=== PATIENT | female | born 1975 | race Caucasian/White ===

== ENCOUNTER 2020-04-01 14:32 | Emergency (ER) | payer BC, SELFPAY ==
[2020-04-01 14:39] VITALS: BP 166/105; PULSE 74; RESP 18; TEMP 36.6; O2SAT 100
[2020-04-01 15:09] LABS: Abs Immature Grans 0.07 10^3/uL (0.0-0.06); Absolute Basophil Count 0.05 10^3/uL (0.0-0.2); Absolute Eosinophil Count 0.23 10^3/uL (0.0-0.7); Absolute Lymphocyte Count 2.31 10^3/uL (1.2-3.4); Absolute Monocyte Count 0.57 10^3/uL (0.1-0.8); Absolute Neutrophil Count 6.18 10^3/uL (1.2-6.7); Basophils % 0.5; Eosinophils % 2.4; HCT 41.6 % (36.0-46.0); HGB 13.8 g/dL (11.2-15.7); Immature Grans % 0.7; Lymphocytes % 24.5; MCH 30.4 pg (27.0-33.0); MCHC 33.2 % (32.0-36.0); MCV 91.6 fL (80-95); MPV 9.3 fL (8.0-11.0); Monocytes % 6.1; Neutrophils % 65.8; Nucleated RBC 0 %; Platelet Count 454 10^3/uL (130-400); RBC 4.54 10^6/uL (3.93-5.22); RDW 12.9 % (11.7-14.6); RDW-SD 43.4 fL; WBC 9.41 10^3/uL (4.4-10.8)
[2020-04-01] MEDS: Normal Saline 1,000 ML 1000 ML IV (15:10)
[2020-04-01 15:29] LABS: Lipase 114 U/L (73-393)
[2020-04-01 15:35] LABS: ALT 59 U/L (14-59); AST 86 U/L (15-37); Albumin 4.3 g/dL (3.4-5.0); Alkaline Phosphatase 131 U/L (46-116); Anion Gap 8.8 mmol/L (3-11); BUN 14 mg/dL (7-18); Bilirubin, Total 0.4 mg/dL (0.2-1.0); CO2 28.2 mmol/L (21.0-32.0); CREATININE 0.86 mg/dL (0.55-1.02); Calcium 9.7 mg/dL (8.5-10.1); Chloride 100 mmol/L (98-107); Glucose 96 mg/dL (74-106); Potassium 3.5 mmol/L (3.5-5.1); Sodium 137 mmol/L (136-145)
--- NOTE | 2020-04-01 15:58 | ED.GENADUL_ITS ---
Discharge Plan Disposition Patient Disposition: HOME Condition: Stable Discharge Details Clinical Impression: Exacerbation of Crohn's disease Primary Care Provider: Marleni Gallagher ED Provider: Francois Fall Home Meds and New Rx's Prescriptions: Continued venlafaxine 75 MG capsule,extended release 24hr 75 mg PO DAILY Qty: 90 RF: 3 venlafaxine [Effexor XR] 150 MG capsule,extended release 24hr 150 mg PO DAILY Qty: 90 RF: 3 dicyclomine 20 MG tablet 20 mg PO QID PRN PRN (Reason: pain and spasm) Qty: 20 RF: 0 valacyclovir 1 gram tablet 1 mg PO DAILY RF: 0 Discharge Instructions Instructions: Crohn Disease (ED) Additional Instructions: Work-up in the ER has been unremarkable for obvious emergent process. You responded nicely to the single dose of medication and are now pain-free. Please watch for new or worsening symptoms and return to the ER for any concerns. I recommend that you take your current medications as directed. Please contact your primary care provider later today or tomorrow for prompt outpatient reevaluation. If you begin to experience more frequent flareups, I would recommend a GI consultation as well. Discharge Data Discharge Date/Time-TO BE ENTERED AT DEPARTURE: 04/01/20 16:35 Medical Decision Making 44-year-old female with history of Crohn's disease reports a Crohn's flareup that began yesterday and not controlled with her typical dicyclomine. Patient appears well and nontoxic but does appear slightly uncomfortable. Abdomen is soft, diffusely tender without guarding, rebound or rigidity. She is afebrile. She denies fever, nausea, vomiting, dysuria, hematuria, diarrhea or constipation. Patient reports this feels very similar to her previous Crohn's flareups. Discussed treatment options, she does not believe that she is ever been on steroids for a Crohn's flareup and typically pain medication does help greatly. At this time we will give 2 mg IV morphine, 1 L IV fluid, and a GI cocktail. Will obtain routine laboratory values and reassess. Laboratory values reveal white blood cell count of 9.41 hemoglobin 13.8 hematocrit 41.6 platelet count 454. Electrolytes are unremarkable. Creatinine is 0.86 with a GFR greater than 60. Urinalysis trace ketones but no signs of infection. Upon reevaluation patient reports that her pain has resolved completely. We discussed her work-up here in the ER. Patient has no additional questions or concerns and feels as though discharge is appropriate. Now that her pain is under control she hopes that her dicyclomine will be enough to control her pain moving forward. She plans to contact her primary care provider for outpatient follow-up and discuss potential endoscopy, G eye consultation, colonoscopy, etc. Upon discharge patient appears well, nontoxic and in no acute distress. She is asymptomatic after being medicated here in the ER. Medical Records Medical records reviewed: Yes I reviewed the patient's medical records. Lab Data Lab results reviewed: Yes I reviewed the patient's lab results. Lab results narrative: Laboratory Tests Range/Units 04/01/20 04/01/20 04/01/20 14:45 14:45 14:45 WBC (4.4-10.8) 10^3/uL 9.41 RBC (3.93-5.22) 10^6/uL 4.54 Hgb (11.2-15.7) g/dL 13.8 Hct (36.0-46.0) % 41.6 MCV (80-95) fL 91.6 MCH (27.0-33.0) pg 30.4 MCHC (32.0-36.0) % 33.2 RDW (11.7-14.6) % 12.9 Plt Count (130-400) 10^3/uL 454 H MPV (8.0-11.0) fL 9.3 Immature Gran % 0.7 Neutrophils % 65.8 Lymphocytes % 24.5 Monocytes % 6.1 Eosinophils % 2.4 Basophils % 0.5 Nucleated RBC % % 0 Absolute Neutrophils (1.2-6.7) 10^3/uL 6.18 Absolute Lymphocytes (1.2-3.4) 10^3/uL 2.31 Absolute Monocytes (0.1-0.8) 10^3/uL 0.57 Absolute Eosinophils (0.0-0.7) 10^3/uL 0.23 Absolute Basophils (0.0-0.2) 10^3/uL 0.05 Sodium (136-145) mmol/L 137 Potassium (3.5-5.1) mmol/L 3.5 Chloride (98-107) mmol/L 100 Carbon Dioxide (21.0-32.0) mmol/L 28.2 Anion Gap (3-11) mmol/L 8.8 BUN (7-18) mg/dL 14 Creatinine (0.55-1.02) mg/dL 0.86 Estimated GFR/1.73 m2 (mL/min/1.73m2) >= 60.00 Glucose (74-106) mg/dL 96 Calcium (8.5-10.1) mg/dL 9.7 Total Bilirubin (0.2-1.0) mg/dL 0.4 AST (15-37) U/L 86 H ALT (14-59) U/L 59 Alkaline Phosphatase (46-116) U/L 131 H Total Protein (6.4-8.2) g/dL 8.0 Albumin (3.4-5.0) g/dL 4.3 Lipase (73-393) U/L 114 Urine Color (Yellow) Urine Clarity (Clear) Urine pH (5-8) Ur Specific [place] (1.005-1.025) Urine Protein (Negative) mg/dL Urine Ketones (Negative) mg/dL Urine Blood (Negative) Urine Nitrite (Negative) Urine Bilirubin (Negative) Urine Urobilinogen (Up TO 0.2) EU/dL Ur Leukocyte Esterase (Negative) Urine Glucose (Negative) mg/dL Range/Units 04/01/20 15:30 WBC (4.4-10.8) 10^3/uL RBC (3.93-5.22) 10^6/uL Hgb (11.2-15.7) g/dL Hct (36.0-46.0) % MCV (80-95) fL MCH (27.0-33.0) pg MCHC (32.0-36.0) % RDW (11.7-14.6) % Plt Count (130-400) 10^3/uL MPV (8.0-11.0) fL Immature Gran % Neutrophils % Lymphocytes % Monocytes % Eosinophils % Basophils % Nucleated RBC % % Absolute Neutrophils (1.2-6.7) 10^3/uL Absolute Lymphocytes (1.2-3.4) 10^3/uL Absolute Monocytes (0.1-0.8) 10^3/uL Absolute Eosinophils (0.0-0.7) 10^3/uL Absolute Basophils (0.0-0.2) 10^3/uL Sodium (136-145) mmol/L Potassium (3.5-5.1) mmol/L Chloride (98-107) mmol/L Carbon Dioxide (21.0-32.0) mmol/L Anion Gap (3-11) mmol/L BUN (7-18) mg/dL Creatinine (0.55-1.02) mg/dL Estimated GFR/1.73 m2 (mL/min/1.73m2) Glucose (74-106) mg/dL Calcium (8.5-10.1) mg/dL Total Bilirubin (0.2-1.0) mg/dL AST (15-37) U/L ALT (14-59) U/L Alkaline Phosphatase (46-116) U/L Total Protein (6.4-8.2) g/dL Albumin (3.4-5.0) g/dL Lipase (73-393) U/L Urine Color (Yellow) Yellow Urine Clarity (Clear) Clear Urine pH (5-8) 6.0 Ur Specific [place] (1.005-1.025) 1.020 Urine Protein (Negative) mg/dL Negative Urine Ketones (Negative) mg/dL Trace H Urine Blood (Negative) Negative Urine Nitrite (Negative) Negative Urine Bilirubin (Negative) Negative Urine Urobilinogen (Up TO 0.2) EU/dL 0.2 Ur Leukocyte Esterase (Negative) Negative Urine Glucose (Negative) mg/dL Negative HPI General Mode of arrival: ambulatory . Date/Time Provider Initiated Documentation: 04/01/20 14:45 . Limitations to Documentation: no limitations . Information obtained by: patient . HPI Narrative: This is a 44-year-old female with history of Crohn's disease, depression, presenting to the ER reporting 24- 48 hours of Crohn's exacerbation. She states that she used to have far more frequent exacerbations and then was placed on dicyclomine. After initiating this therapy her flareups have been less severe and frequent. She reports diffuse abdominal pain, worsening upper half of her abdomen, moderate-severe, crampy in nature. She denies any nausea, vomiting, fever, recent travel, bad food exposure, sick contact, black tarry stools, bright red blood in her stools, dysuria or hematuria. She states that her Crohn's typically waxes and wanes between diarrhea and constipation, currently she would describe her stools as loose but not true diarrhea. She tells me she has not had a colonoscopy or endoscopy in several years. Related Data Home Medications Medication Instructions Recorded Confirmed venlafaxine 75 mg PO DAILY #90 tab-cap 03/20/15 04/01/20 venlafaxine [Effexor XR] 150 mg PO DAILY #90 tab-cap 03/20/15 04/01/20 dicyclomine 20 mg PO QID PRN PRN #20 tab 05/09/17 04/01/20 valacyclovir 1 mg PO DAILY 04/01/20 04/01/20 Previous Rx's Medication Instructions Recorded dicyclomine 20 mg PO QID PRN PRN #20 tab 05/09/17 Allergies Allergy/AdvReac Type Severity Reaction Status Date / Time hydromorphone AdvReac Severe SEVERE Unverified 04/01/20 14:43 HEADACHE cocoa butter AdvReac irritation/ Unverified 04/01/20 14:43 [From Preparation H] itching/bur netta. glycerin [From Preparation H] AdvReac irritation/ Unverified 04/01/20 14:43 itching/bur netta. mineral oil AdvReac irritation/ Unverified 04/01/20 14:43 [From Preparation H] itching/bur netta. petrolatum,white AdvReac irritation/ Unverified 04/01/20 14:43 [From Preparation H] itching/bur netta. phenylephrine HCl AdvReac irritation/ Unverified 04/01/20 14:43 [From Preparation H] itching/bur netta. shark liver oil AdvReac irritation/ Unverified 04/01/20 14:43 [From Preparation H] itching/bur netta. General Stated Complaint: Abd Prob TEO: 3 Review of Systems Constitutional Constitutional: Denies fatigue, Denies fever(s), Denies headache(s) and Denies weakness ENT Ears, Nose, Mouth, and Throat: Denies headache(s) and Denies neck pain Cardiovascular Cardiovascular: Denies chest pain and Denies dyspnea Respiratory Respiratory: Denies cough and Denies dyspnea Gastrointestinal Gastrointestinal: Reports abdominal pain, Denies melena, Denies hematochezia, Denies constipation, Reports cramping, Denies diarrhea, Denies nausea and Denies vomiting Genitourinary Genitourinary: Denies dysuria Musculoskeletal Musculoskeletal: Denies neck pain, Denies numbness and Denies tingling Integumentary/Breasts Skin/Breast: Denies rash Neurologic Neurologic: Denies headache(s), Denies numbness, Denies tingling and Denies weakness Endocrine Endocrine: Denies fatigue [facility] Medical History Crohn disease Depressive disorder Hidradenitis Non-toxic uninodular goiter FINA (obstructive sleep apnea) Primary narcolepsy with cataplexy Surgical History Colonoscopy - MAC 01/2010 Hysterectomy, Laproscopic 05/2011 Ligation of fallopian tube Family History Mother Personal history of malignant neoplasm LUNG; 2007 Hyperlipidemia Father Diabetes Essential hypertension Hyperlipidemia Brother Essential hypertension Grandfather Essential hypertension Heart disease Hyperlipidemia Grandfather Personal history of malignant neoplasm ? Grandmother No problems noted. Grandmother Diabetes Stroke Asthma Maternal Uncle Personal history of malignant neoplasm PROSTATE Maternal Aunt Personal history of malignant neoplasm LUNG Social History Smoking/Tobacco Use Status: Never Alcohol Intake: current Alcohol Intake frequency: 0-2 drinks per day Alcohol type: wine Drug use: Occasionally Substance use type: marijuana Do you feel safe at home: Yes Do you feel safe in your relationship?: Yes Exam Const General: cooperative, healthy appearing, comfortable and no acute distress Orientation: alert, awake and oriented x3 HENMT Head: normal to inspection, normocephalic and atraumatic Face and sinus: normal facial exam Mouth: moist mucous membranes Eyes Conjunctivae: conjunctivae normal Sclera: sclerae normal Neck Neck: normal visual inspection, trachea midline and supple Resp Effort & Inspection: normal respiratory effort and able to speak in complete sentences Auscultation: clear to auscultation bilaterally Cardio Rate: regular rate Rhythm: regular rhythm GI Inspection: normal to inspection Palpation: soft, not firm, no guarding, not rigid and tender (Diffuse, worse in the upper quadrants) with no rebound tenderness Auscultation: normal bowel sounds Back/Spine/Pelvis Back: No back tenderness Skin General skin exam: no rashes or lesions noted Neuro General: patient alert, patient awake, moves all extremities and no focal motor deficits Sensory Exam: no sensory deficits noted Extrem General: normal to inspection and full ROM Psych Appearance: grossly normal Mental Status: mental status grossly normal Course Vital Signs Vital signs: Vital Signs Temperature 36.6 C 04/01/20 14:39 Pulse 74 04/01/20 14:39 Respiratory Rate 18 04/01/20 14:39 Blood Pressure 166/105 H 04/01/20 14:39 Pulse Oximetry 100 04/01/20 14:39 Temperature 36.6 C 04/01/20 14:39 Temperature Source Temporal Artery Scan 04/01/20 14:39 Pulse 74 04/01/20 14:39 Respiratory Rate 18 04/01/20 14:39 Respiratory Effort Non-Labored 04/01/20 15:05 Blood Pressure 166/105 H 04/01/20 14:39 Blood Pressure Position Sitting 04/01/20 14:39 Pulse Oximetry 100 04/01/20 14:39 Oxygen Delivery Method Room Air 04/01/20 14:39 Oxygen Flow Rate 0 04/01/20 14:39 Pain Level 6 04/01/20 15:36 Lab/Test Results Lab/Test Results: Laboratory Tests Range/Units 04/01/20 04/01/20 04/01/20 14:45 14:45 14:45 WBC (4.4-10.8) 10^3/uL 9.41 RBC (3.93-5.22) 10^6/uL 4.54 Hgb (11.2-15.7) g/dL 13.8 Hct (36.0-46.0) % 41.6 MCV (80-95) fL 91.6 MCH (27.0-33.0) pg 30.4 MCHC (32.0-36.0) % 33.2 RDW (11.7-14.6) % 12.9 Plt Count (130-400) 10^3/uL 454 H MPV (8.0-11.0) fL 9.3 Immature Gran % 0.7 Neutrophils % 65.8 Lymphocytes % 24.5 Monocytes % 6.1 Eosinophils % 2.4 Basophils % 0.5 Nucleated RBC % % 0 Absolute Neutrophils (1.2-6.7) 10^3/uL 6.18 Absolute Lymphocytes (1.2-3.4) 10^3/uL 2.31 Absolute Monocytes (0.1-0.8) 10^3/uL 0.57 Absolute Eosinophils (0.0-0.7) 10^3/uL 0.23 Absolute Basophils (0.0-0.2) 10^3/uL 0.05 Sodium (136-145) mmol/L 137 Potassium (3.5-5.1) mmol/L 3.5 Chloride (98-107) mmol/L 100 Carbon Dioxide (21.0-32.0) mmol/L 28.2 Anion Gap (3-11) mmol/L 8.8 BUN (7-18) mg/dL 14 Creatinine (0.55-1.02) mg/dL 0.86 Estimated GFR/1.73 m2 (mL/min/1.73m2) >= 60.00 Glucose (74-106) mg/dL 96 Calcium (8.5-10.1) mg/dL 9.7 Total Bilirubin (0.2-1.0) mg/dL 0.4 AST (15-37) U/L 86 H ALT (14-59) U/L 59 Alkaline Phosphatase (46-116) U/L 131 H Total Protein (6.4-8.2) g/dL 8.0 Albumin (3.4-5.0) g/dL 4.3 Lipase (73-393) U/L 114
[2020-04-01 16:09] LABS: Bilirubin Negative (Negative); Blood Negative (Negative); Clarity Clear (Clear); Glucose Negative (Negative); Ketones Trace mg/dL (Negative); Leukocyte Esterase Negative (Negative); Nitrite Negative (Negative); Urobilinogen 0.2 EU/dL (Up TO 0.2)
== END 2020-04-01 16:35 | disposition home or self-care (01) ==
PROVIDERS: Emergency Provider Physician Assistant; PCP Nurse Practitioner Family
DX: K50.90 Crohn's disease, unspecified, without complications (principal)
CPT/HCPCS: 36415; 80053; 83690; 96361; 96374; 99284; 81003; 85025

== ENCOUNTER 2020-08-29 20:44 | Emergency (ER) | payer SELFPAY ==
[2020-08-29] VITALS (10 sets, daily range): BP systolic 120–150; BP diastolic 67–97; PULSE 75–92; RESP 15–24; TEMP 36.6; O2SAT 94–100
[2020-08-29 21:11] LABS: Abs Immature Grans 0.04 10^3/uL (0.0-0.06); Absolute Basophil Count 0.05 10^3/uL (0.0-0.2); Absolute Eosinophil Count 0.12 10^3/uL (0.0-0.7); Absolute Lymphocyte Count 2.15 10^3/uL (1.2-3.4); Absolute Neutrophil Count 6.14 10^3/uL (1.2-6.7); Basophils % 0.5; Eosinophils % 1.3; HCT 39.7 % (36.0-46.0); HGB 13.3 g/dL (11.2-15.7); Immature Grans % 0.4; Lymphocytes % 23.6; MCH 30.2 pg (27.0-33.0); MCHC 33.5 % (32.0-36.0); Monocytes % 6.6; Neutrophils % 67.6; Nucleated RBC 0 %; Platelet Count 454 10^3/uL (130-400); RBC 4.41 10^6/uL (3.93-5.22); RDW 12.1 % (11.7-14.6)
[2020-08-29] MEDS: Normal Saline 1,000 ML 1000 ML IV (21:19)
[2020-08-29 21:24] LABS: ALT 79 U/L (14-59); AST 36 U/L (15-37); Albumin 3.9 g/dL (3.4-5.0); Alkaline Phosphatase 86 U/L (46-116); Anion Gap 14.5 mmol/L (3-11); BUN 16 mg/dL (7-18); Bilirubin, Total 0.4 mg/dL (0.2-1.0); CO2 21.5 mmol/L (21.0-32.0); CREATININE 0.8 mg/dL (0.55-1.02); Chloride 102 mmol/L (98-107); Glucose 98 mg/dL (74-106); Lipase 292 U/L (73-393); Potassium 3.9 mmol/L (3.5-5.1); Sodium 138 mmol/L (136-145); Total Protein 7.9 g/dL (6.4-8.2)
--- NOTE | 2020-08-29 21:48 | ED.GENADUL_ITS ---
Discharge Plan Disposition Patient Disposition: HOME Condition: Stable Discharge Details Clinical Impression: Abdominal pain Primary Care Provider: Marleni Gallagher ED Provider: Francois Fall Home Meds and New Rx's Prescriptions: Continued dicyclomine 20 MG tablet 20 mg PO QID PRN PRN (Reason: pain and spasm) Qty: 20 RF: 0 valacyclovir 1 gram tablet 1,000 mg PO DAILY RF: 0 5-hydroxytryptophan (5-HTP) [5-HTP] 100 mg Capsule 500 mg PO DAILY RF: 0 Discharge Instructions Instructions: Abdominal Pain (ED) Additional Instructions: It would appear as though the dicyclomine that he took prior to arrival has helped your symptoms greatly. Laboratory values are unremarkable. Please watch for new or worsening symptoms and return to the ER for any concerns. Otherwise contact your primary care provider tomorrow to discuss outpatient reevaluation. Medical Decision Making This is a 44-year-old female who reports she is having a Crohn's flareup that began around 5:00, she took her regular medications for her flareup, and now has no pain whatsoever. She states that she is concerned it may return so she would like to have some laboratory values obtained now, she is concerned about anemia. She appears well, nontoxic, abdominal examination is unremarkable. She is afebrile. Pulse in the 80s. Platelet count 454, anion gap 14.5, ALT 79, laboratory values otherwise unremarkable. Patient has remained asymptomatic under my care she is now requesting discharge. She is pain-free. She has no additional questions or concerns and her plan is to contact her primary care provider tomorrow to discuss outpatient follow-up. She was encouraged to return to the ER for new or worsening symptoms. Medical Records Medical records reviewed: Yes I reviewed the patient's medical records. Lab Data Lab results reviewed: Yes I reviewed the patient's lab results. Lab results narrative: Laboratory Tests Range/Units 08/29/20 08/29/20 08/29/20 21:05 21:05 21:42 WBC (4.4-10.8) 10^3/uL 9.10 RBC (3.93-5.22) 10^6/uL 4.41 Hgb (11.2-15.7) g/dL 13.3 Hct (36.0-46.0) % 39.7 MCV (80-95) fL 90.0 MCH (27.0-33.0) pg 30.2 MCHC (32.0-36.0) % 33.5 RDW (11.7-14.6) % 12.1 Plt Count (130-400) 10^3/uL 454 H MPV (8.0-11.0) fL 9.0 Immature Gran % 0.4 Neutrophils % 67.6 Lymphocytes % 23.6 Monocytes % 6.6 Eosinophils % 1.3 Basophils % 0.5 Nucleated RBC % % 0 Absolute Neutrophils (1.2-6.7) 10^3/uL 6.14 Absolute Lymphocytes (1.2-3.4) 10^3/uL 2.15 Absolute Monocytes (0.1-0.8) 10^3/uL 0.60 Absolute Eosinophils (0.0-0.7) 10^3/uL 0.12 Absolute Basophils (0.0-0.2) 10^3/uL 0.05 Sodium (136-145) mmol/L 138 Potassium (3.5-5.1) mmol/L 3.9 Chloride (98-107) mmol/L 102 Carbon Dioxide (21.0-32.0) mmol/L 21.5 Anion Gap (3-11) mmol/L 14.5 H BUN (7-18) mg/dL 16 Creatinine (0.55-1.02) mg/dL 0.8 Estimated GFR/1.73 m2 (mL/min/1.73m2) >= 60.00 Glucose (74-106) mg/dL 98 Calcium (8.5-10.1) mg/dL 9.0 Total Bilirubin (0.2-1.0) mg/dL 0.4 AST (15-37) U/L 36 ALT (14-59) U/L 79 H Alkaline Phosphatase (46-116) U/L 86 Total Protein (6.4-8.2) g/dL 7.9 Albumin (3.4-5.0) g/dL 3.9 Lipase (73-393) U/L 292 Urine Color (Yellow) Yellow Urine Clarity (Clear) Clear Urine pH (5-8) 5.5 Ur Specific [place] (1.005-1.025) 1.020 Urine Protein (Negative) mg/dL Negative Urine Ketones (Negative) mg/dL Negative Urine Blood (Negative) Negative Urine Nitrite (Negative) Negative Urine Bilirubin (Negative) Negative Urine Urobilinogen (Up TO 0.2) EU/dL 0.2 Ur Leukocyte Esterase (Negative) Negative Urine Glucose (Negative) mg/dL Negative HPI General Mode of arrival: ambulatory . Date/Time Provider Initiated Documentation: 08/29/20 20:55 . Limitations to Documentation: no limitations . Information obtained by: patient . HPI Narrative: This is a 44-year-old female with a past with history of Crohn's disease, depression, presenting to the ER for what she describes as a Crohn's disease flareup that began today around 5 PM. She reports diffuse but primarily upper abdominal pain. She originally took 2 dicyclomine and then took a third grade before arrival. She denies bad food exposure, sick contacts, recent travel. Denies headache, fever, chest pain, back pain, shortness of breath, cough, nausea, vomiting, constipation, dysuria. Reports chronic diarrhea which is unchanged. Patient reports that her pain at the worst earlier today was a 10 out of 10 however when she was waiting in the waiting room she felt as though her medication kicked in her pain is now a 0 out of 10. Related Data Home Medications Medication Instructions Recorded Confirmed dicyclomine 20 mg PO QID PRN PRN #20 tab 05/09/17 08/29/20 valacyclovir 1,000 mg PO DAILY 04/01/20 08/29/20 5-hydroxytryptophan (5-HTP) [5-HTP] 500 mg PO DAILY 08/29/20 08/29/20 Previous Rx's Medication Instructions Recorded dicyclomine 20 mg PO QID PRN PRN #20 tab 05/09/17 Allergies Allergy/AdvReac Type Severity Reaction Status Date / Time hydromorphone AdvReac Severe SEVERE Unverified 08/29/20 21:10 HEADACHE cocoa butter AdvReac irritation/ Unverified 08/29/20 21:10 [From Preparation H] itching/bur netta. glycerin [From Preparation H] AdvReac irritation/ Unverified 08/29/20 21:10 itching/bur netta. mineral oil AdvReac irritation/ Unverified 08/29/20 21:10 [From Preparation H] itching/bur netta. petrolatum,white AdvReac irritation/ Unverified 08/29/20 21:10 [From Preparation H] itching/bur netta. phenylephrine HCl AdvReac irritation/ Unverified 08/29/20 21:10 [From Preparation H] itching/bur netta. shark liver oil AdvReac irritation/ Unverified 08/29/20 21:10 [From Preparation H] itching/bur netta. General Stated Complaint: Abd Prob TEO: 3 Review of Systems Constitutional Constitutional: Denies fatigue, Denies fever(s) and Denies headache(s) ENT Ears, Nose, Mouth, and Throat: Denies headache(s) and Denies neck pain Cardiovascular Cardiovascular: Denies chest pain and Denies dyspnea Respiratory Respiratory: Denies dyspnea Gastrointestinal Gastrointestinal: Reports abdominal pain, Denies melena, Denies hematochezia, Denies constipation, Reports diarrhea, Denies nausea and Denies vomiting Genitourinary Genitourinary: Denies dysuria Musculoskeletal Musculoskeletal: Denies back pain and Denies neck pain Integumentary/Breasts Skin/Breast: Denies rash Neurologic Neurologic: Denies headache(s) Endocrine Endocrine: Denies fatigue [facility] Medical History Crohn disease Depressive disorder Hidradenitis Non-toxic uninodular goiter FINA (obstructive sleep apnea) Primary narcolepsy with cataplexy Surgical History Colonoscopy - MAC 01/2010 Hysterectomy, Laproscopic 05/2011 Ligation of fallopian tube Family History Mother Personal history of malignant neoplasm LUNG; 2007 Hyperlipidemia Father Diabetes Essential hypertension Hyperlipidemia Brother Essential hypertension Grandfather Essential hypertension Heart disease Hyperlipidemia Grandfather Personal history of malignant neoplasm ? Grandmother No problems noted. Grandmother Diabetes Stroke Asthma Maternal Uncle Personal history of malignant neoplasm PROSTATE Maternal Aunt Personal history of malignant neoplasm LUNG Social History Smoking/Tobacco Use Status: Never Smoking risk assessment performed?: Yes Alcohol Intake: current Alcohol Intake frequency: a few times a month Alcohol type: wine Drug use: Occasionally Substance use type: marijuana Details: once every couple weeks Current gender identity: female Do you feel safe at home: Yes Do you feel safe in your relationship?: Yes Exam Const General: cooperative, healthy appearing, comfortable and no acute distress Orientation: alert and awake [facility] Head: normal to inspection, normocephalic and atraumatic Mouth: moist mucous membranes Eyes General: appearance normal, both eyes and all related structures Conjunctivae: conjunctivae normal Sclera: sclerae normal Neck Neck: normal visual inspection, full ROM, trachea midline and supple Resp Effort & Inspection: normal respiratory effort and able to speak in complete sentences Auscultation: clear to auscultation bilaterally Cardio Rate: regular rate Rhythm: regular rhythm GI Palpation: soft, not firm, no guarding, no masses and nontender Auscultation: normal bowel sounds Back/Spine/Pelvis Back: No back tenderness Skin General skin exam: no rashes or lesions noted Neuro General: patient alert, patient awake, moves all extremities and no focal motor deficits Cognition: normal cognition Speech: speech normal Gait: normal gait Sensory Exam: no sensory deficits noted Psych Appearance: grossly normal Mental Status: mental status grossly normal Course Vital Signs Vital signs: Vital Signs Temperature 36.6 C 08/29/20 20:49 Pulse 85 08/29/20 20:49 Respiratory Rate 20 08/29/20 20:49 Blood Pressure 150/97 H 08/29/20 20:49 Pulse Oximetry 99 08/29/20 20:49 Temperature 36.6 C 08/29/20 20:49 Temperature Source Skin 08/29/20 20:49 Pulse 81 08/29/20 21:31 Pulse 77 08/29/20 21:31 Respiratory Rate 18 08/29/20 21:31 Respiratory Effort Non-Labored 08/29/20 21:10 Blood Pressure 120/80 08/29/20 21:31 Blood Pressure Mean 90 08/29/20 21:31 Blood Pressure Position Sitting 08/29/20 20:49 Pulse Oximetry 96 08/29/20 21:30 Oxygen Delivery Method Room Air 08/29/20 20:49 Oxygen Flow Rate 0 08/29/20 20:49 Pain Level 5 08/29/20 20:49 Lab/Test Results Lab/Test Results: Laboratory Tests Range/Units 08/29/20 08/29/20 21:05 21:05 WBC (4.4-10.8) 10^3/uL 9.10 RBC (3.93-5.22) 10^6/uL 4.41 Hgb (11.2-15.7) g/dL 13.3 Hct (36.0-46.0) % 39.7 MCV (80-95) fL 90.0 MCH (27.0-33.0) pg 30.2 MCHC (32.0-36.0) % 33.5 RDW (11.7-14.6) % 12.1 Plt Count (130-400) 10^3/uL 454 H MPV (8.0-11.0) fL 9.0 Immature Gran % 0.4 Neutrophils % 67.6 Lymphocytes % 23.6 Monocytes % 6.6 Eosinophils % 1.3 Basophils % 0.5 Nucleated RBC % % 0 Absolute Neutrophils (1.2-6.7) 10^3/uL 6.14 Absolute Lymphocytes (1.2-3.4) 10^3/uL 2.15 Absolute Monocytes (0.1-0.8) 10^3/uL 0.60 Absolute Eosinophils (0.0-0.7) 10^3/uL 0.12 Absolute Basophils (0.0-0.2) 10^3/uL 0.05 Sodium (136-145) mmol/L 138 Potassium (3.5-5.1) mmol/L 3.9 Chloride (98-107) mmol/L 102 Carbon Dioxide (21.0-32.0) mmol/L 21.5 Anion Gap (3-11) mmol/L 14.5 H BUN (7-18) mg/dL 16 Creatinine (0.55-1.02) mg/dL 0.8 Estimated GFR/1.73 m2 (mL/min/1.73m2) >= 60.00 Glucose (74-106) mg/dL 98 Calcium (8.5-10.1) mg/dL 9.0 Total Bilirubin (0.2-1.0) mg/dL 0.4 AST (15-37) U/L 36 ALT (14-59) U/L 79 H Alkaline Phosphatase (46-116) U/L 86 Total Protein (6.4-8.2) g/dL 7.9 Albumin (3.4-5.0) g/dL 3.9 Lipase (73-393) U/L 292
[2020-08-29 21:50] LABS: Bilirubin Negative (Negative); Blood Negative (Negative); Clarity Clear (Clear); Glucose Negative (Negative); Ketones Negative (Negative); Leukocyte Esterase Negative (Negative); Nitrite Negative (Negative); Urobilinogen 0.2 EU/dL (Up TO 0.2); pH 5.5 (5-8)
== END 2020-08-29 22:10 | disposition home or self-care (01) ==
PROVIDERS: Emergency Provider Physician Assistant; PCP Nurse Practitioner Family
DX: R10.10 Upper abdominal pain, unspecified (principal); Z87.19 Personal history of other diseases of the digestive system
CPT/HCPCS: 80053; 83690; 96360; 99284; 81003; 85025; 99283

== ENCOUNTER 2020-09-27 18:22 | Outpatient (REF) | payer SELFPAY ==
[2020-09-27 20:33] LABS: TSH (W/Ref FT4) 1.59 uIU/mL (0.36-3.74)
== END 2020-09-27 18:23 | disposition home or self-care (01) ==
LOC: NCHCN 18:22
PROVIDERS: PCP Nurse Practitioner Family; Visit Provider Nurse Practitioner Family
DX: F32.9 Major depressive disorder, single episode, unspecified (principal); G47.30 Sleep apnea, unspecified; K50.90 Crohn's disease, unspecified, without complications
CPT/HCPCS: 84443

== ENCOUNTER 2020-12-18 02:23 | Outpatient (CLI) | payer BC, SELFPAY ==
[2020-12-18 12:13] LABS: Source Nasal/Nares
[2020-12-18 19:51] LABS: COVID-19 PCR Negative (Negative)
== END 2020-12-18 02:24 | disposition home or self-care (01) ==
LOC: LBO 02:24
PROVIDERS: PCP Nurse Practitioner Family; Visit Provider Nurse Practitioner
DX: Z20.822 Contact with and (suspected) exposure to COVID-19 (principal); Z01.818 Encounter for other preprocedural examination
CPT/HCPCS: 87635

== ENCOUNTER 2021-10-24 09:45 | Outpatient (REF) | payer BC, SELFPAY ==
[2021-10-24 20:43] LABS: HCT 38.3 % (36.0-46.0); HGB 12.6 g/dL (11.2-15.7); MCH 28.6 pg (27.0-33.0); MCHC 32.9 % (32.0-36.0); MCV 86.8 fL (80-95); MPV 9.7 fL (8.0-11.0); Platelet Count 426 10^3/uL (130-400); RBC 4.41 10^6/uL (3.93-5.22); RDW 12.4 % (11.7-14.6); RDW-SD 39.7 fL; WBC 6.33 10^3/uL (4.4-10.8)
[2021-10-24 21:27] LABS: ALT 29 U/L (14-59); AST 13 U/L (15-37); Albumin 3.9 g/dL (3.4-5.0); Alkaline Phosphatase 98 U/L (46-116); Anion Gap 12.7 mmol/L (3-11); BUN 14 mg/dL (7-18); Bilirubin, Total 0.3 mg/dL (0.2-1.0); CO2 22.3 mmol/L (21.0-32.0); CREATININE 0.8 mg/dL (0.55-1.02); Calcium 8.7 mg/dL (8.5-10.1); Chloride 105 mmol/L (98-107); Glucose 159 mg/dL (74-106); Potassium 4.1 mmol/L (3.5-5.1); Sodium 140 mmol/L (136-145); TSH (W/Ref FT4) 1.06 uIU/mL (0.36-3.74); Total Protein 7.2 g/dL (6.4-8.2); Vitamin B12 1839 pg/mL (193-986)
[2021-10-27 06:25] LABS: Vitamin D 25 Total 15.8 ng/mL (30-100)
== END 2021-10-24 09:46 | disposition home or self-care (01) ==
LOC: NCHCN 09:45
PROVIDERS: PCP Nurse Practitioner Family; Visit Provider Nurse Practitioner Family
DX: R53.83 Other fatigue (principal); F32.9 Major depressive disorder, single episode, unspecified; Z86.2 Personal history of diseases of the blood and blood-forming organs and certain disorders involving the immune mechanism; G47.30 Sleep apnea, unspecified; K50.90 Crohn's disease, unspecified, without complications
CPT/HCPCS: 80053; 82306; 85027; 82607; 84443

== ENCOUNTER 2022-11-11 15:31 | Outpatient (REF) | payer SELFPAY ==
[2022-11-11 16:39] LABS: ALT 27 U/L (14-59); AST 17 U/L (15-37); Albumin 3.9 g/dL (3.4-5.0); Alkaline Phosphatase 77 U/L (46-116); Anion Gap 5.6 mmol/L (3-11); BUN 15 mg/dL (7-18); Bilirubin, Total 0.3 mg/dL (0.2-1.0); CO2 29.4 mmol/L (21.0-32.0); CREATININE 0.8 mg/dL (0.55-1.02); Calculated LDL 143 mg/dL (<100); Chloride 105 mmol/L (98-107); Cholesterol 234 mg/dL (<200); Estimated GFR 91.97 (mL/min/1.73m2); Glucose 90 mg/dL (74-106); HDL Cholesterol 78 mg/dL (40-60); Hemoglobin A1C 5.5 % (<5.7); Potassium 4.5 mmol/L (3.5-5.1); Sodium 140 mmol/L (136-145); Total Protein 7.4 g/dL (6.4-8.2); Triglyceride 66 mg/dL (<150)
== END 2022-11-11 15:32 | disposition home or self-care (01) ==
LOC: NCHCN 15:31
PROVIDERS: PCP Nurse Practitioner Family; Visit Provider Nurse Practitioner Family
DX: Z68.33 Body mass index [BMI] 33.0-33.9, adult (principal); E66.8 Other obesity; Z13.1 Encounter for screening for diabetes mellitus
CPT/HCPCS: 80053; 80061; 83036

== ENCOUNTER → 2023-02-16 02:07 | Outpatient (CLI) | payer SELFPAY ==
--- NOTE | 2023-02-16 | DI.US_ITS ---
APPROVED REPORT EXAM: Stress Echocardiogram Stress Nurse: Leonila Thacker RN Ordering Provider: LETY PRIEST, Contact Number: HR: 63 bpm BP: 108/58 mmHg Rhythm: NSR Indications: GENAO, Chest tightness, +fatigue Medical History Medical History: crohns, anemia, cholelithiasis, depression, FINA, narcolepsy, hidradenitis Medications: No cardiac medications Cardiac Risk Factors: +family history, vape smoking Previous Cardiac Procedures: None Pretest Chest Pain Characteristics: None Exercise History: Indeterminate Physical Disabilities: None Stress Test Details Test: Exercise stress testing was performed using a Dilan protocol. Rest Stress HR Resting HR Supine: 63 bpm Max Heart Rate (APMHR): 174 bpm Resting HR Standin bpm Target HR (85% APMHR): 148 bpm Max HR Achieved: 154 bpm % of APMHR: 89 Recovery HR: 83 bpm HR response to stress: Normal HR response to stress BP Resting BP Supine: 108/58 mmHg Resting BP Standin/66 mmHg Max BP: 148/64 mmHg Recovery BP: 118/62 mmHg BP response to stress: Normal blood pressure response to stress. ECG Resting ECG: Sinus Rhythm Ectopy: None Stress ECG: Sinus Tachycardia ST Change: No significant ST segment changes noted Arrhythmia: None Recovery ECG: Sinus Rhythm Recovery ST Change: No significant ST segment changes noted Recovery Arrhythmia: None Clinical Reason for Termination: Fatigue Stress Symptoms: Leg Fatigue, General Fatigue Exercise duration: 7 min16 sec Highest Stage Reached: Stage 3: 3.4 mph at 14% grade. Exercise capacity: 9 METs Angina Score: None Ray Treadmill Score: 6.5 Rate Pressure Product: [id number] Stress ECG Conclusion 1. The resting electrocardiogram was within normal limits 2. Patient exercised on the Dilan protocol and completed a workload of 9 METS, limited by fatigue 3. Normal heart rate and blood pressure response to exercise. The patient achieved 89% of predicted heart rate for age 4. There was no electrocardiographic evidence of myocardial ischemia 5. There were no significant dysrhythmias 6. There was no echocardiographic evidence of myocardial ischemia. Ejection fraction tarun from 60% t o greater than 75% with augmented contractility of all segments Ray Treadmill Score is 6.5 which is Low risk. Stress Test Summary STAGE Time (mins) Speed (mph) Grade (%) HR BP SYMPTOMS METS Supine 63 108/58 Standing 84 92/66 1 3 1.7 10 120 100/68 4.6 2 6 2.5 12 138 120/72 7 3 9 3.4 14 154 10.2 1 min recovery 128 148/64 3 min recovery 94 118/62 6 min recovery 83 110/72 Echo Findings The Pre-Stress Echocardiogram showed normal left ventricular contractility with an estimated Ejection Fraction of about 60%. No wall motion abnormalities The Peak-Stress Echocardiogram showed normal left ventricular contractility with an estimated Ejectio n Fraction of about 75%. No exercise induced wall motion abnormalities Conclusion The resting electrocardiogram was within normal limits Patient exercised on the Dilan protocol and completed a workload of 9 METS, limited by fatigue Normal heart rate and blood pressure response to exercise. The patient achieved 89% of predicted hea rt rate for age There was no electrocardiographic evidence of myocardial ischemia There were no significant dysrhythmias There was no echocardiographic evidence of myocardial ischemia. Ejection fraction tarun from 60% to g reater than 75% with augmented contractility of all segments Plain Ray Treadmill Score is 6.5 which is Low risk.
== END ==
PROVIDERS: PCP Nurse Practitioner Family; Visit Provider Nurse Practitioner Family
DX: R06.09 Other forms of dyspnea (principal); R07.9 Chest pain, unspecified; R53.82 Chronic fatigue, unspecified
CPT/HCPCS: 93350; 93017

== ENCOUNTER 2023-03-19 02:31 | Outpatient (CLI) | payer SELFPAY ==
[2023-03-19] MEDS: Albuterol HFA 18 GM 200 PUFF INH IH (14:19)
[2023-03-19] MEDS: Inhaler, Assist Device 1 EACH MC (14:20)
--- NOTE | 2023-03-23 07:33 | W.PFT ---
Date of service: 03/19/23 Time of Service: 13:01 Pulmonary Function Test Result Indications: Dyspnea on exertion Interpretation Spirometry: There is no airflow limitation. No bronchodilator response. Lung Volumes: Normal lung volumes Diffusion Capacity: Normal diffusion Airway Pressure: Normal airways resistance. Impression Normal pulmonary function testing. Clinical Correlation therefore is recommended.
== END 2023-03-19 02:32 | disposition home or self-care (01) ==
LOC: RT 02:31
PROVIDERS: PCP Nurse Practitioner Family; Visit Provider Nurse Practitioner Family
DX: R06.09 Other forms of dyspnea (principal)
CPT/HCPCS: 94060; 94726; 94729

== ENCOUNTER → 2023-05-10 01:53 | Outpatient (CLI) | payer SELFPAY ==
--- NOTE | 2023-05-10 | DI.MAMMO_ITS ---
Exam(s) MAMMO SCREENING EXAM: MAMMO SCREENING CLINICAL HISTORY: SCREENING FOR BREAST CANCER Z12.39 TECHNIQUE: Mammograms were interpreted according to the usual protocol including computer analysis w [employer] CAD system, tomosynthesis and C-view imaging. COMPARISON: No exams were available for comparison. Baseline examination. FINDINGS: The breasts are composed of scattered fibroglandular densities, Breast Density category B. No suspicious masses or suspicious microcalcifications are seen. No skin thickening or abnormal axillary lymph nodes are seen. There has been no significant change from prior exams. IMPRESSION: BI-RADS Category 1, Negative mammogram Yearly screening mammography is recommended. Breast Density - Category B, scattered fibroglandular densities. A negative radiographic report should not delay biopsy if a dominant or clinically suspicious mass is present. Up to ten percent of cancers are not identified on mammography. A negative report may reinforce clinical impression. Adenosis and dense breasts may obscure an underlying neoplasm. False positive reports average 6 to 10%. Patient will receive a letter notifying them of these results.
== END ==
PROVIDERS: PCP Nurse Practitioner Family; Visit Provider Nurse Practitioner Family
DX: Z12.31 Encounter for screening mammogram for malignant neoplasm of breast (principal)
CPT/HCPCS: 77063; 77067

== ENCOUNTER 2023-07-01 13:53 | Emergency (ER) | payer SELFPAY ==
[2023-07-01 13:59] VITALS: BP 139/91; PULSE 89; RESP 16; TEMP 37.4; O2SAT 100
--- NOTE | 2023-07-01 14:31 | ED.GENADUL_ITS ---
Discharge Plan Disposition Patient Disposition: Home Discharge Details Clinical Impression: Strep throat Primary Care Provider: Shaina Vides ED Provider: Dean Ocasio Home Meds and New Rx's Prescriptions: No Action dicyclomine 20 MG tablet 20 mg PO QID PRN PRN (Reason: pain and spasm) Qty: 20 0RF valacyclovir 1 gram tablet 1,000 mg PO DAILY Patient Comments: TK 1 T PO D 5-hydroxytryptophan (5-HTP) [5-HTP] 100 mg Capsule 500 mg PO DAILY Discharge Instructions Instructions: Strep Throat (ED) Additional Instructions: At this time you have evidence of strep throat. You have been given the antibiotic shot for treatment of this. Please continue to take 800 mg of Motrin every 6 hours and 1000 mg of Tylenol every 6 hours. These are the maximum doses. If you notice any worsening of your symptoms, or any new symptoms such as vomiting, diarrhea, fever, chills, shortness of breath, chest pain, numbness, weakness, or fainting , please return immediately to the emergency department for reevaluation. Please follow up with your primary care provider as soon as possible for reassessment and reevaluation. As always, it was a pleasure participating in your medical care today. Referrals: Shaina Vides [Primary Care Provider] - Medical Decision Making This is a 47-year-old female who presents today for sore throat. Patient's daughter was treated for strep throat over the last week. Mother/patient got a sore throat 4 days ago, and it is continued since then. Tylenol and Motrin mildly improve the pain, but then it comes back on its own. She admits to chills and fatigue. She denies difficulty swallowing or drinking. No other complaints at this time. No other modifying factors. Exam demonstrates well-appearing female, no nuchal rigidity. A few scattered cervical lymph nodes. Posterior oropharynx demonstrates mild erythema, minimal enlargement of tonsils, mild exudate. No evidence of peritonsillar abscess, oropharyngeal airway compromise, or other abnormalities. Symptoms appear clinically consistent with strep throat. Strep test was performed and was positive. Patient refused COVID and flu testing. Will treat with antibiotics. Patient elected for IM shot over oral pills. Will recommend continued NSAIDs at home. Discussed red flags for which to return. I have extensively reviewed the treatment plan and discharge instructions with the patient. I have addressed all patient concerns at this time. The patient was made aware of what symptoms to monitor for that would warrant a return to the emergency department. Discussed the plan with the patient, they demonstrate verbal understanding and agreement with our assessment and plan at this time. The documentation in this chart was dictated using Blue[employer] dictation software. Please excuse any dictation errors. HPI General Date/Time Provider Initiated Documentation: 07/01/23 14:03 . HPI Narrative: This is a 47-year-old female who presents today for sore throat. Patient's daughter was treated for strep throat over the last week. Mother/patient got a sore throat 4 days ago, and it is continued since then. Tylenol and Motrin mildly improve the pain, but then it comes back on its own. She admits to chills and fatigue. She denies difficulty swallowing or drinking. No other complaints at this time. No other modifying factors. Related Data Home Medications Medication Instructions Recorded Confirmed dicyclomine 20 mg tablet 20 mg PO QID PRN PRN pain and 05/09/17 08/29/20 spasm #20 tabs valacyclovir 1 gram tablet 1,000 mg PO DAILY 04/01/20 08/29/20 5-hydroxytryptophan (5-HTP) 100 mg 500 mg PO DAILY 08/29/20 08/29/20 capsule (5-HTP) Previous Rx's Medication Instructions Recorded dicyclomine 20 mg tablet 20 mg PO QID PRN PRN pain and 05/09/17 spasm #20 tabs Allergies Allergy/AdvReac Type Severity Reaction Status Date / Time hydromorphone AdvReac Severe SEVERE Unverified 08/29/20 21:10 HEADACHE cocoa butter AdvReac irritation/ Unverified 08/29/20 21:10 [From Preparation H] itching/bur netta. glycerin [From Preparation H] AdvReac irritation/ Unverified 08/29/20 21:10 itching/bur netta. mineral oil AdvReac irritation/ Unverified 08/29/20 21:10 [From Preparation H] itching/bur netta. petrolatum,white AdvReac irritation/ Unverified 08/29/20 21:10 [From Preparation H] itching/bur netta. phenylephrine HCl AdvReac irritation/ Unverified 08/29/20 21:10 [From Preparation H] itching/bur netta. shark liver oil AdvReac irritation/ Unverified 08/29/20 21:10 [From Preparation H] itching/bur netta. General Stated Complaint: Sorethroat TEO: 4 Review of Systems All systems reviewed & are unremarkable except as noted in HPI and below PFSH All Active Problems Strep throat (Acute) Medical History Hidradenitis Depressive disorder Primary narcolepsy with cataplexy Non-toxic uninodular goiter Crohn disease FINA (obstructive sleep apnea) Surgical History Ligation of fallopian tube Hysterectomy, Laproscopic 05/2011 Colonoscopy - MAC 01/2010 Family History Mother Personal history of malignant neoplasm LUNG; 2007 Hyperlipidemia Father Diabetes Essential hypertension Hyperlipidemia Brother Essential hypertension Grandfather Essential hypertension Heart disease Hyperlipidemia Grandfather Personal history of malignant neoplasm ? Grandmother No problems noted. Grandmother Diabetes Stroke Asthma Maternal Uncle Personal history of malignant neoplasm PROSTATE Maternal Aunt Personal history of malignant neoplasm LUNG Social History Smoking/Tobacco Use Status: Never Smoking risk assessment performed?: Yes Alcohol Intake: current Alcohol Intake frequency: a few times a month Alcohol type: wine Drug use: Occasionally Substance use type: marijuana Details: once every couple weeks Current gender identity: female Do you feel safe at home: Yes Do you feel safe in your relationship?: Yes Exam Narrative Exam Narrative: 1.Const: Well-nourished, Well-developed, appearing stated age 2.Eyes: PERRL, no conjunctival injection, and symmetrical lids. 3.ENT: Atraumatic external nose and ears. Moist MM. Neck: Symmetric, trachea midline, No thyromegaly. Mild erythema in the posterior oropharynx. Tonsils minimally enlarged. Minimal exudate noted on tonsils. No evidence of peritonsillar abscess or asymmetry. No evidence of airway compromise. 4.CVS: +S1/S2, No murmurs or gallops. Peripheral pulses 2+ and equal in all extremities. Brisk capillary refill in all extremities. 5.RESP: Unlabored respiratory effort. Clear to auscultation bilaterally. No wheezes rales or rhonchi 6.GI: Soft, Nontender/Nondistended, No hepatosplenomegaly. No guarding or rebound. 7.MSK: Normocephalic/Atraumatic, Extremities w/o deformity or ttp No cyanosis or clubbing, Normal movement of all extremities 8.Skin: Warm, Dry. No rashes or lesions. 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 Sensation grossly intact, no focal neurologic deficits. 10.Psych: (AAO) x3. Appropriate mood and affect Course Vital Signs Vital signs: Vital Signs Temperature 37.4 C 07/01/23 13:59 Pulse 89 07/01/23 13:59 Respiratory Rate 16 07/01/23 13:59 Blood Pressure 139/91 H 07/01/23 13:59 Pulse Oximetry 100 07/01/23 13:59 Temperature 37.4 C 07/01/23 13:59 Pulse 89 07/01/23 13:59 Respiratory Rate 16 07/01/23 13:59 Blood Pressure 139/91 H 07/01/23 13:59 Blood Pressure Position Sitting 07/01/23 13:59 Pulse Oximetry 100 07/01/23 13:59 Oxygen Delivery Method Room Air 07/01/23 13:59 Oxygen Flow Rate 0 07/01/23 13:59 Lab/Test Results Lab/Test Results: POC Strep Test-LINDSAY(Rapid) Start: 07/01/23 14:04 Freq: .Rapid Strep Test Status: Active Protocol: Document 07/01/23 14:13 FADY (Rec: 07/01/23 14:13 [id number] [id number]) Strep test-LINDSAY(Rapid)-POC POC-Strep test-LINDSAY (Rapid) Positive POC-Strep test-LINDSAY (Rapid) Positive
[2023-07-01 14:44] VITALS: BP 138/84; PULSE 84; RESP 18; TEMP 37.1; O2SAT 99
== END 2023-07-01 14:55 | disposition home or self-care (01) ==
PROVIDERS: Emergency Provider Student in an Organized Health Care Education/Training Program; PCP Nurse Practitioner Family
DX: J02.0 Streptococcal pharyngitis (principal)
CPT/HCPCS: 87637; 96372; 99283; 99282; J0561

== ENCOUNTER 2023-09-02 16:46 | Outpatient (REF) | payer OTHER, SELFPAY ==
[2023-09-02 15:30] LABS: Abs Immature Grans 0.02 10^3/uL (0.0-0.06); Absolute Basophil Count 0.03 10^3/uL (0.0-0.2); Absolute Eosinophil Count 0.22 10^3/uL (0.0-0.7); Absolute Lymphocyte Count 1.95 10^3/uL (1.2-3.4); Absolute Monocyte Count 0.31 10^3/uL (0.1-0.8); Absolute Neutrophil Count 2.43 10^3/uL (1.2-6.7); Basophils % 0.6; Eosinophils % 4.4; HCT 35.2 % (36.0-46.0); Immature Grans % 0.4; Lymphocytes % 39.3; MCH 29.1 pg (27.0-33.0); MCHC 34.1 % (32.0-36.0); MCV 85 fL (80-95); MPV 9.5 fL (8.0-11.0); Monocytes % 6.3; Platelet Count 418 10^3/uL (130-400); RBC 4.12 10^6/uL (3.93-5.22); RDW 12.8 % (11.7-14.6); WBC 4.96 10^3/uL (4.4-10.8)
[2023-09-02 15:50] LABS: Hemoglobin A1C 5.3 % (<5.7)
[2023-09-02 15:56] LABS: ALT 34 U/L (14-59); AST 17 U/L (15-37); Alkaline Phosphatase 91 U/L (46-116); Anion Gap 9.1 mmol/L (3-11); BUN 15 mg/dL (7-18); Bilirubin, Total 0.4 mg/dL (0.2-1.0); CO2 27.9 mmol/L (21.0-32.0); CREATININE 0.8 mg/dL (0.55-1.02); Calcium 9.3 mg/dL (8.5-10.1); Calculated LDL 160 mg/dL (<100); Chloride 105 mmol/L (98-107); Cholesterol 249 mg/dL (<200); Estimated GFR 91.97 (mL/min/1.73m2); Glucose 113 mg/dL (74-106); HDL Cholesterol 65 mg/dL (40-60); Potassium 4.5 mmol/L (3.5-5.1); Sodium 142 mmol/L (136-145); TSH (W/Ref FT4) 1.01 uIU/mL (0.36-3.74); Total Protein 7.5 g/dL (6.4-8.2); Triglyceride 121 mg/dL (<150)
== END 2023-09-02 16:47 | disposition home or self-care (01) ==
LOC: NCHCN 16:46
PROVIDERS: PCP Nurse Practitioner Family; Referring Provider Nurse Practitioner Family; Visit Provider Nurse Practitioner Family
DX: B00.9 Herpesviral infection, unspecified (principal); F32.9 Major depressive disorder, single episode, unspecified; Z83.3 Family history of diabetes mellitus; Z13.220 Encounter for screening for lipoid disorders; R51.9 Headache, unspecified
CPT/HCPCS: 80053; 80061; 83036; 83735; 84443; 85025

== ENCOUNTER → 2023-10-26 01:19 | Outpatient (CLI) | payer OTHER, SELFPAY ==
--- NOTE | 2023-10-26 | DI.MRI_ITS ---
Exam(s) MR LUMBAR SPINE WO EXAM: MR LUMBAR SPINE WO CLINICAL HISTORY: PAIN IN RT LEG M79.604RT LATERAL THIGH DOWN TO KNEE, SEVERE. TECHNIQUE: Multiplanar multisequence MRI of the Lumbar spine was performed. COMPARISON: MR MRI - LUMBAR SPINE WO CONTRAST from 01/06/2012 FINDINGS: Bones: The last intervertebral disc space is designated the L5/S1 level for the numbering purpose of this ex amination. The vertebral body heights are well maintained. Alignment: Unremarkable. Degenerative signal changes in the endplates at L4-5 eccentric toward the left. Cord: The conus tip ends at the T12 level. It is of normal size and signal intensity. T 11 12: Small central disc protrusion. T12-L1: No focal disc herniation is present. No central spinal canal stenosis.No neural foraminal st enosis. L1-2: No focal disc herniation is present. No central spinal canal stenosis.No neural foraminal sten osis. L2-3:Minimal disc bulging. No focal disc herniation is present. No central spinal canal stenosis.N o neural foraminal stenosis. L3-4: Mild concentric disc bulging.No focal disc herniation is present. Facet degenerative changes a nd ligamentous hypertrophy. No central spinal canal stenosis.Mild right neural foraminal narrowing. L4-5:Mild to moderate loss of disc height, eccentric toward the left where there are prominent endpla te osteophytes.. Broad-based disc bulging eccentric toward the left, encroaching into the left neura l foraminal narrowing, causing moderate stenosis. Facet degenerative changes and ligamentous hypertr ophy combine with the disc bulging to produce moderate central canal stenosis. L5-S1: Mild concentric disc bulging.No focal disc herniation is present. There are changes and ligam entous hypertrophy combine with the disc bulging to produce moderate central stenosis.No neural carlos inal stenosis. The visualized SI joints and sacrum are unremarkable. Soft tissues: The paraspinal soft tissues are unremarkable. IMPRESSION: Moderate central canal stenosis at L4-5 and L5-S1 secondary to combination of degenerative changes. Left-sided neural foraminal narrowing present at L4-5. DATA REPOSITORY:
== END ==
PROVIDERS: PCP Nurse Practitioner Family; Visit Provider Student in an Organized Health Care Education/Training Program
DX: M79.604 Pain in right leg (principal); M48.07 Spinal stenosis, lumbosacral region
CPT/HCPCS: 72148

== ENCOUNTER 2024-03-02 13:54 | Outpatient (REF) | payer OTHER, SELFPAY ==
--- OUTSIDE RECORDS SUMMARY | 2024-03-02 14:11 | XMS_ITS | Referral Summary ---
Author Organization [facility] Address [address] [place] [id number] Care Team Providers Care Intellectual Property Lawyer Name Role Phone Mando Loera MD Primary Care Provider [phone] Social History Tobacco Use Types Packs/Day Years Used Date Smoking Tobacco: Never Assessed Sex and Gender Information Value Date Recorded Sex Assigned at Not on file Gender Identity Not on file Sexual Orientation Not on file Plan of Treatment Not on file Care Teams Intellectual Property Lawyer Relationship Specialty Start Date End Date Mando Loera MD [address] [facility] [place] [phone] PCP - General 05/22/11
--- OUTSIDE RECORDS SUMMARY | 2024-03-02 14:11 | XMS_ITS | Clinical Summary ---
Author Organization [facility] Address [address] [place] [id number] Care Team Providers Care Senior Drupal Developer Name Role Phone Mando Loera MD Primary Care Provider [phone] Social History Tobacco Use Types Packs/Day Years Used Date Smoking Tobacco: Never Assessed Sex and Gender Information Value Date Recorded Sex Assigned at Not on file Gender Identity Not on file Sexual Orientation Not on file Plan of Treatment Health Maintenance Due Date Last Done Comments Hepatitis C Screen 1975 Hepatitis B Vaccine (1 of 3 - 19+ 3-dose series) 10/11 COVID-19 Vaccine (2022- season) 2023 Care Teams Senior Drupal Developer Relationship Specialty Start Date End Date Mando Loera MD [address] [facility] [place] [id number] PCP - General 05/22/11
--- OUTSIDE RECORDS SUMMARY | 2024-03-02 14:12 | XMS_ITS | Encounter Summary ---
Author Organization Formerly [facility] [place] [address] Care Team Providers Care Teaching Music Lessons Name Role Phone Marleni Gallagher APRN Primary Care Provider [phone] Encounter Details Date Type Department Care Team (Latest Contact Info) Description 04/07/2021 10:30 AM EDT Office [place] [address] [address] [facility] [place] [address] Crohn's disease without complication, unspecified gastrointestinal tract location Social History Tobacco Use Types Packs/Day Years Used Date Smoking Tobacco: Former Cigarettes 0.5 3 1 09/05/1996 - 07/05/2000 Smokeless Tobacco: Never Comments:social smoker for a couple of years, less than 1 p/d Alcohol Use Standard Drinks/Week Comments Yes 7 (1 standard drink = 0.6 oz pur e alcohol) Sex and Gender Information Value Date Recorded Sex Assigned at Not on file Gender Identity Not on file Sexual Orientation Straight 03/18/2021 11 :23 AM EDT documented as of this encounter Last Filed Vital Signs Vital Sign Reading Time Taken Comments Blood Pressure 121/77 04/07/2021 10:31 AM EDT Pulse 92 04/07/2021 10:31 AM EDT Temperature - - Respiratory Rate - - Oxygen Saturation - - Inhaled Oxygen Concentration - - Weight 96.9 kg (213 lb 9.6 oz) 04/07/2021 10:31 AM EDT Height 170.2 cm (5' 7) 04/07/2021 10:31 AM EDT Body Mass Index 33.45 04/07/2021 10:31 AM EDT documented in this encounter Progress Notes * Altagracia Ng Avel Vallecillo APRN - 04/07/2021 10:30 AM EDT Primary care provider: Marleni Gallagher APRN Other providers: Dr. Vasquez Reason for visit: Crohn's disease Problem List Patient Active Problem List Diagnosis Date Noted ??? Cholelithiasis ??? Depression ??? Somnolence, daytime ??? Low back pain ??? GERD (gastroesophageal reflux disease) ??? Chronic constipation ??? Sleep apnea ??? Constipation 05/05/2011 ??? Gastritis and duodenitis 05/05/2011 ??? 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 Right wrist pain ??? Chronic diarrhea 03/23/2010 Resolved Hospital Problems No resolved problems to display. Detailed IBD History:? # Crohns's disease, mild. - H/O diarrhea x 1 year (2008) then sxs improved since 07/2009. - H/O constipation as a teenager - H/O bulimia Testings:?? 08/21/09 EGD and colonoscopy ([facility], Dr. Ortega): 1. gastric antrum ulcer, mild gastritis, GERD, mild peptic duodenitis 2. grossly normal colon, terminal ileum, colon and rectum Biopsies: 1. duodenum: slight intraepithelial lymphocytosis. No villous blunting or foveolar metaplasia 2. stomach, antral ulcer: acute and chronic reactive epithelial changes. H. pylori negative. 3. stomach, body: oxyntic type mucosa with mild focal chronic inflammation 4. stomach, antrum: antral mucosa with mild acute and chronic inflammation. No H.pylori. 4. TI: mod chronic inflammation and focal loose granulomas. Special stain for acid fast bacilli andfungal org are negative. 5. colon, right (ascending and transverse): with focal lymphoid aggregate and eosinophilic cryptitis, otherwise unremarkable. 6. colon.,left (descending and sigmoid): with focal lymphoid aggregate, with features suggestive ofaphthous ulcer 7. Rectum: with focal lymphoid aggregate and increased intramucosal plasma cells and giant cells. - 2010 [place] [facility] [place] normal but pathology suggestive of Crohn's. - 2009 EGD- biospy mild duodenitis, mild chronic inactive gastritis - 10/2008 TPMT 33.7 normal enzyme activity - 03/10/11 capsule endoscopy:mild Crohn's in the jejunum and distal ileum -08/27/2011??EGD:??Normal esophagus. Normal stomach. ??Small erosions in the duodenum-?possibly consistent with very mild upper tract Crohn's disease. - 08/27/2011 Colonoscopy: Preparation of the colon was fair. The examined portion of the ileum ??was normal.Mild patchy inflammation seen in the colon consistent with mild Crohn's colitis. ?A - Duodenum, biopsy:??Chronic active duodenitis. ?B - Stomach, biopsy:??Gastric antrum-type and body/fundic-type mucosa with chronic inactive ?gastritis.??Immunostaining for H. pylori is negative. ?C - Ileum, biopsy:Focal active ileitis and epithelioid granulomas. ?D - Right colon, biopsy:??Patchy mildly active colitis negative for dysplasia or granuloma. ?E - Left colon, biopsy:??Patchy mild chronic inactive colitis, negative for dysplasia or ?granuloma.?? - 10/25/16 CT abd/pelvis (at OSH d/t abd'l pain):1.Mild thickening of the wall of the duodenum and proximal jejunum. This may represent an infectious for inflammatory enteritis. This would be consistent with an exacerbation of Crohn's disease. 2. Cholelithiasis. No biliary ductal dilatation. - 10/28/16 abd'l u/s (OSH d/t elevated LFTs): Cholelithiasis. There is no acoustical evidence of acute cholecystitis or biliary obstruction and the examination is otherwise unremarkable. ?? -??04/07/17?[facility] ( [facility] [place]??No evidence of active inflammatory bowel disease. - 05/13/17 Colonoscopy ( Dr. Bianchi):??Inflammatory mass in the descending colon. The entire examined colon is ??normal.??The examined portion of the ileum was normal. Small bowel enteroscopy:?Normal esophagus. Normal stomach. Normal examined duodenum. The examined portion of the jejunum was normal. Surgical Pathology A - Jejunum: ??Jejunal mucosa within normal limits. B - Duodenum: Duodenal mucosa with villous broadening and blunting, woody gland hyperplasia ??and foveolar metaplasia ?without an increase in intraepithelial lymphocytes. See ??discussion #1. DISCUSSION :1. ??The findings are consistent with peptic injury / NSAID. C - Random right colon bx ??'s. hx of crohns colitis: Chronic mildly active colitis. Negative for dysplasia. D - Left colon bx 's: Chronic mildly active colitis.??Negative for dysplasia. E - ? inflamatory mass vs malignancy: ??Inflammatory polyp. ??There is no evidence of dysplasia or malignancy.? # Anemia - hgb 8.1, MCV 65.5 in 07/2009. - blood transfusion. - oral iron supplement ?? Interval History: Deb continues to have attacks of severe abdominal pain, last week had 5 attacks. When this occurs, it could be debilitating and she is quite miserable. She takes her Bentyl which helps partially. She queries if she could take other medication for the pain. Her EUS/ERCP is scheduled on 05/08. She still gets boated and gassy. Unable to start Rifaximin due to cost. Still having diarrhea, Bm 3-10x/day Yesterday first time in several weeks that she did not have diarrhea and went 3x/day of normal stools. However, today, again with diarrhea. Had taken imodium 2 tabs to control her diarrhea at work. Occasional blood on wiping with her hemorrhoids. Otherwise no blood. Had n/v last week x 1. Since gets very nauseous with no vomiting. Review of systems as in the HPI, the rest of the review of systems were negative. Past Medical History, Social History and Family History is unchanged. Medications Outpatient Encounter Medications as of 04/07/2021 Medication Sig Dispense Refill ??? calcium-vitamin D3 600 mg calcium- 400 unit Tablet Take by mouth. ??? omeprazole 20 mg Tablet, Delayed Release (E.C.) Take by mouth. ??? FLUoxetine (PROzac) 20 mg Capsule TAKE 1 CAPSULE BY MOUTH DAILY ??? dicyclomine (BENTYL) 20 mg Tablet TAKE 1 TABLET BY MOUTH FOUR TIMES DAILY NEEDED FOR BOWEL ISSUES ??? rifAXIMin (Xifaxan) 550 mg Tablet Take 1 tablet by mouth 2 times daily. 28 tablet 0 ??? valACYclovir (VALTREX) 1 gram Tablet TAKE 1 TABLET BY MOUTH DAILY (Patient taking differently: as needed. TAKE 1 TABLET BY MOUTH DAILY) 30 tablet 0 ??? metroNIDAZOLE (METROCREAM) 0.75 % Cream APPLY TOPICALLY TO AFFECTED AREA ON FACE ONCE TO TWICE DAILY (Patient not taking: Reported on 02/24/2021) 45 g 1 ??? buPROPion (WELLBUTRIN XL) 300 mg Tablet Extended Release 24 hr take 1 tablet by mouth once daily 0 ??? venlafaxine (EFFEXOR-XR) 75 mg Capsule, Sust. Release 24 hr 0 ??? ibuprofen (ADVIL;MOTRIN) 200 mg tablet Take 200 mg by mouth every 6 hours as needed. ??? venlafaxine (EFFEXOR-XR) 150 mg 24 hr capsule Take 150 mg by mouth daily. Total of 225 mg ??? acetaminophen (TYLENOL) 325 mg tablet No facility-administered encounter medications on file as of 04/07/2021. Allergies/Adverse reactions Dilaudid [hydromorphone] and Preparation h [phenylephrine-witch david] Physical Examination Patient appears well Wt Readings from Last 3 Encounters: 03/25/21 96.6 kg (213 lb) 02/24/21 98 kg (216 lb) 06/15/17 83.9 kg (185 lb) Vitals: 04/07/21 1031 BP: 121/77 BP Location (NBP): Left arm Patient Position: Sitting BP Cuff Sizes: Large Adult (32-43 cm) Pulse: 92 Weight: 96.9 kg (213 lb 9.6 oz) Height: 170.2 cm (5' 7) Abd: normal BS, soft, diffuse tenderness on palpation, no masses, no hepatomegaly, no splenomegaly Recent labs Recent endoscopic procedures 03/25/21 EGD: Impression: ?- Normal esophagus. ?- Z-line regular, 40 cm from the ?incisors. ?- Normal stomach. Biopsied. ?- Normal examined duodenum. Biopsied. ?Her epigastric pain is secondary to ?gallstones and CBD stones seen on MRI Recommendation: ?- Await pathology results. ?Needs ERCP and cholecystectomy ? Jhon Edwards MD 03/25/2021 12:49:18 PM Impression: ?- The entire examined colon is ?normal. Biopsied. ?- The examined portion of the ileum ?was normal. Biopsied. ?Inflammatory polyp ?No active Crohn's Recommendation: ?- Await pathology results. ? Jhon Edwards MD 03/25/2021 12:53:19 PM Surgical Pathology DIAGNOSIS A - Duodenum, biopsy (Multiple): - Duodenal mucosa with mildly increased intraepithelial lymphocytes (up to 37 ??lymphocytes per 100 enterocytes) and preserved villous architecture, see Discussion. B - Stomach, biopsy (Multiple): - ??Gastric fundic and antral gland mucosa with chronic nonspecific gastritis and ??reactive changes. - ??Immunostaining for H. pylori is negative. C - Terminal ileum, biopsy (Multiple): - ??Ileal mucosa within normal limits. - There is no evidence of dysplasia. D - Colon, biopsy (Multiple): - Colonic mucosa with focal active colitis. - Separate fragments of colonic mucosa within normal limits. - There is no evidence of dysplasia. Electronically signed by: ?Joe TANNER PhD, Shameka Verified: ??04/03/2021 13:07 ??Pathologist Performed at: ??-[facility] [place], [place], [place] DISCUSSION A - The differential diagnosis includes gluten sensitive enteropathy, NSAIDs use, ??post-viral gastroenteritis, bacterial overgrowth, allergy to other food antigens, ??immunodeficiency syndromes (CVID, IgA deficiency) and tropical sprue. ??These ??features have also been described in patients with a history of collagen vascular ??disease, Crohn's disease, and H. pylori gastritis. ADDITIONAL STUDIES Immunohistochemistry Studies: Formalin-fixed, paraffin-embedded tissue sections are studied using the polymer ??technique with appropriate positive and negative controls. ?These IHC studies ??provide the pathologist with adjunctive diagnostic information. Antibody specificity ??has been verified by testing antibodies on a series of in-house tissues with known ??immunohistochemical performance characteristics. The clinical interpretation of ??any antibody positive staining or its absence is evaluated within the context of ??clinical presentation, morphology, histopathological criteria and other diagnostic ??tests. Block ? Antibody ?Result (Positive/Negative) B1 ? H. pylori ?Negative Recent relevant imaging 03/20/21 [facility]: FINDINGS: GI tract: No dilated small or large bowel, bowel wall thickening, or mesenteric inflammation. No mucosal hyperenhancement. Liquid stool is noted within the sigmoid colon and rectum. ?? Liver: Normal signal, no lesions. Bile ducts: Stacked punctate calculi in the distal portion of the common bile duct Gallbladder: Numerous gallstones. Nondilated. No pericholecystic fluid. Normal caliber wall. Pancreas: Normal. Spleen: Normal. Adrenals: Normal. Kidneys: 7 mm T2 hyperintense nonenhancing lesion in the lower pole of the right kidney, consistent with a cyst. ?? Lymph nodes: No lymphadenopathy. Reproductive structures: 2.4 cm right adnexal cyst. Osseous structures: No marrow signal abnormality. Degenerative changes within the lumbar spine. ?? IMPRESSION:?? 1. No evidence of active bowel inflammation. 2. Cholelithiasis and choledocholithiasis, as above. ?? Impression/Plan Patient with h/o Crohn's disease, GERD, abdominal pain,chronic constipation but since April 2020,she had diarrhea and not constipation. In addition, has been having abdominal pain ( mostly upper) and feels bloated. She was on Pentasa but stopped it 3 months ago due to cost. Historically, she has been non compliant with medications and follow up. She has re-establish care with us due to increased GI sxs. Her recent 03/25/21: EGD and colonoscopy were normal. Pathology showed focal active colitis. Will try oral mesalamine( Lialda) for now. Duodenal mucosa with mildly increased intraepithelial lymphocytes, see above discussion. Her bloating could be Small Intestinal Bacterial Overgrowth( SIBO) and will treat empirically with Flagyl. Rifaximin was too costly. We will also add tTG IgA, IgA to next blood draw to r/o celiac disease. Gastritis seen on EGD biopsy- encouraged to continue Prilosec once daily Plans for EUS/ ERCP on 05/08 for gallstones and CBD stones seen on MRI . Her epigastric pain likely due to gallstones and CBD stones. We will try to move up her EUS/ERCP sooner. We have also referred her to general surgery for possible cholecystectomy ?? Diarrhea- will submit stool studies to r/o infection. ? Plans: -??Flagyl 500 mg BID x 10 days, may repeat x1 if helpful - Continue dicyclomine 1 tab three times daily as needed for crampy pain - Add Librax 1 tab q 8 hrs PRN crampy pain if bentyl not helpful or in between Bentyl. - Continue Prilosec 20 mg once daily - Zofran 4 mg q 8 hrs PRN nausea - Will try to move EUS/ERCP sooner - If diarrhea persisted, submit stool studies: C diff; Cx. - Imodium 1-2 tabs PRN diarrhea - needs to repeat LFTs in Oct for elevated LFTs and add tTGIgA , IgA - Avoid all NSAIDs. Ok to use Tylenol for aches and pain - Referred to general surgery for possible cholecystectomy - F/U with Dr. Vasquez as planned ?? 25 minutes of this 30 minutes face to face appointment were spent in direct counseling regarding treatment of IBD. Please contact me if there are any further questions regarding the care of this patient. Alexander Ng APRN [facility] Section of Gastroenterology [place] [address] documented in this encounter Plan of Treatment Not on file documented as of this encounter Visit Diagnoses Diagnosis Crohn's disease without complication, unspecified gastrointestinal tract location documented in this encounter Care Teams Teaching Music Lessons Relationship Specialty Start Date End Date Marleni Gallagher APRN [phone] [place] [address] PCP - General Family Medicine 12/11/16 documented as of this encounter
--- OUTSIDE RECORDS SUMMARY | 2024-03-02 14:12 | XMS_ITS | Clinical Summary ---
Author Organization [facility] Address [facility] [place] [address] Care Team Providers Care Golf Course Architect Name Role Phone Marlnei Gallagher APRN Primary Care Provider [phone] Allergies Active Allergy Reactions Criticality Noted Date Comments Hydromorphone Medium 04/10/2011 Severe headache Phenylephrine-Witch Jazmin 06/03/2015 Causes more irritation. Medications Medication Sig Dispensed Refills Start Date End Date Status acetaminophen (TYLENOL) 325 mg tablet 04/10/2010 Active ibuprofen (ADVIL;MOTRIN) 200 mg tablet Take 200 mg by mouth every 6 hours as needed. 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 28 tablet 02/24/2021 Active Additional Information Patient not taking.Reported on 04/07/2021 calcium-vitamin D3 600 mg calcium- 400 unit Tablet Take by mouth. Active omeprazole 20 mg Tablet, Delayed Release (E.C.) Take by mouth. Active ondansetron (Zofran) 4 mg Tablet Take 1 tablet by mouth every 8 hours as needed for Nausea. 60 tablet 3 04/07/2021 Active chlordiazePOXIDE-clid inium (Librax, with Clidinium,) 5-2.5 mg Capsule Take 1 capsule by mouth every 8 hours as needed. 90 capsule 3 04/07/[address] (Eloisa) 1.2 gram Tablet, Delayed Release (E.C.) Take 2 tablets by mouth 2 times daily. 120 tablet 3 04/07/2021 Active Additional Information Patient not taking.Reported on 06/23/2021 balsalazide (ColazaL) 750 mg Capsule Take 3 capsules by mouth 3 times daily. 810 capsule 3 04/22/2021 Active oxyCODONE (Roxicodone) 5 mg Tablet Take 1 tablet by mouth every 6 hours as needed for Pain. 15 tablet 06/16/2021 Active Active Problems Problem Noted Date Diagnosed Date Crohn's disease without complication 06/21/2021 Overview (06/21/2021): - H/O diarrhea x 1 year (2008) then sxs improved since 07/2009. - H/O constipation as a teenager - H/O bulimia Testings:?? 08/21/09 EGD and colonoscopy ([facility], Dr. Ortega): 1. gastric antrum ulcer, mild [...] granulomas. Special stain for acid fast bacilli and fungal org are negative. 5. colon, right (ascending and transverse): with focal lymphoid aggregate and eosinophilic cryptitis, otherwise unremarkable. 6. colon.,left (descending and sigmoid): with focal lymphoid aggregate, with features suggestive of aphthous ulcer 7. Rectum: with focal lymphoid aggregate and increased intramucosal plasma cells and giant cells. - [address] [facility], endoscopically looks normal but [...] examination is otherwise unremarkable. ?? -??04/07/17?MRE ( [facility] [place]):??No evidence of active inflammatory [...] ??There is no evidence of dysplasia or malignancy.?? -Colonoscopy 04/01: The entire examined colon is??normal. Biopsied The examined portion of the ileum was normal. Biopsied. ??Inflammatory polyp, No active Crohn's. Path: Ileum normal. Colonic mucosa with focal active colitis Constipation 05/05/2011 Gastritis and duodenitis 05/05/2011 Chronic diarrhea 03/23/2010 Overview (03/23/2011): IMPRESSION Patient with history of chronic diarrhea, suspected Crohn's's disease. She is currently asymptomatic. Her recent MRE was essentially normal. Her recent EGD and colonoscopy shhowed that endoscopically looks normal but pathology suggestive of Crohn's. See above. Given that she is clinically asymptomatic, we will not pursue Crohn's directed therapy for now. Consider capsule endoscopy to evaluate proximal small bowel disease if with any increase in GI sx. Right wrist pain Overview (09/16/2010): ? recurrent ganglion Gallstones Depression Somnolence, daytime Low back pain GERD (gastroesophageal reflux disease) Chronic constipation Sleep apnea Immunizations Name Administration Dates Next Due TD Adult 08/05/2004 Social History Tobacco Use Types Packs/Day Years Used Date Smoking Tobacco: Former Cigarettes 0.5 3 1 09/05/1996 - 07/05/2000 Smokeless Tobacco: Never Comments:social smoker for a couple of years, less than 1 p/d Alcohol Use Standard Drinks/Week Comments Yes 2 (1 standard drink = 0.6 oz pur e alcohol) Sex and Gender Information Value Date Recorded Sex Assigned at Not on file Gender Identity Not on file Sexual Orientation Straight 03/18/2021 11 :23 AM EDT Last Filed Vital Signs Vital Sign Reading Time Taken Comments Blood Pressure 128/76 06/23/2021 3:38 PM EST Pulse 84 06/23/2021 3:38 PM EST Temperature 36.8 ??C (98.2 ??F) 06/11/2021 1:00 PM ES T Respiratory Rate 16 06/11/2021 1:15 PM EST Oxygen Saturation 95% 06/11/2021 3:00 PM EST Inhaled Oxygen Concentration - - Weight 98.1 kg (216 lb 3.2 oz) 06/23/2021 3:38 P M EST Height 170.2 cm (5' 7) 06/23/2021 3:38 PM EST Body Mass Index 33.86 06/23/2021 3:38 PM EST Plan of Treatment Health Maintenance Due Date Last Done Comments CT Colonography 1976 FIT DNA 1976 FIT 1976 Sigmoidoscopy 1976 HIV screen 1994 Lipid Screening 1994 Tdap adult 10/12/1995 HPV test 2006 PAP Smear 2006 Tetanus vaccine 08/05/2014 08/05/2004 Breast Cancer Share Decision Needed 2016 Breast Cancer screening 2016 Covid-19 Vaccine (1 - 2022-2 4 season) 2023 Influenza (Flu) vaccine (1 o f 1 - Influenza standard series) 03/12/2024 Diabetes Screening (HgbA1C o r Glucose) 06/23/2024 06/23/2021, 02/24/2021, 03/09/2017, Additional history exists Colonoscopy 03/25/2031 03/25/2021, 03/12, 05/13/2017, Additional history exists Colorectal Cancer Screening 03/25/2031 Sigmoidoscopy (10 year) with FIT yearly 03/25/2031 03/25/2021, 03/25/2021, 05/13/2017, Additional history exists Hepatitis C Screening Completed 02/24/2021 Procedures Procedure Name Priority Date/Time Associated Diagnosis Comments COMPREHENSIVE METABOLIC PANEL Routine 06/23/2021 4:26 PM EST Crohn's disease of both small and large intestine without complication COLONOSCOPY Routine 03/25/2021 12:15 PM EDT HC HEPATITIS C ANTIBODY Routine 02/24/2021 5:24 PM EDT Crohn's disease without complication, unspecified gastrointestinal tract location from Last 3 Months or Most Recently Relevant to Health Maintenance Results * (ABNORMAL) Comprehensive metabolic panel (non-fasting) (06/23/2021 4:26 PM EST) Glucose 97 65 - 199 mg/dL [facility] Comment:Diabetes: >=200 mg/d L plus symptoms Blood Urea Nitrogen 15 8 - 18 mg/dL [facility] Creatinine 0.73 0.70 - 1.20 mg/dL [facility] Sodium 139 135 - 145 mmol/L [facility] Potassium 4.3 3.5 - 5.0 mmol/L [facility] Comment: Please note: ??Patients with WBC >100,000 may have falsely elevated Potassium levels. ??For accurate Potassium quantification in these patients send serum separator tube (gold top) for subsequent determinations. ??Contact the Clinical Chemistry Laboratory if there are any questions. Chloride 103 98 - 107 mmol/L [facility] Carbon Dioxide 25 22 - 31 mmol/L [facility] Anion Gap 11 5 - 15 mmol/L [facility] Calcium 9.6 8.5 - 10.5 mg/dL [facility] Protein, Total 7.3 6.1 - 8.0 g/dL [facility] Albumin 4.7 3.2 - 5.2 g/dL [facility] Aspartate Aminotransferase 15 0 - 30 unit/L [facility] Alanine Aminotransferase 27 0 - 30 unit/L [facility] Alkaline Phosphatase 110(H) 35 - 105 unit/L [facility] Bilirubin, Total 0.3 0.2 - 1.3 mg/dL [facility] Est Glomerular Filtration Rate 100 >=60 mL/min/1. 73 m?? [facility] Comment: This patient? s estimated glomerular filtration rate (eGFR) is between 100 mL/min/1.73 m2 (patients with less muscle mass) and 116 mL/min/1.73 m2 (patients with more muscle mass) as determined by the CKD-EPI equation. Assessment of eGFR is not appropriate when creatinine concentrations are rapidly changing. For clinical decisions where creatinine clearance will affect therapy, a 24-hour urine creatinine clearance may be advised. Assignment of CKD stage 1 - 5 for patients with an eGFR near the transition point between stages may be based on clinical assessment of muscle mass and symptoms in addition to eGFR. Blood 06/23/2021 4:26 PM EST 06/23/2021 4:59 PM EST Narrative Resulting Agency Comment Spec In Lab Joseph Vasquez MD CHEMISTRY ORDERABLES [facility] [place] [address] * COLONOSCOPY (03/25/2021 12:15 PM EDT) COLONOSCOPY [facility] Endoscopy Procedure Date: 03/25/2021 12:15 PM ? Patient Name: Deb Mendenhall ? Date of : 1975 ? Age: 45 ? Order #: [id number] ? Instrument Name: [id number] ? Procedure: ? Colonoscopy Indications: ? Crohn's assess for active inflammation Providers: ? Jhon Edwards MD Referring MD: ?Marleni Gallagher Medicines: ? See the Anesthesia note for ? documentation of the administered ? medications Complications: ? No immediate complications. Procedure: ? The procedure, indications, benefits, ? risks and alternatives were explained ? to the patient. Specifically ? discussed were potential ? complications including, but not ? limited to, bleeding, perforation, ? infection, missing a cancer, and ? adverse medication reactions. The ? patient was placed in the left ? lateral decubitus position, and a ? digital rectal exam was performed. ? The Colonoscope was inserted in the ? anus and under direct visualization, ? advanced to 30 cm into the ileum. ? Careful inspection was made as the ? colonoscope was withdrawn. The ? colonoscopy was performed without ? difficulty. The patient tolerated the ? procedure well. The quality of the ? bowel preparation was evaluated using ? the BBPS (Hurley Bowel Preparation ? Scale) with scores of: Right Colon = ? 3, Transverse Colon = 3 and Left ? Colon = 3 (entire mucosa seen well ? with no residual staining, small ? fragments of stool or opaque liquid). ? The total BBPS score equals 9. ? Findings: ? The perianal and digital rectal examinations were ? normal. ? The colon mucosa (entire examined portion) appeared ? normal. Biopsies were taken with a cold forceps for ? histology. ? The terminal ileum appeared normal. Biopsies were ? taken with a cold forceps for histology. ? There was a one cm erythematous polypoid lesion ? distal descending colon, previously bx and was ? inflammatory polyp ? Internal hemorrhoids were found during retroflexion. ? The hemorrhoids were small. ? Impression: ?- The entire examined colon is ? normal. Biopsied. ? - The examined portion of the ileum ? was normal. Biopsied. ? Inflammatory polyp ? No active Crohn's Recommendation: ?- Await pathology results. ? __ Jhon Edwards MD 03/25/2021 12:53:19 PM This report has been signed electronically. Number of Addenda: 0 Note Initiated On: 03/25/2021 12:15 PM PROVATION 03/25/2021 12:1 5 PM EDT Jhon Edwards MD GENERAL SURGICAL ORD ERABLES Performing Organization Address [facility] Co de Phone Number PROVATION * Hepatitis C Antibody (02/24/2021 5:24 PM EDT) Hepatitis C Antibody Negative Negative [facility] Blood 02/24/2021 5:24 PM EDT 02/24/2021 5:29 PM EDT Narrative Resulting Agency Comment Spec In Lab Altagracia Ng PROCESS LEAD CHEMISTRY ORDERAB LES Performing Organization Address [facility] Co de Phone Number [facility] [place] [address] from Last 3 Months or Most Recently Relevant to Health Maintenance Advance Directives Documents on File Type Date Recorded Patient Product Safety Associate Expl anation Personal Product Safety Associate 04/18/2021 1:54 PM LUIGI MENDENHALL Care Teams Golf Course Architect Relationship Specialty Start Date End Date Marleni Gallagher, CARA [address] [place] [address] PCP - General Family Medicine 12/11/16
--- OUTSIDE RECORDS SUMMARY | 2024-03-02 14:12 | XMS_ITS | Encounter Summary ---
Author Organization Formerly [facility] Address [facility] [place] [address] Care Team Providers Care Annual Campaign Manager Name Role Phone Marleni Gallagher APRN Primary Care Provider [phone] Reason for Visit * Auth/Cert Specialty Diagnoses / Procedures Referred By Lynda fabian Referred To Contact Diagnoses Crohn's disease, unspecified, without complications Crohn's disease with abdominal pain, recent MRE found Cholelithiasis and choledocholithiasis, needs evaluation and possibly removal of stone. Procedures PRO ERCP,DIAGNOSTIC PRO ENDOSCOPIC US EXAM, ESOPH PRO ANESTH, UGI ENDOSCOPY ERCP PRO ANESTH, COMBINED UPPER OR LOWER ENDOSCOPY ERCP UPPER EUS- ENDOSCOPIC ULTRASOUND Referral ID Status Reason Start Date Expiration Date Visits Re quested Visits Authorized [id number] 1 1 Encounter Details Date Type Department Care Team (Late st Contact Info) Description 05/28/2021 7:30 AM EST - 05/28/2021 9:00 AM EST Surgery [place] [address] Deven Leyva MD [facility] [place] [address] ERCP W/SPHINCTEROTOMY/PAPIL LOTOMY (WRVU 6.5) Social History Tobacco Use Types Packs/Day Years [...] Sign Reading Time Taken Comments Blood Pressure 124/90 05/28/2021 9:00 AM EST Pulse 73 05/28/2021 7:12 AM EST Temperature 36.3 ??C (97.3 ??F) 05/28/2021 7:12 AM ES T Respiratory Rate 13 05/28/2021 9:00 AM EST Oxygen Saturation 98% 05/28/2021 9:00 AM EST Inhaled Oxygen Concentration - - Weight 96.6 kg (213 lb) 05/28/2021 7:12 AM EST Height - - Body Mass Index 33.35 04/18/2021 11:08 AM EDT documented in this encounter Discharge Instructions * Discharge Instructions* Jose Morales RN - 05/28/2021 8:56 AM EST Endoscopic Retrograde Cholangiopancreatogram (ERCP): What to Expect at Home Your Recovery After you have an endoscopic retrograde cholangiopancreatogram (ERCP), you will be able to go home after your doctor or a nurse checks to make sure you are not having any problems. If you stay in thehospital overnight, you may go home the next day. You may have a sore throat for a day or two after the procedure. This care sheet gives you a general idea about how long it will take for you to recover. But each person recovers at a different pace. Follow the steps below to get better as quickly as possible. How can you care for yourself at home? Activity ??? Rest when you feel tired. ?? You can do your normal activities when it feels okay to do so. Diet ?? Follow your doctor's directions for eating. ?? Unless your doctor has told you not to, drink plenty of fluids. ?? Do not drink alcohol. Medicines ?? Your doctor will tell you if and when you can restart your medicines. He or she will also give you instructions about taking any new medicines. ?? If you take blood thinners, such as warfarin (Coumadin), clopidogrel (Plavix), or aspirin, be sure to talk to your doctor. He or she will tell you if and when to start taking those medicines again. Make sure that you understand exactly what your doctor wants you to do. ?? If a sphincterotomy was done during the test, your doctor may tell you not to take aspirin or other anti-inflammatory medicines for a few days. These include ibuprofen (Advil, Motrin) and naproxen(Aleve). ?? If you have a sore throat the day after the procedure, use an bysa-szh-rpplqmp spray to numb your throat. Sucking on throat lozenges and gargling with warm salt water may also help relieve your symptoms. Other instructions ?? For your safety, do not drive or operate machinery until the medicine wears off and you can think clearly. Your doctor may tell you not to drive or operate machinery until the day after your test. ?? Do not sign legal documents or make major decisions until the medicine wears off and you can think clearly. The anesthesia can make it hard for you to fully understand what you are agreeing to. Additional Information for Sedation Patients For patients who received sedation: ?? You may have received medications before and/or during your procedure which effects your judgement and reaction time. ?? Do not drive, operate machinery, drink alcoholic beverages or make important decisions for 24 hours. ?? Be careful on stairs as you may be unsteady on your feet. ?? You may eat a regular diet as tolerated. ?? Do not smoke if you are alone. ?? IV site: Slight redness or tenderness is normal, you can use a warm compress if you would like. If tenderness and/or redness increase or if foul drainage occurs, please contact your Doctor. Please call [phone] before 8pm Mon-Fri with problems, questions or concerns. If you call after 8pm or on weekends, call the Hospital at [phone] and ask to speak to the Trolley Worker donor services specialist and the spike machine operator will contact that person for you. When should you call for help? Call [phone] anytime you think you may need emergency care. For example, call if: ?? You passed out (lost consciousness). ?? You pass maroon or bloody stools. ?? You have trouble breathing. Call your doctor now or seek immediate medical care if: ?? You have pain that does not get better after you take pain medicine. ?? You are sick to your stomach or cannot drink fluids. ?? You have new or worse belly pain. ?? You have blood in your stools. ?? You have a fever. ?? You cannot pass stools or gas. Watch closely for changes in your health, and be sure to contact your doctor if you have any problems, like Where can you learn more? [facility] View your After Visit Summary and more online at [email or web address] If you would like to provide feedback about your hospital experience, please call the Office of Patient and Family Relations at . If you have received this After Visit Summary in error, please immediately return it in person to the department, or notify the [facility] Privacy Office by calling toll free at between the hours of 8AM and 5PM to arrange for our retrieval of the documents at no cost to you. Content Version: 12.2 ?? [id number] [employer] Care instructions adapted under license by [facility]. If you have questions about a medical condition or this instruction, always ask your healthcare professional. [employer] disclaims any warranty or liability for your use of this information. * Patient Instructions* Deven Leyva MD - 05/28/2021 8:38 AM EST Please see Recommendations in the Provation procedure report which is documented in the procedural note in [facility]. documented in this encounter Medications at Time of Discharge Medication Sig Dispensed Refills Start Date End Date balsalazide (ColazaL) 750 mg Capsule Take 3 capsules by mouth 3 times daily. 810 capsule 3 04/22/2021 ondansetron (Zofran) 4 mg Tablet Take 1 tablet by mouth every 8 hours as needed for Nausea. 60 tablet 3 04/07/2021 chlordiazePOXIDE-clidiniu m (Librax, with Clidinium,) 5-2.5 mg Capsule Take 1 capsule by mouth every 8 hours as needed. 90 capsule 3 04/07/[address] Espinosa) 1.2 gram Tablet, Delayed Release (E.C.) Take 2 tablets by mouth 2 times daily. 120 tablet 3 04/07/2021 calcium-vitamin D3 600 mg calcium- 400 unit Tablet Take by mouth. omeprazole 20 mg Tablet, Delayed Release (E.C.) Take by mouth. FLUoxetine (PROzac) 20 mg Capsule TAKE 1 CAPSULE BY MOUTH DAILY 09/27/2020 dicyclomine (BENTYL) 20 mg Tablet TAKE 1 TABLET BY MOUTH FOUR TIMES DAILY NEEDED FOR BOWEL ISSUES 11/04/2020 rifAXIMin (Xifaxan) 550 mg TabletIndications:Crohn's disease without complication, unspecified gastrointestinal tract location Take 1 tablet by mouth 2 times daily. 28 tablet 02/24/2021 valACYclovir (VALTREX) 1 gram TabletIndications:Herpes simplex virus type 1 (HSV-1) dermatitis TAKE 1 TABLET BY MOUTH DAILY 30 tablet 07/09/2020 ibuprofen (ADVIL;MOTRIN) 200 mg tablet Take 200 mg by mouth every 6 hours as needed. acetaminophen (TYLENOL) 325 mg tablet 04/10/2010 oxyCODONE (Roxicodone) 5 mg Tablet Take 1 tablet by mouth every 6 hours as needed for Pain. 15 tablet 06/11/2021 06/16/2021 documented as of this encounter H&P Notes * Deven Leyva MD - 05/28/2021 7:40 AM EST Gastroenterology and Hepatology Pre-Procedure History and Physical Exam Procedure: ERCP: Indication: Multiple bile duct stones on recent MRE (has GB stones as well). Patient Active Problem List Diagnosis Code ??? Right wrist pain M25.531 ??? Chronic diarrhea K52.9 ??? 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 Constipation K59.00 ??? Gastritis and duodenitis K29.90 ??? Gallstones K80.20 ??? Depression F32.A ??? Somnolence, daytime R40.0 ??? Low back pain M54.50 ??? GERD (gastroesophageal reflux disease) K21.9 ??? Chronic constipation K59.09 ??? Sleep apnea G47.30 EXAM: HEENT: Airway examined, oropharynx clear Mallampati Score: Per anesthesia LUNGS: Clear to auscultation HEART: Regular rate and rhythm, normal S1, S2 ABDOMEN: Normal bowel sounds, soft, non tender, non distended, A/P Proceed with the planned endoscopic procedure. ASA 2 - Patient with mild systemic disease with no functional limitations Sedation Plan: anesthesia Risks and benefits of the procedure explained to the patient. Consent signed. documented in this encounter Miscellaneous Notes * Op Note - Deven Leyva MD - 05/28/2021 8:20 AM EST [facility] Operative Note Patient Name: Deb Mullins : [id number] MR#: [id number] Case Date: 05/28/2021 Surgeon: Surgeon(s) and Role: * Deven Leyva MD - Primary Preoperative diagnosis: Crohn's disease with abdominal pain, recent MRE found Cholelithiasis and choledocholithiasis, needs evaluation and possibly removal of stone. Postoperative diagnosis: * No post-op diagnosis entered * Procedure(s) (LRB): ERCP W/SPHINCTEROTOMY/PAPILLOTOMY (N/A) ERCP W/REMOVAL CALCULI/DEBRIS FROM BILARY/PANCREATIC DUCT(S) Anesthesia: General Full procedure note is documented under the Procedure section of [facility]. documented in this encounter Plan of Treatment Not on file documented as of this encounter Procedures Procedure Name Priority Date/Time Associated Diagnosis Comments XR ERCP Routine 05/28/2021 8:50 AM EST Ercp, W/Removal Stone, Josef/Pancr Ducts (00610) 05/28/2021 7:47 AM EST Crohn's disease without complication, unspecified gastrointestinal tract location Ercp, Sphincterotomy (12800) 05/28/2021 7:47 AM EST Crohn's disease without complication, unspecified gastrointestinal tract location ERCP Routine 05/28/2021 7:21 AM EST documented in this encounter Results * XR ERCP (05/28/2021 8:50 AM EST) Narrative OBDULIO ESQUEDA - 05/28/2021 8:50 AM EST See PACS for result report. Deven Leyva MD IM FILM LIBRARY ORD ERABLES [facility], [place] * ERCP (05/28/2021 7:21 AM EST) ERCP [facility] Endoscopy Procedure Date: 05/28/2021 7:21 AM ? Patient Name: Deb Mullins ? Date of : 1975 ? Age: 45 ? Order #: [id number] ? Instrument Name: [id number] ? Procedure: ? ERCP Indications: ? Abnormal abdominal MRI, Evaluation ? and possible treatment of bile duct ? stone(s) Providers: ? Deven Leyva MD, Jose Krishnan ? Chris Javed MD: ?Marleni Gallagher, Trav Rdz MD, ? Altagracia Ng, CARA Medicines: ? General Anesthesia, Indomethacin 100 ? mg [place] Complications: ? No immediate complications. Procedure: ? Pre-Anesthesia Assessment: ? - Prior to the procedure, a History ? and Physical was performed, and ? patient medications, allergies and ? sensitivities were reviewed. The ? patient's tolerance of previous ? anesthesia was reviewed. ? - The risks and benefits of the ? procedure and the sedation options ? and risks were discussed with the ? patient. All questions were answered ? and informed consent was obtained. ? - ASA Grade Assessment: II - A ? patient with mild systemic disease. ? - General anesthesia under the ? supervision of an anesthesiologist ? was determined to be medically ? necessary for this procedure based on ? complex procedure (ERCP, EUS). ? The procedure, indications, benefits, ? risks and alternatives were explained ? to the patient. Specifically ? discussed were potential ? complications including, but not ? limited to, bleeding, perforation, ? infection, pancreatitis, missing a ? cancer, and adverse medication ? reactions. The Duodenoscope was ? introduced through the mouth, and ? advanced to the duodenum where it was ? used to inject contrast into and used ? to inject contrast into the bile duct ? and ventral pancreatic duct. The ? patient tolerated the procedure well. ? Findings: ? The nursing home administrator film was normal. The esophagus was ? successfully intubated under direct vision. The scope ? was advanced to a normal major papilla in the ? descending duodenum without detailed examination of ? the pharynx, larynx and associated structures, and ? upper GI tract. The upper GI tract was grossly ? normal. The bile duct was deeply cannulated with the ? short-nosed traction sphincterotome and guidewire. ? Contrast was injected. I personally interpreted the ? bile duct images. There was brisk flow of contrast ? through the ducts. Image quality was excellent. ? Contrast extended to the hepatic ducts. Opacification ? of the entire biliary tree was successful. The ? maximum diameter of the ducts was 5 mm. The lower ? third of the main bile duct contained one stone, ? which was 5 mm in diameter. There were multiple ? gallbladder stones. A 0.025 in Visiglide II wire was ? passed into the biliary tree. A 10 mm biliary ? sphincterotomy was made with a monofilament CleverCut ? cxwj-anv-hbgm sphincterotome using ERBE ? electrocautery. There was no post-sphincterotomy ? bleeding. The biliary tree was swept with an 11.5 mm ? balloon starting at the bifurcation. One stone was ? removed. No stones remained. The PD was briefly ? accessed with the guide wire during initial ? cannulation attempts but no contrast was injected. ? Moderate Sedation: ? I was present during the intraservice time as ? documented by the sedation RN. Impression: ?- Choledocholithiasis was found. ? Complete removal was accomplished by ? biliary sphincterotomy and balloon ? extraction. ? - Cholelithiasis. Recommendation: ?- Observe patient's clinical course. ? - Proceed with planned ? cholecystectomy. ? Attending Participation: ? I personally performed the entire procedure. ? Devne Leyva MD 05/28/2021 8:55:35 AM This report has been signed electronically. Number of Addenda: 0 Note Initiated On: 05/28/2021 7:21 AM PROVATION 05/28/2021 7:21 AM EST Marleni Gallagher APRN GENERAL SURGICAL ORD ERABLES [employer]OVATION documented in this encounter Visit Diagnoses Diagnosis Crohn's disease without complication, unspecified gastrointestinal tract location documented in this encounter Administered Medications Inactive Administered Medications - up to 3 most recent administrations Medication Order MAR Action Action Date Dose Rate Site indomethacin (Indocin) suppository 100 mg 100 mg, Rectal, ONCE, 1 dose, On Wed05/28/21 at 0845, Endoscopy (Intra-Procedure), Routine Given 05/28/2021 8:28 AM EST 100 mg lactated ringers infusion 100 mL/hr, Intravenous, CONTINUOUS, Starting on Wed05/28/21 at 0730, Until Wed05/28/21 at 1013, Endoscopy (Day of Procedure) New Bag 05/28/2021 9:10 AM EST 100 mL/hr 100 mL/hr Restarted 05/28/2021 8:50 AM EST New Bag 05/28/2021 7:24 AM EST 100 mL/hr 100 mL/hr documented in this encounter Active and Recently Administered Medications Times are shown in EST. Scheduled Medication Order 05/26/2021 05/27/2021 05/28/2021 indomethacin (Indocin) suppository 100 mg (COMPLETED) 100 mg, Rectal, ONCE, 1 dose, On Wed05/28/21 at 0845, Endoscopy (Intra-Procedure), Routine 0828 (Given - Provid er: Chris Dumont RN)0845 (Due) Continuous Medication Order 05/26/2021 05/27/2021 05/28/2021 lactated ringers infusion (CANCELED) 100 mL/hr, Intravenous, CONTINUOUS, Starting on Wed05/28/21 at 0730, Until Wed05/28/21 at 1013, Endoscopy (Day of Procedure) 0724 (New Bag - Prov ider: Shanika Gao RN)0849 (Paused - Provider: Owen Yeung CRNA - Comment: Switch to gravity)0850 (Restarted - Provider: Owen Yeung CRNA)0910 (New Bag - Provider: Chris Dumont RN) documented in this encounter Care Teams Annual Campaign Manager Relationship Specialty Start Date End Date Marleni Gallagher, CARA [address] [place] [address] PCP - General Family Medicine 12/11/16 documented as of this encounter
--- OUTSIDE RECORDS SUMMARY | 2024-03-02 14:12 | XMS_ITS | Encounter Summary ---
Author Organization [facility] Address [address] [place] [address] Care Team Providers Care Cytogeneticist Name Role Phone Unavailable Primary Care Provider Unavailabl e Encounter Details Date Type Department Care Team (Late st Contact Info) Description 08/21/2009 Orders Only [address] [address] Sagar Ortega MD [address] [place], [place] [id number] Social History Tobacco Use Types Packs/Day Years Used Date Smoking Tobacco: Never Assessed Sex and Gender Information Value Date Recorded Sex Assigned at Not on file Gender Identity Not on file Sexual Orientation Not on file documented as of this encounter Plan of Treatment Not on file documented as of this encounter Procedures Procedure Name Priority Date/Time Associated Diagnosis Comments SURGICAL PATHOLOGY Routine 08/21/2009 0:00 EST documented in this encounter Results * SURGICAL PATHOLOGY (08/21/2009 0:00 EST) Pathology Report: SURGICAL PATHOLOGY REPORT ? Reports generated via electronic interface contain original data; ? however they are lacking the format of the original report. ? Caution should be taken when reading/interpreting unformatted reports. ? Name: ? BRINK, DEB L ? Accession #: ? [id number] ? : ? 1975 (Age: 33) ??F ? Collect Date: ? 08/21/2009 ? Location: ? [facility] ? Receive Date: ? 08/21/2009 ? Provider: SAGAR WALKO MD ? Copy to: CHUYITA MAYO MD ? Final Pathologic Diagnosis: ? A. ?Duodenum, 2nd portion, biopsies: ? 1. ?Duodenal mucosa with slight intraepithelial lymphocytosis. ??See ? comment. ? 2. ? No villous blunting or foveolar metaplasia. ? B. ?Stomach, antral ulcer, biopsy: ? 1. ?Acute and chronic reactive epithelial changes. ? 2. ? Immunohistochemistry is negative for Helicobacter pylori. ??See comment. ?? C. ?Stomach, body, biopsies: ? 1. ?Oxyntic type mucosa with mild focal chronic inflammation. ? D. ?Stomach, antrum, biopsies: ? 1. ?Antral mucosa with mild acute and chronic inflammation. ? 2. ? No Helicobacter pylori-like organisms on H&E stain. ? E. ?Terminal ileum, biopsies: ? 1. ?Moderate chronic inflammation and focal loose granulomas. ? 2. ? Special stains for acid fast bacilli and fungal organisms are negative. ?? See comment. ? F. ?Colon, right (including ascending and transverse), biopsies: ? 1. ?Colonic mucosa with focal lymphoid aggregate and eosinophilic ? cryptitis, otherwise unremarkable. See comment. ? G. ?Colon, left (including descending and sigmoid), biopsies: ? 1. ?Colonic mucosa with focal lymphoid aggregate, with features ? suggestive of aphthous ulcer. ? H. ?Rectum, random, biopsies: ? 1. ?Colorectal mucosa with focal lymphoid aggregate and increased ? intramucosal plasma cells and giant cells. ??See comment. ? Comment: ? Immunohistochemical staining was performed on this case to further ? characterize the lesion. ??Positive and negative controls stained appropriately. ? Block ?Antibody (Clone) ? Result ? B ?H. pylori (polyclonal, [facility]) ?Negative ? The lower GI series reveal focal active colitis. ??The ileum shows ? non-caseating granulomas with mild activity. ??Stains for acid fast bacilli and ?? fungal organisms are negative. ??The architecture is well preserved and there is no evidence of chronicity. The possible etiologies include evolving Crohn's ? disease or drug induced injury. ??As always infectious causes of granulomas ? should be excluded if clinically relevant, though with negative stains, this ? etiology is unlikely. ? There is a patchy borderline increase in intraepithelial lymphocytes in part A, but normal architecture but with normal architecture. ??This is more likely to be due to an antral gastritis when in this vicinity. ? This case was reviewed and discussed at the intradepartmental consultation ? conference. ??Dr Grace Gallardo, GI pathologist, has reviewed this case in ? consultation and agrees with the above diagnosis. ??(Dr. Harding)/blank ? NOTE: ??One or more of the reagents used in immunohistochemical testing in this case may not have been cleared or approved by the U.S. Food and Drug ? Administration (FDA). ??The FDA has determined that such clearance or approval is not necessary. ??These tests are used for clinical purposes. ??They should not be regarded as investigational or for research. ??These reagents' ??performance ? characteristics have been determined by [facility]. ??This ? laboratory is certified under the Clinical Laboratory Improvement Amendments of 1988 (CLIA-88) as qualified to perform high complexity clinical laboratory ? testing. ? Document reviewed and electronically signed by: ? Luis Simon, MD ? Report ??Date: 08/30/2009 16:18 ? By the signature above, the attending physician certifies that he/she has ? personally conducted a gross and/or microscopic examination of the described ? specimens and rendered or confirmed the above diagnosis. ? Specimen(s) Received: ? A. ?2nd portion duodenum (#1) ? B. ? Bx antral ulcer (#2) ? C. ? Bx body (#3) ? D. ? Bx antrum (#4) ? E. ? Bx terminal ileum (#5) ? F. ? Bx Rt colon ??incl ascending & transverse (#6) ? G. ? Bx Lt colon ??incl descending & sigmoid (#7) ? H. ? Bx random rectum (#8) ? Clinical History: ? Diarrhea, wt loss, epigastric pain; A-D ??EGD; E-H - colonoscopy ? Gross Description: ? Received in [facility]'s fixative labelled Harpreet, Deb and#1 ??2nd portion duodenum are three biopsies which vary in size from 0.2 x 0.2 x 0.2 cm up to ?? 0.4 x 0.3 x 0.2 cm. ??The specimens are submitted intact as (A). ? Received in [facility]'s fixative labelled Brmissy, Deb and #2 ??bx antral ? ulcer is a 0.3 x 0.3 x 0.3 cm biopsy. ??The specimen is submitted intact as (B). ? [facility] fix[facility] labelled Brmsisy, Deb and #3 ??bx body are ?? two biopsies measuring 0.4 x 0.3 x 0.2 cm and 0.5 x 0.2 x 0.2 cm. ??The specimens are submitted intact as (C). ? Received in [employer]'s fixative labelled BrDeb louis and #4 ??bx antrum are two biopsies measuring 0.2 x 0.2 x 0.2 cm and 0.3 x 0.2 x 0.1 cm. ??The specimens are submitted intact as (D). ? Received in [employer]'s fixative labelled BrDeb louis and #5 ??bx terminal ? ileum are two biopsies measuring 0.3 x 0.3 x 0.2 cm and 0.3 x 0.2 x 0.2 cm. ? The specimens are submitted intact as (E). ? Received in [employer]'s fixative labelled BrDeb louis and #6 ??bx random R ? colon ??incl ascending and transverse are five biopsies which vary in size from 0.4 x 0.3 x 0.2 cm up to 1.0 x 0.2 x 0.1 cm. The specimens are submitted intact as (F1) and (F2). ? Received in [employer]'s fixative labelled BrDeb louis and #7 ??bx L colon incl descending and sigmoid are five biopsies which vary in size from 0.2 x 0.2 x ?? 0.1 cm up to 0.5 x 0.3 x 0.2 cm. ??The specimens are submitted intact as (G1) and (G2). ? Received in [employer]'s fixative labelled Deb Mullins and #8 ??bx random ? rectum are three biopsies which vary in size from 0.2 x 0.2 x 0.1 cm up to 0.3 x 0.2 x 0.1 cm. ??The specimens are submitted intact as (H). ??(J.D. ? [employer])/mms ? End of Report ? MILADY FARLEY 08/21/2009 08/21/2009 17: 46 EST Sagar Ortega MD PATHOLOGY ORDERABLES MILADY FARLEY [address] [place] [address] documented in this encounter Visit Diagnoses Not on filedocumented in this encounter
--- OUTSIDE RECORDS SUMMARY | 2024-03-02 14:12 | XMS_ITS | Encounter Summary ---
[facility] [place] [address] Care Team Providers Care Academic Advisement Director Name Role Phone AileenMarleni CARA Primary Care Provider [phone] Reason for Referral * Consultation (Routine) - Closed Specialty Diagnoses / Procedures Referred By Lynda fabian Referred To Contact General Surgery Diagnoses Crohn's disease without complication, unspecified gastrointestinal tract location Gallstones Altagracia Ng FARM GENERAL MANAGER [facility] [place] [address] [facility] Gen Surgery [address] [place] [address] Referral ID Status Reason Start Date Expiration Date V isits Requested Visits Authorized [id number] Closed Consult, Test & Treat 03/25/2021 03/25/2022 1 1 Encounter Details Date Type Department Care Team (Late st Contact Info) Description 03/25/2021 Telephone [place] [address] Altagracia Ng FARM GENERAL MANAGER [facility] [place] [address] Social History Tobacco Use Types Packs/Day Years [...] AM EDT documented as of this encounter Miscellaneous Notes * Telephone Encounter - Altagracia Ng Avel Vallecillo, FARM GENERAL MANAGER - 03/25/2021 5:17 PM EDT 03/25/21: EGDand colonoscopy- normal. See below. Plans for EUS/ ERCP for gallstones and CBD stones seen on MRI . Her epigastric pain likely due to gallstones and CBD stones Will also refer her to general surgery for cholecystectomy ?? I called Deb and discussed this with her. She agrees on this. EGD: Impression: ?- Normal esophagus. ?- Z-line regular, 40 cm from the ?incisors. ?- Normal stomach. Biopsied. ?- Normal examined duodenum. Biopsied. ?Her epigastric pain is secondary to ?gallstones and CBD stones seen on MRI Recommendation: ?- Await pathology results. ?Needs ERCP and cholecystectomy Colonoscopy Impression: ?- The entire examined colon is ?normal. Biopsied. ?- The examined portion of the ileum ?was normal. Biopsied. ?Inflammatory polyp ?No active Crohn's Recommendation: ?- Await pathology results. ? Jhon Edwards MD documented in this encounter Plan of Treatment Scheduled Referrals Name Type Priority Associated Diagnoses Orde r Schedule Referral to General Surgery Outpatient Referral Routine Crohn's disease without complication, unspecified gastrointestinal tract location Gallstones Ordered: 03/25/2021 documented as of this encounter Visit Diagnoses Diagnosis Crohn's disease without complication, unspecified gastrointestinal tract location Gallstones Calculus of gallbladder without mention of cholecystitis or obstruction documented in this encounter Care Teams Academic Advisement Director Relationship Specialty Start Date End Date Marleni Gallagher APRN [address] [place] [address] PCP - General Family Medicine 12/11/16 documented as of this encounter
--- OUTSIDE RECORDS SUMMARY | 2024-03-02 14:12 | XMS_ITS | Encounter Summary ---
Author Organization [facility] Address [address] [place] [address] Care Team Providers Care Terra Cotta Roofer Name Role Phone Unknown, Provider Primary Care Provider [phone] Encounter Details Date Type Department Care Team (Late st Contact Info) Description 01/20/2000 Results Only [facility] - Map conversion [address] [place] [address] Leonila Turpin, [facility] [address] [place] [address] [place] [address] Social History Tobacco Use Types Packs/Day Years Used Date Smoking Tobacco: Never Assessed Sex and Gender Information Value Date Recorded Sex Assigned at Not on file Gender Identity Not on file Sexual Orientation Not on file documented as of this encounter Plan of Treatment Not on file documented as of this encounter Procedures Procedure Name Priority Date/Time Associated Diagnosis Comments CYTOPATHOLOGY Routine 01/20/2000 0:00 EDT documented in this encounter Results * CYTOPATHOLOGY (01/20/2000 0:00 EDT) Pathology Report: CYTOPATHOLOGY REPORT Reports generated via electronic interface contain original data; however they are lacking the format of the original report. Caution should be taken when reading/interpreti ng unformatted reports. Name: ? DEB MENDENHALL ? Accession #: ? [id number] : ? 1975 (Age: 24) ??F ?Collect Date: ? 01/20/2000 Location: ? [facility] ? Receive Date: ? 01/22/2000 Provider: ?LEONILA TURPIN FOREST PRODUCTS GATHERER Copy to: ? Specimen/Source: ?Conventional Pap Test, Cervix/Endocervix Last Menstrual Period: ? 11/01/99 Menstrual/Pregnanc y Status: ? Previous Gynecologic Pathology: ? ASC-US: Reactive Other: ? Additional clinical information: & Normal. WNL. ? SPECIMEN ADEQUACY ? Satisfactory for evaluation. GENERAL CATEGORIZATION ? Within Normal Limits ? Document reviewed and electronically signed by: ? Maria A Quinteros [facility](ASCP) ? Report Date: ??01/23/2000 14:05 End of Report [facility] 01/20/2000 01/22/2000 Leonila Turpin FOREST PRODUCTS GATHERER PATHOLOGY ORDERABLES Performing Organization Address City/State/[facility] Co de Phone Number [facility] [address] [place] [address] documented in this encounter Visit Diagnoses Not on filedocumented in this encounter Care Teams Terra Cotta Roofer Relationship Specialty Start Date End Date Unknown, Provider, PCP - General 08/23/09 05/21/11 documented as of this encounter
--- OUTSIDE RECORDS SUMMARY | 2024-03-02 14:12 | XMS_ITS | Encounter Summary ---
[place] [address] Care Team Providers Care Industrial Laborer Name Role Phone Marleni Gallagher APRN Primary Care Provider [phone] Encounter Details Date Type Department Care Team (Late st Contact Info) Description 05/28/2021 Notes [place] [address] Jhon Catnu Jr. Social History Tobacco Use Types Packs/Day Years [...] AM EDT documented as of this encounter Progress Notes * Jhon Cantu Jr. - 05/28/2021 8:44 AM EST During ERCP for Deb Mullins , the patient met no inclusion criteria. The patient was consequentlynot enrolled in the SVI trial. Patient will be informed that she is no longer in the study following the procedure and will continue to be treated with standard of care. documented in this encounter Plan of Treatment Not on file documented as of this encounter Visit Diagnoses Not on filedocumented in this encounter Care Teams Industrial Laborer Relationship Specialty Start Date End Date Marleni Gallagher, COPY HOLDER [address] [facility] [address] PCP - General Family Medicine 12/11/16 documented as of this encounter
--- OUTSIDE RECORDS SUMMARY | 2024-03-02 14:12 | XMS_ITS | Encounter Summary ---
Author Organization [facility] Address [address] [place] [address] Care Team Providers Care Centrifugal Drier Operator Name Role Phone Unavailable Primary Care Provider Unavailabl e Encounter Details Date Type Department Care Team (Late st Contact Info) Description 06/01/2008 Before PRISM Converted Visit (Maple) [facility] - Maple conversion [address] [place] [address] [place]ishma [place] [address] Social History Tobacco Use Types Packs/Day Years Used Date Smoking Tobacco: Never Assessed Sex and Gender Information Value Date Recorded Sex Assigned at Not on file Gender Identity Not on file Sexual Orientation Not on file documented as of this encounter Plan of Treatment Not on file documented as of this encounter Procedures Procedure Name Priority Date/Time Associated Diagnosis Comments HPV DETECTION, HIGH RISK TYPES Routine 06/01/2008 11:12 EST CYTOPATHOLOGY Routine 06/01/2008 0:00 EST documented in this encounter Results * HUMAN PAPILLOMA VIRUS DNA TEST (06/01/2008 11:12 EST) Specimen Description Cervix, ThinPrep vial [facility] Result Negative for HPV types 16, 18, 31, 33, 35, 39, 45, 51, 52, 56, 58, 59, and 68. [facility] Report Status Final 06/14/2008 [facility] 06/01/2008 11:1 2 EST 06/12/2008 11:12 EST Karishma Thomson IRRIGATION EQUIPMENT INSTALLER MICROBIOLOGY - G ENERAL ORDERABLES [facility] [address] [place] [address] * CYTOPATHOLOGY (06/01/2008 0:00 EST) Pathology Report: CYTOPATHOLOGY REPORT ? Reports generated via electronic interface contain original data; ? however they are lacking the format of the original report. ? Caution should be taken when reading/interpreti ng unformatted reports. ? Name: ? DEB MENDENHALL ? Accession #: ? [id number] ? : ? 1975 (Age: 32) ??F ?Collect Date: ? 06/01/2008 ? Location: ? [facility] ? Receive Date: ? 06/06/2008 ? Provider: ?MOLLIE D CHAMBERLAIN IRRIGATION EQUIPMENT INSTALLER ? Copy to: ? Specimen/Source: ?Pap Test, Cervix/Endocervix, ThinPrep Imaging System ? with manual evaluation ? Last Menstrual Period: ? 11/10/08 ? Other: ? HPVDX - HPV testing requested regardless of diagnosis on current ThinPrep Pap ?? test. ? SPECIMEN ADEQUACY ? Satisfactory for Evaluation ? - transformation zone component absent ? GENERAL CATEGORIZATION ? Negative for Intraepithelial Lesion or Malignancy ? Document reviewed and electronically signed by: ? Estelle Mijares, SCT(ASCP) ? Report Date: ??06/11/2008 12:44 ? End of Report ? [facility] 06/01/2008 06/06/2008 Karishma Thomson IRRIGATION EQUIPMENT INSTALLER PATHOLOGY [facility] [address] [place] [address] documented in this encounter Visit Diagnoses Not on filedocumented in this encounter
--- OUTSIDE RECORDS SUMMARY | 2024-03-02 14:12 | XMS_ITS | Encounter Summary ---
Author Organization [facility] Address [facility] [place] [address] Care Team Providers Care Supervisor Sleeping Bag Department Name Role Phone Marleni Gallagher CARA Primary Care Provider [phone] Reason for Visit * Reason Comments Establish Care * Consultation (Routine) - Closed Specialty Diagnoses / Procedures Referred By Lynda fabian Referred To Contact General Surgery Diagnoses Crohn's disease without complication, unspecified gastrointestinal tract location Gallstones Altagracia Ng APRN [facility] [place] [address] [facility] [address] [place] [phone] Referral ID Status Reason Start Date Expiration Date V isits Requested Visits Authorized [id number] Closed Consult, Test & Treat 03/25/2021 03/25/2022 1 1 Encounter Details Date Type Department Care Team (Late st Contact Info) Description 04/18/2021 11:00 AM EDT Office [place] [address] Trav Rdz MD [facility] [place] [address] Gallstones Social History Tobacco Use Types Packs/Day Years [...] Sign Reading Time Taken Comments Blood Pressure 127/79 04/18/2021 11:08 AM EDT Pulse 72 04/18/2021 11:08 AM EDT Temperature 36.2 ??C (97.2 ??F) 04/18/2021 11:08 AM E DT Respiratory Rate 16 04/18/2021 11:08 AM EDT Oxygen Saturation 100% 04/18/2021 11:08 AM EDT Inhaled Oxygen Concentration - - Weight 97 kg (213 lb 12.8 oz) 04/18/2021 11:08 A M EDT Height 170.2 cm (5' 7.01) 04/18/2021 11:08 AM E DT Body Mass Index 33.48 04/18/2021 11:08 AM EDT documented in this encounter Progress Notes * Trav Rdz MD - 04/18/2021 11:00 AM EDT Deb Mullins is a 45 y.o. female referred by Altagracia Ng and Marleni Gallagher APRN for symptomatic gallstones. She has a complex IBD history with chronic abdominal pains. She has had multiple episodes of acute abdominal pain. These episodes, which typically last 20 or 30 minutes, are manifest by epigastric pain, which often radiates to the right upper quadrant and chest. Associated symptoms include nausea but no vomiting, fevers or other symptoms. She denies jaundice, dark urine or pale stools. Recent work up revealed cholelithiasis and choledocholithiasis without obstruction. She is scheduled for ERCP and is here to discuss subsequent cholecystectomy. Past Medical History: Patient Active Problem List Diagnosis Code ??? Right wrist pain M25.531 ??? Chronic diarrhea K52.9 ??? 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 Constipation K59.00 ??? Gastritis and duodenitis K29.90 ??? Gallstones K80.20 ??? Depression F32.A ??? Somnolence, daytime R40.0 ??? Low back pain M54.50 ??? GERD (gastroesophageal reflux disease) K21.9 ??? Chronic constipation K59.09 ??? Sleep apnea G47.30 Past Surgical History: Procedure Laterality Date ??? CREATED BY INTERFACE COLONOSCOPY-BIOPSY Procedure Date: 01/09/2010 ??? CREATED BY INTERFACE EGD-BIOPSY Procedure Date: 01/09/2010 ??? CREATED BY INTERFACE Entered not Verified Procedure Date: 06/09/2010 ??? CREATED BY INTERFACE EXCISION GANGLION,WRIST / LEFT Procedure Date: 04/16/2005 ??? CREATED BY INTERFACE EXCISION GANGLION,WRIST,DORSAL OR VOLAR,PRIMARY / RIGHT/DORSAL Procedure Date: 09/04/2004 ??? CREATED BY INTERFACE EXCISION GANGLION,WRIST,RECURRENT / RIGHT Procedure Date: 03/01/2008 ??? PRO COLONOSCOPY, BIOPSY N/A 05/13/2017 COLONOSCOPY FLEXIBLE, WITH BX (WRVU 3.66) performed by Jose Bianchi MD at [facility] ENDOSCOPY ??? PRO COLONOSCOPY, DIAGNOSTIC 08/27/2011 COLONOSCOPY, DIAGNOSTIC performed by KVNG YUEN at [facility] ENDOSCOPY ??? PRO COLONOSCOPY, DIAGNOSTIC N/A 03/25/2021 COLONOSCOPY, DIAGNOSTIC performed by Jhon Edwards MD at [facility] MA[facility] OR ??? PRO COLONOSCOPY, FLEX, W/DIR SUBMUC INJECT N/A 05/13/2017 COLONOSCOPY WITH DIRECTED SUBMUCOSAL INJ (WRVU 3.66) performed by Jose Bianchi MD at [facility] ENDOSCOPY ??? PRO UPPER GI ENDOSCOPY, BIOPSY N/A 05/13/2017 EGD WITH BIOPSY (WRVU 2.49) performed by Jose Bianchi MD at [facility] ENDOSCOPY ??? PRO UPPER GI ENDOSCOPY, BIOPSY N/A 03/25/2021 EGD WITH BIOPSY (WRVU 2.49) performed by Jhon Edwards MD at [facility] MA[facility] OR ??? PRO UPPER GI ENDOSCOPY, DIAGNOSTIC N/A 03/25/2021 EGD, UPPER GI ENDOSCOPY performed by Jhon Edwards MD at [facility] MAIN OR ??? UPPER GI ENDOSCOPY, EXAM 08/27/2011 UPPER GI ENDOSCOPY performed by KVNG YUEN at [facility] ENDOSCOPY Medications: Current Outpatient Medications on File Prior to Visit Medication Sig Dispense Refill ??? ondansetron (Zofran) 4 mg Tablet Take 1 tablet by mouth every 8 hours as needed for Nausea. 60 tablet 3 ??? chlordiazePOXIDE-clidinium (Librax, with Clidinium,) 5-2.5 mg Capsule Take 1 capsule by mouth every 8 hours as needed. 90 capsule 3 ??? mesalamine DR (Lialda) 1.2 gram Tablet, Delayed Release (E.C.) Take 2 tablets by mouth 2 times daily. 120 tablet 3 ??? calcium-vitamin D3 600 mg calcium- 400 unit Tablet Take by mouth. ??? omeprazole 20 mg Tablet, Delayed Release (E.C.) Take by mouth. ??? FLUoxetine (PROzac) 20 mg Capsule TAKE 1 CAPSULE BY MOUTH DAILY ??? dicyclomine (BENTYL) 20 mg Tablet TAKE 1 TABLET BY MOUTH FOUR TIMES DAILY NEEDED FOR BOWEL ISSUES ??? valACYclovir (VALTREX) 1 gram Tablet TAKE 1 TABLET BY MOUTH DAILY (Patient taking differently: as needed. TAKE 1 TABLET BY MOUTH DAILY) 30 tablet 0 ??? ibuprofen (ADVIL;MOTRIN) 200 mg tablet Take 200 mg by mouth every 6 hours as needed. ??? acetaminophen (TYLENOL) 325 mg tablet ??? metroNIDAZOLE (FlagyL) 500 mg Tablet Take 1 tablet by mouth 2 times daily. (Patient not taking:Reported on 04/18/2021) 20 tablet 1 ??? rifAXIMin (Xifaxan) 550 mg Tablet Take 1 tablet by mouth 2 times daily. (Patient not taking: Reported on 04/07/2021) 28 tablet 0 ??? metroNIDAZOLE (METROCREAM) 0.75 % Cream APPLY TOPICALLY TO AFFECTED AREA ON FACE ONCE TO TWICE DAILY (Patient not taking: Reported on 02/24/2021) 45 g 1 ??? buPROPion (WELLBUTRIN XL) 300 mg Tablet Extended Release 24 hr take 1 tablet by mouth once daily 0 ??? venlafaxine (EFFEXOR-XR) 75 mg Capsule, Sust. Release 24 hr 0 ??? venlafaxine (EFFEXOR-XR) 150 mg 24 hr capsule Take 150 mg by mouth daily. Total of 225 mg No current facility-administered medications on file prior to visit. Allergies: Dilaudid [hydromorphone] and Preparation h [phenylephrine-witch david] Family History: No family history on file. Social History: reports that she quit smoking about 20 years ago. Her smoking use included cigarettes. She has a 1.50 pack-year smoking history. She has never used smokeless tobacco. She reports current alcohol use of about 7.0 standard drinks of alcohol per week. She reports current drug use. Drug: Other pain meds . Review of Systems: Review of systems is negative for any unexplained weight loss or weight gain. She denies any cough,chest pain or shortness on breath on exertion. She has no fevers, chills or night sweats. She denies headaches, dizziness, weakness, numbness or ataxia. Bowel and bladder elimination is normal. All other system reviews are negative. Impression. , I agree that laparoscopic cholecystectomy is indicated. The majority of this visit was spent discussing the nature of her gallstone disease and reasons for considering laparoscopic cholecystectomy (to eliminate current symptoms and prevent future complications). We also reviewed the risks of this procedure, including the possibility of bleeding requiring transfusion, infection, injury to the biliary tree, and the occasional need to convert to an open procedure. Overall, she seems well informed and wishes to proceed. documented in this encounter Plan of Treatment Scheduled Referrals Name Type Priority Associated Diagnoses Orde r Schedule Referral to General Surgery Outpatient Referral Routine Crohn's disease without complication, unspecified gastrointestinal tract location Gallstones Ordered: 03/25/2021 documented as of this encounter Visit Diagnoses Diagnosis Gallstones Calculus of gallbladder without mention of cholecystitis or obstruction documented in this encounter Care Teams Supervisor Sleeping Bag Department Relationship Specialty Start Date End Date Marleni Gallagher, CARA [address] [facility] [place] [address] PCP - General Family Medicine 12/11/16 documented as of this encounter
--- OUTSIDE RECORDS SUMMARY | 2024-03-02 14:12 | XMS_ITS | Encounter Summary ---
Author Organization [facility] [place] [address] Care Team Providers Care Microfilm Processor Name Role Phone Marleni Gallagher APRN Primary Care Provider [phone] Reason for Visit * Auth/Cert Specialty Diagnoses / Procedures Referred By Lynda fabian Referred To Contact Diagnoses Crohn's disease, unspecified, without complications GALLSTONES Procedures PRO LAP, CHOLECYSTECTOMY/GRAPH LAPAROSCOPIC CHOLECYSTECTOMY WITH CHOLANGIOGRAM (WRVU 11.47) Referral ID Status Reason Start Date Expiration Date Visits Re quested Visits Authorized [id number] 1 1 Encounter Details Date Type Department Care Team (Latest Contact Info) Description 06/11/2021 9:44 AM [facility] - 06/11/2021 4:11 PM [facility] Hospital [place] [address] Trav Mejía MD [facility] [place] [address] Discharge Disposition: Home Social History Tobacco Use Types Packs/Day Years [...] Reading Time Taken Comments Blood Pressure 127/79 06/11/2021 3:00 PM EST Pulse 81 06/11/2021 10:18 AM EST Temperature 36.8 ??C (98.2 ??F) 06/11/2021 1:00 PM ES T Respiratory Rate 16 06/11/2021 1:15 PM EST Oxygen Saturation 95% 06/11/2021 3:00 PM EST Inhaled Oxygen Concentration - - Weight 96.6 kg (213 lb) 06/11/2021 10:18 AM EST Height 170.2 cm (5' 7) 06/11/2021 10:18 AM EST Body Mass Index 33.36 06/11/2021 10:18 AM EST documented in this encounter Discharge Instructions * Patient Instructions* CadeFreemanalejandro Grant - 06/11/2021 12:55 PM EST Instructions following Laparoscopic Cholecystectomy Wound Care: Keep dressings/Band-Aids on incisions for the next 2 days. Do not get dressings wet. Ifthey become wet or soaked with drainage you may change them with fresh ones as needed. If there arepieces of tape directly on the incision (steri-strips or butterflys), please leave them on until they fall off on their own. You may trim them back as they begin to peel up. After 2 days you may remove dressing/Band-Aids and leave open to air. You may now shower and get incisions wet. Pat dry immediately following. Do not scrub them vigorously for the next 2-3 weeks. Do not soak incision(s) under water for the next 2 weeks (i.e. soaking in bath or swimming) as this maypromote a wound infection. Your stitches will dissolve and do not need to be removed. Activity: No heavy lifting more than 10-15 pounds for the next 2 weeks, then you may gradually liftheavier objects as tolerated by discomfort. Otherwise activity as tolerated by your comfort level. Call Doctor for: Please call if you notice worsening redness or drainage from incision(s) lasting longer than 5 days after your surgery, any foul-smelling drainage from the incision, pain not controlled by pain medications, persistent nausea or vomiting, or for any fevers greater than 101.3 F. The number for questions is [phone] before 5 PM weekdays and [phone] after 5 PM and weekends. Pain Medication: No driving for 8 hours after any dose of opioid pain medication if one was prescribed for you. You may use ibuprofen (motrin, advil) in addition to this medication if your pain is not totally controlled. Follow-up: Please call Dr. Mejía' office at [phone] (clinic number for appointments) to schedule a follow up appointment. Future Appointments Date Time Provider Department Center 06/23/2021 3:30 PM Kvng Yuen MD [facility] GASTRO [facility] 07/15/2021 2:00 PM Keara Quintana APRN [facility] SURG [facility] documented in this encounter Medications at Time [...] needed. 90 capsule 3 04/07/[address] (Eloisa) 1.2 gram Tablet, Delayed [...] as of this encounter H&P Notes * Wild Cade - 06/11/2021 9:05 AM EST Minimally Invasive Surgery Preop H&P NAME: Deb Mullins DATE: 06/11/21 SURGEON: TRAV MEJÍA PROCEDURE: Laparoscopic cholecystectomy with intraoperative cholangiogram BRIEF HISTORY: Deb Mullins is a 45 y.o. female with complex IBD history and chronic abdominal pains, with cholelithiasis and choledocholithiasis now s/p ERCP with sphincterotomy on 05/28/21. She presents today for cholecystectomy. The patient reports no interval change. There has been no interval medical illness or hospitalizations. Questions have been addressed. Smoking HX: Social History Tobacco Use Smoking Status Former Smoker ??? Packs/day: 0.50 ??? Years: 3.00 ??? Pack years: 1.50 ??? Types: Cigarettes ??? Quit date: 07/05/2000 ??? Years since quittin.9 Smokeless Tobacco Never Used Tobacco Comment social smoker for a couple of years, less than 1 p/d PMH: Patient Active Problem List Diagnosis Date Noted ??? Gallstones ??? Depression ??? Somnolence, daytime ??? Low back pain ??? GERD (gastroesophageal reflux disease) ??? Chronic constipation ??? Sleep apnea ??? Constipation 05/05/2011 ??? Gastritis and duodenitis 05/05/2011 ??? 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 Right wrist pain ??? Chronic diarrhea 03/23/2010 PSH: Past Surgical History: Procedure Laterality Date ??? [...] 3.66) performed by Jose Bianchi MD at [facility] ENDOSCOPY ??? PRO COLONOSCOPY, DIAGNOSTIC 08/27/2011 COLONOSCOPY, DIAGNOSTIC performed by KVNG YUEN at [facility] ENDOSCOPY ??? PRO COLONOSCOPY, DIAGNOSTIC N/A 03/25/2021 COLONOSCOPY, DIAGNOSTIC performed by John Edwards MD at [facility] OR ??? PRO COLONOSCOPY, FLEX, W/DIR SUBMUC INJECT N/A 05/13/2017 COLONOSCOPY WITH DIRECTED SUBMUCOSAL INJ (WRVU 3.66) performed by Jose Bianchi MD at [facility] ENDOSCOPY ??? PRO ERCP, SPHINCTEROTOMY N/A 05/28/2021 ERCP W/SPHINCTEROTOMY/PAPILLOTOMY performed by Deven Leyva MD at [facility] ENDOSCOPY ??? PRO ERCP, W/REMOVAL STONE, SASHA/PANCR DUCTS 05/28/2021 ERCP W/REMOVAL CALCULI/DEBRIS FROM BILARY/PANCREATIC DUCT(S) performed by Deven Leyva MD at [facility] ENDOSCOPY ??? PRO UPPER GI ENDOSCOPY, BIOPSY N/A 05/13/2017 EGD WITH BIOPSY (WRVU 2.49) performed by Jose Bianchi MD at [facility] ENDOSCOPY ??? PRO UPPER GI ENDOSCOPY, BIOPSY N/A 03/25/2021 EGD WITH BIOPSY (WRVU 2.49) performed by Jhon Edwards MD at [facility] OR ??? PRO UPPER GI ENDOSCOPY, DIAGNOSTIC N/A 03/25/2021 EGD, UPPER GI ENDOSCOPY performed by Jhon Edwards MD at [facility] OR ??? UPPER GI ENDOSCOPY, EXAM 08/27/2011 UPPER GI ENDOSCOPY performed by KVNG YUEN at [facility] ENDOSCOPY MEDS: No current facility-administered medications on file prior to encounter. Current Outpatient Medications on File Prior to Encounter Medication Sig Dispense Refill ??? calcium-vitamin D3 600 mg calcium- 400 unit Tablet Take by mouth. ??? omeprazole 20 mg Tablet, Delayed Release (E.C.) Take by mouth. ??? FLUoxetine (PROzac) 20 mg Capsule TAKE 1 CAPSULE BY MOUTH DAILY ??? ibuprofen (ADVIL;MOTRIN) 200 mg tablet Take 200 mg by mouth every 6 hours as needed. ??? acetaminophen (TYLENOL) 325 mg tablet ??? ondansetron (Zofran) 4 mg Tablet Take 1 tablet by mouth every 8 hours as needed for Nausea. 60 tablet 3 ??? chlordiazePOXIDE-clidinium (Librax, with Clidinium,) 5-2.5 mg Capsule Take 1 capsule by mouth every 8 hours as needed. 90 capsule 3 ??? mesalamine DR (Liaraquela) 1.2 gram Tablet, Delayed Release (E.C.) Take 2 tablets by mouth 2 times daily. 120 tablet 3 ??? dicyclomine (BENTYL) 20 mg Tablet TAKE 1 TABLET BY MOUTH FOUR TIMES DAILY NEEDED FOR BOWEL ISSUES ??? rifAXIMin (Xifaxan) 550 mg Tablet Take 1 tablet by mouth 2 times daily. (Patient not taking: Reported on 04/07/2021) 28 tablet 0 ??? valACYclovir (VALTREX) 1 gram Tablet TAKE 1 TABLET BY MOUTH DAILY (Patient taking differently: as needed. TAKE 1 TABLET BY MOUTH DAILY) 30 tablet 0 ALL: Allergies Allergen Reactions ??? Dilaudid [Hydromorphone] Severe headache ??? Preparation H [Phenylephrine-Witch Jazmin] Causes more irritation. Physical Exam No data found. Gen: NAD, pleasant, sitting comfortably in stretcher HEENT: normocephalic, atraumatic, EOMI, sclerae anicteric Neck: supple, trachea midline Card: RRR, no M/R/G appreciated Pulm: CTAB, no wheeze/ronchi/rales appreciated, non-labored breathing on room air Abd: soft,non distended Ext: warm, dry, no edema Neuro: A&Ox3, CN II-XII grossly intact, nonfocal, conversant LABS: Lab Results Component Value Date WBC 8.2 02/24/2021 RBC 4.65 02/24/2021 HGB 13.7 02/24/2021 HCT 40.1 02/24/2021 MCV 86.2 02/24/2021 MCH 29.5 02/24/2021 MCHC 34.2 02/24/2021 PLATELET 500 (H) 02/24/2021 RDWCV 12.6 02/24/2021 Lab Results Component Value Date/Time NA 141 02/24/2021 05:24 PM K 4.2 02/24/2021 05:24 PM CL 105 02/24/2021 05:24 PM CO2 25 02/24/2021 05:24 PM BUN 12 02/24/2021 05:24 PM CREATININE 0.69 (L) 02/24/2021 05:24 PM Assessment/Plan: Deb Mullins is a 45 y.o. female presenting today for planned laparoscopic cholecystectomy with intraoperative cholangiogram due to symptomatic cholelithiasis. Consent signed and confirmed in chart. Questions addressed. Will proceed with planned surgery. Wild Cade MD 06/11/2021 Minimally Invasive Surgery Service Pager [phone] documented in this encounter Miscellaneous Notes * Brief Op Note - Wild Cade - 06/11/2021 1:05 PM EST Brief Operative Note Patient Name: Deb Mullins : [id number] MR#: [id number] Case Date: 06/11/2021 Surgeon: Surgeon(s) and Role: * Trav Mejía MD - Primary * Wild Cade MD - Resident Preoperative diagnosis: GALLSTONES Postoperative diagnosis: GALLSTONES Procedure(s) (LRB): LAPAROSCOPIC CHOLECYSTECTOMY WITH CHOLANGIOGRAM (WRVU 11.47) (N/A) Anesthesia: General Local Findings: - Laparoscopic cholecystectomy with intraoperative cholangiogram - Cholelithiasis, stones within cystic duct - Intraoperative cholangiogram with opacification of bilateral hepatic duct, filling of CBD, emptying on contrast into duodenum, and no filling defects Complications: None Estimated Blood Loss: 11 mL Specimens removed during surgery: Order Name Source Comment Collection Info Order Time SPECIMEN TO PATHOLOGY GALLSTONES gallbladder excision No 06/11/2021 12:01 PM Time specimen removed from patient: 12:01 PM Number of tissue samples (in container) 1 Biospecimen to store? No Fluids: Intraprocedure Crystalloid Total Intake Lactated Ringers 600.00 mL Ondansetron 2.00 mL Total Intake 602 mL Output Blood Loss 10 mL Total Output 10 mL Net Net Volume 592 mL PRBCs: none (See Anesthesia Record/Report for Other Blood Products) Urine Output: (no urine output recorded) Drains: None Disposition: awakened from anesthesia, extubated and taken to the recovery room in a stable condition, having suffered no apparent untoward event. Condition: doing well without problems (Please see the Surgical Encounter Summary for any Implant and Specimen details pertinent to this patient.) Infection Bundle used? No * Op Note - Trav Mejía MD - 06/11/2021 11:22 AM EST [facility] Operative Note Patient Name: Deb Mullins : [id number] MR#: [id number] Case Date: 06/11/2021 Surgeon: Surgeon(s) and Role: * Trav Mejía MD - Primary * Wild Cade MD - Resident Preoperative diagnosis: GALLSTONES Postoperative diagnosis: GALLSTONES Procedure(s) (LRB): LAPAROSCOPIC CHOLECYSTECTOMY WITH CHOLANGIOGRAM (WRVU 11.47) (N/A) Anesthesia: General Estimated Blood Loss: 7 ml Specimens removed during surgery: Order Name Source Comment Collection Info Order Time SPECIMEN TO PATHOLOGY GALLSTONES gallbladder excision No 06/11/2021 12:01 PM Time specimen removed from patient: 12:01 PM Number of tissue samples (in container) 1 Biospecimen to store? No Drains: * No LDAs found * Surgical Closure: Primary Closure - skin incision is completely closed without any wires, delon, drains or other devices Disposition: awakened from anesthesia, extubated and taken to the recovery room in a stable condition, having suffered no apparent untoward event. Condition: doing well without problems (Please see the Surgical Encounter Summary for any Implant and Specimen details pertinent to this patient.) This 45 y.o. female presented with a history of recurrent biliary colic and episodes consistent with cholecystitis. She is post ERCP for CBD stones Investigations revealed gallstones and her symptoms being consistent with repeated biliary colic. Informed consent was obtained for cholecystectomy. Under general anesthesia and endotracheal intubation, the patient was prepped and draped in the supine position. After appropriate time-out procedure, the patient was confirmed to receive preoperative antibiotics and VTE prophylaxis. The abdomen was insufflated by first achieving access with a Veress needle in a small subumbilical incision. After adequate insufflation with CO2 to a pressure of 15 mmHg, the Veress needle was removed, and a 10-mm port was placed through this incision. A 30-degree telescope was inserted, and closer inspection of the abdominal cavity revealed some adhesions to the gallbladder with a slightly distended gallbladder. No other abnormalities were noted. Next, 5-mm ports were placed in the subxiphoid region and in the right upper quadrant and in the lateral aspect of the right mid abdominal wall. The fundus of the gallbladder was then grasped and retracted in a cephalad direction. The infundibulum was then placed under lateral traction and pulled inferiorly. Sharp and blunt dissection using hook cautery and graspers was used to free the gallbladder of any peritoneal attachments. Hook cautery was then used to completely skeletonize the cystic artery and cystic duct completely clearing the triangle of Calot and achieving a critical view of safety. The cystic duct was wide and inflamed. The proximal cystic duct on the gallbladder end was then ligated with a clip, and a small ductotomy was made. Half-strength Hypaque was used after first threading a catheter through the ductotomy. With continuous fluro, the duct was injected, and we were able to image a normal-appearing common bile duct and intrahepatic ducts. Filling of the duodenum was noted. The catheter was then removed and the cystic duct doubly clipped, endo-looped and divided. The cystic artery was similarly clipped and divided. Hook cautery was then used to free the gallbladder from the liver bed. After adequate hemostasis was assured on the liver bed, the gallbladder was grasped by the neck, placed in a bag and fed through the umbilical port and removed. Re-inspection of the abdominal cavity revealed no ongoing bleeding or bile spillage or leak. All ports were then removed under direct vision. Fascia to the 10-mm port site was closed with interrupted [id number] 0-Vicryl suture followed by running subcuticular 4-0 Monocryl suture, Steri-Strips and Band-Aids to all skin sites. The patient returned to the Recovery Room in stable condition. Sponge and instrument counts were correct. Specimen Sent to Pathology: Gallbladder and contents. Attestation: Case Date: 06/11/2021 I was present and I participated during the entire procedure (does not need to include opening and closing). TRAV MEJÍA MD 06/11/2021 documented in this encounter Plan of Treatment Not on file documented as of this encounter Procedures Procedure Name Priority Date/Time Associated Diagnosis Comments XR FLUORO NO RAD <1HR - OR USE Routine 06/11/2021 12:14 PM EST SURGICAL PATHOLOGY REPORT Routine 06/11/2021 12:01 PM EST SPECIMEN TO PATHOLOGY Routine 06/11/2021 12:01 PM EST Lap, Cholecystectomy/Gra ph ([id number]) 06/11/2021 10:43 AM EST GALLSTONES POCT GLUCOSE Routine 06/11/2021 10:27 AM EST documented in this encounter Results * XR Fluoro No Rad <1Hr - OR Use (06/11/2021 12:14 PM EST) Narrative Dicom, Auditing User - 06/11/2021 12:14 PM EST This exam is auto-finalizing. No interpretation was done. Trav Mejía MD IMG FLUORO ORDERABLE S * Surgical Pathology Report (06/11/2021 12:01 PM EST) Final Diagnosis [id number] ? Location: [facility]; AR[facility]; A The signing pathologist has (i) examined the relevant preparation(s) for the specimen(s) and (ii) rendered or confirmed the diagnosis(es). . ?Surgical Pathology DIAGNOSIS A - Gallbladder, excision: - Chronic cholecystitis with cholelithiasis. Electronically signed by: ?Joe TANNER PhD, Shameka Verified: ??06/13/2021 14:22 ??Pathologist Performed at: ??-[facility] Dept. of Pathology, [place], [place] SPECIMEN(S) SUBMITTED A - Gallbladder, excision (1) CLINICAL INFORMATION Gallstones SPECIMEN PROCESSING A - Labeled/Fixative: Gallbladder, formalin. Quantity/Size: ??Single, 7.0 x 1.3-2.0 x 2.0 cm. Specimen Description: Gallbladder, received incised. Serosa: Glistening, cade to pink-waters Hepatic margin: Scab this, with adherent [id number] hepatic parenchyma Lumen contents: Residual waters-brown viscous bile Gallstones: Present: Multiple, yellow-brown, partially fragmented and intact, multifaceted gallstones ranging from, 0.3-1.3 cm Mucosa: Partially flattened pink-waters, erythematous and focally hemorrhagic Wall: Focally, in the fundus up to 0.2 cm thick. Duct: 0.3 cm, patent. Ink Designation: The hepatic margin is inked black Sections/Processi ng: Woven Wood Shade Assembler sections in 1 cassettes as follows: ?A1: ??cystic duct margin and title insurance sales representative mucosa. ??shb 06/13/2021 2:22 PM EST [facility] GALLBLADDER STRUCTURE / Unknown 06/11/2021 12:01 PM EST 06/11/2021 12:01 PM EST Trav Mejía MD PATHOLOGY/CYTOLOGY O RDERAMILE [facility] [place] [address] * Specimen to Pathology (06/11/2021 12:01 PM EST) AP Specimen 06/11/2021 12:0 1 PM EST 06/11/2021 12:01 PM EST Narrative [facility] - 06/11/2021 12:01 PM EST Specimen requisition ordered. ??Separate Pathology report to follow Trav Mejía MD PATHOLOGY/CYTOLOGY O ELAYNE Performing Organization Address City/[facility]/ZIP Co de Phone Number [facility] [place] [address] * POCT Glucose (06/11/2021 10:27 AM EST) Glucose, POC 92 65 - 199 mg/dL [facility] Comment: Supplemental ranges: <140 mg/dL before meals <180 mg/dL all other times of the day Blood 06/11/2021 10:2 7 AM EST 06/11/2021 10:27 AM EST Trav Mejía MD POINT OF CARE TEST O ELAYNE Performing Organization Address [facility] Co de Phone Number [facility] [place] [address] documented in this encounter Visit Diagnoses Not on filedocumented in this encounter Administered Medications Inactive Administered Medications - up to 3 most recent administrations Medication Order MAR Action Action Date Dose Rate Site fentaNYL (pf) (50 mcg/mL) multi-dose injection 25 mcg 25 mcg, Intravenous, EVERY 5 MIN PRN, Starting on Wed06/11/21 at 1322, Until Wed06/11/21 at 1608, Pain, Moderate to severe pain (6-10 out of 10), Hold for respiratory rate less than 10 per minute. Maximum dose 200 mcg over one hour, including OR administration. If ordered with HYDROmorphone or morphine, give HYDROmorphone or morphine first and use fentaNYL for breakthrough pain., PACU Recovery, Routine Given 06/11/2021 3:20 PM EST 25 mcg Given 06/11/2021 1:25 PM EST 25 mcg heparin (porcine) (5,000 units/1 mL) subcutaneous injection 5,000 Units 5,000 Units, Subcutaneous, ONCE, 1 dose, On Wed06/11/21 at 1100, Day of Surgery (Day of Procedure), Routine Given 06/11/2021 10:37 AM EST 5,000 U nits oxyCODONE (Roxicodone) tablet 5 mg 5 mg, Oral, EVERY 4 HOURS PRN, Starting on Wed06/11/21 at 1303, Until Wed06/11/21 at 1811, Pain, Routine Given 06/11/2021 1:15 PM EST 5 mg oxyCODONE (Roxicodone) tablet 5 mg 5 mg, Oral, ONCE, 1 dose, On Wed06/11/21 at 1545, Routine Given 06/11/2021 3:31 PM EST 5 mg documented in this encounter Active and Recently Administered Medications Times are shown in EST. Scheduled Medication Order 06/09/2021 06/10/2021 06/11/2021 ceFAZolin (Ancef) 2 g in dextrose 5% 100 mL infusion (COMPLETED) 2 g, Intravenous, EVERY 3 HOURS, 1 dose, First dose on Wed06/11/21 at 1100, Administer over 30 Minutes, Intra-Operative (Intra-Procedure), Indication for (Active or Suspected): Prophylaxis 1051 (Given - Provid er: Angela Robin CRNA) heparin (porcine) (5,000 units/1 mL) subcutaneous injection 5,000 Units (COMPLETED) 5,000 Units, Subcutaneous, ONCE, 1 dose, On Wed06/11/21 at 1100, Day of Surgery (Day of Procedure), Routine 1037 (Given - Provid er: Sarai Díaz RN) oxyCODONE (Roxicodone) tablet 5 mg (COMPLETED) 5 mg, Oral, ONCE, 1 dose, On Wed06/11/21 at 1545, Routine 1531 (Given - Provid er: Leonard Metzger RN) PRN Medication Order 06/09/2021 06/10/2021 06/11/2021 BUpivacaine (Sensorcaine) (2.5 mg/mL) 0.25% injection (CANCELED) ONCE PRN, Starting on Wed06/11/21 at 1131, Until Wed06/11/21 at 1811, Intra-Operative (Intra-Procedure), Routine 1131 (Given - Provid er: Wild Cade) fentaNYL (pf) (50 mcg/mL) multi-dose injection 25 mcg (CANCELED)(Linked Group 1) 25 mcg, Intravenous, EVERY 5 MIN PRN, Starting on Wed06/11/21 at 1322, Until Wed06/11/21 at 1608, Pain, Moderate to severe pain (6-10 out of 10), Hold for respiratory rate less than 10 per minute. Maximum dose 200 mcg over one hour, including OR administration. If ordered with HYDROmorphone or morphine, give HYDROmorphone or morphine first and use fentaNYL for breakthrough pain., PACU Recovery, Routine 1325 (Given - Provid er: Nichelle Hernandez RN)1520 (Given - Provider: Leonard Metzger RN) iohexoL (Omnipaque) (300 mg/mL) solution (CANCELED) ONCE PRN, Starting on Wed06/11/21 at 1211, Until Wed06/11/21 at 1811, Intra-Operative (Intra-Procedure), Routine 1211 (Given - Provid er: Wild Cade - Comment: 50mL omnipaque mixed 1:1 with 50mL NS. Total volume given: 36mL) oxyCODONE (Roxicodone) tablet 5 mg 5 mg, Oral, EVERY 4 HOURS PRN, Starting on Wed06/11/21 at 1303, Until Wed06/11/21 at 1811, Pain, Routine 1315 (Given - Provid er: Nichelle Hernandez RN) Linked Groups Order Group 1: fentaNYL (pf) (50 mcg/mL) multi-dose injection 12.5 mcg (CANCELED) 12.5 mcg, Intravenous, EVERY 5 MIN PRN, Starting on Wed06/11/21 at 1322, Until Wed06/11/21 at 1608, Pain, Mild to moderate pain (1-5 out of 10), Hold for respiratory rate less than 10 per minute. Maximum dose 200 mcg over one hour, including OR administration. If ordered with HYDROmorphone or morphine, give HYDROmorphone or morphine first and use fentaNYL for breakthrough pain., PACU Recovery, Routine Or fentaNYL (pf) (50 mcg/mL) multi-dose injection 25 mcg (CANCELED)Jump to med 25 mcg, Intravenous, EVERY 5 MIN PRN, Starting on Wed06/11/21 at 1322, Until Wed06/11/21 at 1608, Pain, Moderate to severe pain (6-10 out of 10), Hold for respiratory rate less than 10 per minute. Maximum dose 200 mcg over one hour, including OR administration. If ordered with HYDROmorphone or morphine, give HYDROmorphone or morphine first and use fentaNYL for breakthrough pain., PACU Recovery, Routine documented in this encounter Care Teams Microfilm Processor Relationship Specialty Start Date End Date Marleni Gallagher, [address] [place] [address] PCP - General Family Medicine 12/11/16 documented as of this encounter
--- OUTSIDE RECORDS SUMMARY | 2024-03-02 14:12 | XMS_ITS | Encounter Summary ---
Author Organization Formerly [facility] [place] [address] Care Team Providers Care Machine Presser Name Role Phone Marleni Gallagher APRN Primary Care Provider [phone] Reason for Visit * Auth/Cert Specialty Diagnoses [...] Expiration Date Visits Re quested Visits Authorized [id number] 1 1 Encounter Details Date Type Department Care Team (Late st Contact Info) Description 05/28/2021 7:50 AM EST Anesthesia [place] [address] Gabrielle Leung DO [facility] [place] [address] Owen Yeung [facility] [place] [address] Anesthesia Record Procedure Summary Procedure Name Responsible Anesthesiologist Anesthesia Start Time Anesthesia Stop Time ERCP W/SPHINCTEROTOMY/PA PILLOTOMY (WRVU 6.5) (Trunk) Gabrielle Leung DO 05/28/21 0750 05/28/21 0850 Events Date Time Event Comment 05/28/2021 0731 0750 AN Verify 0750 Start 0750 An Start Data 0759 An Induction 0801 An Intubation 0802 Anesthesia Ready 0847 Extubation/LMA Out 0850 an stop data 0850 Recovery or ICU Handoff Marissa ent care was transferred to the destination unit staff after review of the patient's medical history, current anesthetic/surgical status and plan, according to the Provider Handoff Checklist. 0850 Stop Meds Name Total IV Lidocaine 100 mg Propofol 200 mg Propofol INF 24.15 mg Ondansetron 8 mg Dexamethasone 8 mg Succinylcholine 100 mg Dexmedetomidine 8 mcg lactated ringers infusion 900 mL * Agents Name O2 Air N2O Sevoflurane (et) * Blood No blood administrations on file. Lines, Drains, and Airways Type Details Placement Removal (RETIRED) Peripheral IV Line - Single Lumen 05/28/21; 722; median cubital vein (antecubital fossa), right; [id number] catheter system; 20 gauge; Nely ALLEN; 05/28/21; 1012 05/28/21 07 by Shanika Gao RN 05/28/21 101 by Jose Morales, RN ETT Mask Ventilation: Jim carlos (1); ETT Type: Cuffed, Oral; ETT Size: 7 mm; Mac Blade: 3; Notes: Asleep, Pre-O2, Stylette; Attempts: 1; Laryngoscopy Grade: 1; ETT Placement Verified By: Auscultation, Capnometry; Secured at Teeth: 20 cm; Inserted by: cb; Removal Date: 05/28/21; Removal Time: 0805/28/21 08 by Owen Yeung CRNA 05/28/21 0847 by Owen Yeung CRNA documented in this encounter Social History Tobacco Use Types Packs/Day Years [...] AM EDT documented as of this encounter OR Notes * Anesthesia Postprocedure Evaluation - Gabrielle Leung DO - 05/28/2021 9:20 AM EST Department of Anesthesiology Post-procedure Note Patient: Deb Mullins Procedure Summary Date: 05/28/21 Room / Location: [facility] 2 / [facility] Anesthesia Start: 0750 Anesthesia Stop: 0850 Procedures: ERCP W/SPHINCTEROTOMY/PAPILLOTOMY (N/A Trunk) ERCP W/REMOVAL CALCULI/DEBRIS FROM BILARY/PANCREATIC DUCT(S) Diagnosis: Crohn's disease without complication, unspecified gastrointestinal tract location (Crohn's disease with abdominal pain, recent MRE found Cholelithiasis and choledocholithiasis, needs evaluation and possibly removal of stone.) Surgeons: Deven Leyva MD Responsible Provider: Gabrielle Leung DO Anesthesia Type: general ASA Status: 3 All Anesthesia Providers: Anesthesiologist: Gabrielle Leung DO MEDICAL TECHNICIAN ASSISTANT: Owen Yeung CRNA Vitals Value Taken Time BP 130/90 05/28/21 0910 Temp Pulse Resp 15 05/28/21 0910 SpO2 98 % 05/28/21 0919 Pain Level 0 05/28/21 0910 Vitals shown include unvalidated device data. Patient Location: PACU/[facility] Level of Consciousness: Conscious but Sleepy Pain Management: Satisfactory Analgesia PONV: None Cardiovascular Status: Hemodynamically Stable Respiratory Status: Stable Respiratory Status and Supplemental O2 (NC or FM) Postoperative Fluid Status: Intravascular EUvolemia Possible Anesthetic Complications: NONE apparent at time of evaluation Final Primary Anesthesia Type: General (The anesthetic type performed was the same as planned.) Comments: * Anesthesia Preprocedure Evaluation - Gabrielle Leung DO - 05/27/2021 8:29 PM EST Images from the original note were not included. Pre-Anesthesia Evaluation for: Deb Mullins a 45 y.o. female. Procedure(s): ERCP UPPER EUS- ENDOSCOPIC ULTRASOUND Patient Active Problem List Diagnosis ??? Gallstones ??? Depression ??? Somnolence, daytime ??? Low back pain ??? GERD (gastroesophageal reflux disease) ??? Chronic constipation ??? Sleep apnea ??? Constipation ??? Gastritis and duodenitis ??? Regional enteritis Deactivated Dx replaced via utility ??? Right wrist pain ? recurrent ganglion ??? Chronic diarrhea IMPRESSION Patient with history of chronic diarrhea, suspected Crohn's's disease. She is currently asymptomatic. Her recent MRE was essentially normal. Her recent EGD and colonoscopy shhowed that endoscopicallylooks normal but pathology suggestive of Crohn's. See above. Given that she is clinically asymptomatic, we will not pursue Crohn's directed therapy for now. Consider capsule endoscopy to evaluate proximal small bowel disease if with any increase in GI sx. Past Medical History: Diagnosis Date ??? Cholelithiasis ??? Chronic constipation ??? Constipation 05/05/2011 ??? Crohn's disease 03/25/2011 ??? Depression ??? Gastritis and duodenitis 05/05/2011 ??? GERD (gastroesophageal reflux disease) ??? Low back pain ??? Sleep apnea ??? Somnolence, daytime Past Surgical History: Procedure Laterality Date ??? [...] 3.66) performed by Jose Bianchi MD at [facility]COPY ??? PRO COLONOSCOPY, DIAGNOSTIC 08/27/2011 COLONOSCOPY, DIAGNOSTIC performed by KVNG YUEN at [facility] ??? PRO COLONOSCOPY, DIAGNOSTIC N/A 03/25/2021 COLONOSCOPY, DIAGNOSTIC performed by Jhon Edwards MD at [facility] MAIN OR ??? PRO COLONOSCOPY, FLEX, W/DIR SUBMUC INJECT N/A 05/13/2017 COLONOSCOPY WITH DIRECTED SUBMUCOSAL INJ (WRVU 3.66) performed by Jose Bianchi MD at [facility] ??? PRO UPPER GI ENDOSCOPY, BIOPSY N/A 05/13/2017 EGD WITH BIOPSY (WRVU 2.49) performed by Jose Bianchi MD at [facility] ??? PRO UPPER GI ENDOSCOPY, BIOPSY N/A 03/25/2021 EGD WITH BIOPSY (WRVU 2.49) performed by Jhon Edwards MD at [facility] MAIN OR ??? PRO UPPER GI ENDOSCOPY, DIAGNOSTIC N/A 03/25/2021 EGD, UPPER GI ENDOSCOPY performed by Jhon Edwards MD at [facility] MAIN OR ??? UPPER GI ENDOSCOPY, EXAM 08/27/2011 UPPER GI ENDOSCOPY performed by KVNG YUEN at [facility] Social History Tobacco Use ??? Smoking status: Former Smoker Packs/day: 0.50 Years: 3.00 Pack years: 1.50 Types: Cigarettes Quit date: 07/05/2000 Years since quittin.9 ??? Smokeless tobacco: Never Used ??? Tobacco comment: social smoker for a couple of years, less than 1 p/d Substance Use Topics ??? Alcohol use: Yes Alcohol/week: 7.0 standard drinks Types: 7 Glasses of wine per week Social History Substance and Sexual Activity Drug Use Yes ??? Types: Other pain meds Comment: vicodin Allergies Allergen Reactions ??? Dilaudid [Hydromorphone] Severe headache ??? Preparation H [Phenylephrine-Witch Jazmin] Causes more irritation. Medications: MAR and/or home medications have been reviewed. Physical Exam: Preprocedure Vitals Current as of 05/27/212028 No BP, pulse, respiration, SpO2, or temperature recorded. Height: Weight: BMI: IBW: Airway Assessment: Mallampati: II TM distance: >3 FB Neck ROM: full Cardiovascular Assessment: Rhythm: regular Rate: normal Pulmonary Assessment: breath sounds clear to auscultation Dental Assessment: Misc Assessment: Patient is wearing No contact(s). IV access: Peripheral line Last Filed Perioperative Cognitive Screening None Anesthesia Plan: ASA 3 general, with a(n) intravenous induction Chart reviewed. PMH: FINA-unable to tolerate CPAP, GERD-well controlled, depression, Crohn's ds. Patient presents for EUS and ERCP NPO No changes in her health Not vaccinated for Covid Denies any chance of Region - Other Informed Consent: Anesthetic plan and risks discussed with patient. Plan discussed with MEDICAL TECHNICIAN ASSISTANT and attending. Anesthesia Screening documented in this encounter Plan of Treatment Not on file documented as of this encounter Visit Diagnoses Not on filedocumented in this encounter Administered Medications Inactive Administered Medications - up to 3 most recent administrations Medication Order MAR Action Action Date Dose Rate Site dexamethasone (Decadron) injection Intravenous, PRN, Starting on Wed05/28/21 at 0816, Until Wed05/28/21 at 0850, Anesthesia Intra-op, Routine Given 05/28/2021 8:16 AM EST 8 mg dexmedetomidine (Precedex) (4 mcg/mL) bolus injection (Anesthsia) Intravenous, PRN, Starting on Wed05/28/21 at 0759, Until Wed05/28/21 at 0850, Anesthesia Intra-op, Routine Given 05/28/2021 7:59 AM EST 8 mcg lactated ringers infusion 100 mL/hr, Intravenous, CONTINUOUS, Starting on Wed05/28/21 at 0730, Until Wed05/28/21 at 1013, Endoscopy (Day of Procedure) New Bag 05/28/2021 9:10 AM EST 100 mL/hr 100 mL/hr Restarted 05/28/2021 8:50 AM EST New Bag 05/28/2021 7:24 AM EST 100 mL/hr 100 mL/hr lidocaine (pf) (Xylocaine) (20 mg/mL) 2% injection syringe Intravenous, PRN, Starting on Wed05/28/21 at 0759, Until Wed05/28/21 at 0850, Anesthesia Intra-op, Routine Given 05/28/2021 7:59 AM EST 100 mg ondansetron (pf) (Zofran) (2 mg/mL) injection Intravenous, PRN, Starting on Wed05/28/21 at 0831, Until Wed05/28/21 at 0851, Anesthesia Intra-op, Routine Given 05/28/2021 8:31 AM EST 8 mg propofoL (Diprivan) (10 mg/mL) infusion Intravenous, CONTINUOUS PRN, Starting on Wed05/28/21 at 0825, Until Wed05/28/21 at 0850, Anesthesia Intra-op, Routine New Bag 05/28/2021 8:25 AM EST 50 mcg/kg/min 28.98 mL/hr propofoL (Diprivan) 10 mg/mL bolus injection (Anesthesia) Intravenous, PRN, Starting on Wed05/28/21 at 0759, Until Wed05/28/21 at 0850, Anesthesia Intra-op Given 05/28/2021 7:59 AM EST 200 mg succinylcholine (Anectine;Quelicin) (20 mg/mL) injection Intravenous, PRN, Starting on Wed05/28/21 at 0759, Until Wed05/28/21 at 0850, Anesthesia Intra-op, Routine Given 05/28/2021 7:59 AM EST 100 mg documented in this encounter Care Teams Machine Presser Relationship Specialty Start Date End Date Marleni Gallagher, CARA [address] [facility] [address] PCP - General Family Medicine 12/11/16 documented as of this encounter
--- OUTSIDE RECORDS SUMMARY | 2024-03-02 14:12 | XMS_ITS | Encounter Summary ---
Author Organization [facility] Address [address] [place] [address] Care Team Providers Care Finance Lead Name Role Phone Mando Loera MD Primary Care Provider [phone] Encounter Details Date Type Department Care Team (Latest Contact Info) Description 06/06/2013 14:35 EST - 06/06/2013 23:59 [facility] Encounter [address] [address] Unknown, Provider, Discharge Disposition: Home or Self Care Social History Tobacco Use Types Packs/Day Years Used Date Smoking Tobacco: Never Assessed Sex and Gender Information Value Date Recorded Sex Assigned at Not on file Gender Identity Not on file Sexual Orientation Not on file documented as of this encounter Discharge Disposition Disposition Code Departure Means Destination Home or Self [facility] documented in this encounter Plan of Treatment Not on file documented as of this encounter Visit Diagnoses Not on filedocumented in this encounter Care Teams Finance Lead Relationship Specialty Start Date End Date Mando Loera MD [address] [facility] [place] [address] PCP - General 05/22/11 documented as of this encounter
--- OUTSIDE RECORDS SUMMARY | 2024-03-02 14:12 | XMS_ITS | Encounter Summary ---
Author Organization [facility] [place] [address] Care Team Providers Care Community Engagement Leader Name Role Phone Marleni Gallagher APRN Primary Care Provider [phone] Encounter Details Date Type Department Care Team (Late st Contact Info) Description 03/27/2021 Telephone [place] [address] Rosa Maria Gallo Social History Tobacco Use Types Packs/Day Years [...] encounter Miscellaneous Notes * Telephone Encounter - Rosa Maria Gallo - 03/27/2021 10:14 AM EDT Deb Mullins [id number] Diagnosis/Indication: Crohn's disease with abdominal pain, recent MRE found Cholelithiasis and choledocholithiasis, needs evaluation and possibly removal of stone. 1. Have you ever had a/an EUS & ERCP before? No If yes, did you have any problems with the procedure? No What type of sedation was used: None 2. Do you take any blood thinners or have you been diagnosed with a bleeding disorder that increases your risk of bleeding with procedures? No 3. Do you have a Pacemaker or Defibrillator device? No 4. Are you a diabetic? No 5. Do you have any Allergies to Eggs, Latex or Medications? Yes: EDH 6. Do you take any Oral Iron Supplements (Including multi-vitamins)? No 7. Do you have a history of three or more abdominal surgeries? No 8. Have you had a problem with sedation or anesthesia? No 9. Do you use a c-pap machine or oxygen tank? Neither 10. Do you take prescription narcotic pain medications, including suboxone or methodone? No 11. Do you have a preference regarding the gender of your provider? No Preference 12. Is there any other information you would like to us to note for the provider and nursing team who will perform your case? No 13. Say to patient: You must have a responsible constitution party who will drive you to your procedure, stay [place] for the entire duration of your procedure, and drive you home from your procedure? *Please Verify the height and weight, and adjust if height and/or weight have changed* Estimated body mass index is 33.36 kg/m?? as calculated from the following: Height as of 03/25/21: 170.2 cm (5' 7). Weight as of 03/25/21: 96.6 kg (213 lb). Age:45 y.o. documented in this encounter Plan of Treatment Not on file documented as of this encounter Visit Diagnoses Not on filedocumented in this encounter Care Teams Community Engagement Leader Relationship Specialty Start Date End Date Marleni Gallagher, CARA [address] [place] [address] PCP - General Family Medicine 12/11/16 documented as of this encounter
--- OUTSIDE RECORDS SUMMARY | 2024-03-02 14:12 | XMS_ITS | Encounter Summary ---
[place] [address] Care Team Providers Care Company Driver Name Role Phone Marleni Gallagher APRN Primary Care Provider [phone] Encounter Details Date Type Department Care Team (Late st Contact Info) Description 05/28/2021 Notes [place] [address] Jhon Cantu Jr. Social History Tobacco Use Types Packs/Day [...] Notes * Jhon Cantu Jr. - 05/28/2021 8:09 AM EST Stent vs. Indomethacin for Preventing Post-ERCP Pancreatitis: The SVI Trial PI: Luis Sawyer MD MS Sandra # [id number] Objective of visit: Jhon Velazquez Jr research coordinator, and Dr. Leyva met with Deb Mullins in [employer] to provide information regarding protocol [id number], answer questions or concerns about study plan, and evaluate her interest in study participation. Information Provided: Protocol was reviewed with Deb Mullins including, a description of the proposed care, treatment, services, medications, interventions, procedures, and follow-up including duration of subject's participation in study. Purpose of the study was also reviewed with the patient. Potential discomforts and risks were reviewed. The patient was informed regarding the uncertainties, both in terms of benefits as well as risks that are part of participation in clinical trials. Discussed confidentiality of patient's health information as specified in the protocol. Patient was advised that she may discontinue treatment at any time and that refusing to participate or discontinuing treatment will not compromise the patient's access to treatment options or care. Financial considerations in the context of clinical trials reviewed. The patient was given written information regarding the protocol during her visit on 05/28/21 and was offered adequate time to review the information. The patient was given adequate time to ask questions and review concerns, all of which were answered to the patient's satisfaction by Dr. Leyva. The PI/Sub I was available to answer any medical related questions if applicable. Assessment/Outcome: Deb Mullins verbalized understanding of the protocol and consents for treatment by using the teach-back method and being able to relay the purpose of the study and known possible risks/side effectsof the procedure and treatment. Deb Mullins signed and dated consent version 7 on 05/28/21. A copy of the signed consent form was given to her for her records. Original, signed informed consent document will be scanned into the patient's electronic medical record and stored in the subject's study binder. Written informed consent was obtained prior to any study related procedures being done. Plan: 1. Deb Mullins agreed to participate in the above mentioned clinical trial. 2. Informed consent form signed 3. Pain questionnaire administered as per SVI protocol 4. Patient will continue to be screened on study [id number] to determine if patient meets criteria during the procedure documented in this encounter Plan of Treatment Not on file documented as of this encounter Visit Diagnoses Not on filedocumented in this encounter Care Teams Company Driver Relationship Specialty Start Date End Date Marleni Gallagher, CARA [address] [place] [address] PCP - General Family Medicine 12/11/16 documented as of this encounter
--- OUTSIDE RECORDS SUMMARY | 2024-03-02 14:12 | XMS_ITS | Encounter Summary ---
Author Organization [facility] Address [address] [place] [address] Care Team Providers Care Clinical Rehabilitation Aide Name Role Phone Blanca Loera MD Primary Care Provider Encounter Details Date Type Department Care Team (Late st Contact Info) Description 02/15/2014 Results Only [facility] [phone] Blanca Loera MD [address] [place] [id number] Social History Tobacco Use Types Packs/Day Years Used Date Smoking Tobacco: Never Assessed Sex and Gender Information Value Date Recorded Sex Assigned at Not on file Gender Identity Not on file Sexual Orientation Not on file documented as of this encounter Plan of Treatment Not on file documented as of this encounter Procedures Procedure Name Priority Date/Time Associated Diagnosis Comments PAP TEST- RESULT ONLY Routine 02/15/2014 0:00 EDT documented in this encounter Results * PAP TEST- RESULT ONLY (02/15/2014 0:00 EDT) Pathology Report: CYTOPATHOLOGY REPORT Reports generated via electronic interface contain original data; however they are lacking the format of the original report. Caution should be taken when reading/interpreti ng unformatted reports. Name: ? DEB MENDENHALL ? Accession #: ? [id number] ? : ? 1975 (Age: 38) ??F ?Collect Date: ? 02/15/2014 ? Location: ? [facility] ? Receive Date: ? 02/16/2014 ? Provider: BLANCA LOERA MD Copy to: ? Final Report SPECIMEN ADEQUACY ? Satisfactory for Evaluation - transformation zone component present GENERAL CATEGORIZATION ? Negative for Intraepithelial Lesion or Malignancy ?? Treatment History: Miscellaneous treatment: S/p Endo Ablation 2010 Specimen/Source: ??Pap Test, Cervix/Endocervix, ThinPrep Imaging System with manual evaluation Document reviewed and electronically signed by: ? Ar Fuller, JOHN(ASCP) ? Report ??Date: 02/21/2014 13:05 HPV with Pap Test ? Date Ordered: ? 02/21/2014 ? Status: ?? Signed Out ?Date Complete: ? 02/23/2014 ? By: ??System Interface ? Date Reported: ? 02/23/2014 ? Interpretation RESULT: Negative for HPV. No E6 or E7 mRNA is detected from HPV types 16,18,31,33,35, 39,45,51,52,56,58, 59,66, and 68 by manager configuration mediated amplification. Comments Document reviewed and electronically signed by: ? System Interface ? Report date: 02/23/2014 By the signature above, the attending physician certifies that he/she has personally conducted a gross and/or microscopic examination of the described specimens and rendered or confirmed the above diagnosis. End of Report [facility] 02/15/2014 02/16/2014 Blanca Loera MD PATHOLOGY ORDERABLES [facility] [address] [place] [address] documented in this encounter Visit Diagnoses Not on filedocumented in this encounter Care Teams Clinical Rehabilitation Aide Relationship Specialty Start Date End Date Blanca Loera MD [address] [facility] [place] [phone] PCP - General 05/22/11 documented as of this encounter
--- OUTSIDE RECORDS SUMMARY | 2024-03-02 14:12 | XMS_ITS | Encounter Summary ---
Author Organization Formerly [facility] [place] [address] Care Team Providers Care Narrow Gauge Engineer Name Role Phone Marleni Gallagher APRN Primary Care Provider [phone] Reason for Visit * Auth/Cert Specialty Diagnoses / Procedures Referred By Lynda fabian Referred To Contact Diagnoses Crohn's disease, unspecified, without complications GALLSTONES Procedures PRO LAP, CHOLECYSTECTOMY/GRAPH LAPAROSCOPIC CHOLECYSTECTOMY WITH CHOLANGIOGRAM (WRVU 11.47) Referral ID Status Reason Start Date Expiration Date Visits Re quested Visits Authorized [id number] 1 1 Encounter Details Date Type Department Care Team (Late st Contact Info) Description 06/11/2021 10:44 AM EST Anesthesia Event [place] [address] Nasir Villagran MD [facility] [place] [address] Olimpia Odell Anesthesia Record Procedure Summary Procedure Name Responsible Anesthesiologist Anesthesia Start Time Anesthesia Stop Time LAPAROSCOPIC CHOLECYSTECTOMY WITH CHOLANGIOGRAM (WRVU 11.47) (Abdomen) Nasir Villagran MD 06/11/21 1044 06/11/21 1257 Events Date Time Event Comment 06/11/2021 1011 1044 AN Verify 1044 Start 1044 An Start Data 1058 An Induction 1100 An Intubation 1110 Anesthesia Ready 1121 Procedure Start 1124 Quick Note ABD insufflatio n 15mmHg 1244 Procedure Stop 1249 Extubation/LMA Out 1251 Quick Note On PACU hold 1255 an stop data 1256 Recovery or ICU Handoff Marisas ent care was transferred to the destination unit staff after review of the patient's medical history, current anesthetic/surgical status and plan, according to the Provider Handoff Checklist. 1257 Stop Meds Name Total Midazolam 2 mg fentaNYL 100 mcg IV Lidocaine 100 mg Propofol 200 mg Rocuronium 65 mg PHENYLephrine 240 mcg Ondansetron 4 mg Dexamethasone 8 mg Neostigmine 5 mg Glycopyrrolate 1 mg ceFAZolin (Ancef) 2 g in dextrose 5% 100 mL infusion 2 g Ketamine 10 mg/mL 60 mg ketorolac (Toradol) (30 mg/mL) injection 30 mg Lactated Ringers 600 mL * Agents Name O2 Air N2O Sevoflurane (et) * Blood No blood administrations on file. Lines, Drains, and Airways Type Details Placement Removal Incision 06/11/21; 1120; abdo men; laparoscopic punctures (specify) (multiple stab incisions) 06/11/21 1120 by Collette Jordan RN (RETIRED) Peripheral IV Line - Single Lumen 06/11/21; 1035; metacarpal vein (top of hand), right; vvek-vik-brpjxx catheter system; Anatomical Landmarks; 20 gauge; Tyshawn TANNER; no longer indicated; 06/11/21; 1608 06/11/21 1035 by Angela Robin CRNA 06/11/21 1608 by Leonard Metzger RN ETT Mask Ventilation: Adjunct (2); ETT Type: Cuffed; ETT Size: 7 mm; Mac Blade: 4; Notes: Asleep, Pre-O2, Stylette; Attempts: 2; Laryngoscopy Grade: 1; ETT Placement Verified By: Auscultation, Capnometry, Visual; Secured at Teeth: 22 cm; Inserted by: Angela Robin CRNA; Removal Date: 06/11/21; Removal Time: 1250 06/11/21 1100 by Angela Robin CRNA 06/11/21 1250 by Olimpia Odell documented in this encounter Social History Tobacco [...] OR Notes * Anesthesia Postprocedure Evaluation - Nasir Villagran MD - 06/12/2021 5:22 PM EST Department of Anesthesiology Post-procedure Note Patient: Deb Mullins Procedure Summary Date: 06/11/21 Room / Location: [address] MAIN OR Anesthesia Start: 1044 Anesthesia Stop: 1257 Procedure: LAPAROSCOPIC CHOLECYSTECTOMY WITH CHOLANGIOGRAM (WRVU 11.47) (N/A Abdomen) Diagnosis: (GALLSTONES) Surgeons: Trav Rdz MD Responsible Provider: Nasir Villagran MD Anesthesia Type: general ASA Status: 3 All Anesthesia Providers: Anesthesiologist: Nasir Villagran MD STUDENT LIFE VICE PRESIDENT: Angela Robin CRNA Student Nurse Drum Drier Operator: Olimpia Odell Vitals Value Taken Time BP 127/79 06/11/21 1500 Temp 36.8 ??C (98.2 ??F) 06/11/21 1300 Pulse Resp 16 06/11/21 1315 SpO2 95 % 06/11/21 1508 Pain Level 3 06/11/21 1607 Vitals shown include unvalidated device data. Patient Location: PACU/[facility] Level of Consciousness: Awake and Alert Pain Management: Satisfactory Analgesia PONV: None Cardiovascular Status: At Baseline and Hemodynamically Stable Respiratory Status: At Baseline and Room Air Postoperative Fluid Status: Intravascular EUvolemia Possible Anesthetic Complications: NONE apparent at time of evaluation Final Primary Anesthesia Type: General (The anesthetic type performed was the same as planned.) Comments: Nasir Villagran MD * Anesthesia Preprocedure Evaluation - Nasir Villagran MD - 06/11/2021 10:02 AM EST Images from the original note were not included. Pre-Anesthesia Evaluation for: Deb L Brink a 45 y.o. female. Procedure(s): LAPAROSCOPIC CHOLECYSTECTOMY WITH CHOLANGIOGRAM (WRVU 11.47) Patient Active Problem List Diagnosis ??? Gallstones [...] 3.66) performed by Jose Bianchi MD at [facility] ??? PRO COLONOSCOPY, DIAGNOSTIC 08/27/2011 COLONOSCOPY, DIAGNOSTIC performed by KVNG YUEN at [facility] ??? PRO COLONOSCOPY, DIAGNOSTIC N/A 03/25/2021 COLONOSCOPY, DIAGNOSTIC performed by Jhon Edwards MD at [facility] MAIN OR ??? PRO COLONOSCOPY, FLEX, W/DIR SUBMUC INJECT N/A 05/13/2017 COLONOSCOPY WITH DIRECTED SUBMUCOSAL INJ (WRVU 3.66) performed by Jose Bianchi MD at [facility] ??? PRO ERCP, SPHINCTEROTOMY N/A 05/28/2021 ERCP W/SPHINCTEROTOMY/PAPILLOTOMY performed by Deven Leyva MD at [facility] ??? PRO ERCP, W/REMOVAL STONE, SASHA/PANCR DUCTS 05/28/2021 ERCP W/REMOVAL CALCULI/DEBRIS FROM BILARY/PANCREATIC DUCT(S) performed by Deven Leyva MD at [facility] ??? PRO UPPER GI ENDOSCOPY, BIOPSY N/A 05/13/2017 EGD WITH BIOPSY (WRVU 2.49) performed by Jose Bianchi MD at [facility] ??? PRO UPPER GI ENDOSCOPY, BIOPSY N/A 03/25/2021 EGD WITH BIOPSY (WRVU 2.49) performed by Jhon Edwards MD at [facility] MAIN OR ??? PRO UPPER GI ENDOSCOPY, DIAGNOSTIC N/A 03/25/2021 EGD, UPPER GI ENDOSCOPY performed by Jhon Edwards MD at [facility] MAIN OR ??? UPPER GI ENDOSCOPY, EXAM 08/27/2011 UPPER GI ENDOSCOPY performed by KVNG YUEN at [facility] Social History Tobacco Use ??? Smoking status: Former Smoker Packs/day: 0.50 Years: 3.00 Pack years: 1.50 Types: Cigarettes Quit date: 07/05/2000 Years since quittin.9 ??? Smokeless tobacco: Never Used ??? Tobacco comment: social smoker for a couple of years, less than 1 p/d Substance Use Topics ??? Alcohol use: Yes Alcohol/week: 2.0 - 4.0 standard drinks Types: 2 - 4 Glasses of wine per week Social History Substance and Sexual Activity Drug Use Not Currently ??? Types: Marijuana Comment: once in a whle Allergies Allergen Reactions ??? Dilaudid [Hydromorphone] Severe headache ??? Preparation H [Phenylephrine-Witch Jazmin] Causes more irritation. Medications: MAR and/or home medications have been reviewed. Physical Exam: Preprocedure Vitals Current as of 06/11/21 1002 No BP, pulse, respiration, SpO2, or temperature [...] ASA 3 general, with a(n) intravenous induction Brief HPI: 45 y.o. 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) Constipation (K59.00) Gastritis and duodenitis (K29.90) Gallstones (K80.20) Depression (F32.A) Somnolence, daytime (R40.0) Low back pain (M54.50) GERD (gastroesophageal reflux disease) (K21.9) Chronic constipation (K59.09) Sleep apnea (G47.30) Past Medical History: No date: Cholelithiasis No date: Chronic constipation 05/05/2011: Constipation 03/25/2011: Crohn's disease No date: Depression 05/05/2011: Gastritis and duodenitis No date: GERD (gastroesophageal reflux disease) No date: Low back pain No date: Sleep apnea No date: Somnolence, daytime METS:>4 Cardiac Symptoms: none LABS: Lab Results Component Value Date HGB 13.7 02/24/2021 PLATELET 500 (H) 02/24/2021 NA 141 02/24/2021 K 4.2 02/24/2021 CREATININE 0.69 (L) 02/24/2021 Type and Screen: No results found for: ABORH Past anesthetic problems: none NPO status: Reviewed and appropriate Anesthetic Plan: esme CORNEJO Monitoring: Standard ASA monitors I have seen and examined the patient. I have reviewed the medical record and pertinent laboratory information. I have reviewed risks from minor to major as outlined in the anesthesia consent form. The patient acknowledged These risks and would like to proceed with the anesthesia plan. Region - Other Informed Consent: Anesthetic plan and risks discussed with patient. Use of blood products discussed with patient who. Plan discussed with STUDENT LIFE VICE PRESIDENT and attending. Anesthesia Screening documented in this encounter Plan of Treatment Not on file documented as of this encounter Visit Diagnoses Not on filedocumented in this encounter Administered Medications Inactive Administered Medications - up to 3 most recent administrations Medication Order MAR Action Action Date Dose Rate Site ceFAZolin (Ancef) 2 g in dextrose 5% 100 mL infusion 2 g, Intravenous, EVERY 3 HOURS, 1 dose, First dose on Wed06/11/21 at 1100, Administer over 30 Minutes, Intra-Operative (Intra-Procedure), Indication for (Active or Suspected): Prophylaxis Given 06/11/2021 10:51 AM EST 2 g dexamethasone (Decadron) injection Intravenous, PRN, Starting on Wed06/11/21 at 1059, Until Wed06/11/21 at 1257, Anesthesia Intra-op, Routine Given 06/11/2021 10:59 AM EST 8 mg fentaNYL (pf) (50 mcg/mL) multi-dose injection Intravenous, PRN, Starting on Wed06/11/21 at 1047, Until Wed06/11/21 at 1257, Anesthesia Intra-op, Routine Given 06/11/2021 10:52 AM EST 50 mcg Given 06/11/2021 10:47 AM EST 50 mcg glycopyrrolate (Robinul) (0.2 mg/mL) multi-dose injection Intravenous, PRN, Starting on Wed06/11/21 at 1233, Until Wed06/11/21 at 1257, Anesthesia Intra-op, Routine Given 06/11/2021 12:33 PM EST 1 mg ketamine (Ketalar) (10 mg/mL) IV bolus injection (Anesthesia) Intravenous, PRN, Starting on Wed06/11/21 at 1058, Until Wed06/11/21 at 1257, Anesthesia Intra-op Given 06/11/2021 12:35 PM EST 10 mg Given 06/11/2021 10:58 AM EST 50 mg ketorolac (Toradol) (30 mg/mL) injection Intravenous, PRN, Starting on Wed06/11/21 at 1232, Until Wed06/11/21 at 1257, Anesthesia Intra-op, Routine Given 06/11/2021 12:32 PM EST 30 mg lactated ringers infusion Intravenous, CONTINUOUS PRN, Starting on Wed06/11/21 at 1044, Until Wed06/11/21 at 1257, Anesthesia Intra-op New Bag 06/11/2021 10:44 AM EST lidocaine (pf) (Xylocaine) (20 mg/mL) 2% injection syringe Intravenous, PRN, Starting on Wed06/11/21 at 1058, Until Wed06/11/21 at 1257, Anesthesia Intra-op, Routine Given 06/11/2021 10:58 AM EST 100 mg midazolam (pf) (Versed) (1 mg/mL) multi-dose injection Intravenous, PRN, Starting on Wed06/11/21 at 1041, Until Wed06/11/21 at 1257, Anesthesia Intra-op, Routine Given 06/11/2021 10:44 AM EST 2 mg neostigmine (Bloxiver) (1 mg/mL) injection Intravenous, PRN, Starting on Wed06/11/21 at 1233, Until Wed06/11/21 at 1257, Anesthesia Intra-op, Routine Given 06/11/2021 12:33 PM EST 5 mg ondansetron (pf) (Zofran) (2 mg/mL) injection Intravenous, PRN, Starting on Wed06/11/21 at 1225, Until Wed06/11/21 at 1257, Anesthesia Intra-op, Routine Given 06/11/2021 12:25 PM EST 4 mg PHENYLephrine in NS (PF) (HORTENSIA-SYNEPHRINE) 0.8 mg/10 mL (80 mcg/mL) multi-dose injection Syrg Intravenous, PRN, Starting on Wed06/11/21 at 1127, Until Wed06/11/21 at 1257, Anesthesia Intra-op, Routine Given 06/11/2021 11:31 AM EST 80 mcg Given 06/11/2021 11:29 AM EST 80 mcg Given 06/11/2021 11:27 AM EST 80 mcg propofoL (Diprivan) 10 mg/mL bolus injection (Anesthesia) Intravenous, PRN, Starting on Wed06/11/21 at 1058, Until Wed06/11/21 at 1257, Anesthesia Intra-op Given 06/11/2021 11:00 AM EST 50 mg Given 06/11/2021 10:58 AM EST 150 mg rocuronium (Zemuron) (10 mg/mL) multi-dose injection Intravenous, PRN, Starting on Wed06/11/21 at 1059, Until Wed06/11/21 at 1257, Anesthesia Intra-op, Routine Given 06/11/2021 12:14 PM EST 5 mg Given 06/11/2021 11:40 AM EST 10 mg Given 06/11/2021 10:59 AM EST 50 mg documented in this encounter Care Teams Narrow Gauge Engineer Relationship Specialty Start Date End Date Marleni Gallagher, CARA [address] [place] [address] PCP - General Family Medicine 12/11/16 documented as of this encounter
--- OUTSIDE RECORDS SUMMARY | 2024-03-02 14:12 | XMS_ITS | Encounter Summary ---
Author Organization [facility] [place] [address] Care Team Providers Care Equipment Maintenance Tech Name Role Phone Marleni Gallagher CARA Primary Care Provider [phone] Encounter Details Date Type Department Care Team (Late st Contact Info) Description 03/25/2021 Telephone [place] [address] Altagracia Ng QUALITY CONTROL LAB TECH [facility] [place] [address] Social History Tobacco Use Types Packs/Day Years [...] Notes * Telephone Encounter - Altagracia Ng APRN - 03/25/2021 10:12 AM EDT I called Deb and reviewed her MRE 03/20/21:. IMPRESSION 1. No evidence of active bowel inflammation. 2. Cholelithiasis and choledocholithiasis, as above. We would get EUS/ERCP for evaluation and removal to prevent further liver damage or pancreatitis. She agrees on above. documented in this encounter Plan of Treatment Scheduled Orders Name Type Priority Associated Diagnoses Orde r Schedule ENDOSCOPY CASE REQUEST: ERCP, UPPER EUS- ENDOSCOPIC ULTRASOUND Procedures Routine Crohn's disease without complication, unspecified gastrointestinal tract location Ordered: 03/25/2021 documented as of this encounter Visit Diagnoses Diagnosis Crohn's disease without complication, unspecified gastrointestinal tract location documented in this encounter Care Teams Equipment Maintenance Tech Relationship Specialty Start Date End Date Marleni Gallagher APRN [address] [place] [address] PCP - General Family Medicine 12/11/16 documented as of this encounter
--- OUTSIDE RECORDS SUMMARY | 2024-03-02 14:12 | XMS_ITS | Encounter Summary ---
Author Organization [facility] Address [facility] [place] [address] Care Team Providers Care School Leader Name Role Phone Marleni Gallagher APRN Primary Care Provider [phone] Reason for Visit * Auth/Cert Specialty Diagnoses [...] Expiration Date Visits Re quested Visits Authorized [id number] 1 1 Encounter Details Date Type Department Care Team (Latest Contact Info) Description 05/28/2021 6:25 AM EST - 05/28/2021 10:29 AM [facility] Hospital En[place] [address] Deven Leyva MD [facility] [place] [address] Discharge Disposition: Home Social History Tobacco Use [...] Sign Reading Time Taken Comments Blood Pressure 136/94 05/28/2021 9:50 AM EST Pulse 73 05/28/2021 7:12 AM EST Temperature 36.3 ??C (97.3 ??F) 05/28/2021 7:12 AM ES T Respiratory Rate 17 05/28/2021 9:50 AM EST Oxygen Saturation 98% 05/28/2021 9:50 AM EST Inhaled Oxygen Concentration - - [...] the day after the procedure, use an iaya-ptn-ngpxldo spray to numb your throat. Sucking on [...] occurs, please contact your Doctor. Please call [phone] before 8pm Mon-Fri with problems, questions or concerns. If you call after 8pm or on weekends, call the Hospital at [phone] and ask to speak to the Dinker construction mgr and the stacker operator will contact that person for you. When should you call for help? Call 242 anytime you think you may need emergency [...] problems, like Where can you learn more? [facility] View your After Visit Summary and more online at [email or web address] If you would like to provide feedback about your hospital experience, please call the Office of Patient and Family Relations at . If you have received this After Visit Summary in error, please immediately return it in person to the department, or notify the [facility] Privacy Office by calling toll free at between the hours of 8AM and 5PM to arrange for our retrieval of the documents at no cost to you. Content Version: 12.2 ?? 2746-0400 [employer]. Care instructions adapted under license by [facility]. If you have questions about a medical condition or this instruction, always ask your healthcare professional. [employer] disclaims any warranty or liability for your [...] needed. 90 capsule 3 04/07/[address] Francisca) 1.2 gram Tablet, Delayed Release (E.C.) Take [...] Leyva MD - 05/28/2021 8:20 AM EST [facility] Patient Name: Deb Mullins : [id number] MR#: [id number] Case Date: 05/28/2021 Surgeon: Surgeon(s) and Role: [...] is documented under the Procedure section of [facility]. documented in this encounter Plan of Treatment Not on file documented as of this encounter Procedures Procedure Name Priority Date/Time Associated Diagnosis Comments XR ERCP Routine 05/28/2021 8:50 AM EST Ercp, W/Removal Stone, Josef/Pancr Ducts (10447) 05/28/2021 7:47 AM EST Crohn's disease without complication, unspecified gastrointestinal tract location Ercp, Sphincterotomy ([id number]) 05/28/2021 7:47 AM EST Crohn's disease without complication, unspecified gastrointestinal tract location ERCP Routine 05/28/2021 7:21 AM EST documented in this encounter Results * XR ERCP (05/28/2021 8:50 AM EST) Narrative OBDULIO ESQUEDA - 05/28/2021 8:50 AM EST See PACS for result report. Deven Leyva MD IMG FILM LIBRARY ORD ERABLES LORAINE Moses * ERCP (05/28/2021 7:21 AM EST) ERCP [facility] Endoscopy Procedure Date: 05/28/2021 7:21 AM ? Patient Name: Deb Mullins ? Date of : 1975 ? Age: 45 ? Order #: [id number] ? Instrument Name: [id number] ? Procedure: ? ERCP Indications: ? Abnormal abdominal MRI, Evaluation ? and possible treatment of bile duct ? stone(s) Providers: ? Deven Leyva MD, Jose Krishnan ? Chris Javed MD: ?Marleni Gallagher, Trav Rdz MD, ? Altagracia Ng APRN Medicines: ? General Anesthesia, Indomethacin 100 ? mg MI Complications: ? No immediate complications. Procedure: ? [...] the procedure well. ? Findings: ? The public area supervisor film was normal. The esophagus was ? [...] was made with a monofilament CleverCut ? acdq-yxo-uflh sphincterotome using ERBE ? electrocautery. There was [...] I personally performed the entire procedure. ? Deven Leyva MD 05/28/2021 8:55:35 AM This report has been signed electronically. Number of Addenda: 0 Note Initiated On: 05/28/2021 7:21 AM PROVATION 05/28/2021 7:21 AM EST Marleni Gallagher APRN GENERAL SURGICAL ORD ERABLES PROVATION documented in this encounter Visit Diagnoses Not on filedocumented in this encounter Administered Medications Inactive Administered Medications - up to 3 most recent administrations Medication Order MAR Action Action Date Dose Rate Site lactated ringers infusion 100 mL/hr, Intravenous, CONTINUOUS, [...] 0724 (New Bag - Prov ider: Shanika Gao, TIFFANY)0849 (Paused - Provider: Owen Yeung CRNA - Comment: Switch to gravity)0850 (Restarted - Provider: Owen Yeung CRNA)0910 (New Bag - Provider: Chris Dumont RN) documented in this encounter Care Teams School Leader Relationship Specialty Start Date End Date Marleni Gallagher, MAGNETO SPECIALIST [address] [place] [address] PCP - General Family Medicine 12/11/16 documented as of this encounter
--- OUTSIDE RECORDS SUMMARY | 2024-03-02 14:12 | XMS_ITS | Encounter Summary ---
Author Organization [facility] [place] [address] Care Team Providers Care Car Stereo Installer Name Role Phone Marleni Gallagher APRN Primary Care Provider [phone] Reason for Visit * Auth/Cert Specialty Diagnoses / Procedures Referred By Lynda fabian Referred To Contact Diagnoses History of Crohn's disease H/O Crohn's disease, needs EGD and colonoscopy to restage disease Procedures PRO UPPER GI ENDOSCOPY, DIAGNOSTIC PRO COLONOSCOPY, DIAGNOSTIC PRO ANESTH, UGI ENDOSCOPY NOS PRO ANESTH, LWR INTESTINE, NOS PRO ANESTH, LWR INTESTINE, SCREENING COLONOSCOPY EGD, UPPER GI ENDOSCOPY COLONOSCOPY, DIAGNOSTIC Referral ID Status Reason Start Date Expiration Date Visits Re quested Visits Authorized [id number] 1 1 Encounter Details Date Type Department Care Team (Late st Contact Info) Description 03/25/2021 12:16 PM EDT [place]esthesia [place] [address] Chang Hurtado, COMMUNITY HEALTH CONSULTANT [place] [address] Anesthesia Record Procedure Summary Procedure Name Responsible Anesthesiologist Anesthesia Start Time Anesthesia Stop Time EGD, UPPER GI ENDOSCOPY (WRVU 2.09) (Trunk) Chang Hurtado COMMUNITY HEALTH CONSULTANT 03/25/21 1216 03/25/21 1254 Events Date Time Event Comment 03/25/2021 1152 1216 AN Verify 1216 Start 1216 An Start Data 1219 An Induction 1222 Anesthesia Ready 1247 an stop data 1247 Recovery or ICU Handoff Marissa ent care was transferred to the destination unit staff after review of the patient's medical history, current anesthetic/surgical status and plan, according to the Provider Handoff Checklist. 1254 Stop Meds Name Total Propofol 100 mg Propofol INF 569.94 mg Dexmedetomidine 8 mcg lactated ringers infusion 0 mL * Agents Name O2 Air N2O * Blood No blood administrations on file. Lines, Drains, and Airways Type Details Placement Removal (RETIRED) Peripheral IV Line - Single Lumen 03/25/21; 1148; median cubital vein (antecubital fossa), right; [id number] catheter system; Anatomical Landmarks; 20 gauge; distraction, tolerated well; median cubital vein (antecubital fossa), left; 03/25/21; 1316 03/25/21 1148 by Su Grey RN 03/25/21 1316 by Collette Gusman RN documented in this encounter Social History Tobacco [...] OR Notes * Anesthesia Postprocedure Evaluation - Chang Hurtado CRNA - 03/25/2021 12:54 PM EDT Department of Anesthesiology Post-procedure Note Patient: Deb Mullins Procedure Summary Date: 03/25/21 Room / Location: [facility] PROCEDURES / [facility] MAIN OR Anesthesia Start: 1216 Anesthesia Stop: 1254 Procedures: EGD, UPPER GI ENDOSCOPY (N/A Trunk) COLONOSCOPY, DIAGNOSTIC (N/A Trunk) EGD WITH BIOPSY (WRVU 2.49) (N/A Trunk) Diagnosis: Crohn's disease without complication, unspecified gastrointestinal tract location (H/O Crohn's disease, needs EGD and colonoscopy to restage disease) Surgeons: Jhon Edwards MD Responsible Provider: Chang Hurtado CRNA Anesthesia Type: general ASA Status: 3 All Anesthesia Providers: COMMUNITY HEALTH CONSULTANT Independent: Chang Hurtado CRNA Vitals Value Taken Time BP Temp Pulse Resp SpO2 Pain Level Patient Location: PACU Level of Consciousness: Conscious but Sleepy Pain Management: Satisfactory Analgesia PONV: None Cardiovascular Status: At Baseline Respiratory Status: At Baseline Postoperative Fluid Status: Intravascular EUvolemia Possible Anesthetic Complications: NONE apparent at time of evaluation Final Primary Anesthesia Type: General (The anesthetic type performed was the same as planned.) Comments: Please see PACU flowsheet for VS. Report and care to RN * Anesthesia Preprocedure Evaluation - Chang Hurtado CRNA - 03/25/2021 11:51 AM EDT Pre-Anesthesia Evaluation for: Deb Mullins a 45 y.o. female. Procedure(s): EGD, UPPER GI ENDOSCOPY COLONOSCOPY, DIAGNOSTIC Patient Active Problem List Diagnosis ??? Cholelithiasis ??? Depression ??? Somnolence, daytime [...] 3.66) performed by Jose Bianchi MD at [facility] ??? PRO COLONOSCOPY, DIAGNOSTIC 08/27/2011 COLONOSCOPY, DIAGNOSTIC performed by KVNG YUEN at [facility] ??? PRO COLONOSCOPY, FLEX, W/DIR SUBMUC INJECT N/A 05/13/2017 COLONOSCOPY WITH DIRECTED SUBMUCOSAL INJ (WRVU 3.66) performed by Jose Bianchi MD at [facility] ??? PRO UPPER GI ENDOSCOPY, BIOPSY N/A 05/13/2017 EGD WITH BIOPSY (WRVU 2.49) performed by Jose Bianchi MD at [facility] ??? UPPER GI ENDOSCOPY, EXAM 08/27/2011 UPPER GI ENDOSCOPY performed by KVNG YUEN at [facility] Social History Tobacco Use ??? Smoking status: Former Smoker Packs/day: 0.50 Years: 3.00 Pack years: 1.50 Types: Cigarettes Quit date: 07/05/2000 Years since quittin.7 ??? Smokeless tobacco: Never Used ??? Tobacco [...] Physical Exam: Preprocedure Vitals Current as of 03/25/21 1151 BP: 142/87 Pulse: 75 Resp: 16 SpO2: 99 Temp: 36.7 ??C (98.1 ??F) Height: 170.2 cm (5' 7) (03/25/21) Weight: 96.6 kg (213 lb) (03/25/21) BMI: 33.36 IBW: 61.6 kg (135 lb 13.5 oz) Last edited 03/25/21 1133 by Currently displaying vitals information from multiple entries within 90 minutes of most recent vitals. Airway Assessment: Mallampati: II TM distance: >3 FB Neck ROM: full Cardiovascular Assessment: Rhythm: regular Rate: normal Pulmonary Assessment: unlabored breathing Dental Assessment: Misc Assessment: Patient is wearing No contact(s). IV access: Peripheral line Last Filed Perioperative Cognitive Screening None Anesthesia Plan: ASA 3 general, with a(n) intravenous induction Informed Consent: Anesthetic plan and risks discussed with patient. Use of blood products discussed with patient who consented to blood products. Anesthesia Screening documented in this encounter Plan of Treatment Not on file documented as of this encounter Visit Diagnoses Not on filedocumented in this encounter Administered Medications Inactive Administered Medications - up to 3 most recent administrations Medication Order MAR Action Action Date Dose Rate Site dexmedetomidine (Precedex) (4 mcg/mL) bolus injection (Anesthsia) Intravenous, PRN, Starting on Wed03/25/21 at 1219, Until Wed03/25/21 at 1254, Anesthesia Intra-op, Routine Given 03/25/2021 12:19 PM EDT 8 mcg propofoL (Diprivan) 10 mg/mL bolus injection (Anesthesia) Intravenous, PRN, Starting on Wed03/25/21 at 1219, Until Wed03/25/21 at 1254, Anesthesia Intra-op Given 03/25/2021 12:19 PM EDT 100 mg propofoL (Diprivan) infusion Intravenous, CONTINUOUS PRN, Starting on Wed03/25/21 at 1219, Until Wed03/25/21 at 1254, Anesthesia Intra-op, Routine Rate/Dose Change 03/25/2021 12:32 PM EDT 150 mcg/kg/min 86.94 mL/hr New Bag 03/25/2021 12:19 PM EDT 200 mcg/kg/min 115.92 m L/hr documented in this encounter Care Teams Car Stereo Installer Relationship Specialty Start Date End Date Marleni Gallagher, CARA [address] [place] [address] PCP - General Family Medicine 12/11/16 documented as of this encounter
--- OUTSIDE RECORDS SUMMARY | 2024-03-02 14:12 | XMS_ITS | Encounter Summary ---
Author Organization [place] [address] Care Team Providers Care Foundry Technician Name Role Phone Marleni Gallagher CARA Primary Care Provider [phone] Encounter Details Date Type Department Care Team (Late st Contact Info) Description 07/15/2021 2:00 PM EST Office [place] [address] Keara Quintana, CARA [facility] [place] [address] Surgery follow-up Social History Tobacco Use Types Packs/Day Years [...] as of this encounter Progress Notes * Keara Quintana, BEHAVIORAL INTERVENTION SPECIALIST - 07/15/2021 2:00 PM EST Deb Mullins is here for hospital check. 06/11/21:laparoscopic cholecystectomy- Trus Path: DIAGNOSIS A - Gallbladder, excision: - Chronic cholecystitis with cholelithiasis. Feels okay, continues to struggle with loose stool multiple times a day consistency of yogurt or soft serve ice cream, unrelated to meals or food intake. She reports this has been going on for wellover a year, no change since surgery. She is followed by GI for this and was last seen 06/23/21. She otherwise denies fevers chills jaundice, pale stools or dark urine. Denies abdominal pain, nausea,or vomiting, appetite and energy good improving, denies any incisional pain. Exam: Well appearing, moves easily about the exam room and onto the exam table. Sclera clear and non icteric, no jaundice. Abd soft non tender non distended, with benign trocar sites. Impression/plan: Above reviewed with Dr Rdz no indication for cholestyramine at this time as her loose stool has been an issue since well before her surgery. We will defer to GI. I have communicated this to Deb byphone, she is comfortable with this plan. Otherwise, Deb may FU with us on an as needed basis. I am happy to see her back should anything specific arise or should there be any question or concern. documented in this encounter Plan of Treatment Not on file documented as of this encounter Visit Diagnoses Diagnosis Surgery follow-up Follow-up examination, following unspecified surgery documented in this encounter Care Teams Foundry Technician Relationship Specialty Start Date End Date Marleni Gallagher APRN [address] [place] [address] PCP - General Family Medicine 12/11/16 documented as of this encounter
--- OUTSIDE RECORDS SUMMARY | 2024-03-02 14:12 | XMS_ITS | Encounter Summary ---
Author Organization [facility] Address [facility] [place] [address] Care Team Providers Care Preparer Name Role Phone Marleni Gallagher APRN Primary Care Provider [phone] Encounter Details Date Type Department Care Team (Late st Contact Info) Description 06/16/2021 Orders Only [place] [address] Trav Rdz MD [facility] [place] [address] Social History Tobacco Use Types Packs/Day Years [...] AM EDT documented as of this encounter Plan of Treatment Not on file documented as of this encounter Visit Diagnoses Not on filedocumented in this encounter Care Teams Preparer Relationship Specialty Start Date End Date Marleni Gallagher APRN [address] [place] [address] PCP - General Family Medicine 12/11/16 documented as of this encounter
--- OUTSIDE RECORDS SUMMARY | 2024-03-02 14:12 | XMS_ITS | Encounter Summary ---
Author Organization [facility] Address [address] [place] [address] Care Team Providers Care Merchandise Examiner Name Role Phone Mando Loera MD Primary Care Provider [phone] Encounter Details Date Type Department Care Team (Late st Contact Info) Description 06/06/2013 Results Only [facility] [phone] Nikita Dennison MD [address] [facility] [address] [place] [address] Social History Tobacco Use Types Packs/Day Years Used Date Smoking Tobacco: Never Assessed Sex and Gender Information Value Date Recorded Sex Assigned at Not on file Gender Identity Not on file Sexual Orientation Not on file documented as of this encounter Plan of Treatment Not on file documented as of this encounter Procedures Procedure Name Priority Date/Time Associated Diagnosis Comments SURGICAL PATHOLOGY Routine 06/06/2013 20 :31 EST documented in this encounter Results * SURGICAL PATHOLOGY (06/06/2013 20:31 EST) Pathology Report: SURGICAL PATHOLOGY REPORT Reports generated via electronic interface contain original data; however they are lacking the format of the original report. Caution should be taken when reading/interpreti ng unformatted reports. Name: ? DEB MENDENHALL ? Accession #: ? [id number] ? : ? 1975 (Age: 37) ??F ? Collect Date: ? 06/06/2013 ? Location: ? [facility] ? Receive Date: ? 06/07/2013 ? Provider: KEREN DENNISON MD Copy to: ? Final Pathologic Diagnosis: A. TERMINAL ILEUM, BIOPSIES: - ??Chronic ileitis with scattered granulomas. - ??No acute/active inflammation present. - ??No dysplasia identified. B. COLON, ASCENDING, BIOPSIES: - ??Focal eosinophilic cryptitis. - ??No granulomas or dysplasia identified. C. COLON, DESCENDING, BIOPSIES: - ??Colonic mucosa with rare mucosal granuloma. - ??No acute/active inflammation. - ??No dysplasia identified. D. COLON, SIGMOID, BIOPSIES: - ??Colonic mucosa with no specific pathologic features. - ??No granulomas or dysplasia identified. E. RECTUM, BIOPSY: - ??Rectal mucosa with suggestion of mucosal granuloma. - ??No acute/active inflammation present. - ??No dysplasia identified. Document reviewed and electronically signed by: ARAM KUNZ MD Report ??Date: 06/10/2013 13:26 By the signature above, the attending physician certifies that he/she has personally conducted a gross and/or microscopic examination of the described specimens and rendered or confirmed the above diagnosis. Specimen(s) Received: A. ?Terminal ileum bx B. ? Ascending colon bx C. ? Descending colon bx D. ? Sigmoid bx E. ? Rectal bx Clinical History: Hx of Crohn's; clinical diagnosis code: ??555.2 Gross Description: A. ?Received in formalin labelled with proper patient identification (initials B, T) and terminal ileum bx are two pink-waters tissues (0.2 x 0.1 x 0.1 cm and 0.4 x 0.1 x 0.1 cm). Entirely submitted in A1. B. ?Received in formalin labelled with proper patient identification (initials B, T) and ascending colon bx are two pink-waters tissues (each 0.4 x 0.2 x 0.1 cm). Entirely submitted in B1. C. ?Received in formalin labelled with proper patient identification (initials B, T) and descending colon bx are three pink-waters tissues (less than 0.1 x 0.1 x 0.1 cm to 0.3 x 0.1 x 0.1 cm). Entirely submitted in C1. D. ?Received in formalin labelled with proper patient identification (initials B, T) and sigmoid bx are two pink-waters tissues (0.2 x 0.2 x 0.1 cm and 0.5 x 0.2 x 0.1 cm). Entirely submitted in D1. E. ?Received in formalin labelled with proper patient identification (initials B, T) and rectal bx is a single pink-waters tissue fragment (0.8 x 0.1 x 0.1 cm). Submitted intact in E1. Su Thomson 06/09/2013 07:45 AM End of Report MILADY FARLEY 06/06/2013 20:3 1 EST 06/07/2013 20:31 EST Nikita Dennison MD PATHOLOGY ORDERABLES Performing Organization Address City/State/[facility] Co de Phone Number MILADY FARLEY [address] [place] [address] documented in this encounter Visit Diagnoses Not on filedocumented in this encounter Care Teams Merchandise Examiner Relationship Specialty Start Date End Date Mando Loera MD [address] [facility] [place] [phone] PCP - General 05/22/11 documented as of this encounter
--- OUTSIDE RECORDS SUMMARY | 2024-03-02 14:12 | XMS_ITS | Encounter Summary ---
Author Organization [facility] Address [address] [place] [address] Care Team Providers Care Circuit Tester Name Role Phone Unknown, Provider Primary Care Provider [phone] Encounter Details Date Type Department Care Team (Late st Contact Info) Description 05/20/2011 Results Only [facility] ([facility] [address] [place], [place] [address] [place] [address] [place] [address],[address] [place] [address] Social History Tobacco Use Types Packs/Day Years Used Date Smoking Tobacco: Never Assessed Sex and Gender Information Value Date Recorded Sex Assigned at Not on file Gender Identity Not on file Sexual Orientation Not on file documented as of this encounter Plan of Treatment Not on file documented as of this encounter Procedures Procedure Name Priority Date/Time Associated Diagnosis Comments SURGICAL PATHOLOGY Routine 05/20/2011 0:00 EST documented in this encounter Results * SURGICAL PATHOLOGY (05/20/2011 0:00 EST) Pathology Report: SURGICAL PATHOLOGY REPORT Reports generated via electronic interface contain original data; however they are lacking the format of the original report. Caution should be taken when reading/interpreti ng unformatted reports. Name: ? DEB MENDENHALL ? Accession #: ? [id number] ? : ? 1975 (Age: 35) ??F ? Collect Date: ? 05/20/2011 ? Location: ? [facility] ? Receive Date: ? 05/20/2011 ? Provider: JENNIFER PETERSON MD Copy to: BLANCA GOFF MD ? Final Pathologic Diagnosis: ? Uterus, morcellated supracervical hysterectomy: 1. ?Endometrium: ? - Inactive with endometrial polyp. 2. ?? Myometrium: ?- No pathologic features. 3. ?? Serosa: ?- No pathologic features. Document reviewed and electronically signed by: DARINEL WOOTEN MD Report ??Date: 05/22/2011 17:05 By the signature above, the attending physician certifies that he/she has personally conducted a gross and/or microscopic examination of the described specimens and rendered or confirmed the above diagnosis. Specimen(s) Received: ? Supracervical uterus Clinical History: ? Menorrhagia; LMP: continuous OCPs Gross Description: ? Received in formalin labelled [place], Deb and supracervical uterus is a morcellated supracervical hysterectomy which weigh 102 grams and measures 12.5 x 11.5 x 3.0 cm. ??The serosa is waters-pink and focally hyperemic. ??The endometrium is waters-brown and averages 0.2 cm in thickness. ??There is a 0.5 x 0.4 x 0.3 cm, polypoid structure present. ??The myometrium is waters-pink, coarsely trabecular, and measures up to 1.4 cm in thickness. ??No definitive nodules are present. There is a portion of proximal fallopian tube present measuring 1.1 cm in length by 0.5 cm in diameter. ??Neither the adnexa nor cervix are present. Stage Driver sections are submitted as follows: BLOCK NIXON A1,A2 ?Serosa A3 ?Endometrium to include polyp A4 ?Endomyometrium A5,A6 ?Myometrium A7 ?Proximal fallopian tube with adjacent tissue (Alexander Loaiza)/[facility] End of Report MILADY FARLEY 05/20/2011 05/20/2011 17: 52 EST Jennifer Peterson MD PATHOLOGY ORDERABLES Performing Organization Address City/State/[facility] Co de Phone Number MILADY FARLEY [address] [place] [address] documented in this encounter Visit Diagnoses Not on filedocumented in this encounter Care Teams Circuit Tester Relationship Specialty Start Date End Date Unknown, Provider, PCP - General 08/23/09 05/21/11 documented as of this encounter
--- OUTSIDE RECORDS SUMMARY | 2024-03-02 14:12 | XMS_ITS | Encounter Summary ---
Author Organization [facility] Address [facility] [place] [address] Care Team Providers Care Adult Health Clinical Nurse Specialist Name Role Phone Marleni Gallagher APRN Primary Care Provider [phone] Encounter Details Date Type Department Care Team (Late st Contact Info) Description 06/23/2021 3:30 PM EST Office Visit [place] [address] Joseph Vasquez MD [facility] [address] Crohn's disease of both small and large intestine without complication Social History Tobacco Use Types Packs/Day Years [...] Pulse 84 06/23/2021 3:38 PM EST Temperature - - Respiratory Rate - - Oxygen Saturation - - Inhaled Oxygen Concentration - - Weight 98.1 kg (216 lb 3.2 oz) 06/23/2021 3:38 P M EST Height 170.2 cm (5' 7) 06/23/2021 3:38 PM EST Body Mass Index 33.86 06/23/2021 3:38 PM EST documented in this encounter Patient Instructions * Patient Instructions* Joseph Vasquez MD - 06/23/2021 3:30 PM EST 1. No Crohn's directed therapy at this time 2. Labs today and annually. Check TTG with IgA based on duodenal biopsy 3. Plan for repeat colonoscopy in about 12-18 months 4. Consider adding fiber into diet (Benefiber) 5. F/u with Diana in about 6 months, sooner if needed documented in this encounter Progress Notes * Joseph Vasquez MD - 06/23/2021 3:30 PM EST Primary care provider: Marleni Gallagher APRN Other providers: TANIA Crouch Reason for visit: f/u for Crohn's disease Problem List Patient Active Problem List Diagnosis Date Noted ??? Crohn's disease without complication 06/21/2021 ??? Gallstones ??? Depression ??? Somnolence, daytime ??? Low back pain ??? GERD (gastroesophageal reflux disease) ??? Chronic constipation ??? Sleep apnea ??? Constipation 05/05/2011 ??? Gastritis and duodenitis 05/05/2011 ??? Right wrist pain ??? Chronic diarrhea 03/23/2010 Resolved Hospital Problems No resolved problems to display. Detailed IBD History: - H/O diarrhea x 1 year (2008) then sxs improved since 07/2009. - H/O constipation as a teenager - H/O bulimia Testings:?? 08/21/09 EGD and colonoscopy ([facility], Dr. Ortega): 1. gastric antrum ulcer, [...] cells and giant cells. - 2009 [place] [facility] looks normal but pathology suggestive of [...] examination is otherwise unremarkable. ?? -??04/07/17?M[facility] ( [facility]??No evidence of active inflammatory bowel disease. - [...] is??normal. Biopsied The examined portion of the ileumwas normal. Biopsied. ??Inflammatory polyp, No active Crohn's. Path: Ileum normal. Colonic mucosa with focal active colitis Current IBD Meds: none Interval History: Had cholecystectomy two weeks ago. Doing well, no further bouts of pain attacks since. Bowels are better, but not perfect. Having less frequent and somewhat more formed stool. Tylenol and motrin nearly every day for back pain. Social History Social History Narrative ??? Not on file Review of systems as in the HPI, the rest of the review of systems were negative. Past Medical History, Social History and Family History is unchanged. Medications Outpatient Encounter Medications as of 06/23/2021 Medication Sig Dispense Refill ??? oxyCODONE (Roxicodone) 5 mg Tablet Take 1 tablet by mouth every 6 hours as needed for Pain. 15 tablet 0 ??? balsalazide (ColazaL) 750 mg Capsule Take 3 capsules by mouth 3 times daily. 810 capsule 3 ??? ondansetron (Zofran) 4 mg Tablet Take 1 tablet by mouth every 8 hours as needed for Nausea. 60 tablet 3 ??? chlordiazePOXIDE-clidinium (Librax, with Clidinium,) 5-2.5 mg Capsule Take 1 capsule by mouth every 8 hours as needed. 90 capsule 3 ??? calcium-vitamin D3 600 mg calcium- [...] ??? acetaminophen (TYLENOL) 325 mg tablet ??? mesalamine DR (Herbertha) 1.2 gram Tablet, Delayed Release (E.C.) Take 2 tablets by mouth 2 times daily. (Patient not taking: Reported on 06/23/2021) 120 tablet 3 ??? rifAXIMin (Xifaxan) 550 mg Tablet Take 1 tablet by mouth 2 times daily. (Patient not taking: Reported on 04/07/2021) 28 tablet 0 No facility-administered encounter medications on file as of 06/23/2021. Allergies/Adverse reactions Dilaudid [hydromorphone] and Preparation h [phenylephrine-witch david] Physical Examination Patient appears well Wt Readings from Last 3 Encounters: 06/23/21 98.1 kg (216 lb 3.2 oz) 06/11/21 96.6 kg (213 lb) 05/28/21 96.6 kg (213 lb) Last value Range last 24 hrs Heart Rte Heart Rate: 84 Heart Rate: [84] Blood Pressure BP: 128/76 BP: (128)/(76) Heart: regular Resp: CTA Abd: normal BS, soft/nontender diffusely, no masses, no hepatomegaly, no splenomegaly Extrem: no edema Recent labs Admission on 06/11/2021, Discharged on 06/11/2021 Component Date Value Ref Range Status ??? POC Glucose 06/11/2021 92 65 - 199 mg/dL Final ??? Surgical Pathology Report 06/11/2021 Final Value:[id number] Location: [facility]; [place]; A The signing pathologist has (i) examined the relevant preparation(s) for the specimen(s) and (ii) rendered or confirmed the diagnosis(es). . Surgical Pathology DIAGNOSIS A - Gallbladder, excision: - Chronic cholecystitis with cholelithiasis. Electronically signed by: Joe TANNER PhD, Shameka Verified: 06/13/2021 14:22 Pathologist Performed at: -[facility] Dept. of Pathology, [place], [place] SPECIMEN(S) SUBMITTED A - Gallbladder, excision (1) CLINICAL INFORMATION Gallstones SPECIMEN PROCESSING A - Labeled/Fixative: Gallbladder, formalin. Quantity/Size: Single, 7.0 x 1.3-2.0 x 2.0 cm. Specimen Description: Gallbladder, received incised. Serosa: Glistening, mabry to pink-waters Hepatic margin: Scab this, with adherent [id number]-[id number] hepatic parenchyma Lumen contents: Residual waters-brown viscous bile Gallstones: Present: Multiple, yellow-brown, partially fragmented and intact, multifaceted gallstones ranging from, 0.3-1.3 cm Mucosa: Partially flattened pink-waters, erythematous and focally hemorrhagic Wall: Focally, in the fundus up to 0.2 cm thick. Duct: 0.3 cm, patent. Ink Designation: The hepatic margin is inked black Sections/Processing: Laundry Operator Wash Room sections in 1 cassettes as follows: A1: cystic duct margin and factory representative mucosa. shb Admission on 05/28/2021, Discharged on 05/28/2021 Component Date Value Ref Range Status ??? ERCP 05/28/2021 Final Value:[facility] Endoscopy Procedure Date: 05/28/2021 7:21 AM Patient Name: Deb Mullins Date of : 1975 Age: 45 Order #: [id number] Instrument Name: [id number] Procedure: ERCP Indications: Abnormal abdominal MRI, Evaluation and possible treatment of bile duct stone(s) Providers: Deven Leyva MD, Jose Javed, Chris Weinberg MD: Marleni Gallagher, Trav Rdz MD, CARA Mcbride es: General Anesthesia, Indomethacin 100 mg PA Complications: No immediate complications. Procedure: Pre-Anesthesia Assessment: - Prior to the procedure, a History and Physical was performed, and patient medications, allergies and sensitivities were reviewed. The patient's tolerance of previous anesthesia was reviewed. - The risks and benefits of the procedure and the sedation options and risks were discussed with the patient. All questions were answered and informed consent was obtained. - ASA Grade Assessment: II - A patient with mild systemic disease. - Genera l anesthesia under the supervision of an anesthesiologist was determined to be medically necessary for this procedure based on complex procedure (ERCP, EUS). The procedure, indications, benefits, risks and alternatives were explained to the patient. Specifically discussed were potential complications including, but not limited to, bleeding, perforation, infection, pancreatitis, missing a cancer, and adverse medication reactions. The Duodenoscope was introduced through the mouth, and advanced to the duodenum where it was used to inject contrast into and used to inject contrast into the bile duct and ventral pancreatic duct. The patient tolerated the procedure well. Findings: The employee relations director film was normal. The esophagus was successfully intubated under direct vision. The scope was advanced to a normal major papilla in the descending duodenum without detailed examination of the pharynx, larynx and associated structures, and upper GI tract. The upper GI tract was grossly normal. The bile duct was deeply cannulated with the short-nosed traction sphincterotome and guidewire. Contrast was injected. I personally interpreted the bile duct images. There was brisk flow of contrast through the ducts. Image quality was excellent. Contrast extended to the hepatic ducts. Opacification of the entire biliary tree was successful. The maximum diameter of the ducts was 5 mm. The lower third of the main bile duct contained one stone, which was 5 mm in diameter. There were multiple gallbladder stones. A 0.025 in Visiglide II wire was passed into the biliary tree. A 10 mm biliary sphincterotomy was made with a monofilament CleverCut [id number] sphincterotome using ERBE electrocautery. There was no post-sphincterotomy bleeding. The biliary tree was swept with an 11.5 mm balloon starting at the bifurcation. One stone was removed. No stones remained. The PD was briefly accessed with the guide wire during initial cannulation attempts but no contrast was injected. Moderate Sedation: I was present during the intraservice time as documented by the sedation RN. Impression: - Choledocholithiasis was found. Complete removal was accomplished by biliary sphincterotomy and balloon extraction. - Cholelithiasis. Recommendation: - Observe patient's clinical course. - Proceed with planned cholecystectomy. Attending Participation: I personally performed the entire procedure. Deven Leyva MD 05/28/2021 8:55:35 AM This report has been signed electronically. Number of Addenda: 0 Note Initiated On: 05/28/2021 7:21 AM Admission on 03/25/2021, Discharged on 03/25/2021 Component Date Value Ref Range Status ??? UPPER GI ENDOSCOPY 03/25/2021 Final Value:[facility] Endoscopy Procedure Date: 03/25/2021 12:14 PM Patient Name: Deb Mullins Date of : 1975 Age: 45 Order #: [id number] Instrument Name: [id number] Procedure: Upper GI endoscopy Indications: Epigastric abdominal pain, Crohn's Providers: Jhon Edwards MD Referring MD: Marleni Gallagher, Altagracia Ng MD Medicines: See the Anesthesia note for documentation of the administered medications Complications: No immediate complications. ___ Procedure: The procedure, indications, benefits, risks and alternatives were explained to the patient. Specifically discussed were potential complications including, but not limited to, bleeding, perforation, infection, missing a cancer, and adverse medication reactions. The Endoscope was introduced through the mouth, and advanced to the fourth part of duodenum. The patient tolerated the procedure well. The upper GI endoscopy was accomplished without difficulty. The patient tolerated the procedure well. Findings: The examined esophagu s was normal. The Z-line was regular and was found 40 cm from the incisors. The entire examined stomach was normal. Biopsies were taken with a cold forceps for Helicobacter pylori testing. The examined duodenum was normal. Biopsies were taken with a cold forceps for histology. Impression: - Normal esophagus. - Z-line regular, 40 cm from the incisors. - Normal stomach. Biopsied. - Normal examined duodenum. Biopsied. Her epigastric pain is secondary to gallstones and CBD stones seen on MRI Recommendation: - Await pathology results. Needs ERCP and cholecystectomy Jhon Edwards MD 03/25/2021 12:49:18 PM This report has been si gned electronically. Number of Addenda: 0 Note Initiated On: 03/25/2021 12:14 PM ??? COLONOSCOPY 03/25/2021 Final Value:[facility] Endoscopy Procedure Date: 03/25/2021 12:15 PM Patient Name: Deb Mullins Date of : 1975 Age: 45 Order #: [id number] Instrument Name: [id number] Procedure: Colonoscopy Indications: Crohn's assess for active inflammation Providers: Jhon Edwards MD Referring MD: Marleni Gallagher Medicines: See the Anesthesia note for documentation of the administered medications Complications: No immediate complications. Procedure: The procedure, indications, benefits, risks and alternatives were explained to the patient. Specifically discussed were potential complications including, but not limited to, bleeding, perforation, infection, missing a cancer, and adverse medication reactions. The patient was placed in the left lateral decubitus position, and a digital rectal exam was performed. The Colonoscope was inserted in the anus and under direct visualization, advanced to 30 cm into the ileum. Careful inspection was made as the colonoscope was withdrawn. The colonoscopy was performed without difficulty. The patient tolerated the procedure well. The quality of the bowel preparation was evaluated using the BBPS ([place] Bowel Preparation Scale) with scores of: Right Colon = 3, Transverse Colon = 3 and Left Colon = 3 (entire mucosa seen well with no residual staining, small fragments of stool or opaque liquid). The total BBPS score equals 9. Findings: The perianal and digital rectal examinations were normal. The colon mucosa (entire examined portion) appeared normal. Biopsies were taken with a cold forceps for histology. The terminal ileum appeared normal. Biopsies were taken with a cold forceps for histology. There was a one cm erythematous p olypoid lesion distal descending colon, previously bx and was inflammatory polyp Internal hemorrhoids were found during retroflexion. The hemorrhoids were small. Impression: - The entire examined colon is normal. Biopsied. - The examined portion of the ileum was normal. Biopsied. Inflammatory polyp No active Crohn's Recommendation: - Await pathology results. Jhon Edwards MD 03/25/2021 12:53:19 PM This report has been signed electronically. Number of Addenda: 0 Note Initiated On: 03/25/2021 12:15 PM ??? Surgical Pathology Report 03/25/2021 Final Value:[id number] Location: [facility]; A The signing pathologist has (i) examined the relevant preparation(s) for the specimen(s) and (ii) rendered or confirmed the diagnosis(es). . Surgical Pathology DIAGNOSIS A - Duodenum, biopsy (Multiple): - Duodenal mucosa with mildly increased intraepithelial lymphocytes (up to 37 lymphocytes per 100 enterocytes) and preserved villous architecture, see Discussion. B - Stomach, biopsy (Multiple): - Gastric fundic and antral gland mucosa with chronic nonspecific gastritis and reactive changes. - Immunostaining for H. pylori is negative. C - Terminal ileum, biopsy (Multiple): - Ileal mucosa within normal limits. - There is no evidence of dysplasia. D - Colon, biopsy (Multiple): - Colonic mucosa with focal active colitis. - Separate fragments of colonic mucosa within normal limits. - There is no evidence of dysplasia. Electronically s igned by: Joe TANNER PhD, Shameka Verified: 04/03/2021 13:07 Pathologist Performed at: [place] [place], [place], [place] DISCUSSION A - The differential diagnosis includes gluten sensitive enteropathy, NSAIDs use, post-viral gastroenteritis, bacterial overgrowth, allergy to other food antigens, immunodeficiency syndromes (CVID, IgA deficiency) and tropical sprue. These features have also been described in patients with a history of collagen vascular disease, Crohn's disease, and H. pylori gastritis. ADDITIONAL STUDIES Immunohistochemistry Studies: Formalin-fixed, paraffin-embedded tissue sections are studied using the polymer technique with appropriate positive and negative controls. These IHC studies provide the pathologist with adjunctive diagnostic information. Antibody specificity has been verified by testing antibodies on a series of in-house tissues with known immunohistochemical performance characteristics . The clinical interpretation of any antibody positive staining or its absence is evaluated within the context of clinical presentation, morphology, histopathological criteria and other diagnostic tests. Block Antibody Result (Positive/Negative) B1 H. pylori Negative SPECIMEN(S) SUBMITTED A - Duodenum, biopsy (Multiple) B - Stomach, biopsy (Multiple) C - Terminal ileum, biopsy (Multiple) D - Colon, biopsy (Multiple) . CLINICAL INFORMATION Crohn's disease, diarrhea and dyspepsia SPECIMEN PROCESSING A - Labeled/Fixative: Duodenum, formalin. Quantity/Size: Multiple, averaging 0.2 cm. Tissue Description: Soft, yellow-brown tissues. Sections/Processing: Submitted en toto in 2 cassettes labeled A1-A2. B - Labeled/Fixative: Stomach, formalin. Quantity/Size: Three, ranging 0.2-0.5 cm. Tissue Description: Soft, yellow-waters tissues. Sections/Processing: Submitted en toto in 1 cassette labeled B1. C - Label ed/Fixative: Terminal ileum, formalin. Quantity/Size: Multiple, ranging 0.2-0.5 cm. Tissue Description: Soft, yellow-waters tissues. Sections/Processing: Submitted en toto in 2 cassettes labeled C1-C2. D - Labeled/Fixative: Colon, formalin. Quantity/Size: Multiple, averaging 0.3 cm. Tissue Description: Soft, yellow-waters tissues. Sections/Processing: Submitted en toto in 3 cassettes labeled D1-D3. shb Recent endoscopic procedures As in detailed IBD history above Recent relevant imaging As in detailed IBD history above Impression/Plan Deb is 2 weeks s/p cholecystectomy. In retrospect, she believes that her pain attacks over the years was probably related to these gallstones and not Crohn's. Her Crohn's has been mild over the years. Recent colonoscopy without any endoscopic disease (mild histologic activity).and this was doneoff of medications. She and Diana considered starting mesalamine, but it was too expensive for Deb so she didn't start it. I think this is fine - and value of mesalamine in this scenario is not clear anyway. I suggested that it's OK if we under treat her but we might want to test more frequently. For example, repeat a colonoscopy towards end of next year or early 2022. 1. No Crohn's directed therapy at this time 2. Labs today and annually. Check TTG with IgA based on duodenal biopsy 3. Plan for repeat colonoscopy in about 12-18 months 4. Consider adding fiber into diet (Benefiber) 5. F/u with Diana in about 6 months, sooner if needed 26 minutes of this 30 minute [id number] appointment were spent in direct counseling regarding treatment of IBD. Please contact me if there are any further questions regarding the care of this patient. Joseph Vasquez MD gas main and line fitter at the [facility] at [facility] Co-Director, [facility] [employer] Principal, [place]astroenterology [place] [address] documented in this encounter Plan of Treatment Not on file documented as of this encounter Procedures Procedure Name Priority Date/Time Associated Diagnosis Comments HC C-REACTIVE PROTEIN Routine 06/23/2021 4:26 PM EST Crohn's disease of both small and large intestine without complication HEMOGRAM Routine 06/23/2021 4:26 PM EST Crohn's disease of both small and large intestine without complication DIFFERENTIAL, AUTOMATED Routine 06/23/20 4:26 PM EST Crohn's disease of both small and large intestine without complication HC TISSUE TRANSGLUTAMINASE AB Routine 06/23/2021 4:26 PM EST Crohn's disease of both small and large intestine without complication HC VENIPUNCTURE Routine 06/23/2021 4:26 PM EST Crohn's disease of both small and large intestine without complication HC IGA, SERUM Routine 06/23/2021 4:26 PM EST Crohn's disease of both small and large intestine without complication COMPREHENSIVE METABOLIC PANEL Routine 06/23/2021 4:26 PM EST Crohn's disease of both small and large intestine without complication documented in this encounter Results * (ABNORMAL) Differential, Automated (06/23/2021 4:26 PM EST) Neutrophil % 63.2 % [facility] Neutrophil Absolute 4.93 1.70 - 6.10 x10(3)/mc L [facility] Lymph % 24.3 % [facility] Lymphocytes Abs 1.9 0.9 - 3.2 x10(3)/mc L [facility] Monocyte % 6.9 % [facility] Monocyte Abs 0.5 0.3 - 0.9 x10(3)/mc L [facility] Eos % 3.5 % [facility] Eosinophils Abs 0.3 0.0 - 0.4 x10(3)/ L [facility] Basophil % 0.9 % [facility] Baso Absolute 0.1 0.0 - 0.1 x10(3)/mc L [facility] Immature Gran % 1.20 % [facility] Comment: Immature granulocytes(IG's)percentage and absolute count will include metamyelocytes, myelocytes, and promyelocytes. Blood smears from CBCs yielding IG's will be scanned manually for concordance. If this scan disagrees with the automated IG or if promyelocytes are noted, a manual differential will be performed. Immature Gran Absolute 0.09(H) 0.00 - 0.04 x10(3)/mc L [facility] Blood 06/23/2021 4:26 PM EST 06/23/2021 4:59 PM EST Narrative Resulting Agency Comment Spec In Lab Joseph Vasquez MD HEMATOLOGY ORDERABLE S [facility] [place] [address] * (ABNORMAL) Hemogram (06/23/2021 4:26 PM EST) White Blood Cell 7.8 4.0 - 9.5 x10(3)/mc L [facility] Red Blood Cell 4.36 4.00 - 5.21 x10(6)/mc L [facility] Hemoglobin 12.8 11.7 - 15.5 g/dL [facility] Hematocrit 38.0 35.7 - 45.8 % [facility] Mean Cell Volume 87.2 82.6 - 94.4 fL [facility] Mean Cell Hemoglobin 29.4 27.1 - 32.0 pg [facility] Mean Cell Hemoglobin Concentration 33.7 31.7 - 35.0 g/dL [facility] Platelet 504(H) 145 - 357 x10(3)/ L [facility] RDW Standard Deviation 40.0 37.0 - 46.0 fL [facility] RDW coefficient of variation 12.5 11.5 - 14.1 % [facility] Mean Platelet Volume 9.1 7.6 - 12.9 fL [facility] NRBC% auto 0.0 % [facility] NRBC Absolute 0.000 0.000 - 0.000 x10(3)/ L [facility] Blood 06/23/2021 4:26 PM EST 06/23/2021 4:59 PM EST Narrative Resulting Agency Comment Spec In Lab Joseph Vasquez MD HEMATOLOGY ORDERABLE S [facility] [place] [address] * (ABNORMAL) CRP, acute inflammation (06/23/2021 4:26 PM EST) C-Reactive Protein 13.9(H) <=4.9 mg/L [facility] Blood 06/23/2021 4:26 PM EST 06/23/2021 4:59 PM EST Narrative Resulting Agency Comment Spec In Lab Joseph Vasquez MD CHEMISTRY ORDERABLES [facility] [place] [address] * (ABNORMAL) Comprehensive metabolic panel (non-fasting) (06/23/2021 4:26 PM EST) Glucose 97 65 - 199 mg/dL [facility] Comment:Diabetes: >=200 mg/d L plus symptoms Blood Urea Nitrogen 15 8 - 18 mg/dL [facility] Creatinine 0.73 0.70 - 1.20 mg/dL [facility] Sodium 139 135 - 145 mmol/L [facility] Potassium 4.3 3.5 - 5.0 mmol/L [facility] Comment: Please note: ??Patients with WBC >100,000 may have falsely elevated Potassium levels. ??For accurate Potassium quantification in these patients send serum separator tube (gold top) for subsequent determinations. ??Contact the Clinical Chemistry Laboratory if there are any questions. Chloride 103 98 - 107 mmol/L [facility] [facility] Carbon Dioxide 25 22 - 31 mmol/L [facility] Anion Gap 11 5 - 15 mmol/L [facility] Calcium 9.6 8.5 - 10.5 mg/dL [facility] Protein, Total 7.3 6.1 - 8.0 g/dL [facility] Albumin 4.7 3.2 - 5.2 g/dL [facility] Aspartate Aminotransferase 15 0 - 30 unit/L [facility] Alanine Aminotransferase 27 0 - 30 unit/L [facility] Alkaline Phosphatase 110(H) 35 - 105 unit/L [facility] Bilirubin, Total 0.3 0.2 - 1.3 mg/dL [facility] Est Glomerular Filtration Rate 100 >=60 mL/min/1. 73 m?? [facility] Comment: This patient? s estimated glomerular [...] In Lab Joseph Vasquez MD CHEMISTRY ORDERABLES Performing Organization Address [facility] Co de Phone Number [facility] [place] [address] * IgA (06/23/2021 4:26 PM EST) IgA 131 70 - 400 mg/dL [facility] Blood 06/23/2021 4:26 PM EST 06/23/2021 4:59 PM EST Narrative Resulting Agency Comment Spec In Lab Joseph Vasquez MD CHEMISTRY ORDERABLES Performing Organization Address [facility] Co ky Phone Number [facility] [place] [address] * Tissue transglutaminase, IgA (06/23/2021 4:26 PM EST) TTG IgA Ab <0.1 0.1 - 10.0 u/ml [facility] Comment: Negative = <7 U/mL Equivocal = 7-10 U/mL Positive = >10 U/mL Blood 06/23/2021 4:26 PM EST 06/24/2021 7:14 AM EST Narrative Resulting Agency Comment Spec In Lab Joseph Vasquez MD IMMUNOLOGY ORDERABLE S Performing Organization Address [facility] [place] [address] documented in this encounter Visit Diagnoses Diagnosis Crohn's disease of both small and large intestine without complication Regional enteritis of small intestine with large intestine documented in this encounter Care Teams Adult Health Clinical Nurse Specialist Relationship Specialty Start Date End Date Marleni Gallagher, SYSTEMS SOFTWARE SPECIALIST [address] [place] [address] PCP - General Family Medicine 12/11/16 documented as of this encounter
--- OUTSIDE RECORDS SUMMARY | 2024-03-02 14:12 | XMS_ITS | Encounter Summary ---
Author Organization [facility] Address [facility] [place] [address] Care Team Providers Care Rack Maker Name Role Phone Marleni Gallagher APRN Primary Care Provider [phone] Reason for Visit * Auth/Cert Specialty Diagnoses [...] Expiration Date Visits Re quested Visits Authorized [id number] 1 1 Encounter Details Date Type Department Care Team (Latest Contact Info) Description 03/25/2021 10:55 AM EDT - 03/25/2021 1:22 PM EDT Hospital Encounter Same Day at [facility] [place] [address] Jhon Edwards MD [facility] [place] [address] Discharge Disposition: Home Social History Tobacco Use [...] Sign Reading Time Taken Comments Blood Pressure 128/84 03/25/2021 1:00 PM EDT Pulse 61 03/25/2021 1:00 PM EDT Temperature 36.2 ??C (97.2 ??F) 03/25/2021 12:50 PM E DT Respiratory Rate 16 03/25/2021 1:00 PM EDT Oxygen Saturation 98% 03/25/2021 1:00 PM EDT Inhaled Oxygen Concentration - - Weight 96.6 kg (213 lb) 03/25/2021 11:17 AM EDT Height 170.2 cm (5' 7) 03/25/2021 11:17 AM EDT Body Mass Index 33.36 03/25/2021 11:17 AM EDT documented in this encounter Discharge Instructions * Discharge Instructions* Batool Santillan RN - 03/25/2021 11:55 AM EDT You have just undergone surgery and the following instructions are given to help you have an uneventful recovery: DIET: ??? Avoid alcohol for the next 24 hours, otherwise eat and drink as usual. ACTIVITY ??? On the day of the procedure please have a friend drive you home and escort you into your house.Plan to relax for the next few hours. ??? Do not drive or operate machinery until the day after the procedure. ??? DO NOT make any important personal or business decisions for 24 hours. ??? On the day after your procedure, you may return to your usual activities, unless otherwise instructed. DRIVING RESTRICTIONS: ??? You should not drive until you are pain free and off narcotic pain medication. TREATMENT FOR COMMON AFTER EFFECTS ENDOSCOPY/ERCP ??? Sore throat: this will pass in a day or two. Throat lozenges, cold liquids, or gargling with warm salt water may help to ease the discomfort. ??? Mild abdominal pain and bloating: rest and take only liquids. COLONOSCOPY ??? Mild abdominal pain, bloating or excessive gas: rest and eat lightly. ??? Loose bowel movements: these may occur for the next few days, but should return to normal on their own. ??? Please drink plenty of fluids today, preferably water, to keep yourself well hydrated. DURING REGULAR BUSINESS HOURS CALL YOUR PHYSICIAN AT : (FOR AFTER HOURS CALL [phone] AND ASK FOR PHYSICIAN COVERING FOR YOUR DOCTOR TO BE PAGED) ENDOSCOPY/ERCP ??? Fever or chills ??? Severe abdominal pain or bloating ??? Vomiting blood ??? Difficulty breathing or swallowing ??? Pain in chest ??? Any questions or problems COLONOSCOPY ??? Fever or chills ??? Severe abdominal pain or bloating ??? Heavy rectal bleeding ??? Any questions or problems SMOKING CESSATION INFORMATION: ??? [place] QUITLINE: ??? [place] QUITLINE: ??? [email or web address] If you smoke, stop now! MAKE SURE YOU: ??? Understand these instructions. ??? Will seek medical care if you are feeling poor, or get worse. Will call the office with any questions or concerns at . documented in this encounter Medications at Time of Discharge Medication Sig Dispensed Refills Start Date End Date calcium-vitamin D3 600 mg calcium- 400 unit [...] needed. acetaminophen (TYLENOL) 325 mg tablet 04/10/2010 metroNIDAZOLE (METROCREAM) 0.75 % CreamIndications:Perioral dermatitis APPLY TOPICALLY TO AFFECTED AREA ON FACE ONCE TO TWICE DAILY 45 g 1 08/21/2019 04/28/2021 buPROPion (WELLBUTRIN XL) 300 mg Tablet Extended Release 24 hr take 1 tablet by mouth once daily 0 02/18/2017 04/28/2021 venlafaxine (EFFEXOR-XR) 75 mg Capsule, Sust. Release 24 hr 0 11/15/2015 04/28/2021 venlafaxine (EFFEXOR-XR) 150 mg 24 hr capsule Take 150 mg by mouth daily. Total of 225 mg 04/28/2021 documented as of this encounter Progress Notes * Batool Santillan RN - 03/25/2021 1:22 PM EDTSummary: Recovery s/p Upper endoscopy and colonoscopy Uneventful recovery from EGD and colonoscopy, patient met all criteria for PACU discharge to home easily. Discharge instructions reinforced with patient, who stated understanding. All questions answered. See Doc Flowsheet for full details. Patient discharged ambulatory with a written copy of instructions and colonoscopy + Upper Endoscopy reports to car. * Su Grey RN - 03/25/2021 11:56 AM EDT All discharge instructions provided preoperatively. Pt provided with verbal and copy of written instruction. Verbalizes understanding and satisfaction with teaching provided. Denies needs, questions,concerns at this time. documented in this encounter H&P Notes * Jhon Edwards MD - 03/25/2021 11:14 AM EDT Gastroenterology and Hepatology Pre-Procedure History and Physical Exam Procedure: Colonoscopy: Indication: Crohn's restage Patient Active Problem List Diagnosis Code ??? Right wrist pain M25.531 ??? Chronic diarrhea K52.9 ??? 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 Constipation K59.00 ??? Gastritis and duodenitis K29.90 ??? Cholelithiasis K80.20 ??? Depression F32.9 ??? Somnolence, daytime R40.0 ??? Low back pain M54.5 ??? GERD (gastroesophageal reflux disease) K21.9 ??? Chronic constipation K59.09 ??? Sleep apnea G47.30 EXAM: HEENT: Airway examined, oropharynx clear Mallampati Score: II (soft palate, uvula, fauces visible) LUNGS: Clear to auscultation HEART: Regular rate and rhythm, normal S1, S2 ABDOMEN: Normal bowel sounds, soft, non tender, non distended, A/P Proceed with the planned endoscopic procedure. ASA 2 - Patient with mild systemic disease with no functional limitations Sedation Plan: anesthesia Risks and benefits of the procedure explained to the patient. Consent signed. documented in this encounter Plan of Treatment Not on file documented as of this encounter Procedures Procedure Name Priority Date/Time Associated Diagnosis Comments SPECIMEN TO PATHOLOGY Routine 03/25/2021 12:48 PM EDT SPECIMEN TO PATHOLOGY Routine 03/25/2021 12:48 PM EDT SURGICAL PATHOLOGY REPORT Routine 03/25/2021 12:38 PM EDT SPECIMEN TO PATHOLOGY Routine 03/25/2021 12:38 PM EDT SPECIMEN TO PATHOLOGY Routine 03/25/2021 12:38 PM EDT Upper Gi Endoscopy, Biopsy ([id number]) 03/25/2021 12:17 PM EDT Crohn's disease without complication, unspecified gastrointestinal tract location Colonoscopy, Diagnostic ([id number]) 03/25/2021 12:17 PM EDT Crohn's disease without complication, unspecified gastrointestinal tract location Upper GI Endoscopy, Diagnostic ([id number]) 03/25/2021 12:17 PM EDT Crohn's disease without complication, unspecified gastrointestinal tract location COLONOSCOPY Routine 03/25/2021 12:15 PM EDT UPPER GI ENDOSCOPY Routine 03/25/2021 12 :14 PM EDT documented in this encounter Results * Specimen to Pathology (03/25/2021 12:48 PM EDT) AP Specimen 03/25/2021 12:4 8 PM EDT 03/25/2021 12:48 PM EDT Narrative [facility] - 03/25/2021 12:48 PM EDT Specimen requisition ordered. ??Separate Pathology report to follow Jhon Edwards MD PATHOLOGY/CYTOLOGY O ELAYNE Performing Organization Address [facility] [place] [address] * Specimen to Pathology (03/25/2021 12:48 PM EDT) AP Specimen 03/25/2021 12:4 8 PM EDT 03/25/2021 12:48 PM EDT Narrative [facility] - 03/25/2021 12:48 PM EDT Specimen requisition ordered. ??Separate Pathology report to follow Jhon Edwards MD PATHOLOGY/CYTOLOGY O ELAYNE Performing Organization Address [facility] [place] [place] [address] * Surgical Pathology Report (03/25/2021 12:38 PM EDT) Pathologist [facility] Final Diagnosis [id number] ? Location: [facility]; [facility]; A The signing pathologist has (i) examined the relevant preparation(s) for the specimen(s) and (ii) rendered or confirmed the diagnosis(es). . ?Surgical Pathology DIAGNOSIS A - Duodenum, biopsy (Multiple): - Duodenal mucosa with mildly increased intraepithelial lymphocytes (up to 37 lymphocytes per 100 enterocytes) and preserved villous architecture, see Discussion. B - Stomach, biopsy (Multiple): - ??Gastric fundic and antral gland mucosa with chronic nonspecific gastritis and reactive changes. - ??Immunostaining for H. pylori is negative. C - Terminal ileum, biopsy (Multiple): - ??Ileal mucosa within normal limits. - There is no evidence of dysplasia. D - Colon, biopsy (Multiple): - Colonic mucosa with focal active colitis. - Separate fragments of ?? colonic mucosa within normal limits. - ??There is no evidence of dysplasia. Electronically signed by: ?Joe TANNER PhD, Shameka Verified: ??04/03/2021 13:07 ??Pathologist Performed at: ??-[facility] Dept. of Pathology, [place], [place] DISCUSSION A - The differential diagnosis includes gluten sensitive enteropathy, NSAIDs use, post-viral gastroenteritis, bacterial overgrowth, allergy to other food antigens, immunodeficiency syndromes (CVID, IgA deficiency) and tropical sprue. ??These features have also been described in patients with a history of collagen vascular disease, Crohn's disease, and H. pylori gastritis. ADDITIONAL STUDIES Immunohistochemistry Studies: Formalin-fixed, paraffin-embedded tissue sections are studied using the polymer technique with appropriate positive and negative controls. ?These IHC studies provide the pathologist with adjunctive diagnostic information. Antibody specificity has been verified by testing antibodies on a series of in-house tissues with known immunohistochemical performance characteristics. The clinical interpretation of any antibody positive staining or its absence is evaluated within the context of clinical presentation, morphology, histopathological criteria and other diagnostic tests. Block ? Antibody ?Result (Positive/Negative) B1 ? H. pylori ?Negative SPECIMEN(S) SUBMITTED A - Duodenum, biopsy (Multiple) B - Stomach, biopsy (Multiple) C - Terminal ileum, biopsy (Multiple) D - Colon, biopsy (Multiple) . CLINICAL INFORMATION Crohn's disease, diarrhea and dyspepsia SPECIMEN PROCESSING A - Labeled/Fixative: Duodenum, formalin. Quantity/Size: Multiple, averaging 0.2 cm. Tissue Description: Soft, yellow-brown tissues. Sections/Processing: Submitted en toto ??in 2 cassettes labeled A1-A2. B - Labeled/Fixative: Stomach, formalin. Quantity/Size: Three, ranging 0.2-0.5 cm. Tissue Description: Soft, yellow-waters tissues. Sections/Processing: Submitted en toto ??in 1 cassette labeled B1. C - Labeled/Fixative: Terminal ileum, formalin. Quantity/Size: Multiple, ranging 0.2-0.5 cm. Tissue Description: Soft, yellow-waters tissues. Sections/Processing: Submitted en toto ??in 2 cassettes labeled C1-C2. D - Labeled/Fixative: Colon, formalin. Quantity/Size: Multiple, averaging 0.3 cm. Tissue Description: Soft, yellow-waters tissues. Sections/Processing: Submitted en toto ??in 3 cassettes labeled D1-D3. ??shb 04/03/2021 1:07 PM EDT [facility] GI Biopsy 03/25/2021 12:3 8 PM EDT 03/25/2021 12:38 PM EDT GI Biopsy 03/25/2021 12:3 8 PM EDT 03/25/2021 12:38 PM EDT GI Biopsy 03/25/2021 12:3 8 PM EDT 03/25/2021 12:38 PM EDT GI Biopsy 03/25/2021 12:3 8 PM EDT 03/25/2021 12:38 PM EDT Jhon Edwards MD PATHOLOGY/CYTOLOGY O ELAYNE Performing Organization Address [facility]/ZIP Co de Phone Number [facility] [place] [address] * Specimen to Pathology (03/25/2021 12:38 PM EDT) AP Specimen 03/25/2021 12:3 8 PM EDT 03/25/2021 12:38 PM EDT Narrative [facility] - 03/25/2021 12:38 PM EDT Specimen requisition ordered. ??Separate Pathology report to follow Jhon Edwards MD PATHOLOGY/CYTOLOGY O ELAYNE Performing Organization Address [facility]/ZIP Co de Phone Number [facility] [place] [address] * Specimen to Pathology (03/25/2021 12:38 PM EDT) AP Specimen 03/25/2021 12:3 8 PM EDT 03/25/2021 12:38 PM EDT Narrative [facility] - 03/25/2021 12:38 PM EDT Specimen requisition ordered. ??Separate Pathology report to follow Jhon Edwards MD PATHOLOGY/CYTOLOGY O RDERAMILE [facility] [place] [address] * COLONOSCOPY (03/25/2021 12:15 PM EDT) COLONOSCOPY [facility] Procedure Date: 03/25/2021 12:15 PM ? Patient Name: Deb Mullins ? Date of : 1975 ? Age: 45 ? Order #: [id number] ? Instrument Name: [id number] ? Procedure: ? Colonoscopy Indications: ? Crohn's assess for active inflammation Providers: ? Jhon Edwards MD Referring : ?Marleni Azar: ? See the Anesthesia note for ? [...] preparation was evaluated using ? the BBPS ([place] Bowel Preparation ? Scale) with scores of: [...] Jhon Edwards MD GENERAL SURGICAL ORD ERABLES [facility] * UPPER GI ENDOSCOPY (03/25/2021 12:14 PM EDT) Pathologist [facility] UPPER GI ENDOSCOPY [facility] Procedure Date: 03/25/2021 12:14 PM ? Patient Name: Deb Mullins ? Date of : 1975 ? Age: 45 ? Order #: [id number] ? Instrument Name: [id number] ? Procedure: ? Upper GI endoscopy Indications: ? Epigastric abdominal pain, Crohn's Providers: ? Jhon Edwards MD Referring : ?Marleni Gallagher, Altagracia Ng MD Medicines: ? See the Anesthesia note for ? documentation of the administered ? medications Complications: ? No immediate complications. Procedure: ? The procedure, indications, benefits, ? risks and alternatives were explained ? to the patient. Specifically ? discussed were potential ? complications including, but not ? limited to, bleeding, perforation, ? infection, missing a cancer, and ? adverse medication reactions. The ? Endoscope was introduced through the ? mouth, and advanced to the fourth ? part of duodenum. The patient ? tolerated the procedure well. The ? upper GI endoscopy was accomplished ? without difficulty. The patient ? tolerated the procedure well. ? Findings: ? The examined esophagus was normal. ? The Z-line was regular and was found 40 cm from the ? incisors. ? The entire examined stomach was normal. Biopsies were ? taken with a cold forceps for Helicobacter pylori ? testing. ? The examined duodenum was normal. Biopsies were taken ? with a cold forceps for histology. ? Impression: ?- Normal esophagus. ? - Z-line regular, 40 cm from the ? incisors. ? - Normal stomach. Biopsied. ? - Normal examined duodenum. Biopsied. ? Her epigastric pain is secondary to ? gallstones and CBD stones seen on MRI Recommendation: ?- Await pathology results. ? Needs ERCP and cholecystectomy ? _ Jhon Edwards MD 03/25/2021 12:49:18 PM This report has been signed electronically. Number of Addenda: 0 Note Initiated On: 03/25/2021 12:14 PM [facility] 03/25/2021 12:1 4 PM EDT Jhon Edwards MD GENERAL SURGICAL ORD ERABLES [facility] documented in this encounter Visit Diagnoses Not on filedocumented in this encounter Administered Medications Inactive Administered Medications - up to 3 most recent administrations Medication Order MAR Action Action Date Dose Rate Site lactated ringers infusion 1,000 mL, at 50 mL/hr, Intravenous, CONTINUOUS, Starting on Wed03/25/21 at 1130, Until Wed03/25/21 at 1319, Day of Surgery (Day of Procedure) New Bag 03/25/2021 11:48 AM EDT 1,000 mLs 50 mL/hr documented in this encounter Active and Recently Administered Medications Times are shown in EDT. Continuous Medication Order 03/23/2021 03/24/2021 03/25/2021 lactated ringers infusion (CANCELED) 1,000 mL, at 50 mL/hr, Intravenous, CONTINUOUS, Starting on Wed03/25/21 at 1130, Until Wed03/25/21 at 1319, Day of Surgery (Day of Procedure) 1148 (New Bag - Prov ider: Su Grey RN) documented in this encounter Care Teams Rack Maker Relationship Specialty Start Date End Date Marleni Gallagher, ASSOCIATE PROFESSOR OF EDUCATION [address] [place] [address] PCP - General Family Medicine 12/11/16 documented as of this encounter
--- OUTSIDE RECORDS SUMMARY | 2024-03-02 14:12 | XMS_ITS | Encounter Summary ---
[place] [address] Care Team Providers Care All Around Presser Name Role Phone Marleni Gallagher APRN Primary Care Provider [phone] Encounter Details Date Type Department Care Team (Late st Contact Info) Description 06/16/2021 Telephone [place] [id number] Annabella Daniel RN Social History Tobacco Use Types Packs/Day Years [...] encounter Miscellaneous Notes * Telephone Encounter - Annabella Daniel RN - 06/16/2021 1:17 PM EST Deb is s/p laparoscopic cholecystectomy 06/11/[address] Rdz. Deb called the clinic today with continued RUQ quadrant pain and burning at her incision sites. She has been alternating tylenol and ibuprofen and taking oxycodone for breakthrough pain. She has two oxycodone tablets left and is requesting a refill today. She has been taking short walks throughout the day. She has been eating and drinking well and is having normal bowel movements, although she does report constipation for about three days post operatively. She reports her incisions are healing well. I advised Deb to apply over the counter lidocaine patches for the superficial incisional pain shehas been experiencing. I also spoke with Dr. Rdz on the phone and he will refill her oxycodone. Deb thanked me for the phone call and verbalizes she will call if she experiences worsening pain. documented in this encounter Plan of Treatment Not on file documented as of this encounter Visit Diagnoses Not on filedocumented in this encounter Care Teams All Around Presser Relationship Specialty Start Date End Date Marleni Gallagher, CARA [address] [place] [address] PCP - General Family Medicine 12/11/16 documented as of this encounter
--- OUTSIDE RECORDS SUMMARY | 2024-03-02 14:12 | XMS_ITS | Encounter Summary ---
[place] [address] Care Team Providers Care Tableau Report Developer Name Role Phone Marleni Gallagher APRN Primary Care Provider [phone] Reason for Visit * Reason Onset Date Comments Medication Refill 04/22/2021 Encounter Details Date Type Department Care Team (Late st Contact Info) Description 04/22/2021 Refill [place] [address] Kavita Barnes, RN Social History Tobacco Use Types Packs/Day [...] on filedocumented in this encounter Care Teams Tableau Report Developer Relationship Specialty Start Date End Date Marleni Gallagher APRN [address] [place] [facility] [place] [place] [address] PCP - General Family Medicine 12/11/16 documented as of this encounter
--- OUTSIDE RECORDS SUMMARY | 2024-03-02 14:12 | XMS_ITS | Encounter Summary ---
Author Organization [facility] Address [address] [place] [address] Care Team Providers Care Plant Operations Coordinator Name Role Phone Unknown, Provider Primary Care Provider Encounter Details Date Type Department Care Team (Late st Contact Info) Description 04/30/2011 Results Only [facility] Laboratory Services - [facility] ([facility] [address], [place] [address] [place] [address] [place] [address],[address] [place] [address] Social History Tobacco Use Types [...] Diagnosis Comments PAP TEST- RESULT ONLY Routine 04/30/2011 0:00 EDT documented in this encounter Results * PAP TEST- RESULT ONLY (04/30/2011 0:00 EDT) Pathology Report: CYTOPATHOLOGY REPORT Reports generated via electronic interface contain original data; however they are lacking the format of the original report. Caution should be taken when reading/interpreti ng unformatted reports. Name: ? DEB MENDENHALL ? Accession #: ? [id number] ? : ? 1975 (Age: 35) ??F ?Collect Date: ? 04/30/2011 ? Location: ? [facility] ? Receive Date: ? 05/01/2011 ? Provider: JENNIFER PETERSON MD Copy to: BLANCA GOFF MD ? Final Report SPECIMEN ADEQUACY ? Satisfactory for Evaluation - transformation zone component present GENERAL CATEGORIZATION ? Negative for Intraepithelial Lesion or Malignancy INTERPRETATION ? Reactive cellular changes associated with inflammation present (includes repair). Last Menstural Period: 04/25/11 Specimen/Source: ??Pap Test, Cervix/Endocervix, ThinPrep Imaging System with manual evaluation Document reviewed and electronically signed by: ? JENY PRAKASH MD ? Report ??Date: 05/11/2011 16:12 HPV with Pap Test ? Date Ordered: ? 05/11/2011 ? Status: ?? Signed Out ?Date Complete: ? 05/13/2011 ? By: ??System Interface ? Date Reported: ? 05/13/2011 ? Interpretation RESULT: Negative for HPV types 16, 18, 31, 33, 35, 39, 45, 51, 52, 56, 58, 59, and 68. Comments Document reviewed and electronically signed by: ? System Interface ? Report date: 05/13/2011 By the signature above, the attending physician certifies that he/she has personally conducted a gross and/or microscopic examination of the described specimens and rendered or confirmed the above diagnosis. End of Report [facility] 04/30/2011 05/01/2011 Jennifer Peterson MD PATHOLOGY ORDERAB[place] [address] documented in this encounter Visit Diagnoses Not on filedocumented in this encounter Care Teams Plant Operations Coordinator Relationship Specialty Start Date End Date Unknown, Provider, PCP - General 08/23/09 05/21/11 documented as of this encounter
--- OUTSIDE RECORDS SUMMARY | 2024-03-02 14:12 | XMS_ITS | Encounter Summary ---
Author Organization [facility] Address [address] [place] [address] Care Team Providers Care Board Certified Arts Therapist Name Role Phone Unknown, Provider Primary Care Provider [phone] Encounter Details Date Type Department Care Team (Late st Contact Info) Description 08/28/2010 Results Only [facility] [phone] Blanca Loera MD [address] [place] [id number] Social History Tobacco Use Types Packs/Day Years Used Date Smoking Tobacco: Never Assessed Sex and Gender Information Value Date Recorded Sex Assigned at Not on file Gender Identity Not on file Sexual Orientation Not on file documented as of this encounter Plan of Treatment Not on file documented as of this encounter Procedures Procedure Name Priority Date/Time Associated Diagnosis Comments SURGICAL PATHOLOGY Routine 08/28/2010 0:00 EST documented in this encounter Results * SURGICAL PATHOLOGY (08/28/2010 0:00 EST) Pathology Report: SURGICAL PATHOLOGY REPORT ? Reports generated via electronic interface contain original data; ? however they are lacking the format of the original report. ? Caution should be taken when reading/interpreti ng unformatted reports. ? Name: ? BRINK, DEB L ? Accession #: ? [id number] ? : ? 1975 (Age: 34) ??F ? Collect Date: ? 08/28/2010 ? Location: ? [facility] ? Receive Date: ? 09/03/2010 ? Provider: BLANCA G DENVER MD ? Copy to: ? Final Pathologic Diagnosis: ? Tissue passed per vagina vaginal specimen, biopsy: ? 1. ?Benign endometrial polyp, hyperplastic type. ? 2. ? No cytologic atypia identified. ? 3. ? Detached fragments of squamous epithelium with bacterial overgrowth. ? Document reviewed and electronically signed by: ? GRACIE N KALOF MD ? Report ??Date: 09/08/2010 17:16 ? By the signature above, the attending physician certifies that he/she has ? personally conducted a gross and/or microscopic examination of the described ? specimens and rendered or confirmed the above diagnosis. ? Specimen(s) Received: ? Vaginal specimen ? Clinical History: ? Pelvic cramps, vaginal discharge; LMP: 2/8/11; clinical diagnosis code: ? 626.8 ? Gross Description: ? Received in formalin labelled Deb Mullins is an ovoid portion of ? white-watres and focally hemorrhagic tissue measuring 1.7 x 1.2 x 0.7 cm. ??Also ? present is a waters-white portion of irregularly-shaped membranous tissue measuring 3.0 x 0.7 x 0.3 cm in maximum dimension. ??The former tissue is serially ? sectioned and submitted entirely as (A1). ??The remaining tissue is submitted ? intact as (A2) with the entire specimen submitted. ??(Brett Castellon)/grecia ? End of Report ? [facility] 08/28/2010 09/03/2010 18: 26 EST Blanca oLera MD PATHOLOGY ORDERABLES Performing Organization Address City/State/[place] Co de Phone Number [facility] [address] [place] [address] documented in this encounter Visit Diagnoses Not on filedocumented in this encounter Care Teams Board Certified Arts Therapist Relationship Specialty Start Date End Date Unknown, Provider, PCP - General 08/23/09 05/21/11 documented as of this encounter
--- OUTSIDE RECORDS SUMMARY | 2024-03-02 14:12 | XMS_ITS | Encounter Summary ---
[place] [address] Care Team Providers Care Manager Oncology Name Role Phone Marleni Gallagher APRN Primary Care Provider [phone] Reason for Visit * Auth/Cert Specialty Diagnoses [...] Expiration Date Visits Re quested Visits Authorized [id number] 1 1 Encounter Details Date Type Department Care Team (Late st Contact Info) Description 05/28/2021 7:35 AM EST Ancillary Procedure [place] [address] Social History Tobacco Use Types Packs/Day Years [...] XR ERCP Routine 05/28/2021 8:50 AM EST documented in this encounter Results * XR ERCP (05/28/2021 8:50 AM EST) Narrative [facility] - 05/28/2021 8:50 AM EST See PACS for result report. Deven Leyva MD IM FILM LIBRARY ORD ERABLES Performing Organization Address City/State/[facility] Co de Phone Number [place], [place] documented in this encounter Visit Diagnoses Not on filedocumented in this encounter Care Teams Manager Oncology Relationship Specialty Start Date End Date Marleni Gallagher, AIR COMMODORE [address] [place] [address] PCP - General Family Medicine 12/11/16 documented as of this encounter
--- OUTSIDE RECORDS SUMMARY | 2024-03-02 14:12 | XMS_ITS | Encounter Summary ---
Author Organization [facility] Address [facility] [place] [address] Care Team Providers Care Staff Cytotechnologist Name Role Phone Marleni Gallagher APRN Primary Care Provider [phone] Reason for Visit * Auth/Cert Specialty Diagnoses / Procedures Referred By Lynda fabian Referred To Contact Diagnoses Crohn's disease, unspecified, without complications GALLSTONES Procedures PRO LAP, CHOLECYSTECTOMY/GRAPH LAPAROSCOPIC CHOLECYSTECTOMY WITH CHOLANGIOGRAM (WRVU 11.47) Referral ID Status Reason Start Date Expiration Date Visits Re quested Visits Authorized [id number] 1 1 Encounter Details Date Type Department Care Team (Late st Contact Info) Description 06/11/2021 11:20 AM EST - 06/11/2021 2:02 PM EST [place] [address] Trav Mejía MD [facility] [place] [address] LAPAROSCOPIC CHOLECYSTECTOMY WITH CHOLANGIOGRAM (WRVU 11.47) Social History Tobacco Use Types Packs/Day Years [...] Sign Reading Time Taken Comments Blood Pressure 120/74 06/11/2021 2:00 PM EST Pulse 81 06/11/2021 10:18 AM EST Temperature 36.8 ??C (98.2 ??F) 06/11/2021 1:00 PM ES T Respiratory Rate 16 06/11/2021 1:15 PM EST Oxygen Saturation 97% 06/11/2021 2:00 PM EST Inhaled Oxygen Concentration - - Weight 96.6 kg (213 lb) 06/11/2021 10:18 AM EST Height 170.2 cm (5' 7) 06/11/2021 10:18 AM EST Body Mass Index 33.36 06/11/2021 10:18 AM EST documented in this encounter Discharge Instructions * Patient Instructions* Rayo Wild J - 06/11/2021 12:55 PM EST Instructions following [...] 101.3 F. The number for questions is [phone] before 5 PM weekdays and [phone] after 5 PM and weekends. Pain Medication: No driving for 8 hours after any dose of opioid pain medication if one was prescribed for you. You may use ibuprofen (motrin, advil) in addition to this medication if your pain is not totally controlled. Follow-up: Please call Dr. Mejía' office at [phone] (clinic number for appointments) to schedule a follow up appointment. Future Appointments Date Time Provider Department Center 06/23/2021 3:30 PM Kvng Yuen MD [facility] 07/15/2021 2:00 PM Keara Quintana APRN [facility] SURG [facility] documented in this encounter Medications at Time [...] as needed. 90 capsule 3 04/07/2021 mesalamine (Eloisa) 1.2 gram Tablet, Delayed Release (E.C.) [...] 3.66) performed by Jose Bianchi MD at [facility] ENDOSCOPY ??? PRO COLONOSCOPY, DIAGNOSTIC 08/27/2011 COLONOSCOPY, DIAGNOSTIC performed by KVNG YUEN at [facility] ENDOSCOPY ??? PRO COLONOSCOPY, DIAGNOSTIC N/A 03/25/2021 COLONOSCOPY, DIAGNOSTIC performed by Jhon Edwards MD at [facility] MAIN OR ??? PRO COLONOSCOPY, FLEX, W/DIR SUBMUC INJECT N/A 05/13/2017 COLONOSCOPY WITH DIRECTED SUBMUCOSAL INJ (WRVU 3.66) performed by Jose Bianchi MD at [facility] ENDOSCOPY ??? PRO ERCP, SPHINCTEROTOMY N/A 05/28/2021 ERCP W/SPHINCTEROTOMY/PAPILLOTOMY performed by Deven Leyva MD at [facility] ENDOSCOPY ??? PRO ERCP, W/REMOVAL STONE, SASHA/PANCR DUCTS 05/28/2021 ERCP W/REMOVAL CALCULI/DEBRIS FROM BILARY/PANCREATIC DUCT(S) performed by Deven Leyva MD at [facility] ENDOSCOPY ??? PRO UPPER GI ENDOSCOPY, BIOPSY N/A 05/13/2017 EGD WITH BIOPSY (WRVU 2.49) performed by Jose Bianchi MD at [facility] ENDOSCOPY ??? PRO UPPER GI ENDOSCOPY, BIOPSY N/A 03/25/2021 EGD WITH BIOPSY (WRVU 2.49) performed by Jhon Edwards MD at [facility] MAIN OR ??? PRO UPPER GI ENDOSCOPY, DIAGNOSTIC N/A 03/25/2021 EGD, UPPER GI ENDOSCOPY performed by Jhon Edwards MD at [facility] OR ??? UPPER GI ENDOSCOPY, EXAM 08/27/2011 UPPER GI ENDOSCOPY performed by KVNG YUEN at [facility] ENDOSCOPY MEDS: No current facility-administered medications on [...] MD 06/11/2021 Minimally Invasive Surgery Service Pager [phone] documented in this encounter Miscellaneous Notes * Brief Op Note - Wild Cade - 06/11/2021 1:05 PM EST Brief Operative Note Patient Name: Deb Mullins : [id number] MR#: [id number] Case Date: 06/11/2021 Surgeon: Surgeon(s) and Role: [...] Mejía MD - 06/11/2021 11:22 AM EST [facility] Operative Note Patient Name: Deb Mullins : [id number] MR#: [id number] Case Date: 06/11/2021 Surgeon: Surgeon(s) and Role: [...] 10-mm port site was closed with interrupted ejqykn-no-aceio 0-Vicryl suture followed by running subcuticular 4-0 [...] 06/11/2021 12:01 PM EST Lap, Cholecystectomy/Gra ph (76578) 06/11/2021 10:43 AM EST GALLSTONES POCT GLUCOSE [...] Report (06/11/2021 12:01 PM EST) Final Diagnosis [id number] ? Location: [place]; DE41; A The signing pathologist has (i) examined the relevant preparation(s) for the specimen(s) and (ii) rendered or confirmed the diagnosis(es). . ?Surgical Pathology DIAGNOSIS A - Gallbladder, excision: - Chronic cholecystitis with cholelithiasis. Electronically signed by: ?Joe TANNER PhD, Shameka Verified: ??06/13/2021 14:22 ??Pathologist Performed at: ??-[facility] Dept. of Pathology, [place], [place] SPECIMEN(S) SUBMITTED A - Gallbladder, excision (1) CLINICAL INFORMATION Gallstones SPECIMEN PROCESSING A - Labeled/Fixative: Gallbladder, formalin. Quantity/Size: ??Single, 7.0 x 1.3-2.0 x 2.0 cm. Specimen Description: Gallbladder, received incised. Serosa: Glistening, cade to pink-waters Hepatic margin: Scab this, with adherent gjua-vqp-qeeym hepatic parenchyma Lumen contents: Residual waters-brown viscous bile Gallstones: Present: Multiple, yellow-brown, partially fragmented and intact, multifaceted gallstones ranging from, 0.3-1.3 cm Mucosa: Partially flattened pink-waters, erythematous and focally hemorrhagic Wall: Focally, in the fundus up to 0.2 cm thick. Duct: 0.3 cm, patent. Ink Designation: The hepatic margin is inked black Sections/Processi ng: Scheduler sections in 1 cassettes as follows: ?A1: ??cystic duct margin and rental representative mucosa. ??shb 06/13/2021 2:22 PM EST [facility] GALLBLADDER STRUCTURE / Unknown 06/11/2021 12:01 PM EST 06/11/2021 12:01 PM EST Trav Mejía MD PATHOLOGY/CYTOLOGY O ELAYNE [facility] [place] [address] * Specimen to Pathology (06/11/2021 12:01 PM EST) AP Specimen 06/11/2021 12:0 1 PM EST 06/11/2021 12:01 PM EST Narrative [facility] - 06/11/2021 12:01 PM EST Specimen requisition ordered. ??Separate Pathology report to follow Trav Mejía MD PATHOLOGY/CYTOLOGY O ELAYNE Performing Organization Address City/[facility]/ZIP Co de Phone Number [facility] [place] [address] * POCT Glucose (06/11/2021 10:27 AM EST) Glucose, POC 92 65 - 199 mg/dL [facility] Comment: Supplemental ranges: <140 mg/dL before meals <180 mg/dL all other times of the day Blood 06/11/2021 10:2 7 AM EST 06/11/2021 10:27 AM EST Trav Mejía MD POINT OF CARE TEST O ELAYNE Performing Organization Address [facility] Co de Phone Number [facility] [place] [address] documented in this encounter Visit Diagnoses Not on filedocumented in this encounter Administered Medications Inactive Administered Medications - up to 3 most recent administrations Medication Order MAR Action Action Date Dose Rate Site BUpivacaine (Sensorcaine) (2.5 mg/mL) 0.25% injection ONCE PRN, Starting on Wed06/11/21 at 1131, Until Wed06/11/21 at 1811, Intra-Operative (Intra-Procedure), Routine Given 06/11/2021 11:31 AM EST 13 mLs 19- Surgical Site fentaNYL (pf) (50 mcg/mL) multi-dose injection [...] Routine Given 06/11/2021 10:37 AM EST 5,000 Units iohexoL (Omnipaque) (300 mg/mL) solution ONCE PRN, Starting on Wed06/11/21 at 1211, Until Wed06/11/21 at 1811, Intra-Operative (Intra-Procedure), Routine Given 06/11/2021 12:11 PM EST 18 mLs 19- Surgical Site oxyCODONE (Roxicodone) tablet 5 mg 5 mg, [...] Routine documented in this encounter Care Teams Staff Cytotechnologist Relationship Specialty Start Date End Date Marleni Gallagher APRN [address] [place] [address] PCP - General Family Medicine 12/11/16 documented as of this encounter
--- OUTSIDE RECORDS SUMMARY | 2024-03-02 14:12 | XMS_ITS | Encounter Summary ---
Author Organization [facility] Address [facility] [place] [address] Care Team Providers Care Registered Massage Therapist Name Role Phone Marleni Gallagher APRN Primary Care Provider [phone] Reason for Visit * Auth/Cert Specialty Diagnoses [...] Expiration Date Visits Re quested Visits Authorized [id number] 1 1 Encounter Details Date Type Department Care Team (Late st Contact Info) Description 03/25/2021 12:19 PM EDT - 03/25/2021 1:19 PM EDT Surgery Operating Room [facility] [place] [address] Jhon Edwards MD [facility] [place] [address] EGD, UPPER GI ENDOSCOPY (WRVU 2.09) Social History Tobacco Use Types Packs/Day Years [...] PHYSICIAN AT : (FOR AFTER HOURS CALL [phone] AND ASK FOR PHYSICIAN COVERING FOR YOUR [...] ??? [place] QUITLINE: ??? [place] QUITLINE: ??? www.[employer] If you smoke, stop now! MAKE SURE [...] 12:38 PM EDT Upper Gi Endoscopy, Biopsy ([id number]) 03/25/2021 12:17 PM EDT Crohn's disease without complication, unspecified gastrointestinal tract location Colonoscopy, Diagnostic (50960) 03/25/2021 12:17 PM EDT Crohn's disease without complication, unspecified gastrointestinal tract location Upper GI Endoscopy, Diagnostic (95417) 03/25/2021 12:17 PM EDT Crohn's disease without complication, unspecified gastrointestinal tract location COLONOSCOPY Routine 03/25/2021 12:15 PM EDT UPPER GI ENDOSCOPY Routine 03/25/2021 12 :14 PM EDT documented in this encounter Results * Specimen to Pathology (03/25/2021 12:48 PM EDT) AP Specimen 03/25/2021 12:4 8 PM EDT 03/25/2021 12:48 PM EDT Narrative [facility] - 03/25/2021 12:48 PM EDT Specimen requisition ordered. ??Separate Pathology report to follow Jhon Edwards MD PATHOLOGY/CYTOLOGY O ELAYNE Performing Organization Address [facility]/[place] [address] * Specimen to Pathology (03/25/2021 12:48 PM EDT) AP Specimen 03/25/2021 12:4 8 PM EDT 03/25/2021 12:48 PM EDT Narrative [facility] - 03/25/2021 12:48 PM EDT Specimen requisition ordered. ??Separate Pathology report to follow Jhon Edwards MD PATHOLOGY/CYTOLOGY O ELAYNE Performing Organization Address [facility] [place] [address] * Surgical Pathology Report (03/25/2021 12:38 PM EDT) Pathologist [facility] Final Diagnosis [id number] ? Location: [facility]; A The signing pathologist [...] Shameka Verified: ??04/03/2021 13:07 ??Pathologist Performed at: ??-[facility] Dept. of Pathology, [place], [place] DISCUSSION A - The differential diagnosis [...] labeled D1-D3. ??shb 04/03/2021 1:07 PM EDT [facility] GI Biopsy 03/25/2021 12:3 8 PM EDT 03/25/2021 12:38 PM EDT GI Biopsy 03/25/2021 12:3 8 PM EDT 03/25/2021 12:38 PM EDT GI Biopsy 03/25/2021 12:3 8 PM EDT 03/25/2021 12:38 PM EDT GI Biopsy 03/25/2021 12:3 8 PM EDT 03/25/2021 12:38 PM EDT Jhon Edwards MD PATHOLOGY/CYTOLOGY O ELAYNE [facility] [place] [address] * Specimen to Pathology (03/25/2021 12:38 PM EDT) AP Specimen 03/25/2021 12:3 8 PM EDT 03/25/2021 12:38 PM EDT Narrative [facility] - 03/25/2021 12:38 PM EDT Specimen requisition ordered. ??Separate Pathology report to follow Jhon Edwards MD PATHOLOGY/CYTOLOGY O ELAYNE [facility] [place] [address] * Specimen to Pathology (03/25/2021 12:38 PM EDT) AP Specimen 03/25/2021 12:3 8 PM EDT 03/25/2021 12:38 PM EDT Narrative [facility] - 03/25/2021 12:38 PM EDT Specimen requisition ordered. ??Separate Pathology report to follow Jhon Edwards MD PATHOLOGY/CYTOLOGY Tobias HOLLY [facility] [place] [address] * COLONOSCOPY (03/25/2021 12:15 PM EDT) COLONOSCOPY [facility] Endoscopy Procedure Date: 03/25/2021 12:15 PM ? Patient Name: Deb Mullins ? Date of : 1975 ? Age: 45 ? Order #: [id number] ? Instrument Name: [id number] ? Procedure: ? Colonoscopy Indications: ? Crohn's assess for active inflammation Providers: ? Jhon Edwards MD Referring : ?Marleni Gallagher Medicines: ? See the Anesthesia [...] preparation was evaluated using ? the BBPS ([place] Bowel Preparation ? Scale) with scores of: [...] UPPER GI ENDOSCOPY (03/25/2021 12:14 PM EDT) UPPER GI ENDOSCOPY [facility] Endoscopy Procedure Date: 03/25/2021 12:14 PM ? Patient Name: Deb Mullins ? Date of : 1975 ? Age: 45 ? Order #: [id number] ? Instrument Name: [id number] ? Procedure: ? Upper GI endoscopy Indications: ? Epigastric abdominal pain, Crohn's Providers: ? Jhon Edwards MD Referring : ?Altagracia Suazo MD Medicines: ? See the Anesthesia note [...] RN) documented in this encounter Care Teams Registered Massage Therapist Relationship Specialty Start Date End Date Marleni Gallagher, CARA [address] [facility] [address] PCP - General Family Medicine 12/11/16 documented as of this encounter
--- OUTSIDE RECORDS SUMMARY | 2024-03-02 14:12 | XMS_ITS | Encounter Summary ---
Author Organization [facility] [place] [address] Care Team Providers Care Career Services Coordinator Name Role Phone Marleni Gallagher APRN Primary Care Provider [phone] Encounter Details Date Type Department Care Team (Late st Contact Info) Description 06/26/2021 Orders [place] [address] Altagracia Ng HYDROGEN OPERATOR [facility] [place] [address] Crohn's disease of both small and large [...] intestine documented in this encounter Care Teams Career Services Coordinator Relationship Specialty Start Date End Date Marleni Gallagher APRN [facility] [address] [place], [place] [phone] PCP - General Family Medicine 12/11/16 documented as of this encounter
--- OUTSIDE RECORDS SUMMARY | 2024-03-02 14:13 | XMS_ITS | Encounter Summary ---
Author Organization [facility] Address [facility] [place] [address] Care Team Providers Care Client Server Programmer Name Role Phone Kenton Russo DO Primary Care Provider Encounter Details Date Type Department Care Team (Latest Contact Info) Description 10/25/2016 - 10/25/2016 11:59 PM EDT Hospital Encounter [place] [address] Deven Leyva MD [facility] [place] [address] Pain Discharge Disposition: Home Social History Tobacco Use Types Packs/Day Years Used Date Smoking Tobacco: Former Cigarettes 0.5 3 1 09/05/1996 - 07/05/2000 Smokeless Tobacco: Never Comments:social smoker for a couple of years, less than 1 p/d Alcohol Use Standard Drinks/Week Comments Yes 0 (1 standard drink = 0.6 oz pur e alcohol) Sex and Gender Information Value Date Recorded Sex Assigned at Not on file Gender Identity Not on file Sexual Orientation Straight 03/18/2021 11 :23 AM EDT documented as of this encounter Medications at Time of Discharge Medication Sig Dispensed Refills Start Date End Date ibuprofen (ADVIL;MOTRIN) 200 mg tablet Take 200 mg by mouth every 6 hours as needed. acetaminophen (TYLENOL) 325 mg tablet 04/10/2010 cholecalciferol, Vitamin D3, 50,000 unit Capsule take 1 capsule by mouth weekly 0 09/25/2015 04/13/2019 ADDERALL XR 25 mg Capsule, Sust. Release 24 hr 30 mg daily 0 10/21/2015 03/09/2017 modafinil (PROVIGIL) 200 mg Tablet take 1 tablet by mouth twice a day 0 11/27/2015 04/13/2019 venlafaxine (EFFEXOR-XR) 75 mg Capsule, Sust. Release 24 hr 0 11/15/2015 04/28/2021 venlafaxine (EFFEXOR-XR) 150 mg 24 hr capsule Take 150 mg by mouth daily. Total of 225 mg 04/28/2021 documented as of this encounter Plan of Treatment Not on file documented as of this encounter Procedures Procedure Name Priority Date/Time Associated Diagnosis Comments FILM LIBRARY STORAGE ONLY CT ABDOMEN AND PELVIS Routine 10/25/2016 12:00 AM EDT Pain documented in this encounter Results * Film Library- Storage Only CT Abdomen & Pelvis (10/25/2016 12:00 AM EDT) Narrative [facility] - 05/09/2017 11:53 AM EDT This exam is for storage only and is auto-finalizing. Deven Leyva MD IMG FILM LIBRARY ORD ERABLES [place], [place] documented in this encounter Visit Diagnoses Diagnosis Pain Generalized pain documented in this encounter Care Teams Client Server Programmer Relationship Specialty Start Date End Date Kenton Russo DO [address] [place] [address] PCP - General General Internal Medicine 10/25/1512/10 documented as of this encounter
--- OUTSIDE RECORDS SUMMARY | 2024-03-02 14:13 | XMS_ITS | Encounter Summary ---
Author Organization [facility] Address [facility] [place] [address] Care Team Providers Care Shop Mechanic Name Role Phone Kenton Russo DO Primary Care Provider [phone] Encounter Details Date Type Department Care Team (Latest Contact Info) Description 10/28/2016 - 10/28/2016 11:59 PM EDT Hospital Encounter [place]iology [place] [address] Deven Leyva MD [facility] [place] [address] Pain Discharge Disposition: Home Social History Tobacco [...] Associated Diagnosis Comments FILM LIBRARY STORAGE ONLY ULTRASOUND STUDY Routine 10/28/2016 12:00 AM EDT Pain documented in this encounter Results * Film Library- Storage Only Ultrasound Study (10/28/2016 12:00 AM EDT) Narrative [facility] [place] - 05/09/2017 11:51 AM EDT This exam is for storage only and is auto-finalizing. Deven Leyva MD IMG FILM LIBRARY ORD ERABLES Performing Organization Address City/State/[facility] Co de Phone Number [place], [place] documented in this encounter Visit Diagnoses Diagnosis Pain Generalized pain documented in this encounter Care Teams Shop Mechanic Relationship Specialty Start Date End Date Kenton Russo DO [address] [place] [address] PCP - General General Internal Medicine 10/25/1512/10 documented as of this encounter
--- OUTSIDE RECORDS SUMMARY | 2024-03-02 14:13 | XMS_ITS | Encounter Summary ---
Author Organization [facility] Address [facility] [place] [address] Care Team Providers Care Drafter Seismograph Name Role Phone Marleni Gallagher APRN Primary Care Provider [phone] Encounter Details Date Type Department Care Team (Late Contact Info) Description 05/09/2017 Telephone [place] [address] Maria Isabel Gomez MD [facility] [place] [address] Social History Tobacco Use Types Packs/Day Years [...] encounter Miscellaneous Notes * Telephone Encounter - Maria Isabel Gomez - 05/09/2017 11:28 AM EDT Transfer Center Call: I received a call from 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 WBC 13. CMP WNL. CRP pending. CT abd/pelvis with jejunal thickening (this was not seen on [facility] last month). This is scheduled for EGD/[place] in 4days. Recommend continuing with that plan to help restage her disease and do not recommend additional steroids at this time. However my recommendations are limited by my inability to interview and examine the patient as wellas personally review the medical record, imaging, and laboratory findings. documented in this encounter Plan of Treatment Not on file documented as of this encounter Visit Diagnoses Not on filedocumented in this encounter Care Teams Drafter Seismograph Relationship Specialty Start Date End Date Marleni Gallagher, CARA [address] [place] [address] PCP - General Family Medicine 12/11/16 documented as of this encounter
--- OUTSIDE RECORDS SUMMARY | 2024-03-02 14:13 | XMS_ITS | Encounter Summary ---
Author Organization [facility] Address [facility] [place] [address] Care Team Providers Care Supervisor Laundry Name Role Phone Marleni Gallagher APRN Primary Care Provider [phone] Reason for Visit * Reason Comments Medication Refill Encounter Details Date Type Department Care Team (Late st Contact Info) Description 01/30/2020 Refill Dermatology at [address] [address] Maty Barrios MD [facility] DR [facility] [place] [address] Herpes simplex virus type 1 (HSV-1) dermatitis Social History Tobacco Use Types Packs/Day Years [...] as of this encounter Visit Diagnoses Diagnosis Herpes simplex virus type 1 (HSV-1) dermatitis Herpes simplex with other specified complications documented in this encounter Care Teams Supervisor Laundry Relationship Specialty Start Date End Date Marleni Gallagher APRN [address] [place] [address] PCP - General Family Medicine 12/11/16 documented as of this encounter
--- OUTSIDE RECORDS SUMMARY | 2024-03-02 14:13 | XMS_ITS | Encounter Summary ---
Author Organization [facility] Address [facility] [place] [address] Care Team Providers Care Regeneration Operator Name Role Phone Kenton Russo DO Primary Care Provider [phone] Encounter Details Date Type Department Care Team (Late st Contact Info) Description 12/05/2015 Orders [place] [address] Mando Mo MD [facility] [place] [address] Weight gain Social History Tobacco Use Types Packs/Day Years [...] as of this encounter Visit Diagnoses Diagnosis Weight gain Abnormal weight gain documented in this encounter Care Teams Regeneration Operator Relationship Specialty Start Date End Date Kenton Russo DO [address] [place] [address] PCP - General General Internal Medicine 10/25/1512/10 documented as of this encounter
--- OUTSIDE RECORDS SUMMARY | 2024-03-02 14:13 | XMS_ITS | Encounter Summary ---
Author Organization [facility] Address [facility] [place] [address] Care Team Providers Care Automatic Furnace Operator Name Role Phone Marleni Gallagher APRN Primary Care Provider Encounter Details Date Type Department Care Team (Late st Contact Info) Description 03/05/2020 Telephone Dermatology at [facility] [address] [place] [address] Maty Barrios MD [facility] DR [address]ANK[address] [place] [address] Social History Tobacco Use Types Packs/Day Years [...] encounter Miscellaneous Notes * Telephone Encounter - Beth Mcgovern - 03/05/2020 3:13 PM EDT Called Ms. Greenberg to reschedule her appointment on April 11 to April 12 at 1:15PM with dr. barrios documented in this encounter Plan of Treatment Not on file documented as of this encounter Visit Diagnoses Not on filedocumented in this encounter Care Teams Automatic Furnace Operator Relationship Specialty Start Date End Date Marleni Gallagher, MEAT INSPECTOR [address] [place] [address] PCP - General Family Medicine 12/11/16 documented as of this encounter
--- OUTSIDE RECORDS SUMMARY | 2024-03-02 14:13 | XMS_ITS | Encounter Summary ---
Author Organization [facility] Address [facility] [place] [address] Care Team Providers Care Data Center Engineer Name Role Phone Marleni aGllagher APRN Primary Care Provider [phone] Reason for Visit * Reason Comments Medication Refill Encounter Details Date Type Department Care Team (Late st Contact Info) Description 08/18/2019 Refill Dermatology at [facility] [address] [place] [address] [facility] [address] [place] [address] Perioral dermatitis Social History Tobacco Use Types Packs/Day [...] as of this encounter Visit Diagnoses Diagnosis Perioral dermatitis Rosacea documented in this encounter Care Teams Data Center Engineer Relationship Specialty Start Date End Date Marleni Gallagher APRN [address] [facility], [place] [address] PCP - General Family Medicine 12/11/16 documented as of this encounter
--- OUTSIDE RECORDS SUMMARY | 2024-03-02 14:13 | XMS_ITS | Encounter Summary ---
Author Organization Replaced By [facility] Address [facility] [place] [address] Care Team Providers Care Experimental Machining Lab Manager Name Role Phone Marleni Gallagher APRN Primary Care Provider [phone] Reason for Visit * Auth/Cert Specialty Diagnoses / Procedures Referred By Lynda fabian Referred To Contact Diagnoses abdominal pain, constipation, h/o Crohn's disease, needs to restage disease Procedures PRO COLONOSCOPY, DIAGNOSTIC PRO UPPER GI ENDOSCOPY, DIAGNOSTIC COLONOSCOPY, DIAGNOSTIC EGD, UPPER GI ENDOSCOPY Referral ID Status Reason Start Date Expiration Date Visits Re quested Visits Authorized [id number] 1 1 Encounter Details Date Type Department Care Team (Late st Contact Info) Description 05/13/2017 11:00 AM EDT - 05/13/2017 12:00 PM EDT Surgery [place] [address] Jose Bianchi MD [facility] [place] [address] COLONOSCOPY FLEXIBLE, WITH BX (WRVU 3.56) Social History Tobacco Use Types Packs/Day Years [...] Sign Reading Time Taken Comments Blood Pressure 110/75 05/13/2017 10:56 AM EDT Pulse 86 05/13/2017 10:56 AM EDT Temperature - - Respiratory Rate 16 05/13/2017 10:56 AM EDT Oxygen Saturation 98% 05/13/2017 10:56 AM EDT Inhaled Oxygen Concentration - - Weight - - Height - - Body Mass Index - - documented in this encounter Discharge Instructions * Discharge Instructions* Josefa Swift RN - 05/13/2017 1:41 PM EDT Colonoscopy What to expect after the procedure You may feel a little more gassy or bloated than usual. This is normal. You should expect the return of normal bowel function in the 2 to 3 days. Activity Because of the sedation that you received your judgement and reaction time are effected ?? Go home and rest quietly for the remainder of the day. You may resume your normal activities tomorrow. ?? Change from one position to the next slowly. You may lose your balance unexpectedly ?? Be careful on stairs, as you may be unsteady on your feet FOR THE NEXT 24 HRS ?? DO NOT DRIVE OR OPERATE ANY MACHINERY ?? DO NOT DRINK ALCOHOLIC BEVERAGES ?? DO NOT SIGN LEGAL DOCUMENTS ?? If you are a smoker: DO NOT SMOKE WHILE YOU ARE ALONE Diet ?? Start by eating small portions of foods that ordinarily will not upset your stomach . Avoid gas producing foods for the next few days ?? Be gentle with what you choose to start with ?? Drink plenty of fluids ( unless your doctor has told you not to). IV SITE-- slight redness, or tenderness is normal. You can use warm compresses if you become concerned. If the tenderness +/or redness increases or foul drainage and a red streak occurs, please contact your PCP immediately When shoud you call for help? Call 911 anytime you think you may need emergency care. For example If you pass out ( loss of consciousness) If you pass maroon or bloody stools If you have severe belly pain Call your doctor now or seek immediate medical care If your stools are black and tarlike If your stools have streaks of blood, but you did not have a biopsy or any polyps removed If you have belly pain, or your belly is swollen and firm If you vomit If you have a fever If you are very dizzy Watch closely for changes in your health, and be sure to contact your doctor if you have any problems Your doctor will let you know when you will need your next colonoscopy. The results of your test and your risk for colorectal cancer will help your doctor decide how often you need to be checked. Wednesday-Wednesday Same Day Endo [phone]-[id number] Otherwise contact [phone] and ask to speak to the associate director financial aid title one teacher Follow up care is a dominguez part of your treatment and safety. Be sure to make and go to all appointments, and call your doctor if you are having problems. Discharge instructions reviewed with patient who expresses understanding documented in this encounter Medications at Time of Discharge Medication Sig Dispensed Refills Start Date End Date ibuprofen (ADVIL;MOTRIN) 200 mg tablet Take 200 mg by mouth every 6 hours as needed. acetaminophen (TYLENOL) 325 mg tablet 04/10/2010 buPROPion (WELLBUTRIN XL) 300 mg Tablet Extended Release 24 hr take 1 tablet by mouth once daily 0 02/18/2017 04/28/2021 dextroamphetamine-amphet amine (ADDERALL XR) 30 mg Capsule, Sust. Release 24 hr PRN 0 02/28/2017 04/13/2019 cholecalciferol, Vitamin D3, 50,000 unit Capsule take 1 capsule by mouth weekly 0 09/25/2015 04/13/2019 modafinil (PROVIGIL) 200 mg Tablet take 1 tablet by mouth twice a day 0 11/27/2015 04/13/2019 venlafaxine (EFFEXOR-XR) 75 mg Capsule, Sust. Release 24 hr 0 11/15/2015 04/28/2021 venlafaxine (EFFEXOR-XR) 150 mg 24 hr capsule Take 150 mg by mouth daily. Total of 225 mg 04/28/2021 documented as of this encounter H&P Notes * Jose Bianchi MD - 05/13/2017 11:11 AM EDT Patient Name: Deb Mullins Patient Age: 41 y.o. Birthdate: 1975 Admit date: 05/13/2017 Attending Physician: Jose Bianchi MD Gastroenterology & Hepatology Pre-Procedure History and Physical Planned Procedure: EGD: with push enteroscopy and Colonoscopy. Indication: Crohn's disease, small bowel and colon. Abnormal Jejunum on recent CT. Not currently on therapy for CD Patient Active Problem List Diagnosis Code ??? Right wrist pain M25.531 ??? Chronic diarrhea K52.9 ??? 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 Constipation K59.00 ??? Gastritis and duodenitis K29.90 ??? Cholelithiasis K80.20 ??? Depression F32.9 ??? Somnolence, daytime R40.0 ??? Low back pain M54.5 ??? GERD (gastroesophageal reflux disease) K21.9 ??? Chronic constipation K59.09 ??? Sleep apnea G47.30 Medications: Reviewed in EDH Allergies Allergen Reactions ??? Dilaudid [Hydromorphone] Severe headache ??? Preparation H [Phenylephrine-Witch Jazmin] Causes more irritation. Social History/Family History: Reviewed in EDH. No changes Exam: Most Recent Vitals: 05/13/17 1056 BP: 110/75 Pulse: 86 Resp: 16 SpO2: 98% GEN: NAD, AAOX3 HEENT: NC/AT dryMM, anicteric Chest: CTAB Heart: RRR, nl s1, s2 Abdomen: normal bowel sounds, soft, non tender Assessment and Plan: Proceed with Colonoscopy: EGD with push enteroscopy. ASA Grade: ASA 2 - Patient with mild systemic disease with no functional limitations Mallampati: II (soft palate, uvula, fauces visible) Sedation plan: MAC Risks and benefits of the procedure were discussed with the patient. Consent has been signed. documented in this encounter Plan of Treatment Not on file documented as of this encounter Procedures Procedure Name Priority Date/Time Associated Diagnosis Comments SURGICAL PATHOLOGY REPORT Routine 05/13/2017 1:24 PM EDT SPECIMEN TO PATHOLOGY Routine 05/13/2017 1:24 PM EDT SPECIMEN TO PATHOLOGY Routine 05/13/2017 1:24 PM EDT SPECIMEN TO PATHOLOGY Routine 05/13/2017 1:24 PM EDT SPECIMEN TO PATHOLOGY Routine 05/13/2017 1:24 PM EDT SPECIMEN TO PATHOLOGY Routine 05/13/2017 1:24 PM EDT COLONOSCOPY WITH DIRECTED SUBMUCOSAL INJ (WRVU 3.56) 05/13/2017 11:32 AM EDT Chronic abdominal pain EGD WITH BIOPSY (WRVU 2.39) 05/13/2017 11:32 AM EDT Chronic abdominal pain COLONOSCOPY FLEXIBLE, WITH BX (WRVU 3.56) 05/13/2017 11:32 AM EDT Chronic abdominal pain SMALL BOWEL ENTEROSCOPY Routine 05/13/2017 11:31 AM EDT COLONOSCOPY Routine 05/13/2017 11:19 AM EDT documented in this encounter Results * Surgical Pathology Report (05/13/2017 1:24 PM EDT) Final Diagnosis [id number] ? Location: 4T; EA08; A The signing pathologist has (i) examined the relevant preparation(s) for the specimen(s) and (ii) rendered or confirmed the diagnosis(es). . ?Surgical Pathology DIAGNOSIS A - Jejunum: Jejunal mucosa within normal limits. B - Duodenum: Duodenal mucosa with villous broadening and blunting, woody gland hyperplasia and foveolar metaplasia ?? without an increase in intraepithelial lymphocytes. See discussion #1. C - Random right colon bx ??'s. hx of crohns colitis: Chronic mildly active colitis. Negative for dysplasia. D - Left colon bx 's: Chronic mildly active colitis. Negative for dysplasia. E - ? inflamatory mass vs malignancy: Inflammatory polyp. ??There is no evidence of dysplasia or malignancy. Electronically signed by: ??Marylou TANNER PhD, Sriram Grant Verified: ??05/17/2017 ?Pathologist Performed at: ??-[facility] Dept. of Pathology, [place], [place] DISCUSSION 1. ??The findings are consistent with peptic injury / NSAID. CLINICAL INFORMATION Specimen Submitted: A - Jejunum B - Duodenum C - Random right colon bx ??'s. hx of crohns colitis D - Left colon bx 's E - ? inflamatory mass vs malignancy Clinical History: Crohn 's of small bowel and duodenum. History of Crohn ??'s colitis. Clinical Diagnosis: Same FROZEN SECTION A - Labeled/Fixative: Jejunum, formalin. Quantity/Size: Six, averaging 0.4 cm. Tissue Description: ??Soft, pink tissues . Sections/Processin g: (T2) B - Labeled/Fixative: Duodenum, formalin. Quantity/Size: Three, ranging from 0.2-0.4 cm. . FROZEN SECTION Tissue Description: ??Soft, pink tissues . Sections/Processin g: (T1) C - Labeled/Fixative: Random right colon BX, formalin. Quantity/Size: Multiple, averaging 0.3 cm. Tissue Description: ??Soft, waters tissues . Sections/Processin g: (T2) D - Labeled/Fixative: Left colon BX, formalin. Quantity/Size: Multiple, ranging for 0.1-0.4 cm. Tissue Description: ??Soft, waters tissues . Sections/Processin g: (T2) E - Labeled/Fixative: Question inflammatory mass v malignancy, formalin. Quantity/Size: Multiple, ranging from 0.2-0.4 cm. Tissue Description: ??Soft, pink tissues . Sections/Processin g: (T2) ??sns SPECIMEN PROCESSING ' 05/17/2017 11:00 AM [facility] GI Biopsy 05/13/2017 1:24 PM EDT 05/13/2017 1:24 PM EDT GI Biopsy 05/13/2017 1:24 PM EDT 05/13/2017 1:24 PM EDT GI Biopsy 05/13/2017 1:24 PM EDT 05/13/2017 1:24 PM EDT GI Biopsy 05/13/2017 1:24 PM EDT 05/13/2017 1:24 PM EDT GI Biopsy 05/13/2017 1:24 PM EDT 05/13/2017 1:24 PM EDT Jose Bianchi MD PATHOLOGY/CYTOLOG Y ORDERABLES Performing Organization Address [facility] Co [place] [address] * Specimen to Pathology (surgical or derm) (05/13/2017 1:24 PM EDT) AP Specimen 05/13/2017 1:24 PM EDT 05/13/2017 1:24 PM EDT Narrative [facility] - 05/13/2017 1:24 PM EDT Specimen requisition ordered. ??Separate Pathology report to follow Jose Bianchi MD PATHOLOGY/CYTOLOG Y ORDERABLES Performing Organization Address [facility] Co [place] [address] * Specimen to Pathology (surgical or derm) (05/13/2017 1:24 PM EDT) AP Specimen 05/13/2017 1:24 PM EDT 05/13/2017 1:24 PM EDT Narrative [facility] - 05/13/2017 1:24 PM EDT Specimen requisition ordered. ??Separate Pathology report to follow Jose Bianchi MD PATHOLOGY/CYTOLOG Y ORDERABLES Performing Organization Address [facility] [place] [address] * Specimen to Pathology (surgical or derm) (05/13/2017 1:24 PM EDT) AP Specimen 05/13/2017 1:24 PM EDT 05/13/2017 1:24 PM EDT Narrative [facility] - 05/13/2017 1:24 PM EDT Specimen requisition ordered. ??Separate Pathology report to follow Jose Bianchi MD PATHOLOGY/CYTOLOG Y ORDERABLES Performing Organization Address [facility]/ZIP [place] [address] * Specimen to Pathology (surgical or derm) (05/13/2017 1:24 PM EDT) AP Specimen 05/13/2017 1:24 PM EDT 05/13/2017 1:24 PM EDT Narrative [facility] - 05/13/2017 1:24 PM EDT Specimen requisition ordered. ??Separate Pathology report to follow Jose Bianchi MD PATHOLOGY/CYTOLOG Y ORDERABLES Performing Organization Address [facility] [place] [address] * Specimen to Pathology (surgical or derm) (05/13/2017 1:24 PM EDT) AP Specimen 05/13/2017 1:24 PM EDT 05/13/2017 1:24 PM EDT Narrative [facility] - 05/13/2017 1:24 PM EDT Specimen requisition ordered. ??Separate Pathology report to follow Jose Bianchi MD PATHOLOGY/CYTOLOG Y ORDERABLES Performing Organization Address [facility] [place] [address] * SMALL BOWEL ENTEROSCOPY (05/13/2017 11:31 AM EDT) SMALL BOWEL ENTEROSCOPY [facility] Endoscopy Procedure Date: 05/13/2017 11:31 AM ? Patient Name: Deb Mullins ? Date of : 1975 ? Age: 41 ? Order #: [id number] ? Instrument Name: [id number] ? Procedure: ? Small bowel enteroscopy Indications: ? Abnormal abdominal CT, Follow-up of ? Crohn's disease of the small bowel ? and colon Providers: ? Jose Bianchi MD, Jose Elizabeth ? Carmen, RN, Christie Coon Referring : ?Marleni Gallagher Requesting Provider: Altagracia Ng MD Medicines: ? Monitored Anesthesia Care Complications: ? No immediate complications. Procedure: ? Pre-Anesthesia Assessment: ? - Prior to the procedure, a History ? and Physical was performed, and ? patient medications and allergies ? were reviewed. The patient's ? tolerance of previous anesthesia was ? also reviewed. The risks and benefits ? of the procedure and the sedation ? options and risks were discussed with ? the patient. All questions were ? answered, and informed consent was ? obtained. Prior Anticoagulants: The ? patient has taken no previous ? anticoagulant or antiplatelet agents. ? ASA Grade Assessment: II - A patient ? with mild systemic disease. After ? reviewing the risks and benefits, the ? patient was deemed in satisfactory ? condition to undergo the procedure. ? After obtaining informed consent, the ? endoscope was passed under direct ? vision. Throughout the procedure, the ? patient's blood pressure, pulse, and ? oxygen saturations were monitored ? continuously. The Colonoscope was ? inserted in the mouth and under ? direct visualization, advanced to ? jejunum, to the 130 cm enma (from the ? incisors). Careful inspection was ? made as the colonoscope was ? withdrawn. After obtaining informed ? consent, the endoscope was passed ? under direct vision. Throughout the ? procedure, the patient's blood ? pressure, pulse, and oxygen ? saturations were monitored ? continuously. The Colonoscope was ? inserted in the mouth and under ? direct visualization, advanced to ? jejunum, to the 130 cm enma (from the ? incisors). Careful inspection was ? made as the colonoscope was ? withdrawn. The small bowel ? enteroscopy was accomplished without ? difficulty. The patient tolerated the ? procedure well. ? Findings: ? The esophagus was normal. ? The stomach was normal. ? There was no evidence of significant pathology in the ? entire examined duodenum. Biopsies were taken with a ? cold forceps for histology. ? There was no evidence of significant pathology in the ? proximal jejunum. Biopsies were taken with a cold ? forceps for histology. ? Moderate Sedation: ? Not applicable - See Anesthesia documentation Impression: ?- Normal esophagus. ? - Normal stomach. ? - Normal examined duodenum. Biopsied. ? - The examined portion of the jejunum ? was normal. Biopsied. Recommendation: ?Proceed with colonoscopy. ? Attending Participation: ? I personally performed the entire procedure. ? Dr. Danyel Bianchi Jose Bianchi MD 05/13/2017 1:43:29 PM Number of Addenda: 0 Note Initiated On: 05/13/2017 11:31 AM PROVATION 05/13/2017 11:3 1 AM EDT Marleni Gallagher APRN GENERAL SURGICAL ORD ERABLES PROVATION * COLONOSCOPY (05/13/2017 11:19 AM EDT) COLONOSCOPY [facility] Endoscopy Procedure Date: 05/13/2017 11:19 AM ? Patient Name: Deb Mullins ? Date of : 1975 ? Age: 41 ? Order #: [id number] ? Instrument Name: [id number] ? Procedure: ? Colonoscopy Indications: ? Disease activity assessment of ? Crohn's disease of the small bowel ? and colon Patient Profile: ? This is a 41 year old female. This ? patient has ileocolonic Crohn's ? disease without perianal involvement, ? is taking no medication therapy for ? this disease and is experiencing mild ? symptoms. Providers: ? Jose Bianchi MD, Caitlin Ugalde ? TIFFANY Marmolejo, Christie Coon, ? Jose Morales RN Referring : ?Marleni Aileen Requesting Provider: Altagracia Ng MD Medicines: ? Monitored Anesthesia Care Complications: ? No immediate complications. Procedure: ? Pre-Anesthesia Assessment: ? - Prior to the procedure, a History ? and Physical was performed, and ? patient medications and allergies ? were reviewed. The patient's ? tolerance of previous anesthesia was ? also reviewed. The risks and benefits ? of the procedure and the sedation ? options and risks were discussed with ? the patient. All questions were ? answered, and informed consent was ? obtained. Prior Anticoagulants: The ? patient has taken no previous ? anticoagulant or antiplatelet agents. ? ASA Grade Assessment: II - A patient ? with mild systemic disease. After ? reviewing the risks and benefits, the ? patient was deemed in satisfactory ? condition to undergo the procedure. ? The procedure, indications, benefits, ? risks [...] and under direct visualization, ? advanced to beyond 30 cm into the ? ileum. Careful inspection was made as ? the colonoscope was withdrawn. The ? colonoscopy was performed without ? difficulty. The patient tolerated the ? procedure well. The quality of the ? bowel preparation was evaluated using ? the BBPS (Coy Bowel Preparation ? Scale) with scores of: Right Colon = ? 2 (minor amount of residual staining, ? small fragments of stool and/or ? opaque liquid, but mucosa seen well), ? Transverse Colon = 2 (minor amount of ? residual staining, small fragments of ? stool and/or opaque liquid, but ? mucosa seen well) and Left Colon = 3 ? (entire mucosa seen well with no ? residual staining, small fragments of ? stool or opaque liquid). The total ? BBPS score equals 7. The terminal ? ileum, ileocecal valve, appendiceal ? orifice, and rectum were ? photographed. Scope withdrawal time ? was over 30 minutes. ? Findings: ? The perianal and digital rectal examinations were ? normal. ? A polypoid and ulcerated non-obstructing small (15mm) ? mass was found in the descending colon at ? approximately 50 cm. The mass was ? non-circumferenti al. No bleeding was present. ? Biopsies were taken with a cold forceps for ? histology. Attempted to relocate for tattoo to better ? localize however despite a prolonged effort the site ? could not be well visualized for placement of tattoo. ? The entire examined colon appeared otherwise normal. ? Biopsies were taken with a cold forceps for histology ? (Right and left colon). ? The terminal ileum appeared normal with excellent ? exam to over 30 cm. ? Moderate Sedation: ? Not applicable - See Anesthesia documentation Impression: ?- Inflammatory mass in the descending ? colon. Biopsied. ? - The entire examined colon is ? normal. Biopsied. ? - The examined portion of the ileum ? was normal. Recommendation: ?- Await pathology results. ? - Follow-up in IBD Clinic. ? Attending Participation: ? I personally performed the entire procedure. ? Dr. Danyel Bianchi ____ Jose Bianchi MD 05/13/2017 1:32:26 PM Number of Addenda: 0 Note Initiated On: 05/13/2017 11:19 AM PROVATION 05/13/2017 11:1 9 AM EDT Marleni Polishuk ORDNANCE ARTIFICER GENERAL SURGICAL ORD ERABLES PROVATION documented in this encounter Visit Diagnoses Diagnosis Chronic abdominal pain Abdominal pain, unspecified site documented in this encounter Administered Medications Inactive Administered Medications - up to 3 most recent administrations Medication Order MAR Action Action Date Dose Rate Site lactated Ringers infusion 100 mL/hr, Intravenous, CONTINUOUS, Starting on Bernice 05/13/17 at 1115, Until Bernice 05/13/17 at 1441, Endoscopy (Day of Procedure) New Bag 05/13/2017 11:15 AM EDT 100 mL/hr 100 mL/hr documented in this encounter Active and Recently Administered Medications Times are shown in EDT. Continuous Medication Order 05/11/2017 05/12/2017 05/13/2017 lactated Ringers infusion (CANCELED) 100 mL/hr, Intravenous, CONTINUOUS, Starting on Bernice 05/13/17 at 1115, Until Bernice 05/13/17 at 1441, Endoscopy (Day of Procedure) 1115 (New Bag - Prov ider: Roz Alvarez RN)1333 (Anesthesia Volume Adjustment - Provider: Mando Min MD) documented in this encounter Care Teams Experimental Machining Lab Manager Relationship Specialty Start Date End Date Marleni Gallagher APRN [address] [place] [address] PCP - General Family Medicine 12/11/16 documented as of this encounter
--- OUTSIDE RECORDS SUMMARY | 2024-03-02 14:13 | XMS_ITS | Encounter Summary ---
Author Organization [facility] Address [facility] [place] [address] Care Team Providers Care Data Entry Machine Operator Name Role Phone Mando Loera MD Primary Care Provider [phone] Encounter Details Date Type Department Care Team (Late st Contact Info) Description 08/27/2011 Orders [place] [address] Joseph Vasquez MD [facility] [place] [address] Social History Tobacco Use Types Packs/Day Years [...] on filedocumented in this encounter Care Teams Data Entry Machine Operator Relationship Specialty Start Date End Date Mando Loera MD [address] [place] [address] PCP - General 08/27/11 10/24/15 documented as of this encounter
--- OUTSIDE RECORDS SUMMARY | 2024-03-02 14:13 | XMS_ITS | Encounter Summary ---
[place] [address] Care Team Providers Care Floor Sweeper Name Role Phone Marleni Gallagher APRN Primary Care Provider [phone] Reason for Visit * Reason Onset Date Comments Medication Refill 06/21/2018 Encounter Details Date Type Department Care Team (Late st Contact Info) Description 06/21/2018 Refill [place] [address] Paige Archibald CMA GASTROENTEROLOGY DEPT Social History Tobacco Use Types Packs/Day Years [...] on filedocumented in this encounter Care Teams Floor Sweeper Relationship Specialty Start Date End Date Marleni Gallagher APRN [address] [facility] [place] [address] PCP - General Family Medicine 12/11/16 documented as of this encounter
--- OUTSIDE RECORDS SUMMARY | 2024-03-02 14:13 | XMS_ITS | Encounter Summary ---
Author Organization [facility] [place] [address] Care Team Providers Care Care Management Assistant Name Role Phone Grayson Valladares MD Primary Care Provider [phone] Reason for Visit * Reason Onset Date Comments Other 05/05/2011 medication luz elena tance program Encounter Details Date Type Department Care Team (Late st Contact Info) Description 05/05/2011 [place] [phone] Prudence Keith Other (medication assistance program) Social History Tobacco Use Types Packs/Day Years Used Date Smoking Tobacco: Former Cigarettes 0.5 3 1 09/05/1996 - 07/05/2000 Smokeless Tobacco: Never Comments:social smoker for a couple of years, less than 1 p/d Sex and Gender Information Value Date Recorded Sex Assigned at Not on file Gender Identity Not on file Sexual Orientation Straight 03/18/2021 11 :23 AM EDT documented as of this encounter Miscellaneous Notes * Telephone Encounter - Prudence Keith - 05/05/2011 2:51 PM EDT Medication Assistance Program: Deb was referred to [facility] for assistance with Pentasa. Deb's copayfor Pentasa is $158 for a thirty day supply. She completed a [employer] application and the provider's page has been sent to [facility] to be completed by her provider. Deb will return proof of household income and the phone number for her insurance plan. I will follow up with the application when everything has been returned. documented in this encounter Plan of Treatment Not on file documented as of this encounter Visit Diagnoses Not on filedocumented in this encounter Care Teams Care Management Assistant Relationship Specialty Start Date End Date Grayson Valladares MD [address] [place] [address] PCP - General 06/03/10 08/26/11 documented as of this encounter
--- OUTSIDE RECORDS SUMMARY | 2024-03-02 14:13 | XMS_ITS | Encounter Summary ---
Author Organization [facility] [place] [address] Care Team Providers Care Pulp Drier Firer Name Role Phone Marleni Gallagher APRN Primary Care Provider Reason for Referral * Diagnostic Test (Routine) - Closed Specialty Diagnoses / Procedures Referred By Lynda fabian Referred To Contact Radiology Diagnoses Crohn's disease without complication, unspecified gastrointestinal tract location Procedures MRI Enterography wwo Contrast Altagracia Ng APRN [facility] [place] [address] [place] [address] Referral ID Status Reason Start Date Expiration Date V isits Requested Visits Authorized [id number] Closed Specialty Service Requested 03/19/2021 05/17/2021 1 1 Reason for Visit * Consultation (Routine) - Closed Specialty Diagnoses / Procedures Referred By Lynda fabian Referred To Contact Gastroenterology Diagnoses Crohn's disease, unspecified, without complications crohns (restablish care in GI, Saw Diana previously) Marleni Gallagher APRN [address] [place] [address] [facility] [address] [place] [address] Referral ID Status Reason Start Date Expiration Date V isits Requested Visits Authorized [id number] Closed Consult, Test & Treat Connection Center PCP Updated and/or Approved 12/13/2020 06/14/2021 6 6 Encounter Details Date Type Department Care Team (Latest Contact Info) Description 02/24/2021 3:30 PM EDT Office [place] [address] Altagracia Ng APRN [facility] [place] [address] Crohn's disease without complication, unspecified gastrointestinal tract [...] Sign Reading Time Taken Comments Blood Pressure 129/90 02/24/2021 3:33 PM EDT Pulse 68 02/24/2021 3:33 PM EDT Temperature - - Respiratory Rate - - Oxygen Saturation - - Inhaled Oxygen Concentration - - Weight 98 kg (216 lb) 02/24/2021 3:33 PM EDT Height - - Body Mass Index 34.08 06/15/2017 3:23 PM EST documented in this encounter Progress Notes * Altagracia Ng, CARA - 02/24/2021 3:30 PM EDT Primary care provider: Marleni Gallagher APRN Referring provider: Marleni Gallagher APRN Reason for visit: Crohn's disease, re-establish care Last visit: 2016 Problem List Patient Active Problem List Diagnosis [...] H/O bulimia Testings:?? 08/21/09 EGD and colonoscopy ([facility], Dr. Ortega): 1. gastric antrum ulcer, [...] cells and giant cells. - 2009 colonoscopy [facility], endoscopically looks normal but pathology suggestive of Crohn's. - 2009 EGD- biospy mild duodenitis, mild chronic inactive gastritis - 10/2008 TPMT 33.7 normal enzyme activity - 03/10/11 capsule endoscopy:mild Crohn's in the jejunum and distal ileum -08/27/2011??EGD:??Normal esophagus. Normal stomach. Small erosions in the duodenum-?possibly consistent with very [...] and the examination is otherwise unremarkable. ?? - 04/07/17 ??MRE ( [facility]): No evidence of active inflammatory bowel disease. - 05/13/17 Colonoscopy ( Dr. Bianchi): Inflammatory mass in the descending colon. The entire examinedcolon is ??normal. The examined portion of the ileum was normal. Small bowel enteroscopy: Normal esophagus. Normal stomach. Normal examined duodenum. The examined portion of the jejunum was normal. Surgical Pathology A - Jejunum: Jejunal mucosa within normal limits. B - Duodenum: Duodenal mucosa with villous broadening and blunting, woody gland hyperplasia ??and foveolar metaplasia ?? without an increase in intraepithelial lymphocytes. See ??discussion [...] is no evidence of dysplasia or malignancy. ?? # Anemia - hgb 8.1, MCV 65.5 in 07/2009. - blood transfusion. - oral iron supplement Interval History: Patient with h/o Crohn's disease, chronic constipation, abdominal pain presents to re establish care. She had done relatively well until 2019, was seen in the ER at [facility] about 5x mostly for abdominal pain, most recently in March-April. In the ER, she would have labs done and ? X ray. Treated with IVF and pain medication and send home. Since April 2020, she had diarrhea and not constipation. Not having abdominal pain. More recently about 2 months ago, started feeling bloated and diarrhea getting worse. Having Bm 10x/day, loose, no bleeding. Occasional nocturnal BM. Very mild crampy pain before BM then goes way after bm but at times it doesn't. The pain is mostly upper abdominal area. Feels bloated all the time. Not related to foods. Last week, she was in [place] and had bouts of severe upper abdominal pain , came on suddenly and took gas x. This lasted for 30 hrs. No GERD sxs. No longer taking Prilosec. She was taking Pentasa 4 cap daily ( instead of 4 tabs BID) until 3 months ago unable to get it refilled due to the cost. No feve/chills. No n/v Gained 30 lbs of weight since 2018. ?? Review of systems as in the HPI, the rest of the review of systems were negative. Past Medical History, Social History and Family History is unchanged. Past Medical History: Diagnosis Date ??? Cholelithiasis [...] 3.66) performed by Jose Bianchi MD at [facility] ENDOSCOPY ??? PRO COLONOSCOPY, DIAGNOSTIC 08/27/2011 COLONOSCOPY, DIAGNOSTIC performed by KVNG YUEN at [facility] ENDOSCOPY ??? PRO COLONOSCOPY, FLEX, W/DIR SUBMUC INJECT N/A 05/13/2017 COLONOSCOPY WITH DIRECTED SUBMUCOSAL INJ (WRVU 3.66) performed by Jose Bianchi MD at [facility] ENDOSCOPY ??? PRO UPPER GI ENDOSCOPY, BIOPSY N/A 05/13/2017 EGD WITH BIOPSY (WRVU 2.49) performed by Jose Bianchi MD at [facility] ENDOSCOPY ??? UPPER GI ENDOSCOPY, EXAM 08/27/2011 UPPER GI ENDOSCOPY performed by KVNG YUEN at [facility] ENDOSCOPY Partial hysterectomy in 2010 Social History Socioeconomic History ??? Marital status: Spouse name: Not on file ??? Number of children: Not on file ??? Years of education: Not on file ??? Highest education level: Not on file Occupational History ??? Not on file Tobacco Use ??? Smoking status: Former Smoker Packs/day: 0.50 Years: 3.00 Pack years: 1.50 Types: Cigarettes Quit date: 07/05/2000 Years since quittin.6 ??? Smokeless tobacco: Never Used ??? Tobacco comment: social smoker for a couple of years, less than 1 p/d Substance and Sexual Activity ??? Alcohol use: Yes Alcohol/week: 7.0 standard drinks Types: 7 Glasses of wine per week ??? Drug use: Yes Types: Other pain meds Comment: vicodin ??? Sexual activity: Not on file Other Topics Concern ??? Not on file Social History Narrative ??? Not on file Social Determinants of Health Financial Resource Strain: ??? Difficulty of Paying Living Expenses: Not on file Food Insecurity: ??? Worried About Running Out of Food in the Last Year: Not on file ??? Ran Out of Food in the Last Year: Not on file Transportation Needs: ??? Lack of Transportation (Medical): Not on file ??? Lack of Transportation (Non-Medical): Not on file Physical Activity: ??? Days of Exercise per Week: Not on file ??? Minutes of Exercise per Session: Not on file No family history on file.NO IBD mother- lung cancer P uncle- prostate cancer and bone cancer P aunt- lung cancer P grand father- prostate and bone cancer Medications Outpatient Encounter Medications as of 02/24/2021 Medication Sig Dispense Refill ??? valACYclovir (VALTREX) 1 gram Tablet TAKE 1 TABLET BY MOUTH DAILY 30 tablet 0 ??? metroNIDAZOLE (METROCREAM) 0.75 % Cream APPLY TOPICALLY TO AFFECTED AREA ON FACE ONCE TO TWICE DAILY 45 g 1 ??? buPROPion (WELLBUTRIN XL) [...] facility-administered encounter medications on file as of 02/24/2021. Allergies/Adverse reactions Dilaudid [hydromorphone] and Preparation h [phenylephrine-witch david] Physical Examination Patient appears well Wt Readings from Last 3 Encounters: 06/15/17 83.9 kg (185 lb) 03/09/17 82.1 kg (181 lb) 12/05/15 77.1 kg (170 lb) Vitals: 02/24/21 1533 BP: 129/90 Pulse: 68 Weight: 98 kg (216 lb) Heart: regular Resp: CTA Abd: normal BS, soft, mild tenderness on upper abdomen> lower on palpation, no masses, no hepatomegaly, no splenomegaly Extrem: no edema Recent labs Recent endoscopic procedures None Recent relevant imaging None ?? Impression/Plan Patient with h/o Crohn's disease, GERD, abdominal pain,chronic constipation but since April 2020,she had diarrhea and not constipation. In addition, has been having abdominal pain ( mostly upper) and feels bloated. She was on Pentasa but stopped it 3 months ago due to cost. Historically, she has been non compliant with medications and follow up. She presents today to re establish care. We discussed getting EGD, colonoscopy and MRE to restage her disease. Her bloating could be Small Intestinal Bacterial Overgrowth( SIBO) and will treat empirically with Rifaximin. As far as her upper abdominal pain,? If due to duodenitis, gastritis. I told her to try OTC Prilosec once daily. For Crohn's treatment, will discuss options once we have above diagnostic findings. ? For now, - Labs: CBC, CMP, ESR,CRP, B12, Vit D - Stool tests: Cx, c diff and FCP - EGD, colonoscopy and MRE - Try Prilosec 20 mg once daily - Start Rifaximin 550 mg BID x2 weeks - Continue dicyclomine 1 tab three times daily as needed for crampy pain - Avoid all NSAIDs. Ok to use Tylenol for aches and pain - Further Tx options pending above findings. F/u with me 2 week after endoscopy then with Dr. Yuen at next opening. 50 minutes of this 60 minutes appointment were spent in direct counseling regarding treatment of IBD. Please contact me if there are any further questions regarding the care of this patient. Alexander Ng APRN [facility] Section of Gastroenterology [place] [address] documented in this encounter Plan of Treatment Scheduled Orders Name Type Priority Associated Diagnoses Orde r Schedule ENDOSCOPY CASE REQUEST: EGD, UPPER GI ENDOSCOPY, COLONOSCOPY, DIAGNOSTIC Procedures Routine Crohn's disease without complication, unspecified gastrointestinal tract location Ordered: 02/24/2021 documented as of this encounter Procedures Procedure Name Priority Date/Time Associated Diagnosis Comments HC C-REACTIVE PROTEIN Routine 02/24/2021 5:24 PM EDT Crohn's disease without complication, unspecified gastrointestinal tract location HC QUANTIFERON Routine 02/24/2021 5:24 PM EDT Crohn's disease without complication, unspecified gastrointestinal tract location HEMOGRAM Routine 02/24/2021 5:24 PM EDT Crohn's disease without complication, unspecified gastrointestinal tract location DIFFERENTIAL, AUTOMATED Routine 02/24/2021 5:24 PM EDT Crohn's disease without complication, unspecified gastrointestinal tract location HC HEPATITIS C ANTIBODY Routine 02/24/2021 5:24 PM EDT Crohn's disease without complication, unspecified gastrointestinal tract location HC VITAMIN D TOTAL-25 HYDROXY Routine 02/24/2021 5:24 PM EDT Crohn's disease without complication, unspecified gastrointestinal tract location HC HEPATITIS B SURFACE AB Routine 02/24/2021 5:24 PM EDT Crohn's disease without complication, unspecified gastrointestinal tract location HC HEPATITIS B SURFACE AG Routine 02/24/2021 5:24 PM EDT Crohn's disease without complication, unspecified gastrointestinal tract location HC ESR-SEDIMENTATION RATE, BLOOD Routine 02/24/2021 5:24 PM EDT Crohn's disease without complication, unspecified gastrointestinal tract location HC CBC,PLT & AUTO DIFF Routine 02/24/2021 5:24 PM EDT Crohn's disease without complication, unspecified gastrointestinal tract location HC VITAMIN B12 SERUM Routine 02/24/2021 5:24 PM EDT Crohn's disease without complication, unspecified gastrointestinal tract location COMPREHENSIVE METABOLIC PANEL Routine 02/24/2021 5:24 PM EDT Crohn's disease without complication, unspecified gastrointestinal tract location documented in this encounter Results * MRI Enterography wwo Contrast (03/20/2021 6:17 PM EDT) Anatomical Region Laterality Modality Abdomen Magnetic Resonan ce Impressions 03/21/2021 9:23 AM EDT 1. ??No evidence of active bowel inflammation. 2. ??Cholelithiasis and choledocholithiasis, as above. I have personally reviewed the image(s) and the resident's interpretation and agree with the findings, Joseph Guerra MD at 03/21/2021 9:23 AM Thank you for letting us participate in the care of this patient. ??If you are a health care provider and have any questions regarding this report, please contact the number below. ??For patients who have questions please contact the health primary care physician that requested your imaging first. ? Electronically signed by: Joseph Guerra MD, [facility] ([phone]), at 03/21/2021 9:23 AM Narrative 03/21/2021 9:23 AM EDT EXAMINATION: MRI ENTEROGRAPHY WWO CONTRAST CLINICAL HISTORY: h/o Crohn's disease, needs to evaluate for small bowel disease TECHNIQUE: ??MRI of the abdomen and pelvis was performed with images obtained prior to and following the intravenous administration of 20ml of Dotarem. ??0.5mg glucagon was also administered. ??Breeza was administered as an oral contrast. COMPARISON: MR enterography exams dating back to 10/18/2009. CT abdomen pelvis dated 05/09/2017. FINDINGS: GI tract: No dilated small or large bowel, bowel wall thickening, or mesenteric inflammation. ??No mucosal hyperenhancement. Liquid stool is noted within the sigmoid colon and rectum. Liver: Normal signal, no lesions. Bile ducts: Stacked punctate calculi in the distal portion of the common bile duct Gallbladder: Numerous gallstones. Nondilated. No pericholecystic fluid. Normal caliber wall. Pancreas: Normal. Spleen: Normal. Adrenals: Normal. Kidneys: 7 mm T2 hyperintense nonenhancing lesion in the lower pole of the right kidney, consistent with a cyst. Lymph nodes: No lymphadenopathy. Reproductive structures: 2.4 cm right adnexal cyst. Osseous structures: No marrow signal abnormality. Degenerative changes within the lumbar spine. Procedure Note Joseph Guerra MD - 03/21/2021 EXAMINATION: MRI ENTEROGRAPHY WWO CONTRAST CLINICAL HISTORY: h/o Crohn's disease, needs to evaluate for small boweldisease TECHNIQUE: MRI of the abdomen and pelvis was performed with imagesobtained prior to and following the intravenous administration of 20ml of Dotarem.0.5mg glucagon was also administered. Breeza was administered as an oralcontrast. COMPARISON: MR enterography exams dating back to 10/18/2009. CT abdomenpelvis dated 05/09/2017. FINDINGS: GI tract: No dilated small or large bowel, bowel wall thickening, ormesenteric inflammation. No mucosal hyperenhancement. Liquid stool is noted withinthe sigmoid colon and rectum. Liver: Normal signal, no lesions. Bile ducts: Stacked punctate calculi in the distal portion of the commonbile duct Gallbladder: Numerous gallstones. Nondilated. No pericholecystic fluid.Normal caliber wall. Pancreas: Normal. Spleen: Normal. Adrenals: Normal. Kidneys: 7 mm T2 hyperintense nonenhancing lesion in the lower pole of theright kidney, consistent with a cyst. Lymph nodes: No lymphadenopathy. Reproductive structures: 2.4 cm right adnexal cyst. Osseous structures: No marrow signal abnormality. Degenerative changeswithin the lumbar spine. IMPRESSION 1. No evidence of active bowel inflammation. 2. Cholelithiasis and choledocholithiasis, as above. I have personally reviewed the image(s) and the resident's interpretationand agree with the findings, Joseph Guerra MD at 03/21/2021 9:23 AM Thank you for letting us participate in the care of this patient. If youare a health care provider and have any questions regarding this report,please contact the number below. For patients who have questions please contactthe health primary care physician that requested your imaging first. Electronically signed by: Joseph Guerra MD, [facility]([phone]), at 03/21/2021 9:23 AM Altagracia Ng APRN IMG MRI ORDERABLE S * (ABNORMAL) Differential, Automated (02/24/2021 5:24 PM EDT) Pathologist [facility] Neutrophil % 58.6 % [facility] Neutrophil Absolute 4.83 1.70 - 6.10 x10(3)/ L [facility] Lymph % 30.3 % [facility] Lymphocytes Abs 2.5 0.9 - 3.2 x10(3)/[facility] Monocyte % 6.3 % [facility] Monocyte Abs 0.5 0.3 - 0.9 x10(3)/[facility] Eos % 2.7 % [facility] Eosinophils Abs 0.2 0.0 - 0.4 x10(3)/[facility] Basophil % 1.0 % [facility] Baso Absolute 0.1 0.0 - 0.1 x10(3)/[facility] Immature Gran % 1.10 % [facility] Comment: Immature granulocytes(IG's)percentage and absolute count will include metamyelocytes, myelocytes, and promyelocytes. Blood smears from CBCs yielding IG's will be scanned manually for concordance. If this scan disagrees with the automated IG or if promyelocytes are noted, a manual differential will be performed. Immature Gran Absolute 0.09(H) 0.00 - 0.04 x10(3)/[facility] Blood 02/24/2021 5:24 PM EDT 02/24/2021 5:29 PM EDT Narrative Resulting Agency Comment Spec In Lab Altagracia Ng APRN HEMATOLOGY ORDERA BLES [facility] [place] [address] * (ABNORMAL) Hemogram (02/24/2021 5:24 PM EDT) Pathologist [facility] White Blood Cell 8.2 4.0 - 9.5 x10(3)/mc L [facility] Red Blood Cell 4.65 4.00 - 5.21 x10(6)/mc L [facility] Hemoglobin 13.7 11.7 - 15.5 gm/dL [facility] Hematocrit 40.1 35.7 - 45.8 % [facility] Mean Cell Volume 86.2 82.6 - 94.4 fL [facility] Mean Cell Hemoglobin 29.5 27.1 - 32.0 pg [facility] Mean Cell Hemoglobin Concentration 34.2 31.7 - 35.0 gm/dL [facility] Platelet 500(H) 145 - 357 x10(3)/[facility] RDW Standard Deviation 39.8 37.0 - 46.0 fL [facility] RDW coefficient of variation 12.6 11.5 - 14.1 % [facility] Mean Platelet Volume 9.0 7.6 - 12.9 fL [facility] NRBC% auto 0.0 % [facility] NRBC Absolute 0.000 0.000 - 0.000 x10(3)/[facility] Blood 02/24/2021 5:24 PM EDT 02/24/2021 5:29 PM EDT Narrative Resulting Agency Comment Spec In Lab Altagracia Ng APRN HEMATOLOGY ORDERA BLES [facility] [place] [address] * Hepatitis B Surface Antibody (02/24/2021 5:24 PM EDT) Hepatitis B Surface Antibody, Quantitative >800.0 IU/L [facility] Comment: HepB Surface Ab Quant: Unvaccinated: < 8.5 IU/L Vaccinated: > 11.5 IU/L Hepatitis B Surface Antibody Positive [facility] Comment: Patient is considered to be immune to HBV infection. Expected Results: Vaccinated: Positive Unvaccinated: Negative Blood 02/24/2021 5:24 PM EDT 02/24/2021 5:29 PM EDT Narrative Resulting Agency Comment Spec In Lab Altagracia Ng OR FIRST ASSIST REGISTERED NURSE CHEMISTRY ORDERAB LES Performing Organization Address City/[facility] Co de Phone Number [facility] [place] [address] * Hepatitis C Antibody (02/24/2021 5:24 PM EDT) Hepatitis C Antibody Negative Negative [facility] Blood 02/24/2021 5:24 PM EDT 02/24/2021 5:29 PM EDT Narrative Resulting Agency Comment Spec In Lab Altagracia Ng OR FIRST ASSIST REGISTERED NURSE CHEMISTRY ORDERAB LES Performing Organization Address [facility] Co de Phone Number [facility] [place] [address] * Hepatitis B Surface Antigen (02/24/2021 5:24 PM EDT) Hepatitis B Surface Antigen Negative Negative [facility] Blood 02/24/2021 5:24 PM EDT 02/24/2021 5:29 PM EDT Narrative Resulting Agency Comment Spec In Lab Altagracia Ng OR FIRST ASSIST REGISTERED NURSE CHEMISTRY ORDERAB LES Performing Organization Address [facility] Co de Phone Number [facility] [place] [address] * QuantiFERON-TB Gold (02/24/2021 5:24 PM EDT) Quantiferon Nil 0.030 IU/mL [facility] QFT TB Ag1-Nil 0.040 IU/mL [facility] QFT TB Ag2-Nil 0.080 IU/mL [facility] Quantiferon Mitogen-Nil 9.060 IU/mL [facility] Quantiferon-TB Gold Negative Negative [facility] Quantiferon Tb Interp M. tuberculosis infection NOT likely A negative specimen should have a TB1 Ag minus Nil value and TB2 Ag minus Nil value of less than 0.35 IU/mL OR a TB1 Ag minus Nil or TB2 Ag minus Nil value greater than or equal to 0.35 IU/mL AND a TB Ag minus Nil value from the same tube of less than 25% of the Nil value. A negative specimen must also have a mitogen minus Nil value greater than or equal to 0.5 IU/mL. A negative QFT-Plus result does not preclude the possibility of M. tuberculosis infection. False negative results can occur due to stage of infection (specimen obtained prior to the development of immune response), co-morbid conditions which affect immune function, or other immunological factors. [facility] Comment: The performance of the QFT-Plus assay has not been extensively evaluated with specimens from the following individuals: Individuals who have impaired or altered immune functions, such as those who have HIV infection or AIDS, those who have transplantation managed with immunosuppressive treatment or others who receive immunosuppressive drugs (e.g., corticosteroids, methotrexate, azathioprine, cancer chemotherapy), those who have other clinical conditions, such as diabetes, silicosis, chronic renal failure, and hematological disorders (e.g., leukemia and lymphomas), or those with other specific malignancies (e.g., carcinoma of the head or neck and lung). Individuals younger than age 17 years women. Diagnosis of, or the exclusion of tuberculosis disease, and assessment of Latent Tuberculosis Infection (LTBI) requires a combination of epidemiological, historical, Medical and diagnostic findings that should be taken into account when interpreting QFT-Plus results. Blood 02/24/2021 5:24 PM EDT 02/25/2021 2:14 PM EDT Narrative Resulting Agency Comment Spec In Lab Altagracia Ng OR FIRST ASSIST REGISTERED NURSE CHEMISTRY ORDERAB LES [facility] [place] [address] * Vitamin D, 25-Hydroxy (02/24/2021 5:24 PM EDT) Vitamin D Total 25 OH 28 21 - 100 ng/mL [facility] Vit D Interp Insufficient [facility] Blood 02/24/2021 5:24 PM EDT 02/24/2021 5:29 PM EDT Narrative Resulting Agency Comment Spec In Lab Altagraica Ng OR FIRST ASSIST REGISTERED NURSE CHEMISTRY ORDERAB LES Performing Organization Address City/[facility]/ZIP Co de Phone Number [facility] [place] [address] * Vitamin B12 (02/24/2021 5:24 PM EDT) Vitamin B12 1,217 232 - 1,245 pg/mL [facility] Blood 02/24/2021 5:24 PM EDT 02/24/2021 5:29 PM EDT Narrative Resulting Agency Comment Spec In Lab Altagracia Ng OR FIRST ASSIST REGISTERED NURSE CHEMISTRY ORDERAB LES Performing Organization Address [facility]/ZIP Co de Phone Number [facility] [place] [address] * CRP, acute inflammation (02/24/2021 5:24 PM EDT) C-Reactive Protein 4.5 <=4.9 mg/L [facility] Blood 02/24/2021 5:24 PM EDT 02/24/2021 5:29 PM EDT Narrative Resulting Agency Comment Spec In Lab Altagracia Ng OR FIRST ASSIST REGISTERED NURSE CHEMISTRY ORDERAB LES Performing Organization Address City/[facility]/ZIP Co de Phone Number [facility] [place] [address] * Sedimentation rate (02/24/2021 5:24 PM EDT) Sedimentation Rate Automated 17 2 - 37 mm/hr [facility] Comment: Effective June 21, 2019 new capillary photometric technology has resulted in a change in reference ranges. It is recommended that each ESR result be reviewed with its own age appropriate reference range. Blood 02/24/2021 5:24 PM EDT 02/24/2021 5:29 PM EDT Narrative Resulting Agency Comment Spec In Lab Altagracia Ng OR FIRST ASSIST REGISTERED NURSE HEMATOLOGY ORDERA BLES [facility] [place] [address] * (ABNORMAL) Comprehensive metabolic panel (non-fasting) (02/24/2021 5:24 PM EDT) Glucose 86 65 - 199 mg/dL [facility] Comment:Diabetes: >=200 mg/d L plus symptoms Blood Urea Nitrogen 12 8 - 18 mg/dL [facility] Creatinine 0.69(L) 0.70 - 1.20 mg/dL [facility] Sodium 141 135 - 145 mmol/L [facility] Potassium 4.2 3.5 - 5.0 mmol/L [facility] Comment: Please note: ??Patients with WBC >100,000 may have falsely elevated Potassium levels. ??For accurate Potassium quantification in these patients send serum separator tube (gold top) for subsequent determinations. ??Contact the Clinical Chemistry Laboratory if there are any questions. Chloride 105 98 - 107 mmol/L [facility] Carbon Dioxide 25 22 - 31 mmol/L [facility] Anion Gap 11 5 - 15 mmol/L [facility] Calcium 9.4 8.5 - 10.5 mg/dL [facility] Protein, Total 7.6 6.1 - 8.0 gm/dL [facility] Albumin 4.8 3.2 - 5.2 gm/dL [facility] Aspartate Aminotransferase 28 0 - 30 unit/L [facility] Alanine Aminotransferase 47(H) 0 - 30 unit/L [facility] Alkaline Phosphatase 110(H) 35 - 105 unit/L [facility] Bilirubin, Total 0.3 0.2 - 1.3 mg/dL [facility] Est Glomerular Filtration Rate 106 >=60 mL/min/1. 73 m?? [facility] Comment: This patient? s estimated glomerular filtration rate (eGFR) is between 106 mL/min/1.73 m2 (patients with less muscle mass) and 123 mL/min/1.73 m2 (patients with more muscle mass) [...] and symptoms in addition to eGFR. Blood 02/24/2021 5:24 PM EDT 02/24/2021 5:29 PM EDT Narrative Resulting Agency Comment Spec In Lab Altagracia Ng APRN CHEMISTRY ORDERAB LES Performing Organization Address City/State/[facility] Co de Phone Number [facility] [place] [address] documented in this encounter Visit Diagnoses Diagnosis Crohn's disease without complication, unspecified gastrointestinal tract location Crohn's disease without complication, unspecified gastrointestinal tract location documented in this encounter Care Teams Pulp Drier Firer Relationship Specialty Start Date End Date Marleni Gallagher APRN [address] [place] [address] PCP - General Family Medicine 12/11/16 documented as of this encounter
--- OUTSIDE RECORDS SUMMARY | 2024-03-02 14:13 | XMS_ITS | Encounter Summary ---
Author Organization [facility] Address [facility] [place] [address] Care Team Providers Care Refinery Operator Light Ends Recovery Name Role Phone Mando Loera MD Primary Care Provider [phone] Encounter Details Date Type Department Care Team (Late st Contact Info) Description 09/03/2011 Orders [place] [address] Joseph Vasquez MD [facility] [place] [address] Crohn's (Primary Dx) Social History Tobacco Use Types Packs/Day Years [...] as of this encounter Visit Diagnoses Diagnosis Crohn's- Primary Regional enteritis of unspecified site documented in this encounter Care Teams Refinery Operator Light Ends Recovery Relationship Specialty Start Date End Date Mando Loera MD [address] [place] [address] PCP - General 08/27/11 10/24/15 documented as of this encounter
--- OUTSIDE RECORDS SUMMARY | 2024-03-02 14:13 | XMS_ITS | Encounter Summary ---
Author Organization [facility] Address [facility] [place] [address] Care Team Providers Care Commercial Loan Coordinator Name Role Phone Mando Loera MD Primary Care Provider [phone] Reason for Visit * Reason Comments Rash Encounter Details Date Type Department Care Team (Late st Contact Info) Description 05/23/2015 1:45 PM EST Office Visit Dermatology at [address] [address] Jose Hernandez MD [facility] DR [address]ANK[address] [place] [address] Joanna Armas PA [facility] [address] [place] [address] Perioral dermatitis; Multiple benign nevi; Dermatofibroma; Lentigines Social History Tobacco Use Types Packs/Day Years [...] AM EDT documented as of this encounter Patient Instructions * Patient Instructions* Mikki Villatoro - 05/23/2015 2:13 PM EST - Eliminate all product use of the face all but eyeliner, blush, and moisturizer except when needed - Take Doxycycline 100mg twice daily by mouth for 6 weeks - Take Doxycycline with food but avoid all calcium products - Use dove sensitive skin bar soap to wash face - Use AZO Yeast to prevent yeast infections while on the antibiotic documented in this encounter Progress Notes * Jose Hernandez MD - 05/23/2015 2:47 PM EST Given the degree of inflammation and perioral dermatitis, will treat with Doxycycline systemically, Topicals to follow. Discussed triggers and prevention. Understood. Patient seen in conjunction with Joanna Armas PA-C (Bri) Signed by: JOSE HERNANDEZ MD Section of Dermatology [facility] * Joanna Armas PA - 05/23/2015 1:41 PM EST DERMATOLOGY - NEW PATIENT NOTE Date of service: 05/23/2015 Deb Mullins : 1975 Dermatology Physician Felt Dyeing Machine Tender Note: Joanna Armas PA-C (Bri) Chief Complaint Patient presents with ??? Rash Deb Mullins is a 39 y.o. female. This is a new patient to me and to the clinic. The patient is self-referred. HPI: Ms. Mullins presents for a pimply rash on face around her mouth and nose present for the past 3 months. She has tried apple cider vinegar mixed with water, several facial moisturizers, topical OTC steroids, and Argan oil. She washes with a natural oil soap. She thinks that some face soaps aggravate her skin. She would also like to have a few moles looked at today on her chest, back, and arms. Denies itching, bleeding, or tenderness of any of these lesions. Denies prior treatments. Denies family history of melanoma. Past Skin History: Ganglion Cyst, right wrist, excised 08/16 Ganglion Cyst, left wrist, excised 04/15 Medical History: Patient Active Problem List Diagnosis Code ??? Right wrist pain M25.531 ??? Chronic diarrhea K52.9 ??? 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 Constipation K59.00 ??? Gastritis and duodenitis K29.90 No Defibrillator/pacemaker No Anti-coagulants Medications: Current Outpatient Prescriptions on File Prior to Visit Medication Sig Dispense Refill ??? [DISCONTINUED] ALPRAZolam (XANAX) 1 mg tablet Take 0.5 mg by mouth 3 times daily as needed. ??? [DISCONTINUED] ALPRAZolam (XANAX) 0.5 mg tablet Take 0.5 mg by mouth 2 times daily as needed. ??? [DISCONTINUED] docusate sodium (COLACE) 100 mg capsule Take 100 mg by mouth 2 times daily. ??? ibuprofen (ADVIL;MOTRIN) 200 mg tablet Take 200 mg by mouth every 6 hours as needed. ??? venlafaxine (EFFEXOR-XR) 150 mg 24 hr capsule Take 225 mg by mouth daily. ??? [DISCONTINUED] Irdjcuozhdojr-Mz-Dovr-Minerals (WOMEN'S DAILY MULTIVITAMIN) 18-0.4 mg Tab Take 1tablet by mouth daily. ??? [DISCONTINUED] Ferrous Fumarate 325 mg (106 mg Iron) Tab Take 1 tablet by mouth daily. ??? [DISCONTINUED] LORAZEPAM ORAL Take by mouth nightly as needed. Take 0.5-1.0 mg at bedtime as needed. ??? [DISCONTINUED] sertraline (ZOLOFT) 100 mg tablet Take 100 mg by mouth daily. ??? acetaminophen (TYLENOL) 325 mg tablet ??? [DISCONTINUED] sertraline (ZOLOFT) 100 mg tablet ??? [DISCONTINUED] omeprazole (PRILOSEC) 20 mg capsule No current facility-administered medications on file prior to visit. Allergies: Allergies Allergen Reactions ??? Dilaudid [Hydromorphone] Severe headache Family History: No known family h/o melanoma or non-melanoma skin cancer Family h/o psoriasis unsure of relative. 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 [facility] Review of Systems: General: Denies recent illness, chills, or fever Skin: As per HPI; no other skin concerns Examination: Constitutional: Patient was pleasant, alert, well-appearing and in no noticeable distress. Skin: An abbreviated exam of the back, chest, neck, b/l arms and face was performed. Specific skin findings: 1. Scattered papules and pustules in perioral distribution; around mouth and adjacent to nostrils. 2. Scattered, 0.3-0.6cm light-brown evenly pigmented, well-demarcated macules on arms and upper back. 3. 3 mm light brown demarcated papule on right chest 4. Right upper arm: firm papule, centrally raised and sclerotic, with peripheral hyperpigmentation and dimpling with lateral pressure. Diagnosis/Assessment/Treatment Plan: 1. Perioral dermatitis I discussed this condition with the patient and explored therapeutic options. Recommendations: - Advised patient to take Doxycycline 100mg twice daily by mouth for a 6 week course - Take Doxycycline with meals and avoid calcium and iron-fortified products - Advised patient to eliminate all products that are used on the face, especially topical steroids,until clear - Advised patient to use Dove sensitive skin car bar soap to wash face - Patient states that she has gotten yeast infections before while on antibiotics. She will call ifshe experiences symptoms. 2. Lentigines Reassured. 3. Benign appearing nevi with even pigmentation and well defined margins are noted - The nature of sun-induced photo-aging and skin cancers was discussed. Emphasized importance of sun protection, sun avoidance strategies, protective clothing, and sunscreen of an SPF 30 or above with UVA and UVB protection. Discussed warning signs for skin cancer, including the ABCDEFs of melanoma. Encouraged patient to monitor skin for signs of skin cancer or otherwise bothersome changes and call if such occur. 4. Dermatofibroma (DF) Reassured. LOS [address] Call or return to clinic prn if these symptoms worsen or fail to improve as anticipated. Patient verbally expressed understanding. I specifically asked the patient at the end of the visit if there were any further concerns or questions and the patient verbally stated there were no other concerns or questions. All questions were answered and all concerns were addressed. Note initiated by JIM ARDON LPN and Mikki Villatoro, Clinical Scribe I am documenting this encounter acting as the scribe for and in the presence of Joanna Woodard) BALDO Armas I performed the above scribed service and agree with the accuracy of the documentation in this encounter. Reviewed and signed by Joanna Woodard) BALDO Armas Dermatology [facility] Patient seen in conjunction with attending physician: Jose Hernandez MD Section of Dermatology [facility] documented in this encounter Plan of Treatment Not on file documented as of this encounter Visit Diagnoses Diagnosis Perioral dermatitis Rosacea Multiple benign nevi Benign neoplasm of skin, site unspecified Dermatofibroma Benign neoplasm of skin, site unspecified Lentigines Other dyschromia documented in this encounter Care Teams Commercial Loan Coordinator Relationship Specialty Start Date End Date Mando Loera MD [address] [place] [address] PCP - General 08/27/11 10/24/15 documented as of this encounter
--- OUTSIDE RECORDS SUMMARY | 2024-03-02 14:13 | XMS_ITS | Encounter Summary ---
Author Organization [facility] Address [facility] [place] [address] Care Team Providers Care Chief Clerk Name Role Phone Marleni Gallagher APRN Primary Care Provider [phone] Reason for Visit * Reason Comments Medication Refill Encounter Details Date Type Department Care Team (Late st Contact Info) Description 07/09/2020 Refill Dermatology at [address] [address] Maty Barrios MD [facility] DR [address] [place] [address] Herpes simplex virus type 1 (HSV-1) dermatitis [...] complications documented in this encounter Care Teams Chief Clerk Relationship Specialty Start Date End Date Marleni Gallagher APRN [address] [facility] [place] [address] PCP - General Family Medicine 12/11/16 documented as of this encounter
--- OUTSIDE RECORDS SUMMARY | 2024-03-02 14:13 | XMS_ITS | Encounter Summary ---
[place] [address] Care Team Providers Care All Source Intelligence Name Role Phone Marleni Gallagher CARA Primary Care Provider [phone] Reason for Referral * Diagnostic Test (Routine) - Closed Specialty Diagnoses / Procedures Referred By Contemilee fabian Referred To Contact Radiology Diagnoses Crohn's disease without complication, unspecified gastrointestinal tract location Procedures MRI Enterography o Contrast Altagracia Ng APRN [facility] [place] [address] [place] [address] Referral ID Status Reason Start Date Expiration Date V isits Requested Visits Authorized [id number] Closed Specialty Service Requested 03/19/2021 05/17/2021 1 1 Reason for Visit * Diagnostic Test (Routine) - Closed Specialty Diagnoses / Procedures Referred By Contemilee fabian Referred To Contact Radiology Diagnoses Crohn's disease without complication, unspecified gastrointestinal tract location Procedures MRI Enterography wwo Contrast Altagracia Ng APRN [facility] [place] [address] [place] [address] Referral ID Status Reason Start Date Expiration Date V isits Requested Visits Authorized [id number] Closed Specialty Service Requested 03/19/2021 05/17/2021 1 1 Encounter Details Date Type Department Care Team (Latest Contact Info) Description 03/20/2021 2:39 PM EDT - 03/20/2021 11:59 PM EDT Hospital [place] [address] Altagracia Ng APRN [facility] DR [place] [address] Crohn's disease without complication, unspecified gastrointestinal tract location Discharge Disposition: Home Social History Tobacco Use [...] Procedure Name Priority Date/Time Associated Diagnosis Comments MRI ENTEROGRAPHY WITH/WO CONTRAST Routine 03/20/2021 6:17 PM EDT Crohn's disease without complication, unspecified [...] who have questions please contact the health transitional care manager that requested your imaging first. ? Narrative 03/21/2021 9:23 AM EDT EXAMINATION: MRI [...] patients who have questions please contactthe health transitional care manager that requested your imaging first. Altagracia Ng APRN IM MRI ORDERABLE S documented in this encounter Visit Diagnoses Diagnosis Crohn's disease without complication, unspecified gastrointestinal tract location documented in this encounter Administered Medications Inactive Administered Medications - up to 3 most recent administrations Medication Order MAR Action Action Date Dose Rate Site gadoterate meglumine (Dotarem) (0.5 mMol/mL) injection solution 0-100 mL 0-100 mL, Intravenous, ONCE PRN, 1 dose, Starting on Bernice 03/20/21 at 1828, Until Bernice 03/20/21 at 1828, Per Protocol, Radiology Contrast, Routine Given 03/20/2021 6:28 PM EDT 20 mLs glucagon (Glucagen) (1 mg/mL) injection solution 0.5 mg 0.5 mg, Intramuscular, ONCE, 1 dose, On Bernice 03/20/21 at 1745, Radiology Protocol Medication, Routine Given 03/20/2021 5:31 PM EDT 0.5 mg Right Deltoid documented in this encounter Care Teams All Source Intelligence Relationship Specialty Start Date End Date Marleni Gallagher APRN [address] [place] [address] PCP - General Family Medicine 12/11/16 documented as of this encounter
--- OUTSIDE RECORDS SUMMARY | 2024-03-02 14:13 | XMS_ITS | Encounter Summary ---
Author Organization [facility] Address [facility] [place] [address] Care Team Providers Care Pta Name Role Phone Mando Loera MD Primary Care Provider [phone] Encounter Details Date Type Department Care Team (Late st Contact Info) Description 05/30/2015 Telephone Dermatology at [facility] [address] [place] [address] Joanna Armas PA [facility] [place] [address] Social History Tobacco Use Types Packs/Day Years [...] encounter Miscellaneous Notes * Telephone Encounter - Katherin Stanley LPN - 05/30/2015 12:09 PM EST Spoke with patient and informed her that we cannot prescribe Prednisone over the phone- that she would either come in for an appointment or see her PCP. Patient states that she already has a call into her PCP's office and is awaiting their return phone call. She also states that if she were to comehere, she wouldn't be able to come for a few days due to her schedule, but she would like to know if there is any contraindication between Doxycyline and Prednisone. Assured patient that there is not, but that that is something she can speak to her PCP about when seeing him. * Telephone Encounter - Cira Snell - 05/30/2015 11:22 AM EST Deb Mckay just called to say that she came into contact with poison jeff on Wednesday. Has been using Vansel (sp?) scrub and Benydryl as well as calamine lotion but there is an area right under her eye that is quite swollen. She wonders if you could prescribe Prednisone or something else. She would like you to call her at her home # listed. Thanks, Daniela CC: Sonia Stanley documented in this encounter Plan of Treatment Not on file documented as of this encounter Visit Diagnoses Not on filedocumented in this encounter Care Teams Pta Relationship Specialty Start Date End Date Mando Loera MD [address] [place] [address] PCP - General 08/27/11 10/24/15 documented as of this encounter
--- OUTSIDE RECORDS SUMMARY | 2024-03-02 14:13 | XMS_ITS | Encounter Summary ---
Author Organization [facility] Address [facility] [place] [address] Care Team Providers Care Coffee Attendant Name Role Phone Marleni Gallagher APRN Primary Care Provider [phone] Reason for Visit * Reason Comments Skin Lesion face Perioral Dermatitis Mouth Lesions * Consultation (Routine) - Closed Specialty Diagnoses / Procedures Referred By Lynda fabian Referred To Contact Dermatology Diagnoses Changes in skin texture Perioral dermatitis Perioral dermatitis Procedures Consult Marleni Gallagher APRN [address] [place] [address] [facility] Dermatology [address] [place] [address] Referral ID Status Reason Start Date Expiration Date Visits Re quested Visits Authorized [id number] Closed 10/28/2018 10/28/2019 1 1 Encounter Details Date Type Department Care Team (Late st Contact Info) Description 04/13/2019 2:30 PM EDT Office Visit Dermatology at [facility] [address] [place] [address] Maty Barrios MD [facility] [address] [place] [address] Actinic keratoses; Dermal nevus of other site; Perioral dermatitis; Herpes simplex virus type 1 (HSV-1) dermatitis [...] as of this encounter Progress Notes * Maty Barrios MD - 04/13/2019 2:30 PM EDT DERMATOLOGY OUTPATIENT CLINIC NOTE Date of service: 04/13/2019 Deb Mullins : 1975 Provider: Maty Barrios MD PROBLEM: Skin lesions on face, perioral dermatitis, cold sores. SKIN HISTORY: No history of skin cancer History of psoriasis History of blistering sunburns HPI Deb Mullins is a 43 y.o. female. New patient to the clinic and myself here today for skin lesionson her left pentecostal that she would like checked. These have been present for years and get scaly. Ptdenies any itching, bleeding, or tenderness unless she picks at the areas. - She has a history of chronic cold sores and perioral dermatitis. She occasionally takes doxycycline for perioral dermatitis and within the last two days she has taken valcyclovir for the 2nd cold sore in two weeks. - Pt also has a nevus on her chest that is tender when she scratches at it. She has had this nevus for a long time. 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 Dilaudid [Hydromorphone] Severe headache ??? Preparation H [Phenylephrine-Witch Jazmin] Causes more irritation. CURRENT MEDICATIONS: Current Outpatient Medications Medication Sig Dispense Refill ??? omeprazole (PRILOSEC) 40 mg Capsule, Delayed Release(E.C.) Take 1 capsule by mouth daily. 30 capsule 11 ??? mesalamine (PENTASA) 500 mg Capsule, Sustained Release Take 4 capsules by mouth 2 times daily. 240 capsule 3 ??? buPROPion (WELLBUTRIN XL) 300 mg Tablet Extended Release 24 hr take 1 tablet by mouth once daily 0 ??? dextroamphetamine-amphetamine (ADDERALL XR) 30 mg Capsule, Sust. Release 24 hr PRN 0 ??? cholecalciferol, Vitamin D3, 50,000 unit Capsule take 1 capsule by mouth weekly 0 ??? modafinil (PROVIGIL) 200 mg Tablet take 1 tablet by mouth twice a day 0 ??? venlafaxine (EFFEXOR-XR) 75 mg Capsule, Sust. Release 24 hr 0 ??? ibuprofen (ADVIL;MOTRIN) 200 mg tablet Take 200 mg by mouth every 6 hours as needed. ??? venlafaxine (EFFEXOR-XR) 150 mg 24 hr capsule Take 150 mg by mouth daily. Total of 225 mg ??? acetaminophen (TYLENOL) 325 mg tablet (Patient not taking: No sig reported) No current facility-administered medications for this visit. PROBLEM LIST: Patient Active Problem List Diagnosis Code ??? Right wrist pain M25.531 ??? Chronic diarrhea K52.9 ??? 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 Constipation K59.00 ??? Gastritis and duodenitis K29.90 ??? Cholelithiasis K80.20 ??? Depression F32.9 ??? Somnolence, daytime R40.0 ??? Low back pain M54.5 ??? GERD (gastroesophageal reflux disease) K21.9 ??? Chronic constipation K59.09 ??? Sleep apnea G47.30 ROS General: feeling well. Oriented X 3. Skin: denies other skin complaints EXAM General: NAD, pleasant, cooperative Skin: A focused skin examination of the left cheek and chest, significant for the following: Significant skin findings: -Left cheek x 3: pink, gritty papules. [Total: 3] -Right chest: brown fleshy papule. -No fever blisters noted on examination today. -No perioral dermatitis noted on examination today. ASSESSMENT/PLAN Actinic Keratoses - Explained etiology, natural history and premalignent potential of these lesions. - Discussed treatment with cryotherapy, including the risks and benefits. - Patient elects to proceed with cryotherapy today. Procedure: Destruction of lesion(s) with cryotherapy (LN2). Location(s): As noted above. Number: 3 Discussed procedure and expectations, including risks (especially hypopigmentation) and benefits. Verbal consent obtained. Frozen with LN2, 15-30 second thaw time, twice. There were no complications;patient tolerated the procedure well. Post-procedure expectations and wound care reviewed. - Instructed patient to return to clinic for re-evaluation if lesion(s) does not resolve with this treatment. Dermal Nevus - Discussed benign nature of lesion and provided reassurance. No treatment necessary at this time. Herpes Simplex Virus (HSV-1) - Start Rx: Valtrex 1 gram Take 1 tablet daily for 6 months. Perioral Dermatitis, not present on exam today - Discussed nature of condition and treatment options, including trial of metronidazole topical. - Start Rx: Metronidazole cream. Apply to the affected area on the face 1-2 times daily. RTC - 6 months for a HSV follow up; sooner if needed. Appointment scheduled before exiting. Instructed patient to call with questions or concerns. Note initiated and routed to physician for review and change by: Rosa Mendez, [facility] I, Tiffanie Green, Clinical Scribe have performed the documentation for this encounter in the presence of and acting as a scribe for Maty Barrios MD. I, Dr. Maty Barrios, performed the visit service though my nurse assisted me in scribing the note. I reviewed and edited this note above, a scribed service performed by my nurse. On closure of this note I agree with the accuracy of the documentation. Maty Barrios MD Section of Dermatology [facility] documented in this encounter Plan of Treatment Not on file documented as of this encounter Visit Diagnoses Diagnosis Actinic keratoses Actinic keratosis Dermal nevus of other site Benign neoplasm of other specified sites of skin Perioral dermatitis Rosacea Herpes simplex virus type 1 (HSV-1) dermatitis Herpes simplex with other specified complications documented in this encounter Care Teams Coffee Attendant Relationship Specialty Start Date End Date Marleni Gallagher APRN [address] [place] [address] PCP - General Family Medicine 12/11/16 documented as of this encounter
--- OUTSIDE RECORDS SUMMARY | 2024-03-02 14:13 | XMS_ITS | Encounter Summary ---
Author Organization [facility] Address [facility] [place] [address] Care Team Providers Care Fitting Room Supervisor Name Role Phone Mando Loera MD Primary Care Provider [phone] Encounter Details Date Type Department Care Team (Late st Contact Info) Description 08/27/2011 Orders [place] [address] Joseph Vasquez MD [facility] [place] [address] Gastritis and duodenitis (Primary Dx) Social History Tobacco Use Types [...] as of this encounter Visit Diagnoses Diagnosis Gastritis and duodenitis- Primary Unspecified gastritis and gastroduodenitis without mention of hemorrhage documented in this encounter Care Teams Fitting Room Supervisor Relationship Specialty Start Date End Date Mando Loera MD [address] [place] [address] PCP - General 08/27/11 10/24/15 documented as of this encounter
--- OUTSIDE RECORDS SUMMARY | 2024-03-02 14:13 | XMS_ITS | Encounter Summary ---
Author Organization [facility] Address [facility] [place] [address] Care Team Providers Care Fixed Assets Accountant Name Role Phone Kenton Russo DO Primary Care Provider Reason for Visit * Reason Comments Thyroid Nodule * Consultation (Routine) - Closed Specialty Diagnoses / Procedures Referred By Lynda fabian Referred To Contact Endocrinology Diagnoses Goiter Goiter, losts of symptoms, rule out thyroid disease. Labs pending Kenton Russo DO [address] [place] [address] [facility] [address] [place] [address] Referral ID Status Reason Start Date Expiration Date V isits Requested Visits Authorized [id number] Closed Consult, Test [facility] PCP Updated and/or Approved 10/28/2015 10/27/2016 6 6 Encounter Details Date Type Department Care Team (Late st Contact Info) Description 12/05/2015 1:00 PM EDT Office [place] [address] Mando Mo MD [facility] [place] [address] Chronic fatigue Social History Tobacco Use Types Packs/Day Years [...] Sign Reading Time Taken Comments Blood Pressure 108/67 12/05/2015 12:54 PM EDT Pulse 84 12/05/2015 12:54 PM EDT Temperature - - Respiratory Rate - - Oxygen Saturation - - Inhaled Oxygen Concentration - - Weight 77.1 kg (170 lb) 12/05/2015 12:54 PM EDT Height 169.5 cm (5' 6.75) 12/05/2015 12:54 PM E DT Body Mass Index 26.83 12/05/2015 12:54 PM EDT documented in this encounter Progress Notes * Mando Mo MD - 12/05/2015 1:27 PM EDT Subjective: Patient ID: Deb Mullins is a 40 y.o. female who comes here on the advice of her PCP, Dr. Russo,to talk about the patient's multiple symptoms and also the possibility she has a goiter. There was a mention in the referral note of trying thyroid suppression. 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 She has also had hair thinning, and dry hair. Has had a weight loss but then some more recent weight gain (she said she used to weigh over 200, lost down to around 149 while she was on some Adderall, and then increased now back to the mid 170s). In her chart there is a mention that she had a history of Crohn's disease. REVIEW OF SYSTEMS: No history of any heart disease, lung disease. She had a kidney stone in the past but nothing recent (1998). No diabetes. FAMILY HISTORY: Her father and paternal grandmother had type 2 diabetes and on the father's side the grandmother and aunts have had thyroid disease. HABITS: Does not smoke. Uses alcohol socially. Wears seatbelt. SOCIAL HISTORY: . Has 2 children of her own and 2 stepchildren. As mentioned above, works as a nurse at the [employer]. MISCELLANEOUS: Had a hysterectomy (ovaries still in place) a few years ago due to excessive bleeding and anemia. She does says she spontaneously has been bruising and has some stretch jimenez that date back to her pregnancies. . HPI Review of Systems Objective: Physical Exam Constitutional: She is oriented to person, place, and time. She appears well- developed and well-nourished. Not cushingoid in appearance. Eyes: Right eye exhibits no discharge. Left eye exhibits no discharge. No scleral icterus. Neck: Has full appear ing neck but seems to have prominent SCM bilaterally; thyroid is easily palpated and symmetric, no nodules, non tender, upper range of normal in size (~15 grams). Abdominal: Non-pigmented striae on abdomen. Musculoskeletal: She exhibits edema. Trace pedal edema bilaterally. Neurological: She is alert and oriented to person, place, and time. Skin: Numerous small ecchymoses on arms. Psychiatric: She has a normal mood and affect. Her behavior is normal. Thought content normal. BP 108/67 Pulse 84 Ht 169.5 cm (5' 6.75) Wt 77.1 kg (170 lb) BMI 26.83 kg/m2 Assessment and Plan: Patient has been referred by Dr. Russo to evaluate whether or not she has thyroid disease and whether she has a thyroid enlargement (goiter). Her most recent thyroid function test showed that her total T4 and total T3 were in the midrange of normal. Her TSH level was 1.99. She had normal amounts of anti-TPO antibodies and undetectable thyroglobulin antibodies. She says she has had her thyroid test done several times in the past, and they have always been normal. On my exam today, she does have a somewhat full neck, but I think a lot of that is due to big sternocleidomastoid muscles and some adipose tissue. I can clearly feel her thyroid, and I do not feel that it is definitely enlarged. It may be slightly generous but certainly not abnormally enlarged, and I do not feel any abnormalities within the thyroid. I reassured Deb that I did not feel she had any thyroid disease and certainly did not think she has any symptoms caused by the thyroid. She does have some bruising, had some weight gain. I think it is worthwhile to rule out Jah syndrome, but I think it is unlikely (especially in due to the fact that her blood pressures is in the low-normal range). I told her that I understand that she is frustrated by the fact that she is not feeling well. We talked about whether or not, not feeling well could cause depression, although the depression could be causing her not to feel well. She fully admits that there is a lot of depression in her family, and I would not be surprised if this is playing a role. I told her from an endocrine standpoint, if her overnight dexamethasone suppression test is negative, then I do not think there is any obvious endocrine problems that are causing her symptoms. I told her I will write to her with the results and send a copy to Dr. Russo. documented in this encounter Plan of Treatment Not on file documented as of this encounter Visit Diagnoses Diagnosis Chronic fatigue Other malaise and fatigue documented in this encounter Care Teams Fixed Assets Accountant Relationship Specialty Start Date End Date Kenton Russo DO [address] [place] [address] PCP - General General Internal Medicine 10/25/1512/10 documented as of this encounter
--- OUTSIDE RECORDS SUMMARY | 2024-03-02 14:13 | XMS_ITS | Encounter Summary ---
Author Organization [facility] [place] [address] Care Team Providers Care Slots Manager Name Role Phone Grayson Valladares MD Primary Care Provider [phone] Reason for Visit * Reason Onset Date Comments Other 05/21/2011 medication luz elena tance program Encounter Details Date Type Department Care Team (Late st Contact Info) Description 05/21/2011 [place] [address] Prudence Keith Other (medication assistance program) Social [...] * Telephone Encounter - Prudence Keith - 05/21/2011 9:02 AM EST Medication Assistance Program: I received a completed Bladimir Cares application and a Pentasa prescription from Gastroenterology. I will hold the application until Deb has returned proof of income. documented in this encounter Plan of Treatment Not on file documented as of this encounter Visit Diagnoses Not on filedocumented in this encounter Care Teams Slots Manager Relationship Specialty Start Date End Date Grayson Valladares MD [address] [place] [address] PCP - General 06/03/10 08/26/11 documented as of this encounter
--- OUTSIDE RECORDS SUMMARY | 2024-03-02 14:13 | XMS_ITS | Encounter Summary ---
Author Organization [facility] Address [facility] [place] [address] Care Team Providers Care Tow Truck Driver Name Role Phone Marleni Gallagher APRN Primary Care Provider Reason for Visit * Auth/Cert Specialty Diagnoses / Procedures Referred By Lynda fabian Referred To Contact Diagnoses abdominal pain, constipation, h/o Crohn's disease, needs to restage disease Procedures PRO COLONOSCOPY, DIAGNOSTIC PRO UPPER GI ENDOSCOPY, DIAGNOSTIC COLONOSCOPY, DIAGNOSTIC EGD, UPPER GI ENDOSCOPY Referral ID Status Reason Start Date Expiration Date Visits Re quested Visits Authorized [id number] 1 1 Encounter Details Date Type Department Care Team (Late st Contact Info) Description 05/13/2017 9:42 AM EDT - 05/13/2017 2:43 PM EDT Hospital En[place] [address] Jose Bianchi MD [facility] [place] [address] Discharge Disposition: Home Social History Tobacco Use [...] Sign Reading Time Taken Comments Blood Pressure 108/83 05/13/2017 2:15 PM EDT Pulse 86 05/13/2017 10:56 AM EDT Temperature - - Respiratory Rate 16 05/13/2017 10:56 AM EDT Oxygen Saturation 100% 05/13/2017 2:15 PM EDT Inhaled Oxygen Concentration - - [...] to be checked. Wednesday-Wednesday Same Day Endo [phone] Otherwise contact [phone] and ask to speak to the in service coordinator respiratory practitioner Follow up care is a dominguez part [...] Report (05/13/2017 1:24 PM EDT) Final Diagnosis [id number] ? Location: 4T; 08; A The signing pathologist has (i) examined [...] Sriram Grant Verified: ??05/17/2017 ?Pathologist Performed at: ??-[facility]. [place], [place], [place] DISCUSSION 1. ??The findings are consistent [...] ??sns SPECIMEN PROCESSING ' 05/17/2017 11:00 AM [facility] GI Biopsy 05/13/2017 1:24 PM EDT 05/13/2017 1:24 PM EDT GI Biopsy 05/13/2017 1:24 PM EDT 05/13/2017 1:24 PM EDT GI Biopsy 05/13/2017 1:24 PM EDT 05/13/2017 1:24 PM EDT GI Biopsy 05/13/2017 1:24 PM EDT 05/13/2017 1:24 PM EDT GI Biopsy 05/13/2017 1:24 PM EDT 05/13/2017 1:24 PM EDT Jose Bianchi MD PATHOLOGY/CYTOLOG Y ORDERABLES Performing Organization Address [facility] [place] [address] * Specimen to Pathology (surgical or derm) (05/13/2017 1:24 PM EDT) AP Specimen 05/13/2017 1:24 PM EDT 05/13/2017 1:24 PM EDT Narrative [facility] - 05/13/2017 1:24 PM EDT Specimen requisition ordered. ??Separate Pathology report to follow Jose Bianchi MD PATHOLOGY/CYTOLOG Y ORDERABLES Performing Organization Address [facility] [place] [address] * Specimen to Pathology (surgical or derm) (05/13/2017 1:24 PM EDT) AP Specimen 05/13/2017 1:24 PM EDT 05/13/2017 1:24 PM EDT Narrative [facility] - 05/13/2017 1:24 PM EDT Specimen requisition ordered. ??Separate Pathology report to follow Jose Bianchi MD PATHOLOGY/CYTOLOG Y ORDERABLES Performing Organization Address [facility] [place] [address] * Specimen to Pathology (surgical or derm) (05/13/2017 1:24 PM EDT) AP Specimen 05/13/2017 1:24 PM EDT 05/13/2017 1:24 PM EDT Narrative [facility] - 05/13/2017 1:24 PM EDT Specimen requisition ordered. ??Separate Pathology report to follow Jose Bianchi MD PATHOLOGY/CYTOLOG Y ORDERABLES Performing Organization Address [facility] [place] [place] [address] * Specimen to Pathology (surgical or derm) (05/13/2017 1:24 PM EDT) AP Specimen 05/13/2017 1:24 PM EDT 05/13/2017 1:24 PM EDT Narrative [facility] - 05/13/2017 1:24 PM EDT Specimen requisition ordered. ??Separate Pathology report to follow Jose Bianchi MD PATHOLOGY/CYTOLOG Y ORDERABLES Performing Organization Address [facility] [place] [place] [address] * Specimen to Pathology (surgical or derm) (05/13/2017 1:24 PM EDT) AP Specimen 05/13/2017 1:24 PM EDT 05/13/2017 1:24 PM EDT Narrative [facility] - 05/13/2017 1:24 PM EDT Specimen requisition ordered. ??Separate Pathology report to follow Jose Bianchi MD PATHOLOGY/CYTOLOG Y ORDERABLES Performing Organization Address [facility] [place] [place] [address] * SMALL BOWEL ENTEROSCOPY (05/13/2017 11:31 AM EDT) SMALL BOWEL ENTEROSCOPY [facility] Endoscopy Procedure Date: 05/13/2017 11:31 AM ? Patient Name: Deb Mullins ? Date of : 1975 ? Age: 41 ? Order #: [id number] ? Instrument Name: [id number] ? Procedure: ? Small bowel enteroscopy Indications: ? Abnormal abdominal CT, Follow-up of ? Crohn's disease of the small bowel ? and colon Providers: ? Jose Bianchi MD, Jose Elizabeth ? Carmen, TIFFANY, Christie Coon Referring : ?Marleni Gallagher Requesting [...] performed the entire procedure. ? Dr. Danyel Bainchi Jose Bianchi MD 05/13/2017 1:43:29 PM Number of Addenda: 0 Note Initiated On: 05/13/2017 11:31 AM PROVATION 05/13/2017 11:3 1 AM EDT Marleni Gallagher APRN GENERAL SURGICAL ORD ERABLES PROVATION * COLONOSCOPY (05/13/2017 11:19 AM EDT) COLONOSCOPY [facility] Endoscopy Procedure Date: 05/13/2017 11:19 AM ? Patient Name: Deb Mullins ? Date of : 1975 ? Age: 41 ? Order #: [id number] ? Instrument Name: [id number] ? Procedure: ? Colonoscopy Indications: ? Disease [...] ? Jose Morales RN Referring : ?Marleni Gallagher Requesting Provider: Altagracia [...] preparation was evaluated using ? the BBPS (Prospect Bowel Preparation ? Scale) with scores of: [...] PROVATION 05/13/2017 11:1 9 AM EDT Marleni Gallagher PRIMER WATERPROOFING MACHINE OPERATOR GENERAL SURGICAL ORD ERABLES PROVATION documented in [...] MD) documented in this encounter Care Teams Tow Truck Driver Relationship Specialty Start Date End Date Marleni Gallagher APRN [address] [place] [address] PCP - General Family Medicine 12/11/16 documented as of this encounter
--- OUTSIDE RECORDS SUMMARY | 2024-03-02 14:13 | XMS_ITS | Encounter Summary ---
Author Organization [facility] [place] [address] Care Team Providers Care Bristle Machine Operator Name Role Phone Natalio Gallagher APRN Primary Care Provider [phone] Reason for Visit * Reason Comments Follow-up Encounter Details Date Type Department Care Team (Late st Contact Info) Description 06/15/2017 3:30 PM EST Office [place] [address] Altagracia Ng [facility] [address] [place] [address] Crohn's disease of large intestine without complication; Gastroesophageal reflux disease without esophagitis Social History Tobacco Use Types Packs/Day Years [...] Sign Reading Time Taken Comments Blood Pressure 122/77 06/15/2017 3:23 PM EST Pulse 88 06/15/2017 3:23 PM EST Temperature - - Respiratory Rate - - Oxygen Saturation - - Inhaled Oxygen Concentration - - Weight 83.9 kg (185 lb) 06/15/2017 3:23 PM EST Height 169.5 cm (5' 6.75) 06/15/2017 3:23 PM ES T Body Mass Index 29.19 06/15/2017 3:23 PM EST documented in this encounter Patient Instructions * Patient Instructions* Altagracia Ng APRN - 06/15/2017 3:30 PM EST - Pentasa 4 caps twice daily - Prilosec 40 mg once daily - continue dicyclomine 1 tab three times daily as needed for crampy pain - use miralax for constipation - Avoid all NSAIDs. Ok to use Tylenol for aches and pain Please contact PCP to help with chronic back pain management documented in this encounter Progress Notes * Altagracia Ng APRN - 06/15/2017 3:30 PM EST Primary care provider: NATALIO GALLAGHER APRN ?? Referring provider: Natalio Gallagher APRN Other providers: ? Reason for visit: Crohn's disease ? Detailed IBD History:? # Crohns's disease, mild. - H/O diarrhea x 1 year (2008) then sxs improved since 07/2009. - H/O constipation as a teenager - H/O bulimia Testings:?? 08/21/09 EGD and colonoscopy ([facility], Dr. Ortega): 1. gastric antrum ulcer, [...] cells and giant cells. - 2009 colonoscopy [facility], endoscopically looks normal but pathology suggestive of Crohn's. - 2009 EGD- biospy mild duodenitis, mild chronic inactive gastritis - 10/2008 TPMT 33.7 normal enzyme activity - 03/10/11 capsule endoscopy:mild Crohn's in the jejunum and distal ileum -08/27/2011 EGD: Normal esophagus. Normal stomach. Small erosions in the duodenum-?? possibly consistent with very mild upper tract Crohn's disease. - 08/27/2011 Colonoscopy: Preparation of the colon was fair. The examined portion of the ileum ??was normal.Mild patchy inflammation seen in the colon consistent with mild Crohn's colitis. ? A - Duodenum, biopsy:??Chronic active duodenitis. ? B - Stomach, biopsy:??Gastric antrum-type and body/fundic-type mucosa with chronic inactive ?gastritis.??Immunostaining for H. pylori is negative. ? C - Ileum, biopsy:Focal active ileitis and epithelioid granulomas. ? D - Right colon, biopsy:??Patchy mildly active colitis negative for dysplasia or granuloma. ? E - Left colon, biopsy:??Patchy mild chronic inactive colitis, negative for dysplasia or ?granuloma. - 10/25/16 CT abd/pelvis (at OSH d/t [...] obstruction and the examination is otherwise unremarkable. - 04/07/17 ??MRE ( [facility]): No evidence of active inflammatory bowel disease. [...] is no evidence of dysplasia or malignancy. # Anemia - hgb 8.1, MCV 65.5 in 07/2009. - blood transfusion. - oral iron supplement ? 06/2017 Interval History: Patient with h/o Crohn's disease, chronic constipation, abdominal pain presents for f/u and to discuss recent testings. Historically, she has been non compliant with medications and follow up. I saw her last 02/2017. Please see previous HPI notes for details. Since our last visit she continues to get episodic increased abdominal pain. Mostly triggered by foods: Peanut butter, protein bar; shrimp, scampi, bread, oil, mussels, ham/cheese omelet, sweet potatoes. Both in October and April, she was seen in the ER for increased abd'l pain that was as triggered byfoods. She had CT scan in October found Mild thickening of the wall of the duodenum and proximal jejunum. This may represent an infectious for inflammatory enteritis. This would be consistent with an exacerbation of Crohn's disease. Cholelithiasis. No biliary ductal dilatation. She had abd'l u/s found Cholelithiasis. There is no acoustical evidence of acute cholecystitis or biliary obstruction and the examination is otherwise unremarkable. She had another CT scan this OCT per pt found jejunal thickening (this was not seen on MRE last March). We do not have official reports at this time.In the ER she was given Rx for dicyclomine forher crampy pain and has been helpful. As for her bowels, no diarrhea but gets constipated instead. Having Bm every day but only small pieces of hard ball stool. She has Miralax but tend to forget totake it. She takes daily Ibuprofen and tylenol for her chronic back pain. Recently,she has been having heartburn sx's. No n/v. No f/c. ? Review of Systems :as above, the rests negative. Past Medical History: Diagnosis Date ??? Cholelithiasis [...] 3.66) performed by Jose Bianchi MD at [facility] ??? PRO COLONOSCOPY, DIAGNOSTIC 08/27/2011 COLONOSCOPY, DIAGNOSTIC performed by KVNG YUEN at [facility] ??? PRO COLONOSCOPY, FLEX, W/DIR SUBMUC INJECT N/A 05/13/2017 COLONOSCOPY WITH DIRECTED SUBMUCOSAL INJ (WRVU 3.66) performed by Jose Bianchi MD at [facility] ??? PRO UPPER GI ENDOSCOPY, BIOPSY N/A 05/13/2017 EGD WITH BIOPSY (WRVU 2.49) performed by Jose Bianchi MD at [facility] ??? UPPER GI ENDOSCOPY, EXAM 08/27/2011 UPPER GI ENDOSCOPY performed by KVNG YUEN at [facility] Social History Social History ??? Marital status: Spouse name: N/A ??? Number of children: N/A ??? Years of education: N/A Occupational History ??? Not on file. Social History Main Topics ??? Smoking status: Former Smoker Packs/day: 0.50 Years: 3.00 Types: Cigarettes Quit date: 07/05/2000 ??? Smokeless tobacco: Never Used Comment: social smoker for a couple of years, less than 1 p/d ??? Alcohol use 4.2 oz/week 7 Glasses of wine per week ??? Drug use: Yes Special: Other pain meds (fentanyl patch, actiq-lozenges, stadol, etc) Comment: vicodin ??? Sexual activity: Not on file Other Topics Concern ??? Not on file Social History Narrative No family history on file. Vitals: 06/15/17 1523 BP: 122/77 Pulse: 88 Weight: 83.9 kg (185 lb) Height: 169.5 cm (5' 6.75) Physical Exam Constitutional: She appears well-developed and well-nourished. No distress. Eyes: Conjunctivae are normal. No scleral icterus. Cardiovascular: Normal rate and regular rhythm. Pulmonary/Chest: Effort normal and breath sounds normal. No respiratory distress. Abdominal: Soft. Bowel sounds are normal. She exhibits no distension. There is no tenderness. Neurological: She is alert. Skin: Skin is warm and dry. RECENT TESTINGS: Ref. Range 03/09/2017 16:45 WBC Latest Ref Range: 4.0 - 9.5 x10(3)/mcL 7.1 RBC Latest Ref Range: 4.00 - 5.21 x10(6)/mcL 4.42 Hemoglobin Latest Ref Range: 11.7 - 15.5 gm/dL 12.6 Hematocrit Latest Ref Range: 35.7 - 45.8 % 37.3 MCV Latest Ref Range: 82.6 - 94.4 fL 84.4 MCH Latest Ref Range: 27.1 - 32.0 pg 28.5 MCHC Latest Ref Range: 31.7 - 35.0 gm/dL 33.8 RDWSD Latest Ref Range: 37.0 - 46.0 fL 42.5 RDWCV Latest Ref Range: 11.5 - 14.1 % 13.7 Platelets Latest Ref Range: 145 - 357 x10(3)/mcL 378 (H) MPV Latest Ref Range: 7.6 - 12.9 fL 8.8 nRBC % Auto Latest Units: % 0.0 nRBC Abs Auto Latest Ref Range: 0.000 - 0.000 x10(3)/mcL 0.000 Neutr Abs (ANC) Latest Ref Range: 1.70 - 6.10 x10(3)/mcL 4.33 Neutrophils % Latest Units: % 60.6 Immature Gran % Latest Units: % 0.60 Lymphocytes % Latest Units: % 27.6 Monocytes % Latest Units: % 8.0 Eosinophils % Latest Units: % 2.5 Basophils % Latest Units: % 0.7 Kizzy Gran Abs Latest Ref Range: 0.00 - 0.04 x10(3)/mcL 0.04 Lymphocytes Abs Latest Ref Range: 0.9 - 3.2 x10(3)/mcL 2.0 Monocyte Abs Latest Ref Range: 0.3 - 0.9 x10(3)/mcL 0.6 Eosinophils Abs Latest Ref Range: 0.0 - 0.4 x10(3)/mcL 0.2 Basophils Abs Latest Ref Range: 0.0 - 0.1 x10(3)/mcL 0.0 Sed Rate Latest Ref Range: 0 - 20 mm/hr 8 Sodium Latest Ref Range: 135 - 145 mmol/L 141 Potassium Latest Ref Range: 3.5 - 5.0 mmol/L 4.5 Chloride Latest Ref Range: 98 - 107 mmol/L 101 CO2 Latest Ref Range: 22 - 31 mmol/L 27 Anion Gap Latest Ref Range: 5 - 15 mmol/L 13 BUN Latest Ref Range: 8 - 18 mg/dL 14 Creatinine Latest Ref Range: 0.70 - 1.20 mg/dL 0.68 (L) Estimated GFR Latest Ref Range: >=60 >60 Glucose Fasting Latest Ref Range: 65 - 99 mg/dL 86 Calcium Latest Ref Range: 8.5 - 10.5 mg/dL 9.5 Total Protein Latest Ref Range: 6.1 - 8.0 gm/dL 7.6 Albumin Latest Ref Range: 3.2 - 5.2 gm/dL 4.5 Total Bilirubin Latest Ref Range: 0.2 - 1.3 mg/dL 0.2 Alk Phos Latest Ref Range: 40 - 104 unit/L 86 AST Latest Ref Range: 0 - 30 unit/L 15 ALT Latest Ref Range: 0 - 30 unit/L 18 CRP Latest Ref Range: <=4.9 mg/L 6.2 (H) Recent relevant imaging ??See above HPI. ?? 04/07/17 ??MRI ENTEROGRAPHY WWO CONTRAST?? FINDINGS: GI tract: No dilated small or large bowel, bowel wall thickening, or mesenteric inflammation. No mucosal hyperenhancement. Peritoneum/mesentery: No free fluid or focal fluid collection. ?? Liver: Normal signal, no lesions. Bile ducts: Nondilated. Gallbladder: No gallstones. Normal caliber wall. Pancreas: Normal. Spleen: Normal. Adrenals: Normal. Kidneys: Normal. ?? Lymph nodes: No lymphadenopathy. Reproductive structures: Normal. Osseous structures: No marrow signal abnormality. ?? IMPRESSION No evidence of active inflammatory bowel disease. ?? I have personally reviewed the image(s) and the residents interpretation and agree with the findings, Jose Murray at 04/08/2017 9:53 AM ?? Endoscopy: Colonoscopy ? Findings: ?The perianal and digital rectal examinations were ?normal. ?A polypoid and ulcerated non-obstructing small (15mm) ?mass was found in the descending colon at ?approximately 50 cm.??The mass was ?non-circumferential. No bleeding was present. ?Biopsies were taken with a cold forceps for ?histology. Attempted to relocate for tattoo to better ?localize however despite a prolonged effort the site ?could not be well visualized for placement of tattoo. ?The entire examined colon appeared otherwise normal. ?Biopsies were taken with a cold forceps for histology ?(Right and left colon). ?The terminal ileum appeared normal with excellent ?exam to over 30 cm. ? Moderate Sedation: ?Not applicable - See Anesthesia documentation Impression: ?- Inflammatory mass in the descending ?colon. Biopsied. ?- The entire examined colon is ?normal. Biopsied. ?- The examined portion of the ileum ?was normal. Recommendation: ?- Await pathology results. ?- Follow-up in IBD Clinic. ? Attending Participation: ?I personally performed the entire procedure. ? Dr. Danyel Bianchi Jose Bianchi MD 05/13/2017 1:32:26 PM Number of Addenda: 0 Small bowel enteroscopy Indications: ? Abnormal abdominal CT, Follow-up of ?Crohn's disease of the small bowel ?and colon Providers: ? Jose Bianchi MD, Jose Elizabeth ?Carmen, RN, Christie Weinberg MD: ?Natalio Aileen Requesting Provider: Altagracia Ng MD Medicines: ? Monitored Anesthesia Care Complications: ? No immediate complications. Procedure: ? Pre-Anesthesia Assessment: ?- Prior to the procedure, a History ?and Physical was performed, and ?patient medications and allergies ?were reviewed. The patient's ?tolerance of previous anesthesia was ?also reviewed. The risks and benefits ?of the procedure and the sedation ?options and risks were discussed with ?the patient. All questions were ?answered, and informed consent was ?obtained. Prior Anticoagulants: The ?patient has taken no previous ?anticoagulant or antiplatelet agents. ?ASA Grade Assessment: II - A patient ?with mild systemic disease. After ?reviewing the risks and benefits, the ?patient was deemed in satisfactory ?condition to undergo the procedure. ?After obtaining informed consent, the ?endoscope was passed under direct ?vision. Throughout the procedure, the ?patient's blood pressure, pulse, and ?oxygen saturations were monitored ?continuously. The Colonoscope was ?inserted in the mouth and under ?direct visualization, advanced to ?jejunum, to the 130 cm enma (from the ?incisors). Careful inspection was ?made as the colonoscope was ?withdrawn. After obtaining informed ?consent, the endoscope was passed ? under direct vision. Throughout the ?procedure, the patient's blood ?pressure, pulse, and oxygen ?saturations were monitored ?continuously. The Colonoscope was ?inserted in the mouth and under ?direct visualization, advanced to ?jejunum, to the 130 cm enma (from the ?incisors). Careful inspection was ?made as the colonoscope was ?withdrawn. The small bowel ?enteroscopy was accomplished without ?difficulty. The patient tolerated the ?procedure well. ? Findings: ?The esophagus was normal. ?The stomach was normal. ?There was no evidence of significant pathology in the ?entire examined duodenum. Biopsies were taken with a ?cold forceps for histology. ?There was no evidence of significant pathology in the ?proximal jejunum. Biopsies were taken with a cold ?forceps for histology. ? Moderate Sedation: ?Not applicable - See Anesthesia documentation Impression: ?- Normal esophagus. ?- Normal stomach. ?- Normal examined duodenum. Biopsied. ?- The examined portion of the jejunum ?was normal. Biopsied. Recommendation: ?Proceed with colonoscopy. ? Attending Participation: ?I personally performed the entire procedure. ? Dr. Danyel Bianchi Jose Bianchi MD 05/13/2017 1:43:29 PM Number of Addenda: 0 Surgical Pathology A - Jejunum: Jejunal mucosa [...] Sriram Grant Verified: ??05/17/2017 ?Pathologist Performed at: ??-[facility] Dept. of Pathology, [place], [place] Impression/Plan Patient with h/o Crohn's disease, chronic constipation, abdominal pain. Historically, she has been non compliant with medications and follow up. She has been having intermittent episodes of abdominal pain and had severe self- limited episodes ofabdominal pain once in October then in April that required ER visit. She had CT scan in October (see above findings in Interval history and detailed IBD history). She had a recent MRE- no evidence of active IBD. Her colonoscopy and Small bowel enteroscopy are grossly normal, except for Inflammatory mass in thedescending colon. Pathology found mildly active colitis ( Right and left colon). The inflammatory mass is Inflammatory polyp. ??There is no evidence of dysplasia or malignancy. Her duodenum, pathology are consistent with peptic injury / NSAID. She takes daily NSAID's for chronic back pain. We discussed avoiding all NSAID's. She requests copy of reports and given to patient. In the past, she has been very reluctant to try IBD med's. We discussed that mesalamine is a weak med's for Crohn's disease but ok for mild disease. Reviewed potential side effects, risks/benefits. She is now willing to consider Pentasa. Heartburn sx's- will start PPI. Lastly, she queries about utility of getting capsule endoscopy. I told her that given she already had MRE, colo and small bowel enteroscopy, we could try med's as discussed above and if no better then will get capsule. She agreed on this. ? For now, - Pentasa 4 caps twice daily - Prilosec 40 mg once daily - continue dicyclomine 1 tab three times daily as needed for crampy pain - use miralax for constipation - Avoid all NSAIDs. Ok to use Tylenol for aches and pain Please contact PCP to help with chronic back pain management F/u with me in [address] Yuen at next opening. documented in this encounter Plan of Treatment Not on file documented as of this encounter Visit Diagnoses Diagnosis Crohn's disease of large intestine without complication Regional enteritis of large intestine Gastroesophageal reflux disease without esophagitis Esophageal reflux documented in this encounter Care Teams Bristle Machine Operator Relationship Specialty Start Date End Date Natalio Gallagher APRN [address] [place] [address] PCP - General Family Medicine 12/11/16 documented as of this encounter
--- OUTSIDE RECORDS SUMMARY | 2024-03-02 14:13 | XMS_ITS | Encounter Summary ---
Author Organization [facility] Address [facility] [place] [address] Care Team Providers Care Retail Pos Specialist Name Role Phone Marleni Gallagher APRN Primary Care Provider Encounter Details Date Type Department Care Team (Latest Contact Info) Description 04/07/2017 4:34 PM EDT - 04/07/2017 11:59 PM EDT Hospital [place] [address] [facility] [place] [address] Discharge Disposition: Home Social History Tobacco Use [...] Diagnosis Comments MRI ENTEROGRAPHY WITH/WO CONTRAST Routine 04/07/2017 7:45 PM EDT Chronic abdominal pain documented in this encounter Visit Diagnoses Not on filedocumented in this encounter Administered Medications Inactive Administered Medications - up to 3 most recent administrations Medication Order MAR Action Action Date Dose Rate Site barium sulfate (VOLUMEN) oral suspension 1,350 mL 1,350 mL, Oral, ONCE PRN, 1 dose, Starting on Wed04/07/17 at 1940, Until Wed04/07/17 at 1830, Per Protocol, Routine Given 04/07/2017 6:30 PM EDT 1,350 mLs gadobutrol (GADAVIST) 1 mMol/mL injection 0-20 mL 0-20 mL, Intravenous, ONCE PRN, 1 dose, Starting on Wed04/07/17 at 1940, Until Wed04/07/17 at 1935, Per Protocol, Radiology Contrast, Routine Given 04/07/2017 7:35 PM EDT 8 mLs glucagon (human recombinant) injection SolR 1 mg 1 mg, Intramuscular, ONCE, 1 dose, On Wed04/07/17 at 1745, Routine Given 04/07/2017 7:20 PM EDT 1 mg documented in this encounter Care Teams Retail Pos Specialist Relationship Specialty Start Date End Date Marleni Gallagher, HVAC INSTALLATION TECHNICIAN [address] [place] [address] PCP - General Family Medicine 12/11/16 documented as of this encounter
--- OUTSIDE RECORDS SUMMARY | 2024-03-02 14:13 | XMS_ITS | Encounter Summary ---
Author Organization [facility] Address [facility] [place] [address] Care Team Providers Care Millroom Supervisor Name Role Phone Mando Loera MD Primary Care Provider [phone] Encounter Details Date Type Department Care Team (Late st Contact Info) Description 08/27/2011 10:00 AM EST - 08/27/2011 11:00 AM EST Surgery [place] [address] Kvng Yuen MD [facility] [place] [address] COLONOSCOPY, DIAGNOSTIC (WRVU 3.26) Social History Tobacco Use Types Packs/Day Years [...] Sign Reading Time Taken Comments Blood Pressure 84/49 08/27/2011 10:47 AM EST Pulse 67 08/27/2011 10:47 AM EST Temperature - - Respiratory Rate 16 08/27/2011 10:47 AM EST Oxygen Saturation 98% 08/27/2011 10:47 AM EST Inhaled Oxygen Concentration - - Weight 73.5 kg (162 lb) 08/27/2011 9:22 AM EST Height - - Body Mass Index 25.56 05/05/2011 1:24 PM EDT documented in this encounter Discharge Instructions * Discharge Instructions* Roz Alvarez RN - 08/27/2011 10:51 AM EST You may have received medications before and/or during your procedure which effects judgement and reaction time. Do not drive, operate machinery, drink alcoholic beverages or make important decisions for 24 hours. Be careful on stairs as you may be unsteady on your feet. You may eat a regular diet as tolerated. Do not smoke if you are alone. IV site-- slight redness or tenderness is normal. You may use a warm compress. If tenderness and redness increases or foul drainage occurs, please contact your MD/ Please call [phone] before 5pm with problems, questions or concerns. After 5pm call [phone] and ask to speak with the inventory auditor crayon molding machine operator. Discharge instructions reviewed with patient who expresses understanding. * Patient Instructions* Kvng Yuen MD - 08/27/2011 10:43 AM EST Please see Recommendations in the Provation procedure report which is documented in the procedural note in E-DH. * Attachments The following attachments cannot be sent through Care Everywhere. * COLONOSCOPY: WHAT TO EXPECT AT HOME ([place]OT[place]NAN) * UPPER GI ENDOSCOPY: WHAT TO EXPECT AT HOME ([place]NA[place]) documented in this encounter Medications at Time of Discharge Medication Sig Dispensed Refills Start Date End Date ibuprofen (ADVIL;MOTRIN) 200 mg tablet Take 200 mg by mouth every 6 hours as needed. acetaminophen (TYLENOL) 325 mg tablet 04/10/2010 omeprazole (PRILOSEC) 40 mg capsuleIndications:Gas tritis and duodenitis Take 1 capsule by mouth daily. 90 capsule 3 08/27/2011 08/26/2012 ALPRAZolam (XANAX) 1 mg tablet Take 0.5 mg by mouth 3 times daily as needed. 05/23/2015 mesalamine (PENTASA) 500 mg CR capsuleIndications:Licensed Audiologist hn's Take 4 capsules by mouth 2 times daily for 100 days. Pentasa Brand Only 100 capsule 3 05/19/2011 08/27/2011 ALPRAZolam (XANAX) 0.5 mg tablet Take 0.5 mg by mouth 2 times daily as needed. 05/23/2015 docusate sodium (COLACE) 100 mg capsule Take 100 mg by mouth 2 times daily. 05/23/2015 venlafaxine (EFFEXOR-XR) 150 mg 24 hr capsule Take 150 mg by mouth daily. Total of 225 mg 04/28/2021 Pgvskkcyoazir-Ss-Jsgb- Minerals (WOMEN'S DAILY MULTIVITAMIN) 18-0.4 mg Tab Take 1 tablet by mouth daily. 05/23/2015 Ferrous Fumarate 325 mg (106 mg Iron) Tab Take 1 tablet by mouth daily. 05/23/2015 LORAZEPAM ORAL Take by mouth nightly as needed. Take 0.5-1.0 mg at bedtime as needed. 05/23/2015 sertraline (ZOLOFT) 100 mg tablet Take 100 mg by mouth daily. 05/23/2015 sertraline (ZOLOFT) 100 mg tablet 04/10/2010 05/23/2015 omeprazole (PRILOSEC) 20 mg capsule 04/10/2010 05/23/2015 documented as of this encounter H&P Notes * Kvng Yuen MD - 08/27/2011 9:47 AM EST Patient Name: Deb Mendenhall Patient Age: 35 y.o. Birthdate: 1975 Admit date: 08/27/2011 Attending Physician: Kvng Yuen MD Gastroenterology and Hepatology Pre-Procedure History and Physical Exam Procedure: EGD and colonoscopy Indication: Crohn's disease follow-up Patient Active Problem List Diagnoses Code ??? Right wrist pain 719.43M ??? Chronic diarrhea 787.91K ??? Crohn's disease 555.9C ??? Constipation 564.00A ??? Gastritis and duodenitis 535.50W EXAM: HEENT: Airway examined, oropharynx clear LUNGS: Clear to auscultation HEART: Regular rate and rhythm, normal S1, S2 ABDOMEN: Normal bowel sounds, soft, non tender, non distended, A/P Proceed with EGD/colonoscopy Risks and benefits of the procedure explained to the patient. Consent signed. documented in this encounter Miscellaneous Notes * Miscellaneous - Provider, Scanning - 08/28/2011 12:58 AM EST * Miscellaneous - Provider, Scanning - 08/28/2011 12:55 AM EST * Miscellaneous - Provider, Scanning - 08/27/2011 12:31 PM EST * Op Note - Kvng Yuen MD - 08/27/2011 10:42 AM EST [facility] Operative Note Patient Name: Deb Mendenhall : [id number] MR#: [id number] Case Date: 08/27/2011 Surgeon: Surgeon(s) and Role: * KVNG YUEN MD - Primary Preoperative diagnosis: abdominal pain, Crohn's [consult] Postoperative diagnosis: * No post-op diagnosis entered * Procedure(s): COLONOSCOPY, DIAGNOSTIC UPPER GI ENDOSCOPY Full procedure note is documented under the Procedure section of eD. documented in this encounter Plan of Treatment Not on file documented as of this encounter Procedures Procedure Name Priority Date/Time Associated Diagnosis Comments SURGICAL PATHOLOGY REPORT Routine 08/27/2011 12:37 PM EST SPECIMEN TO PATHOLOGY Routine 08/27/2011 10:58 AM EST SPECIMEN TO PATHOLOGY Routine 08/27/2011 10:58 AM EST SPECIMEN TO PATHOLOGY Routine 08/27/2011 10:58 AM EST SPECIMEN TO PATHOLOGY Routine 08/27/2011 10:58 AM EST SPECIMEN TO PATHOLOGY Routine 08/27/2011 10:58 AM EST UPPER GI ENDOSCOPY Routine 08/27/2011 9: 52 AM EST UPPER GI ENDOSCOPY 08/27/2011 9: 51 AM EST Abdominal pain, other specified site COLONOSCOPY, DIAGNOSTIC (WRVU 3.26) 08/27/2011 9:51 AM EST Abdominal pain, other specified site COLONOSCOPY Routine 08/27/2011 9:49 AM EST documented in this encounter Results * SURGICAL PATHOLOGY REPORT (08/27/2011 12:37 PM EST) Surgical Pathology Report ? [facility] ? Provider: ?? KVNG YUEN ? Pt. Name: ?? DEB MENDENHALL ? Acc #: ?[id number] ?Pt. ? Col Date: ?? 08/27/2011 ? /Sex: ?1975,(35 years),Female ? Rec Date: ?? 08/27/2011 ? LOC: ?4T ? SURGICAL PATHOLOGY ? ---Pathologic Diagnosis--- ? A - Duodenum, biopsy: ?Chronic active duodenitis. ? B - Stomach, biopsy: ?Gastric antrum-type and body/fundic-typ e mucosa with chronic inactive ?gastritis. ?Immunostainin g for H. pylori is negative. ? C - Ileum, biopsy: ?Focal active ileitis and epithelioid granulomas. ? D - Right colon, biopsy: ?Patchy mildly active colitis negative for dysplasia or granuloma. ? E - Left colon, biopsy: ?Patchy mild chronic inactive colitis, negative for dysplasia or ?granuloma. ? CR-0 ? CR-PX ? 08/29/11 ? AJE ? 09/01/11 Verified by: ? Sammy Crane MD ? Pathologist ? (Electronic Signature) ? The attending pathologist whose signature appears on this report has ? reviewed all diagnostic slides and has edited the gross and/or ? microscopic portion of the report in rendering the final pathologic ? diagnosis. ? ---Microscopic Description--- ? Slides reviewed, microscopic description not recorded. ? ---Gross Description--- ? A - Labeled/Fixativ e: Duodenum, formalin. ? Qty/Size/Weight : ?Five, averaging 0.3 cm. ? Tissue Description: ?? Soft, waters tissues. ? Sections/Proces sing: ??(T1) ? B - Labeled/Fixativ e: Gastric, formalin. ? Qty/Size/Weight : ?Five, ranging from 0.1 cm to 0.3 cm in ? greatest dimension. ? Tissue Description: ?? Soft, waters tissues. ? Sections/Proces sing: ??(T1) ? [facility] ? Provider: ?? KVNG YUEN ? Pt. Name: ?? DEB MENDENHALL ? Acc #: ?[id number] ?Pt. ? Col Date: ?? 08/27/2011 ? /Sex: ?1975,(35 years),Female ? Rec Date: ?? 08/27/2011 ? LOC: ?4T ? SURGICAL PATHOLOGY ? C - Labeled/Fixativ e: Ileum, formalin. ? Qty/Size/Weight : ?Five, ranging from 0.2 cm to 0.7 cm in ? greatest dimension. ? Tissue Description: ?? Soft, waters tissues. ? Sections/Proces sing: ??(T1) ? D - Labeled/Fixativ e: Right colon, formalin. ? Qty/Size/Weight : ?Four, ranging from 0.1 cm to 0.5 cm in ? greatest dimension. ? Tissue Description: ?? Soft, waters tissues. ? Sections/Proces sing: ??(T1) ? E - Labeled/Fixativ e: Left colon, formalin. ? Qty/Size/Weight : ?Three, averaging 0.2 cm. ? Tissue Description: ?? Soft, waters tissues. ? Sections/Proces sing: ??(T1) ??vms/SNS ? ---Clinical Information--- ? Specimen Submitted: ? A - Duodenum ? B - Gastric ? C - Ileum ? D - Right colon ? E - Left colon ? Clinical History/Diagnos is: ? History of Crohn's disease, ? extent of disease [facility] 08/27/2011 12:3 7 PM EST Kvng Yuen MD PATHOLOGY/CYTOLOGY Tobias HOLLY Performing Organization Address [facility] Co de Phone Number ROBYN TORRES * Specimen to Pathology (surgical or derm) (08/27/2011 10:58 AM EST) AP Specimen 08/27/2011 10:5 8 AM EST 08/27/2011 10:58 AM EST Narrative ROBYN DERASIUM - 08/27/2011 10:58 AM EST Specimen requisition ordered. ??Separate Pathology report to follow Kvng Yuen MD PATHOLOGY/CYTOLOGY O ELAYNE Performing Organization Address [facility] Co de Phone Number ROBYN TORRES * Specimen to Pathology (surgical or derm) (08/27/2011 10:58 AM EST) AP Specimen 08/27/2011 10:5 8 AM EST 08/27/2011 10:58 AM EST Narrative ROBYN DERASIUM - 08/27/2011 10:58 AM EST Specimen requisition ordered. ??Separate Pathology report to follow Kvng Yuen MD PATHOLOGY/CYTOLOGY O ELANYE Performing Organization Address [facility] Co de Phone Number ROBYN TORRES * Specimen to Pathology (surgical or derm) (08/27/2011 10:58 AM EST) AP Specimen 08/27/2011 10:5 8 AM EST 08/27/2011 10:58 AM EST Narrative ROBYN DERASIUM - 08/27/2011 10:58 AM EST Specimen requisition ordered. ??Separate Pathology report to follow Kvng Yuen MD PATHOLOGY/CYTOLOGY O ELAYNE Performing Organization Address [facility] Co de Phone Number ROBYN TORRES * Specimen to Pathology (surgical or derm) (08/27/2011 10:58 AM EST) AP Specimen 08/27/2011 10:5 8 AM EST 08/27/2011 10:58 AM EST Narrative ROBYN DERASIUM - 08/27/2011 10:58 AM EST Specimen requisition ordered. ??Separate Pathology report to follow Kvng Yuen MD PATHOLOGY/CYTOLOGY O ELAYNE Performing Organization Address [facility]/ZIP Co de Phone Number [facility] * Specimen to Pathology (surgical or derm) (08/27/2011 10:58 AM EST) AP Specimen 08/27/2011 10:5 8 AM EST 08/27/2011 10:58 AM EST Narrative ROBYN TORRES - 08/27/2011 10:58 AM EST Specimen requisition ordered. ??Separate Pathology report to follow Kvng Yuen MD PATHOLOGY/CYTOLOGY O ELAYNE Performing Organization Address [facility]/ZIP Co de Phone Number [facility] * UPPER GI ENDOSCOPY (08/27/2011 9:52 AM EST) UPPER GI ENDOSCOPY [facility] Endoscopy Patient Name: Deb Mendenhall ? Procedure Date: 08/27/2011 9:52 AM ? Date of : 1975 ? Age: 35 ? Order #: [id number] ? Procedure: ? Upper GI endoscopy Indications: ? Crohn's disease Providers: ? Kvng Yuen MD, Ko Gan RN Referring MD: ? Medicines: ? Propofol per Anesthesia Complications: ? No immediate complications. Procedure: ? Pre-Anesthesia Assessment: ? - Prior to the procedure, a History ? and Physical was performed, and ? patient medications and allergies ? were reviewed. The patient is ? competent. The risks and benefits of ? the procedure and the sedation ? options and risks were discussed with ? the patient. All questions were ? answered and informed consent was ? obtained. Patient identification and ? proposed procedure were verified by ? the physician in the endoscopy suite. ? Mental Status Examination: normal. ? Airway Examination: normal ? oropharyngeal airway and neck ? mobility. Respiratory Examination: ? clear to auscultation. CV ? Examination: normal. ASA Grade ? Assessment: I - A normal, healthy ? patient. After reviewing the risks ? and benefits, the patient was deemed ? in satisfactory condition to undergo ? the procedure. The anesthesia plan ? was to use general anesthesia. ? Immediately prior to administration ? of medications, the patient was ? re-assessed for adequacy to receive ? sedatives. The heart rate, ? respiratory rate, oxygen saturations, ? blood pressure, adequacy of pulmonary ? ventilation, and response to care ? were monitored throughout the ? procedure. The physical status of the ? patient was re-assessed after the ? procedure. ? The procedure, indications, benefits, ? risks and alternatives were explained ? to the patient. Specifically ? discussed were potential ? complications including, but not ? limited to, bleeding, perforation, ? infection, missing a cancer, and ? adverse medication reactions. The ? Endoscope was introduced through the ? mouth, and advanced to the second ? part of duodenum. The patient ? tolerated the procedure well. The ? upper GI endoscopy was accomplished ? without difficulty. ? Findings: ? The esophagus was normal. The entire examined stomach ? was normal. Biopsies were taken with a cold forceps ? for histology. The duodenum had a few small erosions, ? that appear to be healing (or healed). In the ? duodenal bulb there was subtle mucosal fissuring. ? These regions were biopsied. ? Impression: ?- Normal esophagus. ? - Normal stomach. This was biopsied. ? - Small erosions in the duodenum - ? possibly consistent with very mild ? upper tract Crohn's disease. Biopsied. Recommendation: ?- Await pathology results. ? - Colonoscopy today. ? - Should be on a proton pump ? inhibitor, possibly more intensive ? Crohn's disease therapy. ? Kvng Yuen MD 08/27/2011 11:01 AM Number of Addenda: 0 Note Initiated On: 08/27/2011 9:52 AM PROVATION 08/27/2011 9:52 AM EST Unknown GENERAL SURGICAL ORD ERABLES PROVATION * COLONOSCOPY (08/27/2011 9:49 AM EST) COLONOSCOPY [facility] Endoscopy Patient Name: Deb Mendenhall ? Procedure Date: 08/27/2011 9:49 AM ? Date of : 1975 ? Age: 35 ? Order #: [id number] ? Procedure: ? Colonoscopy Indications: ? Follow-up of Crohn's disease of the ? small bowel and colon Providers: ? Kvng Yuen MD, Ko Gan RN Referring MD: ?Altagracia Ng MD Medicines: ? Propofol per Anesthesia Complications: ? No immediate complications. Procedure: ? Pre-Anesthesia Assessment: ? - Prior to the procedure, a History ? and Physical was performed, and ? patient medications and allergies ? were reviewed. The patient is ? competent. The risks and benefits of ? the procedure and the sedation ? options and risks were discussed with ? the patient. All questions were ? answered and informed consent was ? obtained. Patient identification and ? proposed procedure were verified by ? the physician in the endoscopy suite. ? Mental Status Examination: normal. ? Airway Examination: normal ? oropharyngeal airway and neck ? mobility. Respiratory Examination: ? clear to auscultation. CV ? Examination: normal. ASA Grade ? Assessment: I - A normal, healthy ? patient. After reviewing the risks ? and benefits, the patient was deemed ? in satisfactory condition to undergo ? the procedure. The anesthesia plan ? was to use general anesthesia. ? Immediately prior to administration ? of medications, the patient was ? re-assessed for adequacy to receive ? sedatives. The heart rate, ? respiratory rate, oxygen saturations, ? blood pressure, adequacy of pulmonary ? ventilation, and response to care ? were monitored throughout the ? procedure. The physical status of the ? patient was re-assessed after the ? procedure. ? The procedure, indications, benefits, ? [...] and under direct visualization, ? advanced to the terminal ileum. ? Careful inspection was made as the ? colonoscope was withdrawn. The ? colonoscopy was performed without ? difficulty. The patient tolerated the ? procedure well. The quality of the ? bowel preparation was fair. ? Findings: ? The terminal ileum was intubated to approximately ? 30cm proximal to the IC valve and appeared normal. ? This was biopsied. In the transverse colon and ? descending colon there were a few (4-5) regions of ? shallow ulcerations with surrounding erythema and ? contact friability. Otherwise the colon appeared ? normal. Biopsies were taken. ? Impression: ?- Preparation of the colon was fair. ? - The examined portion of the ileum ? was normal. ? - Mild patchy inflammation seen in ? the colon consistent with mild ? Crohn's colitis. Recommendation: ?- Await pathology results. ? - Consider capsule endoscopy to ? appreciate full extent of disease. ? - follow-up in IBD clinic to discuss ? symptoms and therapeutic options. ? Kvng Yuen MD 08/27/2011 11:06 AM Number of Addenda: 0 Note Initiated On: 08/27/2011 9:49 AM PROVATION 08/27/2011 9:49 AM EST Altagracia Ng APRN GENERAL SURGICAL ORDERABLES PROVATION documented in this encounter Visit Diagnoses Diagnosis Abdominal pain, other specified site documented in this encounter Administered Medications Inactive Administered Medications - up to 3 most recent administrations Medication Order MAR Action Action Date Dose Rate Site lactated ringers infusion 100 mL/hr, Intravenous, CONTINUOUS, Starting on Bernice 08/27/11 at 0930, Until Bernice 08/27/11 at 1604, Endoscopy (Day of Procedure) New Bag 08/27/2011 9:25 AM EST 100 mL/hr 100 mL/hr documented in this encounter Active and Recently Administered Medications Times are shown in EST. Continuous Medication Order 08/25/2011 08/26/2011 08/27/2011 lactated ringers infusion (CANCELED) 100 mL/hr, Intravenous, CONTINUOUS, Starting on Bernice 08/27/11 at 0930, Until Bernice 08/27/11 at 1604, Endoscopy (Day of Procedure) 0925 ([facility] ider: Rebecca Alfaro RN) documented in this encounter Care Teams Millroom Supervisor Relationship Specialty Start Date End Date Mando Loera MD [address] [place] [address] PCP - General 08/27/11 10/24/15 documented as of this encounter
--- OUTSIDE RECORDS SUMMARY | 2024-03-02 14:13 | XMS_ITS | Encounter Summary ---
Author Organization [facility] Address [facility] [place] [address] Care Team Providers Care Custom Dressmaker Name Role Phone Marleni Gallagher APRN Primary Care Provider [phone] Encounter Details Date Type Department Care Team (Latest Contact Info) Description 05/09/2017 - 05/09/2017 11:59 PM EDT Hospital Encounter [place] [address] Deven Leyva MD [facility] [place] [address] Pain Discharge Disposition: Home Social History Tobacco [...] STORAGE ONLY CT ABDOMEN AND PELVIS Routine 05/09/2017 12:00 AM EDT Pain documented in this encounter Results * Film Library- Storage Only CT Abdomen & Pelvis (05/09/2017 12:00 AM EDT) Narrative [facility] - 05/09/2017 11:52 AM EDT This exam is for storage only and is auto-finalizing. Deven Leyva MD IMG FILM LIBRARY ORD ERABLES Performing Organization Address City/State/[facility] Co de Phone Number [place], [place] documented in this encounter Visit Diagnoses Diagnosis Pain Generalized pain documented in this encounter Care Teams Custom Dressmaker Relationship Specialty Start Date End Date Marleni Gallagher, BIG DATA PLATFORM ARCHITECT [address] [place] [address] PCP - General Family Medicine 12/11/16 documented as of this encounter
--- OUTSIDE RECORDS SUMMARY | 2024-03-02 14:13 | XMS_ITS | Encounter Summary ---
Author Organization [facility] [place] [address] Care Team Providers Care Pot Room Tapper Name Role Phone Natalio Gallagher APRN Primary Care Provider [phone] Reason for Visit * Reason Comments GI Problem * Consultation (Routine) - Specialty Diagnoses / Procedures Referred By Lynda fabian Referred To Contact Gastroenterology Diagnoses chrohn's disease, cholelithiasis Natalio Gallagher APRN [address] [place] [address] [facility] [place] [address] Referral ID Status Reason Start Date Expiration Date V isits Requested Visits Authorized Consult, Test & Treat Connection Center 12/11/2016 12/11/2017 1 1 Encounter Details Date Type Department Care Team (Latest Contact Info) Description 03/09/2017 3:00 PM EDT Office [place] [address] Altagracia Ng APRN [facility] [place] [address] Chronic abdominal pain; Crohn's disease with complication, unspecified gastrointestinal tract location Social History [...] Sign Reading Time Taken Comments Blood Pressure 123/82 03/09/2017 3:15 PM EDT Pulse 88 03/09/2017 3:15 PM EDT Temperature - - Respiratory Rate - - Oxygen Saturation - - Inhaled Oxygen Concentration - - Weight 82.1 kg (181 lb) 03/09/2017 3:15 PM EDT Height 169.5 cm (5' 6.75) 03/09/2017 3:15 PM ED T Body Mass Index 28.56 03/09/2017 3:15 PM EDT documented in this encounter Progress Notes * Altagracia Ng APRN - 03/09/2017 3:00 PM EDT Primary care provider: NATALIO GALLAGHER APRN Referring provider: Natalio Gallagher APRN Other providers: ?? Reason for visit: Crohn's disease ? Detailed IBD History: ?? # Crohns's disease, mild. - H/O diarrhea x 1 year (2008) then sxs improved since 07/2009. - H/O constipation as a teenager - H/O bulimia Testings: 08/21/09 EGD and colonoscopy ([facility], Dr. Ortega): 1. gastric antrum ulcer, [...] cells and giant cells. - 2009 colonoscopy [facility], endoscopically looks normal but pathology suggestive of Crohn's. - 2009 EGD- biospy mild duodenitis, mild chronic inactive gastritis - 10/2008 TPMT 33.7 normal enzyme activity - 03/10/11 capsule endoscopy:mild Crohn's in the jejunum and distal ileum ?? # Anemia - hgb 8.1, MCV 65.5 in 07/2009. - blood transfusion. - oral iron supplement ?? History Of Present Illness: Patient referred by PCP to reestablish care. She was last seen in our GI clinic in 2010. Please see above Detailed IBD history and Apr 2011 note in e-dh for details. Historically, she had been reluctant in the past on taking any medications. After our viist in 2010, given mild sxs (abdominal pain and constipation) , I recommended try Pentasa (but she never took this) and she was not really willing to try either entocort or 6MP/AZA at that time. We also advised her to speak with our OCM for medication assistance program. Unclear if she followed through. Her colonoscp[y in 2011 found Mild patchy inflammation seen in the colon consistent with mild Crohn's colitis. See below. Several attempts were made for her to come back for f/u but she never did. She reports that since her last visit with us, she saw her local GI but she could not tell me the name. She is not on any Crohn's med's and has been stable until recently. In October of this year, she presented to her local ER due to increased abdominal pain, this is aftereating a spoonful of peanut butter per pt. Her work up included an abd'l U/S and found gallstone , no evidence of acute cholecystitis or biliary obstruction. In November, she had another episode of increased upper abdominal pain x 1 only. She change her eating habits since December, minimize sugars, starch, breads and no pasta. Eating mostly fruits and vegetables. Started to lose some weight due to her new diet She denies heartburn nor GERD sxs and not on any antacid nor PPI. She gets occasional mild intermittent abd'l pain that comes and goes but has not had sever pain since November. No n/v. No f/c. As far as her bowels, she tends to get constipated, i.e., will have BM once every 3-4 days and at most up to a week. Her stool will be hard and in a ball. No bleeding. She does not take any laxatives, but she has miralax at home, although, she never used it. She would just push hard to have a bm ifneeded. ?? The patient denies any other extraintestinal manifestations of IBD including ocular, oral, joint ordermatologic problems. ?? Review of Systems Constitutional: See HPI. HENT: Negative for mouth sores. Eyes: Negative for pain and redness. Respiratory: Negative. Cardiovascular: Negative. Gastrointestinal: See HPI. Genitourinary: Negative for dysuria. Musculoskeletal: Negative. Skin: Negative for rash. Neurological: Negative for dizziness. Past Medical History: Diagnosis Date ??? Cholelithiasis [...] RIGHT Procedure Date: 03/01/2008 ??? PRO COLONOSCOPY, DIAGNOSTIC 08/27/2011 COLONOSCOPY, DIAGNOSTIC performed by KVNG YUEN at [facility] ENDOSCOPY ??? UPPER GI ENDOSCOPY, EXAM 08/27/2011 UPPER GI ENDOSCOPY performed by KVNG YUEN at [facility] ENDOSCOPY Social History Social History ??? Marital [...] less than 1 p/d ??? Alcohol use Yes ??? Drug use: Not on file ??? Sexual activity: Not on file Other Topics Concern ??? Not on file Social History Narrative No family history on file. No IBD history. No colon cancer. Vitals: 03/09/17 1515 BP: 123/82 Pulse: 88 Weight: 82.1 kg (181 lb) Height: 169.5 cm (5' 6.75) Physical Exam Constitutional: She appears well-developed and well-nourished. No distress. HENT: Mouth/Throat: Oropharynx is clear and moist. No oropharyngeal exudate. Eyes: Conjunctivae are normal. No scleral icterus. Neck: Neck supple. Cardiovascular: Normal rate and regular rhythm. Pulmonary/Chest: Effort normal and breath sounds normal. No respiratory distress. Abdominal: Soft. She exhibits no distension and no mass. There is no tenderness. There is no guarding. Lymphadenopathy: She has no cervical adenopathy. Neurological: She is alert. Skin: Skin is warm and dry. ?? Recent endoscopic procedures 03/10/11 Capsule endoscopy: Findings: ? The capsule traversed the stomach in 45 minutes and ? then traversed the entire small bowel in ? 2 1/2 hrs. In the proximal jejunum there were several ? small discreet aphthous ulcers. There were a few more ? scattered similar appearing ulcers in the distal ? ileum. ? Impression: ?Scattered aphthous ulcers consistent ? with very mild Crohn's disease of the ? small bowel, more prominent in the ? proximal small bowel. ? - I read and interpreted this study ? today, February. Recommendation: ?- Return to GI clinic. ? Dale Cruz MD Signed Date: 03/11/2011 09:42:47 AM Number of Addenda: 0 08/27/2011 EGD: Findings: ? The esophagus was normal. The [...] 08/27/2011 11:01 AM Number of Addenda: 0 08/27/2011 Colonoscopy: Findings: ? The terminal ileum was intubated [...] 08/27/2011 11:06 AM Number of Addenda: 0 ? ---Pathologic Diagnosis--- ? A - Duodenum, biopsy: ?Chronic active duodenitis. ? B - Stomach, biopsy: ?Gastric antrum-type and body/fundic-type mucosa with chronic inactive ?gastritis. ?Immunostaining for H. pylori is negative. ? C - Ileum, biopsy: ?Focal active ileitis and epithelioid granulomas. ? D - Right colon, biopsy: ?Patchy mildly active colitis negative for dysplasia or granuloma. ? E - Left colon, biopsy: ?Patchy mild chronic inactive colitis, negative for dysplasia or ?granuloma. ? CR-0 ? CR-PX Recent relevant imaging ??See above HPI. Impression/Plan Patient with h/o Crohn's disease, chronic constipation, abdominal pain. Historically, she has been non compliant with medications and follow up. She presents today to get further testings for her Crohn's disease. She has been having intermittent episodes of abdominal pain and had severe self- limited episode of abdominal pain once in October then in November x1. I told her that we will get MRE, EGD and colonoscopy for further evaluation, and to restage disease. For now, - will get MRE, EGD, colonoscopy - labs today to CBC, CMP, ESR, CRP - Miralax 1/2-1capful mix with a glass of water as needed for constipation - further tx options pending above findings - RTC 2 weeks after endoscopy or sooner as needed ?? documented in this encounter Plan of Treatment Scheduled Orders Name Type Priority Associated Diagnoses Orde r Schedule COLONOSCOPY Procedures Routine Chronic abdominal pain Ordered: 03/09/2017 UPPER GI ENDOSCOPY Procedures Routine Chronic abdominal pain Ordered: 03/09/2017 documented as of this encounter Procedures Procedure Name Priority Date/Time Associated Diagnosis Comments MRI ENTEROGRAPHY WITH/WO CONTRAST Routine 04/07/2017 7:45 PM EDT Chronic abdominal pain CRP, ACUTE INFLAMMATION Routine 03/09/2017 4:45 PM EDT Chronic abdominal pain CMP W/FASTING GLUCOSE Routine 03/09/2017 4:45 PM EDT Chronic abdominal pain HEMOGRAM Routine 03/09/2017 4:45 PM EDT Chronic abdominal pain DIFFERENTIAL, AUTOMATED Routine 03/09/2017 4:45 PM EDT Chronic abdominal pain SEDIMENTATION RATE Routine 03/09/2017 4: 45 PM EDT Chronic abdominal pain CBC (WITH DIFF) Routine 03/09/2017 4:45 PM EDT Chronic abdominal pain documented in this encounter Results * MRI Enterography wwo Contrast (04/07/2017 7:45 PM EDT) Anatomical Region Laterality Modality Abdomen Magnetic Resonan ce Impressions 04/08/2017 9:53 AM EDT No evidence of active inflammatory bowel disease. I have personally reviewed the image(s) and the residents interpretation and agree with the findings, Jose Murray at 04/08/2017 9:53 AM Narrative 04/08/2017 9:53 AM EDT EXAMINATION: MRI ENTEROGRAPHY WWO CONTRAST CLINICAL HISTORY: abdominal pain, constipation, h/o Crohn's disease, please evaluate extent of small bowel disease TECHNIQUE: ??MRI of the abdomen and pelvis was performed with images obtained prior to and following intravenous administration of 8ml of Gadavist. ??1ml glucagon was also administered. COMPARISON: MRE abdomen 10/18/2009 FINDINGS: GI tract: No dilated small or large bowel, bowel wall thickening, or mesenteric inflammation. ??No mucosal hyperenhancement. Peritoneum/mesentery: No free fluid or focal fluid collection. Liver: Normal signal, no lesions. Bile ducts: Nondilated. Gallbladder: No gallstones. Normal caliber wall. Pancreas: Normal. Spleen: Normal. Adrenals: Normal. Kidneys: Normal. Lymph nodes: No lymphadenopathy. Reproductive structures: Normal. Osseous structures: No marrow signal abnormality. Procedure Note Jose Murray MD - 04/08/2017 EXAMINATION: MRI ENTEROGRAPHY WWO CONTRAST CLINICAL HISTORY: abdominal pain, constipation, h/o Crohn's disease,please evaluate extent of small bowel disease TECHNIQUE: MRI of the abdomen and pelvis was performed with imagesobtained prior to and following intravenous administration of 8ml of Gadavist.1ml glucagon was also administered. COMPARISON: MRE abdomen 10/18/2009 FINDINGS: GI tract: No dilated small or large bowel, bowel wall thickening, ormesenteric inflammation. No mucosal hyperenhancement. Peritoneum/mesentery: No free fluid or focal fluid collection. Liver: Normal signal, no lesions. Bile ducts: Nondilated. Gallbladder: No gallstones. Normal caliber wall. Pancreas: Normal. Spleen: Normal. Adrenals: Normal. Kidneys: Normal. Lymph nodes: No lymphadenopathy. Reproductive structures: Normal. Osseous structures: No marrow signal abnormality. IMPRESSION No evidence of active inflammatory bowel disease. I have personally reviewed the image(s) and the residents interpretationand agree with the findings, Jose Murray at 04/08/2017 9:53 AM Altagracia Lrjoana INSOLE TAPE STITCHER [facility] IMG MRI ORDERABLE S * Differential, Automated (03/09/2017 4:45 PM EDT) Neutrophil % 60.6 % [facility] Neutrophil Absolute 4.33 1.70 - 6.10 x10(3)/[facility] Lymph % 27.6 % [facility] Lymphocytes Abs 2.0 0.9 - 3.2 x10(3)/[facility] Monocyte % 8.0 % [facility] Monocyte Abs 0.6 0.3 - 0.9 x10(3)/[facility] Eos % 2.5 % [facility] Eosinophils Abs 0.2 0.0 - 0.4 x10(3)/[facility] Basophil % 0.7 % [facility] Baso Absolute 0.0 0.0 - 0.1 x10(3)/[facility] Immature Gran % 0.60 % [facility] Comment: Immature granulocytes(IG's)percentage and absolute count will include metamyelocytes, myelocytes, and promyelocytes. Blood smears from CBCs yielding IG's will be scanned manually for concordance. If this scan disagrees with the automated IG or if promyelocytes are noted, a manual differential will be performed. Immature Gran Absolute 0.04 0.00 - 0.04 x10(3)/[facility] Blood specimen (specimen) 03/09/2017 4:45 PM EDT 03/09/2017 4:49 PM EDT Narrative Resulting Agency Comment Spec In Lab Altagracia Lrelinaricha INSOLE TAPE STITCH[employer] [facility] HEMATOLOGY ORDERA BLES Performing Organization Address City/[facility]/ZIP Co de Phone Number [facility] [place] [address] * (ABNORMAL) Hemogram (03/09/2017 4:45 PM EDT) White Blood Cell 7.1 4.0 - 9.5 x10(3)/mc L [facility] Red Blood Cell 4.42 4.00 - 5.21 x10(6)/mc L [facility] Hemoglobin 12.6 11.7 - 15.5 gm/dL [facility] Hematocrit 37.3 35.7 - 45.8 % [facility] Mean Cell Volume 84.4 82.6 - 94.[address] [facility] Mean Cell Hemoglobin 28.5 27.1 - 32.[address] [facility] Mean Cell Hemoglobin Concentration 33.8 31.7 - 35.0 gm/dL [facility] Platelet 378(H) 145 - 357 x10(3)/mc L [facility] RDW Standard Deviation 42.5 37.0 - 46.0 [facility] RDW coefficient of variation 13.7 11.5 - 14.1 % [facility] Mean Platelet Volume 8.8 7.6 - 12.9 [facility] NRBC% auto 0.0 % [facility] NRBC Absolute 0.000 0.000 - 0.000 x10(3)/mc L [facility] Blood specimen (specimen) 03/09/2017 4:45 PM EDT 03/09/2017 4:49 PM EDT Narrative Resulting Agency Comment Spec In Lab Altagracia Lrjoana [employer] [facility] HEMATOLOGY ORDERA BLES Performing Organization Address City/[facility]/ZIP Co de Phone Number [facility] [place] [address] * (ABNORMAL) CRP, acute inflammation (03/09/2017 4:45 PM EDT) C-Reactive Protein 6.2(H) <=4.9 mg/L [facility] Blood specimen (specimen) 03/09/2017 4:45 PM EDT 03/09/2017 4:49 PM EDT Narrative Resulting Agency Comment Spec In Lab Altagracia Lrjoana INSOLE TAPE STITCH[employer] [facility] CHEMISTRY ORDERAB LES Performing Organization Address [facility] Co de Phone Number [facility] [place] [address] * Sedimentation rate (03/09/2017 4:45 PM EDT) Sedimentation Rate Automated 8 0 - 20 mm/hr [facility] Blood specimen (specimen) 03/09/2017 4:45 PM EDT 03/09/2017 4:49 PM EDT Narrative Resulting Agency Comment Spec In Lab Altagracia Lrjoana INSOLE TAPE STITCH[employer] [facility] HEMATOLOGY ORDERA BLES Performing Organization Address [facility] Co de Phone Number [facility] [place] [address] * (ABNORMAL) CMP w/fasting Glucose (03/09/2017 4:45 PM EDT) Glucose Fasting 86 65 - 99 mg/dL [facility] Comment: ?Fasting* Glucose Interpretive Criteria Normal ?65-99 mg/dL Impaired Fasting glucose ?100-125 mg/dL Consistent with Diabetes Mellitus ? >or= 126 mg/dL *Fasting is defined as no caloric intake for at least 8 hours In the absence of unequivocal hyperglycemia a plasma glucose value of >or= 126 mg/dL should be repeated on a subsequent day. Diagnosis and Classification of Diabetes Mellitus, Position Statement from the [place] [employer]. ??Diabetes Care, Volume 33, Supplement 1, Jul 2009 Blood Urea Nitrogen 14 8 - 18 mg/dL [facility] Creatinine 0.68(L) 0.70 - 1.20 mg/dL [facility] Comment: Please note that the pediatric reference intervals supplied above were not validated at [facility]. Results from pediatric patients should be interpreted in conjunction to the patient's age, height and muscle mass. Sodium 141 135 - 145 mmol/L [facility] Potassium 4.5 3.5 - 5.0 mmol/L [facility] Comment: Please note: ??Patients with WBC >100,000 may have falsely elevated Potassium levels. ??For accurate Potassium quantification in these patients send serum separator tube (gold top) for subsequent determinations. ??Contact the Clinical Chemistry Laboratory if there are any questions. Chloride 101 98 - 107 mmol/L [facility] Carbon Dioxide 27 22 - 31 mmol/L [facility] Anion Gap 13 5 - 15 mmol/L [facility] Calcium 9.5 8.5 - 10.5 mg/dL [facility] Protein, Total 7.6 6.1 - 8.0 gm/dL [facility] Albumin 4.5 3.2 - 5.2 gm/dL [facility] Aspartate Aminotransferase 15 0 - 30 unit/L [facility] Alanine Aminotransferase 18 0 - 30 unit/L [facility] Alkaline Phosphatase 86 40 - 104 unit/L [facility] Bilirubin, Total 0.2 0.2 - 1.3 mg/dL [facility] Est Glomerular Filtration Rate >60 >=60 [facility] Comment: This estimated GFR (eGFR) value was calculated using the MDRD equation which has been validated on patients between the ages of 18 and 70. The MDRD should not be used to assess kidney function in patients < 18 years of age or in patients with extremes of body mass, or in patients with acute kidney failure. This value should be multiplied by 1.2 for patients. For further information please copy and paste the following links into your internet browser. http://AppSocially/DHnkdep http://AppSocially/DHMCnkf Blood specimen (specimen) 03/09/2017 4:45 PM EDT 03/09/2017 4:49 PM EDT Narrative Resulting Agency Comment Spec In Lab Altagracia Ng INSOLE TAPE STITCH[employer] [facility] CHEMISTRY ORDERAB LES Performing Organization Address City/State/[facility] Co de Phone Number [facility] [place] [address] documented in this encounter Visit Diagnoses Diagnosis Chronic abdominal pain Abdominal pain, unspecified site Crohn's disease with complication, unspecified gastrointestinal tract location documented in this encounter Care Teams Pot Room Tapper Relationship Specialty Start Date End Date Natalio Gallagher APRN [address] [place] [address] PCP - General Family Medicine 12/11/16 documented as of this encounter
--- OUTSIDE RECORDS SUMMARY | 2024-03-02 14:13 | XMS_ITS | Encounter Summary ---
[place] [address] Care Team Providers Care Coiler Operator Name Role Phone Marleni Gallagher APRN Primary Care Provider [phone] Encounter Details Date Type Department Care Team (Late st Contact Info) Description 01/15/2021 Telephone [place] [address] Natasha Velásquez Social History Tobacco Use Types Packs/Day Years [...] encounter Miscellaneous Notes * Telephone Encounter - Natasha Velásquez - 01/15/2021 2:32 PM EDT LVM for patient to schedule an appt to reestablish care in GI Sending letter as second attempt to contact documented in this encounter Plan of Treatment Not on file documented as of this encounter Visit Diagnoses Not on filedocumented in this encounter Care Teams Coiler Operator Relationship Specialty Start Date End Date Marleni Gallagher, ACCOUNT ASSISTANT [address] [place] [address] PCP - General Family Medicine 12/11/16 documented as of this encounter
--- OUTSIDE RECORDS SUMMARY | 2024-03-02 14:13 | XMS_ITS | Encounter Summary ---
Author Organization [facility] Address [facility] [place] [address] Care Team Providers Care Poultry Farm Laborer Name Role Phone Mando Loera MD Primary Care Provider [phone] Encounter Details Date Type Department Care Team (Late st Contact Info) Description 08/27/2011 9:46 AM EST Anesthesia Event [place] [address] Alisa Lyle MD [facility] [place] [address] Loni Thacker CRNA [facility] [place] [address] Anesthesia Record Procedure Summary Procedure Name Responsible Anesthesiologist Anesthesia Start Time Anesthesia Stop Time COLONOSCOPY, DIAGNOSTIC (WRVU 3.26) (Trunk) Alisa Lyle MD 08/27/11 0946 08/27/11 1055 Events Date Time Event Comment 08/27/2011 0922 0946 Start 1055 Stop Meds * Agents No agents on file. * Blood No blood administrations on file. Lines, Drains, and Airways Type Details Placement Removal (RETIRED) Peripheral IV Line - Single Lumen 08/27/11; 0925; 08/27/11; 1223 08/27/11 0925 by Rebecca Alfaro RN 08/27/11 1223 by Roz Alvarez RN documented in this encounter Social History [...] OR Notes * Anesthesia Postprocedure Evaluation - Alisa Lyle MD - 08/27/2011 12:47 PM EST Patient: Deb Mullins Procedure(s) Performed: COLONOSCOPY, DIAGNOSTIC - had not enough sedation last time, pain/woke up 08/25 LS EDF 07/25 LS EDF 06/24 LS EDF 06/01 LS EDF 05/04 LS EDF 04/02/11 ls-amb 03/25/11 lm on hvm-amb; UPPER GI ENDOSCOPY Patient location: PACU Post-op pain: Adequate analgesia Post-op nausea: no nausea or vomiting Last Vitals: Filed Vitals: 08/27/11 1047 BP: 84/49 Pulse: 67 Resp: 16 Post-op cardiovascular and respiratory status: is stable Level of consciousness: awake and alert Complications: no apparent complications and tolerated the procedure well Fluid Status: normal * Anesthesia Preprocedure Evaluation - Alisa Lyle MD - 08/27/2011 7:53 AM EST Anesthesia Evaluation Patient summary reviewed and Nursing notes reviewed No hx of anesthetic complications Airway Mallampati: I TM distance: >3 FB Neck ROM: full Dental Comment: Front upper caps Pulmonary - negative ROS Cardiovascular - negative ROS Neuro/Psych - negative ROS GI/Hepatic/Renal Comments: Crohn's disease with multiple endoscopies Endo/Other - negative ROS Abdominal Anesthesia Plan ASA 2 MAC with intravenous induction Patient Active Problem List: Right wrist pain (719.43M) Chronic diarrhea (787.91K) Crohn's disease (555.9C) Constipation (564.00A) Gastritis and duodenitis (535.50W) Anesthetic plan and risks discussed with patient. Plan discussed with WELL LOGGING OPERATOR MUD ANALYSIS. documented in this encounter Miscellaneous Notes * Addendum Note - Nellie Veloz - 08/28/2011 9:34 AM EST Addendum created 08/28/11 0934 by Nellie Veloz Modules edited:Anesthesia Events, Anesthesia Responsible Staff documented in this encounter Plan of Treatment Not on file documented as of this encounter Visit Diagnoses Not on filedocumented in this encounter Care Teams Poultry Farm Laborer Relationship Specialty Start Date End Date Mando Loera MD [address] [place] [address] PCP - General 08/27/11 10/24/15 documented as of this encounter
--- OUTSIDE RECORDS SUMMARY | 2024-03-02 14:13 | XMS_ITS | Encounter Summary ---
Author Organization [facility] [place] [address] Care Team Providers Care Heading And Priming Operator Name Role Phone Grayson Valladares MD Primary Care Provider [phone] Reason for Visit * Reason Onset Date Comments Medication Refill 05/19/2011 Encounter Details Date Type Department Care Team (Late st Contact Info) Description 05/19/2011 Refill [place] [address] Altagracia Ng, [facility] [place] [address] Crohn's (Primary Dx) Social History Tobacco Use [...] site documented in this encounter Care Teams Heading And Priming Operator Relationship Specialty Start Date End Date Grayson Valladares MD [address] [place] [address] PCP - General 06/03/10 08/26/11 documented as of this encounter
--- OUTSIDE RECORDS SUMMARY | 2024-03-02 14:13 | XMS_ITS | Encounter Summary ---
Author Organization [facility] [place] [address] Care Team Providers Care Environmental Compliance Technician Name Role Phone Marleni Gallagher APRN Primary Care Provider [phone] Encounter Details Date Type Department Care Team (Late st Contact Info) Description 02/25/2021 Orders [place] [address] Altagracia Ng ORACLE APPLICATIONS DEVELOPER [facility] [place] [address] Crohn's disease without complication, unspecified gastrointestinal tract [...] location documented in this encounter Care Teams Environmental Compliance Technician Relationship Specialty Start Date End Date Marleni Gallagher APRN [address] [place], [place] [address] PCP - General Family Medicine 12/11/16 documented as of this encounter
--- OUTSIDE RECORDS SUMMARY | 2024-03-02 14:13 | XMS_ITS | Encounter Summary ---
Author Organization [facility] Address [facility] [place] [address] Care Team Providers Care Monitoring Engineer Name Role Phone Mando Loera MD Primary Care Provider [phone] Encounter Details Date Type Department Care Team (Latest Contact Info) Description 08/27/2011 9:03 AM EST - 08/27/2011 12:45 PM EST Hospital Encounter [place] [address] Kvng Yuen MD [facility] [place] [address] Discharge Disposition: Home Social History Tobacco Use [...] occurs, please contact your MD/ Please call [phone] before 5pm with problems, questions or concerns. After 5pm call [phone] and ask to speak with the sustainability project manager amortization schedule clerk. Discharge instructions reviewed with patient who expresses understanding. * Patient Instructions* Kvng Yuen MD - 08/27/2011 10:43 AM EST Please see Recommendations in the Provation procedure report which is documented in the procedural note in [facility]. * Attachments The following attachments cannot be sent through Care Everywhere. * COLONOSCOPY: WHAT TO EXPECT AT HOME (BURUNDIAN) * UPPER GI ENDOSCOPY: WHAT TO EXPECT AT HOME (BURUNDIAN) documented in this encounter Medications at Time [...] needed. 05/23/2015 mesalamine (PENTASA) 500 mg CR capsuleIndications:Manager Policy hn's Take 4 capsules by mouth 2 [...] mouth daily. Total of 225 mg 04/28/2021 Gimolvbkzhooo-Hg-Duhr- [employer]erals (WOMEN'S DAILY MULTIVITAMIN) 18-0.4 mg Tab [...] Yuen MD - 08/27/2011 10:42 AM EST [facility] Operative Note Patient Name: Deb Mendenhall : [id number] MR#: [id number] Case Date: 08/27/2011 Surgeon: Surgeon(s) and Role: * KVNG YUEN MD - Primary Preoperative diagnosis: abdominal pain, Crohn's [consult] Postoperative diagnosis: * No post-op diagnosis entered * Procedure(s): COLONOSCOPY, DIAGNOSTIC UPPER GI ENDOSCOPY Full procedure note is documented under the Procedure section of [facility]. documented in this encounter Plan of Treatment [...] 12:37 PM EST) Surgical Pathology Report ? [facility] ? Provider: ?? KVNG YUEN ? Pt. Name: ?? DEB MENDENHALL ? Acc #: ?[id number] ?Pt. ? Col Date: ?? 08/27/2011 ? [...] waters tissues. ? Sections/Proces sing: ??(T1) ? [facility] ? Provider: ?? KVNG YUEN ? Pt. Name: ?? DEB MENDENHALL ? Acc #: ?[id number] ?Pt. ? Col Date: ?? 08/27/2011 ? [...] of Crohn's disease, ? extent of disease [facility] 08/27/2011 12:3 7 PM EST Kvng Yuen MD PATHOLOGY/CYTOLOGY O RDERABLES [facility] * Specimen to Pathology (surgical or derm) (08/27/2011 10:58 AM EST) AP Specimen 08/27/2011 10:5 8 AM EST 08/27/2011 10:58 AM EST Narrative ROBYN TORRES - 08/27/2011 10:58 AM EST Specimen requisition ordered. ??Separate Pathology report to follow Kvng Yuen MD PATHOLOGY/CYTOLOGY O ELAYNE Performing Organization Address [facility] de Phone Number [facility] * Specimen to Pathology (surgical or derm) (08/27/2011 10:58 AM EST) AP Specimen 08/27/2011 10:5 8 AM EST 08/27/2011 10:58 AM EST Narrative ROBYN TORRES - 08/27/2011 10:58 AM EST Specimen requisition ordered. ??Separate Pathology report to follow Kvng Yuen MD PATHOLOGY/CYTOLOGY O ELAYNE Performing Organization Address [facility] de Phone Number [facility] * Specimen to Pathology (surgical or derm) (08/27/2011 10:58 AM EST) AP Specimen 08/27/2011 10:5 8 AM EST 08/27/2011 10:58 AM EST Narrative ROBYN TORRES - 08/27/2011 10:58 AM EST Specimen requisition ordered. ??Separate Pathology report to follow Kvng Yuen MD PATHOLOGY/CYTOLOGY O ELAYNE Performing Organization Address [facility] de Phone Number [facility] * Specimen to Pathology (surgical or derm) (08/27/2011 10:58 AM EST) AP Specimen 08/27/2011 10:5 8 AM EST 08/27/2011 10:58 AM EST Narrative ROBYN TORRES - 08/27/2011 10:58 AM EST Specimen requisition ordered. ??Separate Pathology report to follow Kvng Yuen MD PATHOLOGY/CYTOLOGY O ELAYNE Performing Organization Address [facility]/ZIP Co de Phone Number [facility] * Specimen to Pathology (surgical or derm) (08/27/2011 10:58 AM EST) AP Specimen 08/27/2011 10:5 8 AM EST 08/27/2011 10:58 AM EST Narrative ROBYN TORRES - 08/27/2011 10:58 AM EST Specimen requisition ordered. ??Separate Pathology report to follow Kvng Yuen MD PATHOLOGY/CYTOLOGY O E[place] [facility] * UPPER GI ENDOSCOPY (08/27/2011 9:52 AM EST) UPPER GI ENDOSCOPY [facility] Patient Name: Deb Mendenhall ? Procedure Date: 08/27/2011 9:52 AM ? Date of : 1975 ? Age: 35 ? Order #: [id number] ? Procedure: ? Upper GI endoscopy Indications: [...] * COLONOSCOPY (08/27/2011 9:49 AM EST) COLONOSCOPY [facility] Patient Name: Deb Mendenhall ? Procedure Date: 08/27/2011 9:49 AM ? Date of : 1975 ? Age: 35 ? Order #: [id number] ? Procedure: ? Colonoscopy Indications: ? Follow-up [...] at 1604, Endoscopy (Day of Procedure) 0925 ([facility] ider: Rebecca Alfaro RN) documented in this encounter Care Teams Monitoring Engineer Relationship Specialty Start Date End Date Mando Loera MD [address] [place] [address] PCP - General 08/27/11 10/24/15 documented as of this encounter
--- OUTSIDE RECORDS SUMMARY | 2024-03-02 14:13 | XMS_ITS | Encounter Summary ---
Author Organization [facility] Address [facility] [place] [address] Care Team Providers Care Insurance Professional Name Role Phone Mando Loera MD Primary Care Provider [phone] Reason for Visit * Reason Comments Rash Encounter Details Date Type Department Care Team (Late st Contact Info) Description 06/03/2015 3:30 PM EST Office Visit Dermatology at [address] [address] Felisha Márquez MD [facility] DR [facility] [address] Contact dermatitis and eczema due to plant Social History Tobacco Use Types Packs/Day Years [...] as of this encounter Progress Notes * Chris Calderon III, MD - 06/04/2015 10:04 PM EST I directly supervised Dr. Felisha Márquez during this office visit. Dr. Márquez presented the historyand physical exam to me. I then saw and examined this patient with Dr. Márquez. We reviewed the history and pertinent details and I confirmed the physical findings. I agree with the details of the history and physical exam as documented in Dr. Márquez's note. CHRIS CALDERON III, MD Staff Physician * Felisha Márquez E - 06/03/2015 3:44 PM EST Images from the original note were not included. DERMATOLOGY - ESTABLISHED PATIENT NOTE Date of service: 06/03/2015 Deb Mullins : 1975 Dermatology Resident Note: Felisha Márquez MD Chief Problem: Chief Complaint Patient presents with ??? Rash Ms. Deb Mullins is a 39 y.o. female. Established patient, last seen in this clinic by Sonia Armas PA-C on 05/23/2015. HPI: Ms. Mullins is a 39 y/o female with hx of perioral dermatitis currently on doxycycline who presents today for an extensive rash. States she [place] out [place] the [place] on 05[place]27/15. Statesthe poison jeff rash started as two small itchy spots on the right wrist the next day. I then spreadup her arms, to her chest, right abdomen, neck, cheeks and jaw line. Treatments tried include: Benadryl 3x per day and calamine lotion. Currently on day 5-6 of a 40mg per day x 7 days, started last /Wed by her PCP for suspected poison jeff. States she is a 6/10 on the itch scale for today. She has come into contact with poison jeff before and this rash is reminiscent, although she states it is more extensive than it has ever been in the past. No one else at home has this rash. Past Skin History: - Perioral Dermatitis - Multiple Benign Nevi - Dermatofibroma - Lentigines Per patient: Psoriasis Medical History: Patient Active Problem List Diagnosis Code ??? Right wrist pain M25.531 ??? Chronic diarrhea K52.9 ??? 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 Constipation K59.00 ??? Gastritis and duodenitis K29.90 Medications: Current Outpatient Prescriptions on File Prior to Visit Medication Sig Dispense Refill ??? lisdexamfetamine (VYVANSE) 70 mg Capsule Take 70 mg by mouth every morning. ??? doxycycline monohydrate (MONODOX) 100 mg Capsule Take 1 capsule by mouth 2 times daily. 84 capsule 0 ??? ibuprofen (ADVIL;MOTRIN) 200 mg tablet Take 200 mg by mouth every 6 hours as needed. ??? venlafaxine (EFFEXOR-XR) 150 mg 24 hr capsule Take 225 mg by mouth daily. ??? acetaminophen (TYLENOL) 325 mg tablet No current facility-administered medications on file prior to visit. Allergies: Allergies Allergen Reactions ??? 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 Skin: A full skin examination was performed. This includes the head, neck, face and scalp includingbehind the ears. The chest, abdomen, back, and axillae, as well as the arms, hands, palms, fingers.Legs, feet, toes and soles were also examined. Buttocks and breasts were also examined with patientconsent. Genitalia were not examined. Specific skin findings: 1. Right volar wrist: 6 cm red weepy plaque with surrounding excoriated papules and erythema. 2. Bilateral antecubital fossa: [place] grouped excoriated papules, some vesicles 3. Dorsal and anterior neck: well defined pink lichenified plaques with fine overlying scale 4. Right flank, left inguinal fold, posterior left ear, left helix, right malar cheek and right nasal sidewall: pink eczematous somewhat lichenified thin plaques with overlying fine scale Diagnosis/Assessment/Treatment Plan: 07/13//. Contact dermatitis with auto-eczematization - Patient has hx of contact with poison jeff several times in the past. Given wide distribution of rash, likely auto-eczematization has occurred. Will likely take 3 weeks for the contact dermatitis torun its course. - Recommendations: - Continue benadryl 2x per days as needed for itch - Clobetasol ointment twice per day x2 weeks on lesions of the body (avoid groin, armpits, or face) - Desonide ointment twice per day x2 weeks to rash of face, neck and left inguinal fold - Discussed potential side effects of chronic topical steroid use including atrophy, telangiectasia, bruising, striae and tachyphylaxis. Avoid use on face, groin, and armpits - Instructed her to complete her oral prednisone 40mg x 7 days from her PCP then I will extend the taper to include 30mg x5 days, 20mg x5 days, 10mg x5 days, then stop RTC PRN, patient instructed to call in 2 weeks to determine if she needs another follow-up appointment. Instructed to call for questions, concerns. Kathryn Henderson MA I am documenting this encounter acting as the scribe for and in the presence of Dr. Yulisa Márquez MD I performed the above scribed service and agree with the accuracy of the documentation in this encounter. 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
--- OUTSIDE RECORDS SUMMARY | 2024-03-02 14:13 | XMS_ITS | Encounter Summary ---
Author [facility] [place] [address] Care Team Providers Care Change Management Expert Name Role Phone Marleni Gallagher APRN Primary Care Provider [phone] Reason for Visit * Auth/Cert Specialty Diagnoses / Procedures Referred By Lynda fabian Referred To Contact Diagnoses abdominal pain, constipation, h/o Crohn's disease, needs to restage disease Procedures PRO COLONOSCOPY, DIAGNOSTIC PRO UPPER GI ENDOSCOPY, DIAGNOSTIC COLONOSCOPY, DIAGNOSTIC EGD, UPPER GI ENDOSCOPY Referral ID Status Reason Start Date Expiration Date Visits Re quested Visits Authorized [id number] 1 1 Encounter Details Date Type Department Care Team (Late st Contact Info) Description 05/13/2017 11:32 AM EDT Anesthesia [place] [address] Blanca Jaime MD [facility] [place] [address] Anesthesia Record Procedure Summary Procedure Name Responsible Anesthesiologist Anesthesia Start Time Anesthesia Stop Time COLONOSCOPY FLEXIBLE, WITH BX (WRVU 3.56) (Trunk) Blanca Jaime MD 05/13/17 1132 05/13/17 1333 Events Date Time Event Comment 05/13/2017 1132 AN Verify 1132 Start 1132 An Start Data 1136 An Induction 1136 Anesthesia Ready 1150 1312 Break/Relief In MD Dot 1325 an stop data 1333 Recovery or ICU Handoff Marissa ent care was transferred to the destination unit staff after review of the patient's medical history, current anesthetic/surgical status and plan, according to the Provider Handoff Checklist. 1333 Stop Meds Name Total Propofol 400 mg Propofol INF 1,344.6 mg ePHEDrine 30 mg lactated Ringers infusion 1,000 mL * Agents No agents on file. * Blood No blood administrations on file. Lines, Drains, and Airways Type Details Placement Removal (RETIRED) Peripheral IV Line - Single Lumen 05/13/17; 1114; 05/13/17; 1440 05/13/17 1114 by Roz Alvarez RN 05/13/17 1440 by Josefa Swift RN documented in this encounter Social History [...] OR Notes * Anesthesia Postprocedure Evaluation - Blanca Jaime MD - 05/13/2017 2:27 PM EDT [facility] [place] Department of Anesthesiology Post-procedure Note Patient: Deb Mullins Procedure Summary Date Anesthesia Start Anesthesia Stop Room / Location 05/13/17 1132 1333 [facility] 7 / [facility] Procedure Diagnosis Surgeon Responsible Provider COLONOSCOPY FLEXIBLE, WITH BX (WRVU 3.66) (N/A Trunk); EGD WITH BIOPSY (WRVU 2.49) (N/A Trunk); COLONOSCOPY WITH DIRECTED SUBMUCOSAL INJ (WRVU 3.66) (N/A Trunk) Chronic abdominal pain (abdominal pain, constipation, h/o Crohn's disease, needs to restage disease; (consult)) Jose Bianchi MD Trummel, John M, MD All Anesthesia Providers: Anesthesiologist: Blanca Jaime MD Form Setter Steel Pan Forms: Ervin Albarran MD Most Recent Vitals: 05/13/17 1400 BP: 116/75 Pulse: Resp: SpO2: 100% Pain 0 (05/13/17 1340) Patient Location: PACU/SDP Level of Consciousness: Awake and Alert Pain Management: Satisfactory Analgesia PONV: None Cardiovascular Status: At Baseline and Hemodynamically Stable Respiratory Status: At Baseline and Room Air Postoperative Fluid Status: Intravascular EUvolemia Possible Anesthetic Complications: NONE apparent at time of evaluation Final Primary Anesthesia Type: MAC (The anesthetic type performed was the same as planned.) Comments: BLANCA JAIME MD * Anesthesia Preprocedure Evaluation - Blanca Jaime MD - 05/13/2017 11:48 AM EDT Pre-Anesthesia Evaluation for: Deb Mullins a 41 y.o. female. Procedure(s): COLONOSCOPY, DIAGNOSTIC EGD, UPPER GI ENDOSCOPY Patient Active Problem List Diagnosis ??? Cholelithiasis [...] COLONOSCOPY, DIAGNOSTIC performed by KVNG YUEN at [facility] ??? UPPER GI ENDOSCOPY, EXAM 08/27/2011 UPPER GI ENDOSCOPY performed by KVNG YUEN at [facility] Social History Substance Use Topics ??? Smoking status: Former Smoker Packs/day: 0.50 Years: 3.00 Types: Cigarettes Quit date: 07/05/2000 ??? Smokeless tobacco: Never Used Comment: social smoker for a couple of years, less than 1 p/d ??? Alcohol use 4.2 oz/week 7 Glasses of wine per week History Drug Use ??? Yes ??? Special: Other pain meds (fentanyl patch, actiq-lozenges, stadol, etc) Comment: vicodin Allergies Allergen Reactions ??? Dilaudid [Hydromorphone] Severe headache ??? Preparation H [Phenylephrine-Witch Jazmin] Causes more irritation. Medications: MAR and/or home medications have been reviewed. Physical Exam: Most Recent Vitals: 05/13/17 1056 BP: 110/75 Pulse: 86 Resp: 16 SpO2: 98% There is no height or weight on file to calculate BMI. Airway Assessment: Mallampati: I TM distance: >3 FB Neck ROM: full Cardiovascular Assessment: Pulmonary Assessment: Dental Assessment: - normal exam Misc Assessment: IV access: Peripheral line Anesthesia Plan: ASA 2 MAC, with a(n) intravenous induction EGD/colo for Crohn's surveillance. Had unpleasant recall during similar procedure with mod sed but prop ok in past. FINA wears oral appliance. OK to proceed. Region - Other Informed Consent: Anesthetic plan and risks discussed with patient. Plan discussed with MANAGER HELPDESK. PAT Staff Note documented in this encounter Plan of Treatment Not on file documented as of this encounter Visit Diagnoses Not on filedocumented in this encounter Administered Medications Inactive Administered Medications - up to 3 most recent administrations Medication Order MAR Action Action Date Dose Rate Site ePHEDrine 5 mg/mL multi-dose injection PRN, Starting on Bernice 05/13/17 at 1204, Until Bernice 05/13/17 at 1335, Anesthesia Intra-op, Routine Given 05/13/2017 12:14 PM EDT 10 mg Given 05/13/2017 12:09 PM EDT 10 mg Given 05/13/2017 12:04 PM EDT 10 mg propofol (DIPRIVAN) 10 mg/mL bolus injection (Anesthesia) PRN, Starting on Bernice 05/13/17 at 1136, Until Bernice 05/13/17 at 1335, Anesthesia Intra-op Given 05/13/2017 11:47 AM EDT 15 0 mg Given 05/13/2017 11:46 AM EDT 50 mg Given 05/13/2017 11:36 AM EDT 200 mg propofol (DIPRIVAN) infusion CONTINUOUS PRN, Starting on Bernice 05/13/17 at 1136, Until Bernice 05/13/17 at 1335, Anesthesia Intra-op, Routine Rate/Dose Change 05/13/2017 1:17 PM EDT 125 mcg/kg/min 62.3 mL/hr Rate/Dose Change 05/13/2017 12:27 PM EDT 150 mcg/kg/min 74 .7 mL/hr Rate/Dose Change 05/13/2017 12:02 PM EDT 100 mcg/kg/min 49 .8 mL/hr documented in this encounter Care Teams Change Management Expert Relationship Specialty Start Date End Date Marleni Gallagher APRN [address] [place] [address] PCP - General Family Medicine 12/11/16 documented as of this encounter
--- OUTSIDE RECORDS SUMMARY | 2024-03-02 14:13 | XMS_ITS | Encounter Summary ---
[place] [address] Care Team Providers Care Security Operations Engineer Name Role Phone Marleni Gallagher APRN Primary Care Provider [phone] Reason for Visit * Reason Onset Date Comments Prior Authorization 02/25/2021 Encounter Details Date Type Department Care Team (Late st Contact Info) Description 02/25/2021 Telephone [place] [address] Paige Archibald CMA GASTROENTEROLOGY DEPT Prior Authorization Social History Tobacco Use Types Packs/Day Years [...] encounter Miscellaneous Notes * Telephone Encounter - Paige Archibald CMA - 02/25/2021 9:58 AM EDT Medication Prior Authorization 4L Gastroenterology / [place] [address] Subscriber Insurance: [employer] Phone: Fax: Physician: Altagracia Ng Return Pharmacy: Phone: Fax: Medication Requested: XIfaxan Strength: 550 mg Frequency: BID Disp.: Refills: Currently taking: no Diagnosis for this medication: ICD-10 code: Prior medications trialed in this patient: Medication: Outcome/Adverse Reactions: Decision: . approved Tracking number/Case number/Reference number: [id number] Effective date: Start: End: 05/28/2021 documented in this encounter Plan of Treatment Not on file documented as of this encounter Visit Diagnoses Not on filedocumented in this encounter Care Teams Security Operations Engineer Relationship Specialty Start Date End Date Marleni Gallagher APRN [address] [place] [address] PCP - General Family Medicine 12/11/16 documented as of this encounter
--- OUTSIDE RECORDS SUMMARY | 2024-03-02 14:13 | XMS_ITS | Encounter Summary ---
[place] [address] Care Team Providers Care Education Counselor Name Role Phone Marleni Gallagher APRN Primary Care Provider [phone] Encounter Details Date Type Department Care Team (Late st Contact Info) Description 02/24/2021 Telephone [place] [address] Radhika Erickson Social History Tobacco Use Types Packs/Day Years [...] encounter Miscellaneous Notes * Telephone Encounter - Radhika Erickson - 02/24/2021 4:18 PM EDT Deb Mullins [id number] [place]/EGD Diagnosis/Indication: Crohn's Disease 1. Have you ever had a/an Upper Endoscopy & Colonoscopy before? Yes: Date 2016 If yes, did you have any problems with the procedure? No What type of sedation was used: General Anesthesia 2. Do you take any blood thinners or have you been diagnosed with a bleeding disorder that increases your risk of bleeding with procedures? No 3. Do you have a Pacemaker or Defibrillator device? No 4. Are you a diabetic? No 5. Do you have any Allergies to Eggs, Latex or Medications? Yes: some Medications - dilutid and prepH 6. Do you take any Oral Iron Supplements (Including multi-vitamins)? No 7. Do you have a history of three or more abdominal surgeries? No 8. Have you had a problem with sedation or anesthesia? No 9. Do you use a c-pap machine or oxygen tank? C-Pap 10. Do you take prescription narcotic pain medications, including suboxone or methodone? No 11. Do you have a preference regarding the gender of your provider? No Preference 12. Is there any other information you would like to us to note for the provider and nursing team who will perform your case? No 13. Say to patient: You must have a responsible green party who will drive you to your procedure, stay [place] for the entire duration of your procedure, and drive you home from your procedure? *Please Verify the height and weight, and adjust if height and/or weight have changed* Estimated body mass index is 34.08 kg/m?? as calculated from the following: Height as of 06/15/17: 169.5 cm (5' 6.75). Weight as of an earlier encounter on 02/24/21: 98 kg (216 lb). Age:45 y.o. documented in this encounter Plan of Treatment Not on file documented as of this encounter Visit Diagnoses Not on filedocumented in this encounter Care Teams Education Counselor Relationship Specialty Start Date End Date Marleni Gallagher APRN [address] [place] [address] PCP - General Family Medicine 12/11/16 documented as of this encounter
--- OUTSIDE RECORDS SUMMARY | 2024-03-02 14:14 | XMS_ITS | Encounter Summary ---
Author Organization [facility] Address [facility] [place] [address] Care Team Providers Care Splunk Architect Name Role Phone Marleni Gallagher APRN Primary Care Provider [phone] Encounter Details Date Type Department Care Team (Late st Contact Info) Description 10/01/2009 Orders Only [place] [address] Joseph Vasquez MD [facility] [place] [address] Social History Tobacco Use Types Packs/Day Years [...] Associated Diagnosis Comments SURGICAL PATHOLOGY REPORT Routine 10/01/2009 7:19 AM EDT documented in this encounter Results * Surgical Pathology Report (10/01/2009 7:19 AM EDT) Surgical Pathology Report [id number] ? Location: OPW The signing pathologist has (i) examined the relevant preparation(s) for the specimen(s) and (ii) rendered or confirmed the diagnosis(es). . ?Pathology Surgical Pathology Final Report Clinical Information Specimen Submitted: CONSULTATION CASE A - 14 slides labeled [id number], collection date 08/21/09. [id number] Report to: [facility] Surgical Pathology [address] ??[address] Phone - [phone] Fax - [phone] Gross Description [facility]'s ([facility]) pathology slide(s) are reviewed. ??Refer to Diagnosis and Specimen Submitted for specific case information. For the full text of the [facility] report(s) please refer to Non-DH Documentation Pathology in the Clinical Information System (CIS). Microscopic Description Slides reviewed, microscopic description not recorded. Diagnosis CONSULTATION CASE Endoscopic biopsies ([id number], collection date 08/21/09): A. 2nd portion duodenum - ?? Mild nonspecific duodenitis with patchy activity. B. Bx antral ulcer - Gastric antral gland mucosa with active chronic nonspecific gastritis, patchy/focally enhancing. C. Bx body - Gastric fundic gland mucosa with active chronic nonspecific gastritis, patchy/focally enhancing. D. Bx antrum - Gastric antral gland mucosa with active chronic nonspecific gastritis, patchy/focally enhancing. E. Bx terminal ileum - Mildly active chronic ileitis with epithelioid granulomas. F. Bx Rt colon - incl ascending & transverse - Colonic mucosa within normal limits. G. Bx Lt colon - incl descending & sigmoid - Mildly active chronic nonspecific colitis, with patchy activity. H. Bx random rectum - Mildly active nonspecific proctitis, with patchy activity. Note: ??The histologic features of parts E, G and H are suggestive of idiopathic inflammatory bowel disease. Clinical and endoscopic correlation is required to establish the diagnosis of Crohn's disease. No dysplasia is seen. . Diagnosis The inflammation in the stomach and duodenum may represent upper gastrointestinal tract manifestation of ?? idiopathic inflammatory bowel disease. CR-0 10/03/09 AAS 10/03/09 Verified by: ? Miko Miles MD ?Pathologist ?(Electronic Signature) The attending pathologist whose signature appears on this report has reviewed all diagnostic slides and has edited the gross and/or microscopic portion of the report in rendering the final pathologic diagnosis. [facility] 10/01/2009 7:19 AM EDT Joseph Vasquez MD PATHOLOGY/CYTOLOGY O [place] [facility] documented in this encounter Visit Diagnoses Not on filedocumented in this encounter Care Teams Splunk Architect Relationship Specialty Start Date End Date Marleni Gallagher APRN [address] [place] [address] PCP - General Family Medicine 12/11/16 documented as of this encounter
--- OUTSIDE RECORDS SUMMARY | 2024-03-02 14:14 | XMS_ITS | Encounter Summary ---
Author Organization [facility] Address [facility] [place] [address] Care Team Providers Care Stunt Performer Name Role Phone Grayson Valladares MD Primary Care Provider [phone] Encounter Details Date Type Department Care Team (Latest Contact Info) Description 03/10/2011 7:29 AM EDT - 03/10/2011 11:59 PM EDT Hospital En[place] [address] Dale Cruz MD [facility] [address] [place] [address] Discharge Disposition: Home Social History Tobacco Use Types Packs/Day Years Used Date Smoking Tobacco: Never Assessed Sex and Gender Information Value Date Recorded Sex Assigned at Not on file Gender Identity Not on file Sexual Orientation Straight 03/18/2021 11 :23 AM EDT documented as of this encounter Medications at Time of Discharge Medication Sig Dispensed Refills Start Date End Date acetaminophen (TYLENOL) 325 mg tablet sertraline (ZOLOFT) 100 mg tablet 010 05/23/2015 omeprazole (PRILOSEC) 20 mg capsule 04/1005/23/2015 documented as of this encounter Miscellaneous Notes * Miscellaneous - Provider, Scanning - 03/12/2011 10:05 AM EDT documented in this encounter Plan of Treatment Not on file documented as of this encounter Visit Diagnoses Not on filedocumented in this encounter Care Teams Stunt Performer Relationship Specialty Start Date End Date Grayson Valladares MD [address] [place] [address] PCP - General 06/03/10 08/26/11 documented as of this encounter
--- OUTSIDE RECORDS SUMMARY | 2024-03-02 14:14 | XMS_ITS | Encounter Summary ---
Author Organization [facility] Address [facility] [place] [address] Care Team Providers Care Non Linear Editor Name Role Phone Marleni Gallagher APRN Primary Care Provider [phone] Encounter Details Date Type Department Care Team (Late st Contact Info) Description 04/16/2005 Orders [place] [address] Chris Winston MD [facility] [place] [address] Social History Tobacco Use Types Packs/Day Years [...] Associated Diagnosis Comments SURGICAL PATHOLOGY REPORT Routine 04/16/2005 9:11 AM EDT documented in this encounter Results * Surgical Pathology Report (04/16/2005 9:11 AM EDT) Surgical Pathology Report [id number] ? Location: The signing pathologist has (i) examined the relevant preparation(s) for the specimen(s) and (ii) rendered or confirmed the diagnosis(es). . ?Pathology Surgical Pathology Final Report Clinical Information Specimen Submitted: A - Ganglion cyst, left wrist. Clinical History: C.D. Mass Lt wrist. Gross Description Labeled/Fixative : ? Ganglion cyst, left wrist; fresh. Qty/Size/Weight: ?Single, 2.3 x 1.5 x 1.0 cm. Tissue Description: ?? Ragged mass of yellow adipose tissue and ragged, ?white, fibrous tissue. ??Sectioning reveals a ?structure consistent with a collapsed cyst. Sections/Process ing: ??Bisected. ??(T1) ??aje/RHB Microscopic Description Slides reviewed, microscopic description not recorded. Diagnosis Soft tissue, left wrist, excision: ??Synovial lined fibroadipose tissue with ganglion cyst and mild chronic inflammation. CR-0 04/17/05 AJE 04/20/05 Verified by: ? Deysi Garcia, DO ?Pathologist ?(Electronic Signature) The attending pathologist whose signature appears on this report has reviewed all diagnostic slides and has edited the gross and/or microscopic portion of the report in rendering the final pathologic diagnosis. ROBYN TORRES 04/16/2005 9:11 AM EDT Chris Winston MD PATHOLOGY/CYTOLOGY O RDERABLES ROBYN TORRES documented in this encounter Visit Diagnoses Not on filedocumented in this encounter Care Teams Non Linear Editor Relationship Specialty Start Date End Date Marleni Gallagher, CARA [address] [place] [address] PCP - General Family Medicine 12/11/16 documented as of this encounter
--- OUTSIDE RECORDS SUMMARY | 2024-03-02 14:14 | XMS_ITS | Encounter Summary ---
Author Organization [facility] [place] [address] Care Team Providers Care Cma Name Role Phone Grayson Valladares MD Primary Care Provider [phone] Reason for Visit * Reason Onset Date Comments Medication Refill 04/14/2011 Encounter Details Date Type Department Care Team (Late st Contact Info) Description 04/14/2011 [place] [address] Altagracia Ng, [facility] [place] [address] Diarrhea Social History Tobacco Use Types Packs/Day Years Used Date Smoking Tobacco: Former Smokeless Tobacco: Never Comments:social smoker for a couple of years, less than 1 p/d Sex and Gender Information Value Date Recorded Sex Assigned at Not on file Gender Identity Not on file Sexual Orientation Straight 03/18/2021 11 :23 AM EDT documented as of this encounter Plan of Treatment Not on file documented as of this encounter Visit Diagnoses Diagnosis Diarrhea documented in this encounter Care Teams Cma Relationship Specialty Start Date End Date Grayson Valladares MD [address] [place] [address] PCP - General 06/03/10 08/26/11 documented as of this encounter
--- OUTSIDE RECORDS SUMMARY | 2024-03-02 14:14 | XMS_ITS | Encounter Summary ---
[place] [address] Care Team Providers Care Burglar Alarm Assembler Name Role Phone Grayson Valladares MD Primary Care Provider Encounter Details Date Type Department Care Team (Late st Contact Info) Description 03/23/2011 [place] [address] Massiel Cummins, tool and die manager diarrhea Social History Tobacco Use Types Packs/Day Years Used Date Smoking Tobacco: Never Assessed Sex and Gender Information Value Date Recorded Sex Assigned at Not on file Gender Identity Not on file Sexual Orientation Straight 03/18/2021 11 :23 AM EDT documented as of this encounter Plan of Treatment Not on file documented as of this encounter Visit Diagnoses Diagnosis Chronic diarrhea Diarrhea documented in this encounter Care Teams Burglar Alarm Assembler Relationship Specialty Start Date End Date Grayson Valladares MD [address] [place], [place] [id number] PCP - General 06/03/10 08/26/11 documented as of this encounter
--- OUTSIDE RECORDS SUMMARY | 2024-03-02 14:14 | XMS_ITS | Encounter Summary ---
Author Organization [facility] Address [facility] [place] [address] Care Team Providers Care Brewery Worker Name Role Phone Marleni Gallagher APRN Primary Care Provider [phone] Encounter Details Date Type Department Care Team (Late st Contact Info) Description 09/04/2004 Orders [place] [address] Chris Winston MD [facility] [place] [address] Social History Tobacco Use Types Packs/Day Years [...] Associated Diagnosis Comments SURGICAL PATHOLOGY REPORT Routine 09/04/2004 2:10 PM EST documented in this encounter Results * Surgical Pathology Report (09/04/2004 2:10 PM EST) Surgical Pathology Report [id number] ? Location: The signing pathologist has (i) examined the relevant preparation(s) for the specimen(s) and (ii) rendered or confirmed the diagnosis(es). . ?Pathology Surgical Pathology Final Report Clinical Information Specimen Submitted: A - Ganglion cyst wrist. right. Clinical History: 28 year old female. ??C.D.: rt. wrist dorsal ganglion. Gross Description Labeled/Fixativ e: ? Ganglion cyst wrist, right; fresh. Qty/Size/Weight : ?Multiple fragments, 2 x 2 x 0.4 cm. Tissue Description: ?? Waters-pink and waters-white tissue. Sections/Proces sing: ??The larger is bisected. ??(T1) ??aje/AGL Microscopic Description Slides reviewed, microscopic description not recorded. Diagnosis Soft tissue (ganglion cyst, right wrist, excision: ??Ganglion cyst. CR-0 09/05/04 [facility] 09/05/04 Verified by: ? Ervin Victoria MD, PhD ?Pathologist ?(Electronic Signature) The attending pathologist whose signature appears on this report has reviewed all diagnostic slides and has edited the gross and/or microscopic portion of the report in rendering the final pathologic diagnosis. ROBNY TORRES 09/04/2004 2:10 PM EST Chris Winston MD PATHOLOGY/CYTOLOGY O RDERABLES Performing Organization Address City/State/[facility] Co or Phone Number ROBYN TORRES documented in this encounter Visit Diagnoses Not on filedocumented in this encounter Care Teams Brewery Worker Relationship Specialty Start Date End Date Marleni Gallagher, ASSISTANT PROFESSOR OF ART [address] [facility] [place] [address] PCP - General Family Medicine 12/11/16 documented as of this encounter
--- OUTSIDE RECORDS SUMMARY | 2024-03-02 14:14 | XMS_ITS | Encounter Summary ---
[place] [address] Care Team Providers Care Carpenter Mold Name Role Phone Grayson Valladares MD Primary Care Provider Encounter Details Date Type Department Care Team (Late st Contact Info) Description 06/10/2010 10:00 AM EST Procedure visit [facility] [address] Social History Tobacco Use Types Packs/Day Years [...] on filedocumented in this encounter Care Teams Carpenter Mold Relationship Specialty Start Date End Date Grayson Valladares MD [address] [place], [place] [address] PCP - General 06/03/10 08/26/11 documented as of this encounter
--- OUTSIDE RECORDS SUMMARY | 2024-03-02 14:14 | XMS_ITS | Encounter Summary ---
Author Organization [facility] Address [facility] [place] [address] Care Team Providers Care Rand Butting Machine Operator Name Role Phone Grayson Valladares MD Primary Care Provider [phone] Encounter Details Date Type Department Care Team (Latest Contact Info) Description 03/24/2011 3:11 PM EDT - 03/24/2011 11:59 PM EDT Hospital Encounter XRay at [address] [place] [address] Abdominal pain, other specified site Social History Tobacco Use Types Packs/Day Years [...] needed. acetaminophen (TYLENOL) 325 mg tablet 04/10/2010 ALPRAZolam (XANAX) 1 mg tablet Take 0.5 mg by mouth 3 times daily as needed. 05/23/2015 rifaximin (XIFAXIN) 550 mg Tab tabletIndications:Abdo prisca pain, other specified site,Bloating symptom Take 1 tablet by mouth 2 times daily for 10 days. 20 tablet 0 03/24/2011 04/03/2011 venlafaxine (EFFEXOR-XR) 150 mg 24 hr capsule Take 150 mg by mouth daily. Total of 225 mg 04/28/2021 mesalamine (PENTASA) 500 mg CR capsuleIndications:Compensation Intern hn's Take 4 capsules by mouth 2 times daily for 100 days. 100 capsule 3 03/24/2011 05/19/2011 Hsdrhzjosvokt-Rg-Tbhr- Minerals (WOMEN'S DAILY MULTIVITAMIN) 18-0.4 mg Tab Take 1 tablet by mouth daily. 05/23/2015 Ferrous Fumarate 325 mg (106 mg Iron) Tab Take 1 tablet by mouth daily. 05/23/2015 LORAZEPAM ORAL Take by mouth nightly as needed. Take 0.5-1.0 mg at bedtime as needed. 05/23/2015 Mesalamine (ASACOL HD) 800 mg TbEC Take 800 mg by mouth 2 times daily. 05/19/2011 sertraline (ZOLOFT) 100 mg tablet Take 100 mg by mouth daily. 05/23/2015 sertraline (ZOLOFT) 100 mg tablet 04/10/2010 05/23/2015 omeprazole (PRILOSEC) 20 mg capsule 04/10/2010 05/23/2015 documented as of this encounter Plan of Treatment Not on file documented as of this encounter Procedures Procedure Name Priority Date/Time Associated Diagnosis Comments XR ABDOMEN ACUTE SERIES W PA CHEST Routine 03/24/2011 3:26 PM EDT Abdominal pain, other specified site documented in this encounter Results * XR abdomen acute series with PA chest (03/24/2011 3:26 PM EDT) Anatomical Region Laterality Modality Abdomen, Chest N/A Radiographic Delilah ging 03/24/2011 3:26 PM EDT Impressions 03/25/2011 5:31 PM EDT IMPRESSION: 1. ??Normal chest x-ray. 2. ??No free intraabdominal air. ??No evidence of obstruction or ileus. Narrative 03/25/2011 5:31 PM EDT ACUTE ABDOMEN WITH CHEST: INDICATION: ??Abdominal pain. TECHNIQUE: ??PA chest. ??One upright and two AP supine views of the abdomen. COMPARISON: ??MRI of the abdomen, October 18, 2009. FINDINGS: CHEST: ??Lungs are clear. ??No pleural effusion. ??Normal size of heart and mediastinum. ?? ABDOMEN: ??No free intraabdominal air beneath the hemidiaphragms. ??Some fecal material and gas is seen along the colon. ??No dilated small bowel loops. ??No air-fluid levels. ??Incidental note is made of bilateral small labral calcifications of the hip joints. Procedure Note Sarah Miranda MD - 03/25/2011 ACUTE ABDOMEN WITH CHEST: INDICATION: Abdominal pain. TECHNIQUE: PA chest. One upright and two AP supine views of theabdomen. COMPARISON: MRI of the abdomen, October 18, 2009. FINDINGS: CHEST: Lungs are clear. No pleural effusion. Normal size of heart and mediastinum. ABDOMEN: No free intraabdominal air beneath the hemidiaphragms. Somefecal material and gas is seen along the colon. No dilated small bowel loops.No air-fluid levels. Incidental note is made of bilateral small labral calcifications of the hip joints. IMPRESSION IMPRESSION: 1. Normal chest x-ray. 2. No free intraabdominal air. No evidence of obstruction or ileus. Joseph Vasquez MD IMG DX ORDERABLES documented in this encounter Visit Diagnoses Diagnosis Abdominal pain, other specified site documented in this encounter Care Teams Rand Butting Machine Operator Relationship Specialty Start Date End Date Grayson Valladares MD [address] PCP - General 06/03/10 08/26/11 documented as of this encounter
--- OUTSIDE RECORDS SUMMARY | 2024-03-02 14:14 | XMS_ITS | Encounter Summary ---
Author Organization [facility] [place] [address] Care Team Providers Care Salt Plant Operator Name Role Phone Grayson Valladares MD Primary Care Provider [phone] Reason for Visit * Reason Onset Date Comments Results 03/27/2011 Encounter Details Date Type Department Care Team (Late st Contact Info) Description 03/27/2011 Telephone [place] [address] Altagracia Ng APRN [facility] [place] [address] Results Social History Tobacco Use Types Packs/Day Years [...] Telephone Encounter - Altagracia Ng APRN - 03/27/2011 11:02 AM EDT Recent AAS, normal, reviewed with patient. Continues to have abdominal pain. She has not started the rifaximin yet. She request if i could sent it to her pharmacy as the RX is with her . - instructed pentasa, - offerred entocort but pt declined. documented in this encounter Plan of Treatment Not on file documented as of this encounter Visit Diagnoses Diagnosis Bacterial overgrowth syndrome- Primary Other specified disorder of intestines documented in this encounter Care Teams Salt Plant Operator Relationship Specialty Start Date End Date Grayson Valladares MD [address] [place] [address] PCP - General 06/03/10 08/26/11 documented as of this encounter
--- OUTSIDE RECORDS SUMMARY | 2024-03-02 14:14 | XMS_ITS | Encounter Summary ---
Author Organization [facility] [place] [address] Care Team Providers Care Fish Hatchery Man Name Role Phone Grayson Valladares MD Primary Care Provider [phone] Reason for Visit * Reason Onset Date Comments Other 04/23/2011 medication luz elena tance program Encounter Details Date Type Department Care Team (Late st Contact Info) Description 04/23/2011 Tele[place] [address] Prudence Keith Other (medication assistance program) Social [...] * Telephone Encounter - Prudence Keith - 04/23/2011 3:03 PM EDT Medication Assistance Program: Rosa Miner referred Deb to [facility] for assistance with her Pentasa. I called Deb and left her a voicemail. I have mailed her a [employer] application forassistance with Pentasa. I will follow up when I have heard back from Deb or the application has been returned. documented in this encounter Plan of Treatment Not on file documented as of this encounter Visit Diagnoses Not on filedocumented in this encounter Care Teams Fish Hatchery Man Relationship Specialty Start Date End Date Grayson Valladares MD [address] [place] [address] PCP - General 06/03/10 08/26/11 documented as of this encounter
--- OUTSIDE RECORDS SUMMARY | 2024-03-02 14:14 | XMS_ITS | Encounter Summary ---
Author Organization [facility] [place] [address] Care Team Providers Care Patrol Commander Name Role Phone Grayson Hayes MD Primary Care Provider [phone] Reason for Visit * Reason Comments Crohn's Disease Encounter Details Date Type Department Care Team (Late st Contact Info) Description 05/05/2011 1:30 PM EDT [place] [address] Altagracia Ng, [facility] [place] [address] Bacterial overgrowth syndrome; Gastritis and duodenitis; Crohn disease Discharge Disposition: Home Social History Tobacco Use [...] Sign Reading Time Taken Comments Blood Pressure 120/70 05/05/2011 1:24 PM EDT Pulse 80 05/05/2011 1:24 PM EDT Temperature - - Respiratory Rate - - Oxygen Saturation - - Inhaled Oxygen Concentration - - Weight 78.3 kg (172 lb 9.6 oz) 05/05/2011 1:24 P M EDT Height 169.5 cm (5' 6.75) 05/05/2011 1:24 PM ED T Body Mass Index 27.24 05/05/2011 1:24 PM EDT documented in this encounter Patient Instructions * Patient Instructions* Altagracia Ng APRN - 05/05/2011 2:01 PM EDT - restart Augmentin ( 500/125), 1 tab BID and flagyl 500 mg 1 tab BID x 10 days. - Prilosec 40 mg1 tab 30 mins before breakfast with water only - Start Pentasa 2 gms twice daily. Please go to our Office of care Management for medication assistance - Miralax 1/2-1capful mix with a glass of water as needed for constipation - continue iron supplement BID documented in this encounter Progress Notes * Altagracia Ng APRN - 05/05/2011 1:34 PM EDT Primary care provider: GRAYSON HAYES MD Referring provider: Other providers: Reason for visit: Crohn's disease Problem List Patient Active Problem List Diagnoses Date Noted ??? Crohn's disease [555.9C] 03/25/2011 ??? Right wrist pain [719.43M] ??? Chronic diarrhea [787.91K] 03/23/2010 Detailed IBD History: # Crohns's disease, mild. - H/O diarrhea x 1 year (2008) then sxs improved since 07/2009. - H/O constipation as a teenager - H/O bulimia Testings: 08/21/09 EGD and colonoscopy ([facility], Dr. Ortega): 1. gastric antrum ulcer, [...] cells and giant cells. - 2009 colonoscopy [facility] [place], endoscopically looks normal but pathology suggestive of Crohn's. - 2009 EGD- biospy mild duodenitis, mild chronic inactive gastritis - 10/2008 TPMT 33.7 normal enzyme activity - 03/10/11 capsule endoscopy:mild Crohn's in the jejunum and distal ileum # Anemia - hgb 8.1, MCV 65.5 in 07/2009. - blood transfusion. - oral iron supplement Interval History: Patient returns for f/u. At last visit, we had recommended starting Pentasa, although weak therapy for Crohn's , however, given mild disease and patient's hesitation on starting immunomodulators and/or entocort we decided to try this. She could not afford the medication so advised to speak with [facility] for medication assistance program. She has not contacted them as of yet. In addition, we also recommended antibiotics as an empiric TX for possible bacterial overgrowth given sx's of bloating/gas and abdominal pain. I gave her RX for Rifaximin but due to cost unable to get. We had switched to Augmentin and Flagyl. She had great response while on this antibiotics, and tolerated it well. No abdominal pain, no bloating/gas while on antibiotics and for about 2 weeks off antibiotics. However, her sx's recur yesterday. She reports abdominal pain, bloating, similar to her previous sx's before starting above antibiotics. No diarrhea. She takes colace daily due to constipation. She attributes her constipation due to her iron supplement which was recently increased. She has the sensation of incomplete evacuation, having Bm once every other day, her stool can be hard, small - pellet size, hard to push, + mucus, no bleeding. She has been taking OTC Prilosec as advised but has ran out for the past 2-3 days. She queries if Icould write her a Rx instead given cost. No fever,+ chills,self-limited x2 No n/v No weight loss, but trying to loose weight. Of note, patient takes Motrin for back pain occasionally. She also reports that she's going to have surgery, hysterectomy sometime in May due to heavy menstrual bleeding. She gets occasional knee pain. The patient denies any other extraintestinal manifestations of IBD including ocular, oral, or dermatologic problems. History Social History Narrative ??? No narrative on file Review of systems as in the HPI, the rest of the review of systems were negative. Past Medical History, Social History and Family History is unchanged. Medications Outpatient encounter prescriptions as of 05/05/2011 Medication Sig Dispense Refill ??? ibuprofen (ADVIL;MOTRIN) 200 mg tablet Take 200 mg by mouth every 6 hours as needed. ??? venlafaxine (EFFEXOR-XR) 150 mg 24 hr capsule Take 150 mg by mouth daily. ??? mesalamine (PENTASA) 500 mg CR capsule Take 4 capsules by mouth 2 times daily for 100 days. 100capsule 3 ??? Iysurkhdbsxpc-Qb-Ztav-Minerals (WOMEN'S DAILY MULTIVITAMIN) 18-0.4 mg Tab Take 1 tablet by mouth daily. ??? Ferrous Fumarate 325 mg (106 mg Iron) Tab Take 1 tablet by mouth daily. ??? LORAZEPAM ORAL Take by mouth nightly as needed. Take 0.5-1.0 mg at bedtime as needed. ??? Mesalamine (ASACOL HD) 800 mg TbEC Take 800 mg by mouth 2 times daily. ??? sertraline (ZOLOFT) 100 mg tablet Take 100 mg by mouth daily. ??? sertraline (ZOLOFT) 100 mg tablet ??? omeprazole (PRILOSEC) 20 mg capsule ??? acetaminophen (TYLENOL) 325 mg tablet Allergies/Adverse reactions Dilaudid Physical Examination Patient appears well, NAD. Wt Readings from Last 3 Encounters: 03/24/11 76.114 kg (167 lb 12.8 oz) Last value Range last 24 hrs Heart Rte Heart Rate: -- Blood Pressure BP: ()/() Abd: normal BS, soft, mild tenderness on RLQ>LLQ on palpation, no masses, no hepatomegaly, no splenomegaly Recent labs Follow-Up on 03/24/2011 Component Date Value Range Status ??? WBC (x10(3)/mcL) 03/24/2011 5.0 4.0-10.0 Final ??? RBC (x10(6)/mcL) 03/24/2011 4.16 3.93-5.22 Final ??? Hemoglobin (gm/dL) 03/24/2011 9.8* 11.2-15.7 Final ??? Hematocrit (%) 03/24/2011 31.0* 34.0-45.0 Final ??? MCV (fL) 03/24/2011 74.5* 79.0-94.0 Final ??? MCH (pg) 03/24/2011 23.6* 26.6-32.2 Final ??? MCHC (gm/dL) 03/24/2011 31.6* 32.0-36.5 Final ??? Platelets (x10(3)/mcL) 03/24/2011 434* 145-370 Final ??? RDWSD (fL) 03/24/2011 40.6 35.0-46.0 Final ??? RDWCV (%) 03/24/2011 15.1* 10.9-14.4 Final ??? MPV (fL) 03/24/2011 8.7* 9.0-12.0 Final ??? Glucose Lvl (mg/dL) 03/24/2011 91 60-199 Final ??? BUN (mg/dL) 03/24/2011 8 8-18 Final ??? Creatinine (mg/dL) 03/24/2011 0.46* 0.70-1.20 Final ??? Sodium (mmol/L) 03/24/2011 140 135-145 Final ??? Potassium (mmol/L) 03/24/2011 3.7 3.5-5.0 Final ??? Chloride (mmol/L) 03/24/2011 104 98-107 Final ??? CO2 (mmol/L) 03/24/2011 29 22-31 Final ??? Anion Gap (mmol/L) 03/24/2011 7 5-15 Final ??? Calcium (mg/dL) 03/24/2011 8.9 8.5-10.5 Final ??? Total Protein (gm/dL) 03/24/2011 6.7 6.4-8.3 Final ??? Albumin (gm/dL) 03/24/2011 3.7 3.2-5.2 Final ??? AST (unit/L) 03/24/2011 19 0-30 Final ??? ALT (unit/L) 03/24/2011 24 0-30 Final ??? Alk Phos (unit/L) 03/24/2011 95 40-104 Final ??? Total Bilirubin (mg/dL) 03/24/2011 0.1* 0.2-1.3 Final ? ? Bili, Direct (mg/dL) 03/24/2011 <0.1 0.0-0.3 Final ? ? Estimated GFR 03/24/2011 >60 >=60 Final ??? CRP High Sens (mg/L) 03/24/2011 44.8 Final ??? Amylase (unit/L) 03/24/2011 57 28-100 Final ??? Lipase (unit/L) 03/24/2011 19 0-60 Final ??? Neutrophils % (%) 03/24/2011 47.9 34.0-71.0 Final ??? Neutr Abs (ANC) (x10(3)/mcL) 03/24/2011 2.37 1.50-6.30 Final ??? Lymphocytes % (%) 03/24/2011 36.0 19.0-53.0 Final ??? Lymphocytes Abs (x10(3)/mcL) 03/24/2011 1.8 1.0-3.6 Final ??? Monocytes % (%) 03/24/2011 13.3* 4.0-13.0 Final ??? Monocyte Abs (x10(3)/mcL) 03/24/2011 0.7 0.2-1.0 Final ??? Eosinophils % (%) 03/24/2011 2.4 0.0-7.0 Final ??? Eosinophils Abs (x10(3)/mcL) 03/24/2011 0.1 0.0-0.5 Final ??? Basophils % (%) 03/24/2011 0.2 0.0-2.0 Final ??? Basophils Abs (x10(3)/mcL) 03/24/2011 0.0 0.0-0.2 Final ??? Immature Gran % (%) 03/24/2011 0.20 0.00-0.66 Final ??? Kizzy Gran Abs (x10(3)/mcL) 03/24/2011 0.01 0.00-0.05 Final Orders Only on 03/11/2011 Component Date Value Range Status ??? VIDEO CAPSULE ENDOSCOPY 03/10/2011 Corrected Value:[facility] Endoscopy Patient Name: Deb Mullins Procedure Date: 03/10/2011 09:35:00 AM Date of : 1975 Age: 35 Procedure: Video capsule endoscopy Indications: Iron deficiency anemia, Suspected Crohn's disease of the small bowel, Chronic diarrhea Providers: Dale Cruz MD Referring MD: Grayson Hayes MD, Altagracia Ng MD, Joseph Vasquez MD Medicines: None Complications: No immediate complications Procedure: Pre-Anesthesia Assessment: - The risks and benefits of the procedure and the sedation options and risks were discussed with the patient. All questions were answered and informed consent was obtained. The SensorArray was applied to the patient's abdomen with adhesive pads and connected to the DataRecorder around the waist. The DataRecorder was checked to ensure green light was flashing. The patient was then instructed to ingest the M2A capsule and provided a glass of water. This was accomplished without difficulty. The patient was then given instructions for eating and drinking and was instructed to periodically monitor the DataRecorder throughout the day to insure proper transmission. Approximately eight hours later the patient returned for removal of the SensorArray. Findings: The capsule traversed the stomach in 45 minutes and then traversed the entire small bowel in 2 1/2 hrs. In the proximal jejunum there were several small discreet aphthous ulcers. There were a few more scattered similar appearing ulcers in the distal ileum. Impression: Scattered aphthous ulcers consistent with very mild Crohn's disease of the small bowel, more prominent in the proximal small bowel. - I read and interpreted this study today, February. Recommendation: - Return to GI clinic. Dale Cruz MD Signed Date: 03/11/2011 09:42:47 AM Number of Addenda: 0 Note initiated on 03/11/2011 09:35:10 AM Recent endoscopic procedures None Recent relevant imaging None Impression/Plan Patient with Crohn's disease. She has been reluctant in the past on taking any medications given feeling well. Recently, she has been experiencing mild symptoms(abdominal pain and constipation). She has had several testings done, Including: MRE was essentially normal. Her EGD and colonoscopy 2009 showed that endoscopically looks normal but pathology suggestive of Crohn's. Recent capsule endoscopywith mild Crohn's in the jejunum and distal ileum, see above. We recommended trial of Pentasa , even though this is a mild TX for Crohn's but given that she has mild disease, and she 's not really willing to try either entocort or 6MP/AZA as above. She has not started this yet due to cost. Of note, patient responds well with an empiric trial of antibiotics for bacterial overgrowth. Her sxs' recur recently after being off antibiotics for 2 weeks. We will try this again. Gastritis/duodenitis- continue Prilosec Constipation- recommend Miralax Anemia- continue iron supplements For now, - restart Augmentin ( 500/125), 1 tab BID and flagyl 500 mg 1 tab BID x 10 days. - Prilosec 40 mg1 tab 30 mins before breakfast with water only for duodenitis/gastritis - Start Pentasa 2 gms twice daily. - Miralax 1/2-1capful mix with a glass of water as needed for constipation - continue iron supplement BID - will repeat MRE in 6 months (will schedule at next visit) - If no significant improvement in sxs, consider repeat EGD/colo, will use propofol(she was uncomfortable at last scope) - She is going to our [facility] for medication assistance program. - Avoid excessive NSAIDs use, discussed effects on IBD - RTC in 8 weeks or sooner as needed 25 minutes of this 30 minutes appointment were spent in direct counseling regarding treatment of IBD. Please contact me if there are any further questions regarding the care of this patient. Alexander Ng APRN [facility] Section of Gastroenterology [place] [address] Subjective: Patient ID: Deb Mullins is a 35 y.o. female. HPI Review of Systems Objective: Physical Exam Assessment and Plan: No problem-specific visit notes found for this encounter. documented in this encounter Plan of Treatment Not on file documented as of this encounter Visit Diagnoses Diagnosis Bacterial overgrowth syndrome Other specified disorder of intestines Gastritis and duodenitis Unspecified gastritis and gastroduodenitis without mention of hemorrhage Crohn disease Regional enteritis of unspecified site documented in this encounter Care Teams Patrol Commander Relationship Specialty Start Date End Date Grayson Hayes MD [address] [place] [address] PCP - General 06/03/10 08/26/11 documented as of this encounter
--- OUTSIDE RECORDS SUMMARY | 2024-03-02 14:14 | XMS_ITS | Encounter Summary ---
Author Organization [facility] Address [facility] [place] [address] Care Team Providers Care Remelt Furnace Expediter Name Role Phone Marleni Gallagher APRN Primary Care Provider [phone] Encounter Details Date Type Department Care Team (Late st Contact Info) Description 03/01/2008 Orders [place] [address] Chris Winston MD [facility] [place] [address] Social History Tobacco Use Types Packs/Day Years [...] Associated Diagnosis Comments SURGICAL PATHOLOGY REPORT Routine 03/01/2008 11:45 AM EDT documented in this encounter Results * Surgical Pathology Report (03/01/2008 11:45 AM EDT) Surgical Pathology Report [id number] ? Location: [facility] The signing pathologist has (i) examined the relevant preparation(s) for the specimen(s) and (ii) rendered or confirmed the diagnosis(es). . ?Pathology Surgical Pathology Final Report Clinical Information Specimen Submitted: A - Recurrent Ganglion Cyst: ??Right Wrist Clinical History: Not provided Clinical Diagnosis: Recurrent ganglion cyst right wrist Gross Description Labeled/Fixative: ? Recurrent ganglion cyst, right wrist; fresh. Qty/Size/Weight: ?Single, 1.7 x 0.9 x 0.3 cm. Tissue Description: ?? Strange, pearly, smooth, glistening, rubbery fragment of ?tissue. Sections/Processi ng: ??(T1) ??aje/MGP Microscopic Description Slides reviewed, microscopic description not recorded. Diagnosis Soft tissue (right wrist), excision: ?? Fibrovascular tissue showing ganglion cyst. CR-0 03/02/08 JLK 03/02/08 Verified by: ? Black DO, Deysi C. ?Pathologist ?(Electronic Signature) The attending pathologist whose signature appears on this report has reviewed all diagnostic slides and has edited the gross and/or microscopic portion of the report in rendering the final pathologic diagnosis. ROBYN TORRES 03/01/2008 11:4 5 AM EDT Chris Winston MD PATHOLOGY/CYTOLOGY O ELAYNE ROBYN TORRES documented in this encounter Visit Diagnoses Not on filedocumented in this encounter Care Teams Remelt Furnace Expediter Relationship Specialty Start Date End Date Marleni Gallagher, [employer] [place] [address] PCP - General Family Medicine 12/11/16 documented as of this encounter
--- OUTSIDE RECORDS SUMMARY | 2024-03-02 14:14 | XMS_ITS | Encounter Summary ---
[place] [address] Care Team Providers Care Heart Surgeon Name Role Phone Grayson Valladares MD Primary Care Provider [phone] Encounter Details Date Type Department Care Team (Late st Contact Info) Description 04/03/2011 Telephone [place] [address] Rosa Burnette, RN Social History Tobacco Use Types Packs/Day [...] Miscellaneous Notes * Telephone Encounter - Rosa Miner RN - 04/06/2011 9:52 AM EDT Left message asking pt to call back. See recommendations below * Telephone Encounter - Altagracia Ng APRN - 04/06/2011 8:55 AM EDT Could you let her know my recommendations: - We could try Asacol 4.8 gms/day. - As far as empiric tx for bacterial overgrowth, instead of Rifaximin , we could try Augmentin ( 500/125), 1 tab BID x 7 days and flagyl 500 mg 1 tab BID x 7 days. - speak with our [facility] for med assistance program Thanks cd * Telephone Encounter - Rosa Miner RN - 04/03/2011 4:38 PM EDT Deb called reporting that she went to picking tech her Pentasa and antibiotics. She cannot afford these. Asking for something cheaper Will review with TANIA Crouch documented in this encounter Plan of Treatment Not on file documented as of this encounter Visit Diagnoses Not on filedocumented in this encounter Care Teams Heart Surgeon Relationship Specialty Start Date End Date Grayson Valladares MD [address] [place] [address] PCP - General 06/03/10 08/26/11 documented as of this encounter
--- OUTSIDE RECORDS SUMMARY | 2024-03-02 14:14 | XMS_ITS | Encounter Summary ---
Author [place] [address] Care Team Providers Care Thiokol Operator Name Role Phone Grayson Valladares MD Primary Care Provider [phone] Encounter Details Date Type Department Care Team (Late st Contact Info) Description 04/14/2011 Telephone [place] [address] Rosa Burnette, RN Social History Tobacco Use [...] Telephone Encounter - Altagracia Ng APRN - 04/14/2011 11:48 AM EDT Thanks * Telephone Encounter - Rosa Miner RN - 04/14/2011 11:27 AM EDT I called Deb and we discussed changing her medication from Xifaxin to flagyl and Augmentin per TANIA Crouch. Cannot afford pentasa and Asacol does not work for her. Per [facility] , there is an assistance program. [facility] will follow up with pt Pt notified. documented in this encounter Plan of Treatment Not on file documented as of this encounter Visit Diagnoses Not on filedocumented in this encounter Care Teams Thiokol Operator Relationship Specialty Start Date End Date Grayson Valladares MD [address] [place] [address] PCP - General 06/03/10 08/26/11 documented as of this encounter
--- OUTSIDE RECORDS SUMMARY | 2024-03-02 14:14 | XMS_ITS | Encounter Summary ---
[place] [address] Care Team Providers Care Lead Miner Blasting Name Role Phone Grayson Valladares MD Primary Care Provider [phone] Encounter Details Date Type Department Care Team (Late st Contact Info) Description 03/11/2011 [place] [address] Unknown None Social History Tobacco Use Types Packs/Day Years Used Date Smoking Tobacco: Never Assessed Sex and Gender Information Value Date Recorded Sex Assigned at Not on file Gender Identity Not on file Sexual Orientation Straight 03/18/2021 11 :23 AM EDT documented as of this encounter Plan of Treatment Not on file documented as of this encounter Procedures Procedure Name Priority Date/Time Associated Diagnosis Comments VIDEO CAPSULE ENDOSCOPY Routine 03/10/2011 9:35 AM EDT documented in this encounter Results * VIDEO CAPSULE ENDOSCOPY (03/10/2011 9:35 AM EDT) VIDEO CAPSULE ENDOSCOPY [facility] Endoscopy Patient Name: Deb Mullins ? Procedure Date: 03/10/2011 09:35:00 AM ? Date of : 1975 ? Age: 35 ? Procedure: ? Video capsule endoscopy Indications: ? Iron deficiency anemia, Suspected ? Crohn's disease of the small bowel, ? Chronic diarrhea Providers: ? Dale Cruz MD Referring : ?Grayson Valladares MD, Altagracia shanks ? MD Hernandez, Joseph Vasquez MD Medicines: ? None Complications: ? No immediate complications Procedure: ? Pre-Anesthesia Assessment: ? - The risks and benefits of the ? procedure and the sedation options ? and risks were discussed with the ? patient. All questions were answered ? and informed consent was obtained. ? The SensorArray was applied to the ? patient's abdomen with adhesive pads ? and connected to the DataRecorder ? around the waist. The DataRecorder ? was checked to ensure green light was ? flashing. The patient was then ? instructed to ingest the M2A capsule ? and provided a glass of water. This ? was accomplished without difficulty. ? The patient was then given ? instructions for eating and drinking ? and was instructed to periodically ? monitor the DataRecorder throughout ? the day to insure proper transmission. ? Approximately eight hours later the ? patient returned for removal of the ? SensorArray. ? Findings: ? The capsule traversed the stomach [...] Recommendation: ?- Return to GI clinic. ? ___ Dale Cruz MD Signed Date: 03/11/2011 09:42:47 AM Number of Addenda: 0 ? Note initiated on 03/11/2011 09:35:10 AM PROVATION 03/10/2011 9:35 AM EDT Unknown GENERAL SURGICAL ORD ERABLES PROVATION documented in this encounter Visit Diagnoses Not on filedocumented in this encounter Care Teams Lead Miner Blasting Relationship Specialty Start Date End Date Grayson Valladares MD [address] [place] [address] PCP - General 06/03/10 08/26/11 documented as of this encounter
--- OUTSIDE RECORDS SUMMARY | 2024-03-02 14:14 | XMS_ITS | Encounter Summary ---
Author Organization [facility] Address [facility] [place] [address] Care Team Providers Care Validation Scientist Name Role Phone Grayson Valladares MD Primary Care Provider Encounter Details Date Type Department Care Team (Late st Contact Info) Description 06/10/2010 10:30 AM EST Office [place] [address] Chris Winston MD [facility] [place] [address] Discharge Disposition: Home Social History Tobacco Use [...] on filedocumented in this encounter Care Teams Validation Scientist Relationship Specialty Start Date End Date Grayson Valladares MD [address] [place], [place] [id number] PCP - General 06/03/10 08/26/11 documented as of this encounter
--- OUTSIDE RECORDS SUMMARY | 2024-03-02 14:14 | XMS_ITS | Encounter Summary ---
Author Organization [facility] [place] [address] Care Team Providers Care Fruit Picker Name Role Phone Grayson Hayes MD Primary Care Provider [phone] Reason for Visit * Reason Comments Inflammatory Bowel Disease Encounter Details Date Type Department Care Team (Late st Contact Info) Description 03/24/2011 1:30 PM EDT [place] [address] Altagracia Ng, NUCLEAR ENGINEERING TECHNICIAN [facility] [place] [address] Abdominal pain, other specified site (Primary Dx); Bloating symptom; Crohn's Discharge Disposition: Home Social History Tobacco Use [...] Sign Reading Time Taken Comments Blood Pressure 100/60 03/24/2011 1:52 PM EDT Pulse - - Temperature - - Respiratory Rate - - Oxygen Saturation - - Inhaled Oxygen Concentration - - Weight 76.1 kg (167 lb 12.8 oz) 03/24/2011 1:52 PM EDT Height 170.8 cm (5' 7.25) 03/24/2011 1:52 PM ED T Body Mass Index 26.09 03/24/2011 1:52 PM EDT documented in this encounter Progress Notes * Altagracia Ng C, NUCLEAR ENGINEERING TECHNICIAN - 03/24/2011 2:15 PM EDT Primary care provider: GRAYSON HAYES MD Referring provider: Other providers: Reason for visit: Crohn's disease Problem List Patient Active Problem List Diagnoses Date Noted ??? Right wrist pain [719.43M] ??? Chronic diarrhea [787.91K] 03/23/2010 Detailed IBD History: # Crohns's disease, mild. - H/O diarrhea x 1 year (2008) then sxs improved since 07/2009. - h/O constipation as a teenager - h/o bulimia Testings: 08/21/09 EGD and colonoscopy ([facility], Dr. Ortega): 1. gastric antrum [...] cells and giant cells. - [address] [facility], endoscopically looks normal but pathology suggestive of Crohn's. - 2009 EGD- biospy mild duodenitis, mild chronic inactive gastritis - 10/2008 TPMT 33.7 normal enzyme activity # Anemia - hgb 8.1, MCV 65.5 in 07/2009. - blood transfusion Interval History: Patient presents to discuss testing(capsule endoscopy ) and GI symptoms. She has been asymptomatic without taking any Crohn's medication until recently. Over the past year, she has been experiencing occasional episodes of mild abdominal pain that comes and goes which is new. Previously with no abdominal pain/discomfort. Her symptoms have progressively gotten worse with more frequent episodes of abdominal pain. In addition, the past few months, she has the sensation of incomplete evacuation, having Bm once every other day, her stool can be hard, small - pellet size, hard to push, + mucus, no bleeding. She has taken colace last month which has helped. She has done a capsul endoscopy about 2 weeks ago and at that time, she was feeling relatively well. Shortly after this, she did not have a Bm for 5 days, felt very bloated and gas pains. She took laxatives which helped. Over the weekend, she did not feel well. She had flu-like sx's, with low grade fever, chills. She took tylenol and ibuprofen x 1 day. She had increased abdominal pain , more so than usual. [place] very gassy/bloated. [place] nauseous and vomited once. This occurred when she and her attended a wedding . Her was fine. She denies diarrhea. Since, she has been taking bland /soft food. Today, she is feeling better but not back to her normal baseline yet. She had moved her bowels yesterday, formed stool. However, still feels very gassy/bloated. This has been going on for about 6 months. No heartburn nor acid reflux. Initially on PPI but stopped. Weight stable. She gets occasional knee pain. The patient denies any other extraintestinal manifestations of IBD including ocular, oral, or dermatologic problems. Review of systems as in the HPI, the rest of the review of systems were negative. SOCIAL HISTORY: Tobacco:quit 2000. Smoked 1PPD x 4 years. 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 Great aunt- colon cancer mother- lung cancer in remission father- DM, hypertension, alcohol abuse Past Medical History, Social History and Family History is unchanged from the initial evaluation. Medications Outpatient encounter prescriptions as of 03/24/2011 Medication Sig Dispense Refill ??? Eifxoddaehqxi-Lt-Ohin-Minerals (WOMEN'S DAILY MULTIVITAMIN) 18-0.4 mg Tab Take [...] acetaminophen (TYLENOL) 325 mg tablet Allergies/Adverse reactions Review of patient's allergies indicates no known allergies. Physical Examination Patient appears well Wt Readings from Last 3 Encounters: No data found for Wt Last value Range last 24 hrs Heart Rte Heart Rate: -- Blood Pressure BP: ()/() Heart: regular Resp: CTA Abd: normal BS, soft/nontender diffusely, no masses, no hepatomegaly, no splenomegaly Extrem: no edema Recent labs Orders Only on 03/11/2011 Component Date Value Range Status ??? VIDEO CAPSULE ENDOSCOPY 03/11/2011 Final Value:[facility] Patient Name: Carlos Mendenhall Procedure Date: 03/11/2011 09:35:10 AM Date of : 1975 Age: 35 [...] more prominent in the proximal small bowel. Recommendation: - Return to GI clinic. Dale Cruz MD Signed Date: 03/11/2011 09:42:47 AM Number of Addenda: 0 Note initiated on 03/11/2011 09:35:10 AM Recent relevant imaging None MR OF THE ABDOMEN AND PELVIS WITH AND WITHOUT CONTRAST, 10/18/09: IMPRESSION: 1. Borderline enlarged mesenteric lymph nodes. 2. Gallstones. 3. Normal bowel wall enhancement, caliber and peristalsis. No MRI evidence for Crohn's. 01/09/2010 Upper GI endoscopy Findings: The esophagus was normal. The stomach was normal. Subtle nodularity in the duodenal bulb, otherwise normal examined duodenum. Impression: - Normal esophagus. - Normal stomach. - Subtle nodularity in duodenal bulb, likely normal Chano's gland hyperplasia, otherwise normal duodenum. - No signs of upper tract Crohn's disease. Biospies taken. 01/09/2010 Colonoscopy Findings: The terminal ileum appeared normal. Biopsies were taken with a cold forceps for histology. The colon (entire examined portion) appeared normal. Biopsies were taken with a cold forceps for histology. Tenderness on RICKY, possible tender skin tag/hemorrhoid, otherwise normal. Impression: - The examined portion of the ileum was normal. This was biopsied. - The entire examined colon is normal. This was biopsied. - No signs of active Crohn's disease, biopsies taken to evaluate for histologic signs of inflammation. ---Pathologic Diagnosis--- A - Duodenum, biopsy: Duodenal mucosa with focal duodenitis, nonspecific. B - Duodenal bulb, biopsy: Duodenal mucosa with mild duodenitis of peptic type. C - Stomach, biopsy: Gastric antrum-type and body/fundic-type mucosa with mild chronic inactive gastritis. D - Ileum, biopsy: Ileal mucosa with focal villous blunting, increased mononuclear infiltrate in the lamina propria, and epithelioid granulomata (see Note). Note: The findings are consistent with Crohn's disease. E - Colon, biopsy: Fragments of colonic mucosa with a foreign body granuloma around crystalloid material and no other diagnostic abnormality recognized. Impression/Plan Patient with Crohn's disease. She has been doing well on no Crohn's medications. She has been reluctant in the past on taking any medications given feeling well. Recently, she has been experiencing mild symptoms(abdominal pain and constipation). She has had several testings done, Including: MRE wasessentially normal. Her EGD and colonoscopy 2009 showed that endoscopically looks normal but pathology suggestive of Crohn's. Recent capsule endoscopy with mild Crohn's in the jejunum and distal ileum, see above. We discussed tx options including entocort, which she did not want to try for fear of weight gain. We also discussed use of immunomodulators(6MP/AZA) which we had discussed extensively in the past and reviewed again today with her . Risks/benefits. Despite this, she is still very hesitant on starting this medication. She argues that her symptoms are very mild, with occasional abdominal pain except this past weekend. However, today she is feeling better. She does feels very bl oated/gassy, ? bacterial overgrowth. ? viral syndrome. But having more constipation issues recently. Colace was helpful in the past , and we could try Miralax as well. For now, - will obtain labs and acute abdominal series today - We will try Rifaximin 550 mg 1 tab BID x 10 days an an empiric tx for possible bacterial overgrowth. - consider MRE, EGD/colonoscopsy to restage disease - will restart Prilosec 20 mg once daily for duodenitis/gastritis - will try iron supplement, ferrous gluconate, 1 tab daily as tolerated(did not tolerate Ferrous sulfate before-GI upset) Addendum: Results for CARLOS MENDENHALL ( ) as of 03/24/2011 19:10 Ref. Range 03/24/2011 15:07 WBC Latest Range: 4.0-10.0 x10(3)/mcL 5.0 RBC Latest Range: 3.93-5.22 x10(6)/mcL 4.16 Hemoglobin Latest Range: 11.2-15.7 gm/dL 9.8 (L) Hematocrit Latest Range: 34.0-45.0 % 31.0 (L) MCV Latest Range: 79.0-94.0 fL 74.5 (L) MCH Latest Range: 26.6-32.2 pg 23.6 (L) MCHC Latest Range: 32.0-36.5 gm/dL 31.6 (L) RDWSD Latest Range: 35.0-46.0 fL 40.6 RDWCV Latest Range: 10.9-14.4 % 15.1 (H) Platelets Latest Range: 145-370 x10(3)/mcL 434 (H) MPV Latest Range: 9.0-12.0 fL 8.7 (L) Neutr Abs (ANC) Latest Range: 1.50-6.30 x10(3)/mcL 2.37 Neutrophils % Latest Range: 34.0-71.0 % 47.9 Immature Gran % Latest Range: 0.00-0.66 % 0.20 Lymphocytes % Latest Range: 19.0-53.0 % 36.0 Monocytes % Latest Range: 4.0-13.0 % 13.3 (H) Eosinophils % Latest Range: 0.0-7.0 % 2.4 Basophils % Latest Range: 0.0-2.0 % 0.2 Kizzy Gran Abs Latest Range: 0.00-0.05 x10(3)/mcL 0.01 Lymphocytes Abs Latest Range: 1.0-3.6 x10(3)/mcL 1.8 Monocyte Abs Latest Range: 0.2-1.0 x10(3)/mcL 0.7 Eosinophils Abs Latest Range: 0.0-0.5 x10(3)/mcL 0.1 Basophils Abs Latest Range: 0.0-0.2 x10(3)/mcL 0.0 Total Bilirubin Latest Range: 0.2-1.3 mg/dL 0.1 (L) Bili, Direct Latest Range: 0.0-0.3 mg/dL <0.1 Alk Phos Latest Range: 40-104 unit/L 95 AST Latest Range: 0-30 unit/L 19 ALT Latest Range: 0-30 unit/L 24 Sodium Latest Range: 135-145 mmol/L 140 Potassium Latest Range: 3.5-5.0 mmol/L 3.7 Chloride Latest Range: 98-107 mmol/L 104 CO2 Latest Range: 22-31 mmol/L 29 Anion Gap Latest Range: 5-15 mmol/L 7 BUN Latest Range: 8-18 mg/dL 8 Creatinine Latest Range: 0.70-1.20 mg/dL 0.46 (L) Estimated GFR Latest Range: >=60 >60 Glucose Lvl Latest Range: 60-199 mg/dL 91 Calcium Latest Range: 8.5-10.5 mg/dL 8.9 Total Protein Latest Range: 6.4-8.3 gm/dL 6.7 Albumin Latest Range: 3.2-5.2 gm/dL 3.7 Amylase Latest Range: 28-100 unit/L 57 Lipase Latest Range: 0-60 unit/L 19 CRP High Sens No range found 44.8 Labs resulted after I saw pt in clinic. Anemia and elevated inflammatory markers likely due to Crohn's disease. I discussed this patient with Dr. Vasquez, and reviewed recent findings as above. He recommend trial of Pentasa , even though this is a mild TX for Crohn's but given that she has mild disease, and she 's not really willing to try either entocort or 6MP/AZA as above. - Pentasa 2 gms BID. RX e-fax to her pharmacy. Could start after she has taken Rifaximin in a week to monitor for possible adverse reactions. - Consider repeat MRE in 6 months. - If no significant improvement in sxs, consider repeat EGD/colo, will use propofol(she was uncomfortable at last scope) - RTC in 6 weeks I reviewed this with patient and she's agrees to this plans. documented in this encounter Plan of Treatment Not on file documented as of this encounter Procedures Procedure Name Priority Date/Time Associated Diagnosis Comments DIFFERENTIAL, AUTOMATED Routine 03/24/2011 3:07 PM EDT CBC (WITH DIFF) Routine 03/24/2011 3:07 PM EDT Abdominal pain, other specified site CRP, CARDIAC RISK (HS CRP) Routine 03/24/2011 3:07 PM EDT Abdominal pain, other specified site LIPASE Routine 03/24/2011 3:07 PM EDT Abdominal pain, other specified site AMYLASE Routine 03/24/2011 3:07 PM EDT Abdominal pain, other specified site COMPREHENSIVE METABOLIC PANEL Routine 03/24/2011 3:07 PM EDT Abdominal pain, other specified site UPPER GI ENDOSCOPY Routine 03/24/2011 2: 32 PM EDT Abdominal pain, other specified site COLONOSCOPY Routine 03/24/2011 2:32 PM EDT Abdominal pain, other specified site [...] ileus. Joseph Vasquez MD IMG DX ORDERABLES * (ABNORMAL) REFLEX LAB-A-DIFF (03/24/2011 3:07 PM EDT) Neutrophil % 47.9 34.0 - 71.0 % CERNER MILLENNIUM Neutrophil Absolute 2.37 1.50 - 6.30 x10(3)/mc L CERNER MILLENNIUM Lymph % 36.0 19.0 - 53.0 % CERNER MILLENNIUM Lymphocytes Abs 1.8 1.0 - 3.6 x10(3)/mc L CERNER MILLENNIUM Monocyte % 13.3(H) 4.0 - 13.0 % CERNER MILLENNIUM Monocyte Abs 0.7 0.2 - 1.0 x10(3)/mc L CERNER MILLENNIUM Eos % 2.4 0.0 - 7.0 % CERNER MILLENNIUM Eosinophils Abs 0.1 0.0 - 0.5 x10(3)/mc L CERNER MILLENNIUM Basophil % 0.2 0.0 - 2.0 % CERNER MILLENNIUM Baso Absolute 0.0 0.0 - 0.2 x10(3)/mc L CERNER MILLENNIUM Immature Gran % 0.20 0.00 - 0.66 % CERNER MILLENNIUM Comment: Immature granulocytes(IG's)percentage and absolute count will include metamyelocytes, myelocytes, and promyelocytes. Blood smears from CBCs yielding IG's will be scanned manually for concordance. If this scan disagrees with the automated IG or if promyelocytes are noted, a manual differential will be performed. Immature Gran Absolute 0.01 0.00 - 0.05 x10(3)/mc L CERNER MILLENNIUM Blood specimen (specimen) 03/24/2011 3:07 PM EDT 03/24/2011 3:19 PM EDT Joseph Vasquez MD HEMATOLOGY ORDERABLE S Performing Organization Address [facility] de Phone Number [facility] * Lipase (03/24/2011 3:07 PM EDT) Lipase 19 0 - 60 unit/L CERNER MILLENNIUM Blood specimen (specimen) 03/24/2011 3:07 PM EDT 03/24/2011 3:19 PM EDT Joseph Vasquez MD CHEMISTRY ORDERABLES Performing Organization Address [facility] Co de Phone Number [facility] * Amylase (03/24/2011 3:07 PM EDT) Amylase 57 28 - 100 unit/L CERNER MILLENNIUM Blood specimen (specimen) 03/24/2011 3:07 PM EDT 03/24/2011 3:19 PM EDT Joseph Vasquez MD CHEMISTRY ORDERABLES Performing Organization Address [facility] Co de Phone Number [facility] * High Sensitivity CRP (03/24/2011 3:07 PM EDT) C-Reactive Protein High Sensitivity 44.8 mg/L ROBYN TORRES Comment: Interpretations: 1) For cardiac risk assessment, two values (fasting or nonfasting sample acceptable) taken at least 2 weeks apart, should be averaged to provide a more reliable estimate of marker level. ??This laboratory uses the recommendations from the AHA/CDC Scientific Statement for interpretations of future risks of cardiovascular events: ? <1.0 mg/L: low risk 1.0 - 3.0 mg/L: moderate risk >3.0 mg/L: high risk groups for future cardiovascular events 2) The general reference range of apparently healthy individuals using this test is <5.0 mg/L (derived from the test package insert) A few words of caution: For cardiac assessment, when a value >10 mg/L is encountered, there should be a search for an acute inflammatory condition or infection (in patients with acute inflammation, the concentration can increase to >500 mg/L). ??The >10 mg/L should be discarded if such a situation exists, since the risk for coronary heart disease cannot be provided, and a repeat specimen, taken at least two weeks after resolution of the acute inflammatory condition, may allow for appraisal of coronary risk information. References: 1. Dave EMJIA et. al. ??AHA/CDC Scientific Statement: Markers of Inflammation and Cardiovascular Disease. ??Circulation 2003; 107:499-511 2. Juan PM. ??Clinical applications of C-reactive protein for cardiovascular disease detection and prevention. ??Circulation 2003; 107:363-369 Blood specimen (specimen) 03/24/2011 3:07 PM EDT 03/24/2011 3:19 PM EDT Joseph Vasquez MD CHEMISTRY ORDERABLES ROBYN TORRES * (ABNORMAL) Comprehensive metabolic panel (non-fasting) (03/24/2011 3:07 PM EDT) Glucose 91 60 - 199 mg/dL ROBYN DERASIUM Comment:Diabetes: >=200 mg/d L plus symptoms Blood Urea Nitrogen 8 8 - 18 mg/dL ROBYN PelikonLOBOIUM Creatinine 0.46(L) 0.70 - 1.20 mg/dL CERNER MILLENNIUM Sodium 140 135 - 145 mmol/L CERNER MILLENNIUM Potassium 3.7 3.5 - 5.0 mmol/L CERNER MILLENNIUM Comment: Please note: ??Patients with WBC >100,000 may have falsely elevated Potassium levels. ??For accurate Potassium quantification in these patients send serum separator tube (gold top) for subsequent determinations. ??Contact the Clinical Chemistry Laboratory if there are any questions. Chloride 104 98 - 107 mmol/L CERNER MILLENNIUM Carbon Dioxide 29 22 - 31 mmol/L CERNER MILLENNIUM Anion Gap 7 5 - 15 mmol/L CERNER MILLENNIUM Calcium 8.9 8.5 - 10.5 mg/dL CERNER MILLENNIUM Protein, Total 6.7 6.4 - 8.3 gm/dL CERNER MILLENNIUM Albumin 3.7 3.2 - 5.2 gm/dL CERNER MILLENNIUM Aspartate Aminotransferase 19 0 - 30 unit/L CERNER MILLENNIUM Alanine Aminotransferase 24 0 - 30 unit/L CERNER MILLENNIUM Alkaline Phosphatase 95 40 - 104 unit/L CERNER MILLENNIUM Bilirubin, Total 0.1(L) 0.2 - 1.3 mg/dL CERNER MILLENNIUM Bilirubin, Direct <0.1 0.0 - 0.3 mg/dL CERNER MILLENNIUM Est Glomerular Filtration Rate >60 >=60 CERNER MILLENNIUM Comment: The National Kidney Disease Education Program (NKDEP) has recommended all laboratories report estimated GFR (eGFR) along with plasma creatinine measurements to assist you with recognition of early kidney disease. Caveats: ??Plasma creatinine should be at steady-state (unchanged within the past week). For patients multiply eGFR by 1.2.MDRD equation has not been validated for pediatric patients and is only valid for patients with age >= 18 years. At present, NKDEP does NOT recommend using the MDRD equation for drug dosing purposes and pharmacists should continue to use their current dosing methods. In addition, numerical eGFR values greater than 60 ml/min/1.73 square meters should be treated as > 60, and not an exact number due to greater inaccuracies at these higher values. Per NKDEP, they classify normal renal function as any GFR >60ml/min/1.73 square meters; chronic kidney disease when GFR <60, and renal failure when GFR <15. ??This calculation may not be valid for patients with atypical muscle mass (very lean or obese), acute renal failure, and in patients with diabetic kidney disease. References: http://nkdep.nih.gov/resources/NKDEP_Suggestn4Labs_0606_508.pdf http://www.kidney.org/professionals/kls/pdf/faq_gfr.pdf Blood specimen (specimen) 03/24/2011 3:07 PM EDT 03/24/2011 3:19 PM EDT Joseph Vasquez MD CHEMISTRY ORDERABLES Performing Organization Address City/State/[facility] Co de Phone Number CERNER MILLENNIUM * (ABNORMAL) CBC (with Diff) (03/24/2011 3:07 PM EDT) White Blood Cell 5.0 4.0 - 10.0 x10(3)/mc L CERNER MILLENNIUM Red Blood Cell 4.16 3.93 - 5.22 x10(6)/mc L CERNER MILLENNIUM Hemoglobin 9.8(L) 11.2 - 15.7 gm/dL CERNER MILLENNIUM Hematocrit 31.0(L) 34.0 - 45.0 % CERNER MILLENNIUM Mean Cell Volume 74.5(L) 79.0 - 94.0 fL CERNER MILLENNIUM Mean Cell Hemoglobin 23.6(L) 26.6 - 32.2 pg CERNER MILLENNIUM Mean Cell Hemoglobin Concentration 31.6(L) 32.0 - 36.5 gm/dL CERNER MILLENNIUM Platelet 434(H) 145 - 370 x10(3)/mc L CERNER MILLENNIUM RDW Standard Deviation 40.6 35.0 - 46.0 fL CERNER MILLENNIUM RDW coefficient of variation 15.1(H) 10.9 - 14.4 % CERNER MILLENNIUM Mean Platelet Volume 8.7(L) 9.0 - 12.0 fL CERNER MILLENNIUM Blood specimen (specimen) 03/24/2011 3:07 PM EDT 03/24/2011 3:19 PM EDT Joseph Vasquez MD HEMATOLOGY ORDERABLE S ROBYN TORRES documented in this encounter Visit Diagnoses Diagnosis Abdominal pain, other specified site- Primary Bloating symptom Flatulence, eructation, and gas pain Crohn's Regional enteritis of unspecified site Abdominal pain, other specified site documented in this encounter Care Teams Fruit Picker Relationship Specialty Start Date End Date Grayson Hayes MD [address] [place] [address] PCP - General 06/03/10 08/26/11 documented as of this encounter
--- OUTSIDE RECORDS SUMMARY | 2024-03-02 14:14 | XMS_ITS | Encounter Summary ---
Author Organization [facility] Address [facility] [place] [address] Care Team Providers Care [employer] Name Role Phone Marleni Gallagher APRN Primary Care Provider [phone] Encounter Details Date Type Department Care Team (Late st Contact Info) Description 01/09/2010 Orders [place] [address] Joseph Vasquez MD [facility] [place] [address] Social History Tobacco Use Types Packs/Day Years [...] Associated Diagnosis Comments SURGICAL PATHOLOGY REPORT Routine 01/09/2010 12:28 PM EDT documented in this encounter Results * Surgical Pathology Report (01/09/2010 12:28 PM EDT) Surgical Pathology Report [id number] ? Location: 4T The signing pathologist has (i) examined the relevant preparation(s) for the specimen(s) and (ii) rendered or confirmed the diagnosis(es). . ?Pathology Surgical Pathology Final Report Clinical Information Specimen Submitted: A - Bxs duodenum B - Bxs duodenal bulb C - Bxs gastric D - Bxs ileum E - Bxs colon Clinical History: Questionable HX of Crohn's disease, but normal EGD and colonoscopy today ? histologic evidence of inflammation. Clinical Diagnosis: Restate Crohn's disease Gross Description A - Labeled/Fixativ e: Duodenum, formalin. Qty/Size/Weight : ?Four, ranging from 0.1 cm to 0.4 cm in greatest ?dimension. Tissue Description: ?? Soft, waters tissues. Sections/Proces sing: ??(T1) B - Labeled/Fixativ e: Duodenal bulb biopsies, formalin. Qty/Size/Weight : ?Four, ranging from 0.1 cm to 0.3 cm in greatest ?dimension. Tissue Description: ?? Soft, waters tissues. Sections/Proces sing: ??(T1) C - Labeled/Fixativ e: Gastric biopsies, formalin. Qty/Size/Weight : ?Two, averaging 0.2 x 0.2 x 0.2 cm. Tissue Description: ?? Soft, waters tissues. Sections/Proces sing: ??(T1) D - Labeled/Fixativ e: Ileum, formalin. Qty/Size/Weight : ?Five, averaging 0.3 x 0.2 x 0.2 cm. Tissue Description: ?? Soft, waters tissues. Sections/Proces sing: ??(T1) E - Labeled/Fixativ e: Colon biopsies, formalin. Qty/Size/Weight : ?Five, averaging 0.3 x 0.3 x 0.2 cm. Tissue Description: ?? Soft, waters tissues. Sections/Proces sing: ??(T1) ??aje/SNS Microscopic Description Slides reviewed, microscopic description not recorded. Diagnosis A - Duodenum, biopsy: ?Duodenal mucosa with focal duodenitis, nonspecific. B - Duodenal bulb, biopsy: ?Duodenal mucosa with mild duodenitis of peptic type. . Diagnosis C - Stomach, biopsy: ?Gastric antrum-type and body/fundic-typ e mucosa with mild chronic ?inactive gastritis. D - Ileum, biopsy: ?Ileal mucosa with focal villous blunting, increased ?mononuclear infiltrate in the lamina propria, and epithelioid ?granulomata (see Note). Note: The findings are consistent with Crohn's disease. E - Colon, biopsy: ?Fragments of colonic mucosa with a foreign body granuloma around ?crystalloid material and no other diagnostic abnormality recognized. CR-0, CR-PX 01/10/10 JLK 01/13/10 Verified by: ? Sammy Crane MD ?Pathologist ?(Electronic Signature) The attending pathologist whose signature appears on this report has reviewed all diagnostic slides and has edited the gross and/or microscopic portion of the report in rendering the final pathologic diagnosis. ROBYN TORRES 01/09/2010 12:2 8 PM EDT Joseph Vasquez MD PATHOLOGY/CYTOLOGY O RDERAMILE Performing Organization Address City/State/[facility] Co de Phone Number [facility] documented in this encounter Visit Diagnoses Not on filedocumented in this encounter Care Teams [employer] E[employer] Relationship Specialty Start Date End Date Marleni Gallagher, [address] [facility] [place] [address] PCP - General Family Medicine 12/11/16 documented as of this encounter
[2024-03-02 19:29] LABS: Abs Immature Grans 0.03 10^3/uL (0.0-0.06); Absolute Basophil Count 0.05 10^3/uL (0.0-0.2); Absolute Eosinophil Count 0.17 10^3/uL (0.0-0.7); Absolute Lymphocyte Count 2.16 10^3/uL (1.2-3.4); Absolute Monocyte Count 0.48 10^3/uL (0.1-0.8); Absolute Neutrophil Count 3.98 10^3/uL (1.2-6.7); Basophils % 0.7 %; Eosinophils % 2.5 %; HCT 42.3 % (36.0-46.0); HGB 14.4 g/dL (11.2-15.7); Immature Grans % 0.4 %; Lymphocytes % 31.4 %; MCH 30.8 pg (27.0-33.0); MCV 91 fL (80-95); MPV 9.5 fL (8.0-11.0); Platelet Count 414 10^3/uL (130-400); RBC 4.67 10^6/uL (3.93-5.22); RDW 12.4 % (11.7-14.6); RDW-SD 40.8 fL; WBC 6.87 10^3/uL (4.4-10.8)
[2024-03-02 19:42] LABS: Iron 112 ug/dL (50-170); Total Iron Binding Capacity 411 ug/dL (250-450); Transferrin Sat 27 % (15-50)
[2024-03-02 19:47] LABS: Hemoglobin A1C 5.4 % (<5.7)
[2024-03-02 20:12] LABS: ALT 60 U/L (14-59); AST 27 U/L (15-37); Albumin 4.4 g/dL (3.4-5.0); Alkaline Phosphatase 91 U/L (46-116); Anion Gap 9.2 mmol/L (3-11); BUN 14 mg/dL (7-18); Bilirubin, Total 0.46 mg/dL (0.2-1.0); CO2 26.8 mmol/L (21.0-32.0); CREATININE 0.8 mg/dL (0.55-1.02); Calcium 9.9 mg/dL (8.5-10.1); Chloride 103 mmol/L (98-107); Ferritin 90 ng/mL (8-252); Folate 14.3 ng/mL (8.6-20.0); Glucose 87 mg/dL (74-106); Potassium 4.7 mmol/L (3.5-5.1); Sodium 139 mmol/L (136-145); TSH 1.68 uIU/Ml (0.36-3.74); Total Protein 8.1 g/dL (6.4-8.2); Vitamin B12 > 2000 pg/mL (193-986)
[2024-03-02 20:28] LABS: FREE T4 0.95 ng/dL (0.76-1.46)
== END 2024-03-02 13:55 | disposition home or self-care (01) ==
LOC: NCHCN 13:54
PROVIDERS: PCP Nurse Practitioner Family; Visit Provider Nurse Practitioner Family
DX: Z68.32 Body mass index [BMI] 32.0-32.9, adult (principal); Z86.2 Personal history of diseases of the blood and blood-forming organs and certain disorders involving the immune mechanism; E66.9 Obesity, unspecified
CPT/HCPCS: 80053; 82607; 82728; 82746; 83036; 83540; 83550; 84439; 84443; 85025

== ENCOUNTER 2024-03-09 14:58 | Outpatient (REF) | payer OTHER, SELFPAY | END 2024-03-09 14:59 | disposition home or self-care (01) | LOC: LBN 14:58 | PROVIDERS: PCP Nurse Practitioner Family; Visit Provider Physician Assistant | DX: N39.0 Urinary tract infection, site not specified (principal) | CPT/HCPCS: 87077; 87086; 87186 ==

== ENCOUNTER 2024-07-24 08:28 | Outpatient (CLI) | payer OTHER, SELFPAY ==
--- NOTE | 2024-07-24 06:00 | DI.RAD_ITS ---
Exam(s) XR PAIN CLINIC LUMBAR SP 2V EXAM: XR PAIN CLINIC LUMBAR SP 2V CLINICAL HISTORY: DX: Lumbar Radiculopathy. TECHNIQUE: Fluoroscopy was provided for the referring physician for guidance with performing pain cl inic injection procedure. COMPARISON: No exams were available for comparison FINDINGS: Please see procedure note for details. Fluoro time: 12.4 seconds RADIATION DOSE DELIVERED: Ka,r=3.86 mGy
[2024-07-24 08:36] VITALS: BP 138/97; PULSE 78; RESP 20; TEMP 37; O2SAT 99
--- NOTE | 2024-07-24 08:44 | PDOC.PAIN_ITS ---
Date of service: 07/24/24 Time of Service: 09:10 Pain Managment Procedure Note Procedure Note Procedure Note: Lumbar Interlaminar Epidural Steroid Injection ? Location: L4-5 ? Pre-procedure Diagnosis: M54.16- Radiculopathy, LUMBAR region ? Post-procedure Diagnosis:? The same as above ? Sedation:? ? None ? Medication: Depo-Medrol 80 mg, Omnipaque 1 mL ? Estimated blood loss:? less than 2 cc ? Surgeon:? Vincent Morrison MD COMMENT: moderate spinal stenosis at L4-5 and a disc protrusion though it is eccentric to the left.? Procedure Detail:? The procedure and potential risks were explained to the patient and informed written consent was obtained. The patient was escorted to the procedure room and placed in the prone position. Pillows were utilized for proper positioning and comfort. Time out was performed in the procedure room with nursing staff confirming the patient's identity, procedure to be performed, allergies, and any blood thinning or anti-platelet medications.? The patient's n mone and upper back was prepped with ChloraPrep and draped in a sterile fashion. Sterile technique was maintained throughout the procedure.? Sterile gloves were used, a face mask was worn, and new single dose vials of all medications were used with the top being swabbed with alcohol and given time to dry prior to withdrawal of medication. Lidocane 1% was used to anesthetize the skin.Using a 25-gauge 1.5 inch needle, 1% lidocaine was instilled into the superficial soft tissue overlying the targeted area to provide local anesthesia. With fluoroscopic guidance, a 18 -gauge Tuohy needle was advanced toward the interlaminar space of L4-5. The needle was then advance through the ligamentum flavum and into the posterior epidural space using the loss of resistance technique. Correct needle placement was confirmed through review of the AP and contralateral oblique fluoroscopic views. Following negative aspiration, one cc of Omnipaque 240 contrast was injected which confirmed good flow throughout the epidural space and no evidence of vascular flow or flow into adjacent compartments. Next, following negative aspiration, 1 cc's of normal saline and 80mg of Depo-Medrol was injected. The needle was gently removed. The patient tolerated the procedure well and was transported to the recovery area for observation and discharge instructions. Permanent images saved and recorded. PAIN PRE-PROCEDURE 03/21 POST-PROCEDURE 09/18 Plan:? Follow up prn. COMMENT: Depending on how she does there are several options to consider going forward for her right thigh pain would consider lateral femoral cutaneous nerve back. For her axial back pain consider facet/medial branch blocks and radiofrequency ablation versus basivertebral nerve ablation.
[2024-07-24 08:59] VITALS: O2SAT 99
[2024-07-24 09:00] VITALS: O2SAT 97
[2024-07-24] MEDS: methylPREDNISolone ACETATE 40 MG/ML VIAL IJ (09:11)
[2024-07-24] MEDS: Omnipaque 240 MG/ML 50 ML BTL IJ (09:12)
== END 2024-07-24 08:29 | disposition home or self-care (01) ==
LOC: PC 08:29
PROVIDERS: PCP Nurse Practitioner Family; Visit Provider Anesthesiology Pain Medicine
DX: M54.16 Radiculopathy, lumbar region (principal)
CPT/HCPCS: 00123; 62323; 72100; J1010; Q9967

== ENCOUNTER 2024-09-06 13:30 | Outpatient (CLI) | payer OTHER, SELFPAY ==
--- NOTE | 2024-09-06 06:00 | DI.RAD_ITS ---
Exam(s) XR PAIN CLINIC LUMBAR SP 2V EXAM: XR PAIN CLINIC LUMBAR SP 2V CLINICAL HISTORY: Dx: Lumbar Spondylosis. TECHNIQUE: Fluoroscopy was provided for the referring physician for guidance with performing pain cl inic injection procedure. COMPARISON: No exams were available for comparison FINDINGS: Please see procedure note for details. Fluoro time: 34.4 seconds RADIATION DOSE DELIVERED: Christenr=12.39 mGy
--- NOTE | 2024-09-06 13:40 | PDOC.PAIN ---
Date of service: 09/06/24 Time of Service: 15:31 Pain Managment Procedure Note Procedure Note Procedure Note: Diagnostic Lumbar Facet Joint Injection ? Location: Bilateral Lumbar Facet Joints ? Levels: L4-5, L5-S1 ? Pre-procedure Diagnosis: M47.817 Spondylosis without myelopathy or radiculopathy, lumbosacral region M47.816 Spondylosis without myelopathy or radiculopathy, lumbar region ? Post-procedure Diagnosis:? The same as above ? Sedation:? None ? Estimated blood loss:? less than 2 cc ? Surgeon: Vincent Morrison MD COMMENT: Decision was made to proceed with intra-articular facet injections for the possibility of not having to do medial branch blocks and radiofrequency ablation if patient get long lasting relief (> 3 months). ? Procedure Detail:? The procedure and potential risks were explained to the patient and informed written consent was obtained. The patient was escorted to the procedure room and placed in the prone position. Pillows were utilized for proper positioning and comfort.? Time out was performed in the procedure room with nursing staff confirming the patient's identity, procedure to be performed, allergies, and any blood thinning or anti-platelet medications.? Sterile technique was maintained throughout the procedure.? The patient's lumbosacral area was prepped with chlorhexidine and draped in a sterile fashion. Lidocaine 1% was used to anesthetize the skin. An oblique fluoroscopic view was obtained, with visualization of the facet joint.? A 22gauge, Quincke needle was gently advanced through the facet capsule.? Needle placement was confirmed with fluoroscopy in AP, oblique, and lateral views by injecting 0.25cc of contrast.? 20 mg of Depomedrol and 0.5ml of 0.5% bupivacaine was injected into the capsule at L4-5 Bilateral. This was repeat at L5-S1 Bilateral? The patient tolerated the procedure well and was transported to recovery area for observation and discharge instructions. Permanent images saved and recorded. Plan:? Follow up prn COMMENT:Pain went from 5 /10 to 4/10. Pain? 20 % better. Will use this as both diagnostic and potentially therapeutic.? With short-term relief from the level that it was not long-lasting then we will proceed with for LMBB #2 and possible radiofrequency ablation.
[2024-09-06 14:17] VITALS: BP 141/91; PULSE 79; RESP 18; TEMP 36.6; O2SAT 98
[2024-09-06 15:03] VITALS: PULSE 88; O2SAT 96
[2024-09-06 15:10] VITALS: PULSE 80; O2SAT 96
[2024-09-06] MEDS: Bupivacaine 0.5% Pres-Free 10 ML VIAL IJ (15:29)
[2024-09-06] MEDS: Nerve Block Tray 1 EACH MC (15:29)
[2024-09-06] MEDS: Omnipaque 240 MG/ML 50 ML BTL IJ (15:30)
[2024-09-06] MEDS: methylPREDNISolone ACETATE 80 MG/ML VIAL IJ (15:30)
== END 2024-09-06 13:31 | disposition home or self-care (01) ==
LOC: PC 13:30
PROVIDERS: PCP Nurse Practitioner Family; Visit Provider Anesthesiology Pain Medicine
DX: M47.817 Spondylosis without myelopathy or radiculopathy, lumbosacral region (principal); M47.816 Spondylosis without myelopathy or radiculopathy, lumbar region; M54.50 Low back pain, unspecified
CPT/HCPCS: 00123; 64493; 64494; 72100; J0665; J1010; Q9967

== ENCOUNTER 2024-11-17 21:02 | Outpatient (REF) | payer SELFPAY ==
[2024-11-17 16:27] LABS: Abs Immature Grans 0.02 10^3/uL (0.0-0.06); Absolute Basophil Count 0.04 10^3/uL (0.0-0.2); Absolute Eosinophil Count 0.27 10^3/uL (0.0-0.7); Absolute Lymphocyte Count 2.16 10^3/uL (1.2-3.4); Absolute Monocyte Count 0.36 10^3/uL (0.1-0.8); Absolute Neutrophil Count 3.29 10^3/uL (1.2-6.7); Basophils % 0.7 %; Eosinophils % 4.4 %; HCT 35.5 % (36.0-46.0); HGB 12.1 g/dL (11.2-15.7); Immature Grans % 0.3 %; Lymphocytes % 35.2 %; MCH 30.1 pg (27.0-33.0); MCHC 34.1 % (32.0-36.0); MCV 88 fL (80-95); MPV 10.1 fL (8.0-11.0); Monocytes % 5.9 %; Neutrophils % 53.5 %; Platelet Count 443 10^3/uL (130-400); RBC 4.02 10^6/uL (3.93-5.22); RDW 13.5 % (11.7-14.6); RDW-SD 43.8 fL; WBC 6.14 10^3/uL (4.4-10.8)
[2024-11-17 17:04] LABS: Hemoglobin A1C 5.3 % (<5.7)
[2024-11-17 17:21] LABS: ALT 31 U/L (14-59); AST 17 U/L (15-37); Albumin 4.3 g/dL (3.4-5.0); Alkaline Phosphatase 91 U/L (46-116); Anion Gap 7.6 mmol/L (3-11); BUN 11 mg/dL (7-18); Bilirubin, Total 0.4 mg/dL (0.2-1.0); CO2 29.4 mmol/L (21.0-32.0); CREATININE 0.6 mg/dL (0.55-1.02); Calcium 9.4 mg/dL (8.5-10.1); Chloride 104 mmol/L (98-107); Estimated GFR 110.65 (mL/min/1.73m2); Glucose 78 mg/dL (74-106); Potassium 4.1 mmol/L (3.5-5.1); Sodium 141 mmol/L (136-145); TSH (W/Ref FT4) 1.16 uIU/mL (0.36-3.74); Total Protein 7.4 g/dL (6.4-8.2)
== END 2024-11-17 21:03 | disposition home or self-care (01) ==
LOC: NCHCN 21:02
PROVIDERS: PCP Nurse Practitioner Family; Visit Provider Student in an Organized Health Care Education/Training Program
DX: Z68.32 Body mass index [BMI] 32.0-32.9, adult (principal); E66.9 Obesity, unspecified
CPT/HCPCS: 80053; 83036; 84443; 85025

== ENCOUNTER 2025-03-22 14:52 | Outpatient (REF) | payer SELFPAY ==
[2025-03-22 15:58] LABS: Abs Immature Grans 0.03 10^3/uL (0.0-0.06); HCT 38.2 % (36.0-46.0); HGB 12.7 g/dL (11.2-15.7); Immature Grans % 0.4 %; MCH 29.3 pg (27.0-33.0); MCHC 33.2 % (32.0-36.0); MCV 88 fL (80-95); MPV 10.0 fL (8.0-11.0); Platelet Count 381 10^3/uL (130-400); RBC 4.34 10^6/uL (3.93-5.22); RDW 12.5 % (11.7-14.6); RDW-SD 40.8 fL; WBC 7.06 10^3/uL (4.4-10.8)
[2025-03-22 16:37] LABS: ALT 23 U/L (14-59); AST 10 U/L (15-37); Albumin 4.0 g/dL (3.4-5.0); Alkaline Phosphatase 84 U/L (46-116); Anion Gap 7.8 mmol/L (3-11); BUN 12 mg/dL (7-18); Bilirubin, Total 0.3 mg/dL (0.2-1.0); CO2 27.2 mmol/L (21.0-32.0); Calcium 9.4 mg/dL (8.5-10.1); Chloride 105 mmol/L (98-107); Estimated GFR 110.65 (mL/min/1.73m2); Glucose 92 mg/dL (74-106); Potassium 4.5 mmol/L (3.5-5.1); Sodium 140 mmol/L (136-145); Total Protein 7.1 g/dL (6.4-8.2)
[2025-03-22 17:35] LABS: TSH (W/Ref FT4) 1.86 uIU/mL (0.36-3.74)
== END 2025-03-22 14:53 | disposition home or self-care (01) ==
LOC: NCHCN 14:52
PROVIDERS: PCP Nurse Practitioner Family; Visit Provider Student in an Organized Health Care Education/Training Program
DX: R53.83 Other fatigue (principal)
CPT/HCPCS: 80053; 84443; 85025

== ENCOUNTER 2025-04-18 02:07 | Outpatient (CLI) | payer SELFPAY ==
--- NOTE | 2025-04-18 | DI.MRI_ITS ---
Exam(s) MR LUMBAR SPINE WO EXAM: MR LUMBAR SPINE WO CLINICAL HISTORY: LUMBAR RADICULOPATHY M54.16. TECHNIQUE: Multiplanar multisequence MRI of the Lumbar spine was performed. COMPARISON: MR MR LUMBAR SPINE WO from 10/26/2023 FINDINGS: Conus medullaris is at normal level. There is no evidence of conus mass nor subjacent clumping of intrathecal nerve roots to suggest arachnoiditis. The distal thecal sac appears unremarkable.There is no evidence of Tarlov intrasacral cysts nor other significant findings within the sacral canal Bones:There are no fractures nor ominous osseous lesions in the lumbar vertebral bodies and visualized sacrum. Is a benign intraosseous hemangioma noted in the right-side of the 0 4 vertebral body, similar to previous. With respect to the individual levels... T12-L1: Unremarkable L1-2: Normal disc height and signal. No disc herniation nor central canal stenosis.No foraminal stenosis L2-3: Normal disc height. No disc herniation nor central canal stenosis.No foraminal stenosis.No facet arthropathy. L3-4: Normal disc height. No disc herniation or central canal stenosis.No foraminal stenosis.Mild bilateral facet arthropathy. L4-5: Decreased disc height which is most prominent on the left side of this disc space where there are Modic-type 1 and 2 sub endplate changes. There is broad annular bulging with a superimposed left disc herniation at this level which extends into the floor of the exiting left neural foramen, unchanged from 10/26/2023. Disc findings at this level are unchanged from 10/26/2023 with central and left paracentral broad eccentric disc bulging which is again noted hernandez into the exiting left neural foramen resulting in an element of moderate left-sided foraminal stenosis. There is also moderate central spinal canal stenosis due to the disc bulging and short AP dimensions the pedicles and mild facet hypertrophy. This finding appears similar to the MRI scan of October 2023. L5-S1: Mild disc space narrowing, unchanged from October 2023. Central subligamentous disc bulge again noted to indent the thecal sac at this level. Does not extend into the exiting neural foramen which are nicely patent. There is, however, mild-moderate central spinal canal stenosis again noted. No significant neural foraminal stenosis. Moderate facet arthropathy on the right side. Minimal facet degenerative changes on the left side. Soft tissues: paraspinal soft tissues appear unremarkable. IMPRESSION: 1. Multilevel findings as described above but essentially unchanged from the prior MRI scan of 10/26/2023. 2. There is significant spinal canal stenosis at L4-5 and L5-S1 levels and there is significant left-sided foraminal stenosis again noted at L4-5 level. DATA REPOSITORY:
== END 2025-04-18 02:27 ==
PROVIDERS: PCP Nurse Practitioner Family; Visit Provider Student in an Organized Health Care Education/Training Program
DX: M51.361 Other intervertebral disc degeneration, lumbar region with lower extremity pain only (principal); M99.63 Osseous and subluxation stenosis of intervertebral foramina of lumbar region; M54.16 Radiculopathy, lumbar region
CPT/HCPCS: 72148

== ENCOUNTER 2025-06-28 18:34 | Outpatient (REF) | payer SELFPAY ==
[2025-06-28 19:36] LABS: Glucose Negative (Negative)
[2025-06-28 19:43] LABS: C & S Indicated? Yes; WBC >50 HPF (0-5)
== END 2025-06-28 18:35 | disposition home or self-care (01) ==
LOC: NCHCN 18:34
PROVIDERS: PCP Student in an Organized Health Care Education/Training Program; Visit Provider Student in an Organized Health Care Education/Training Program
DX: R30.0 Dysuria (principal)
CPT/HCPCS: 87077; 81003; 81015; 87086; 87186